=== PATIENT | female | born 1975 | race Asian ===

== ENCOUNTER → 2020-03-02 14:13 | Outpatient (BNVA) | payer OTHER, SELFPAY | PROVIDERS: PCP Internal Medicine; Visit Provider Hospitalist | DX: Q21.1 Atrial septal defect (principal); G47.33 Obstructive sleep apnea (adult) (pediatric); I26.99 Other pulmonary embolism without acute cor pulmonale; I82.409 Acute embolism and thrombosis of unspecified deep veins of unspecified lower extremity | CPT/HCPCS: 99212 ==

== ENCOUNTER → 2020-03-30 11:45 | Outpatient (REF) | payer OTHER, SELFPAY | LOC: HO.SL 11:45 | PROVIDERS: Visit Provider Hospitalist | DX: G47.33 Obstructive sleep apnea (adult) (pediatric) (principal); R06.83 Snoring; Z99.89 Dependence on other enabling machines and devices | CPT/HCPCS: 95806 ==

== ENCOUNTER → 2020-05-13 09:59 | Outpatient (BNVA) | payer OTHER, SELFPAY | PROVIDERS: Visit Provider Hospitalist | DX: I26.94 Multiple subsegmental thrombotic pulmonary emboli without acute cor pulmonale (principal); Q21.1 Atrial septal defect; I82.409 Acute embolism and thrombosis of unspecified deep veins of unspecified lower extremity; R06.00 Dyspnea, unspecified; J45.40 Moderate persistent asthma, uncomplicated | CPT/HCPCS: 99212 ==

== ENCOUNTER → 2020-06-07 12:52 | Outpatient (BNVA) | payer OTHER, SELFPAY | PROVIDERS: Visit Provider Internal Medicine Gastroenterology | DX: K59.01 Slow transit constipation (principal); K21.9 Gastro-esophageal reflux disease without esophagitis | CPT/HCPCS: Q3014 ==

== ENCOUNTER → 2020-06-09 13:19 | Outpatient (REF) | payer OTHER, SELFPAY ==
--- NOTE | ~2020-06-09 | XR_ITS ---
EXAMINATION: XR CHEST CLINICAL INFORMATION: R06.00 - Dyspnea, unspecified COMPARISON: Chest radiographs 02/06/2008 and 10/10/2007 TECHNIQUE: 2 views of the chest were obtained. FINDINGS: There is no airspace consolidation or definite groundglass opacity. No hyperinflation. The costophrenic sulci are clear. The heart is normal in size. The vascularity is normal. The hilar and mediastinal contours are unremarkable. No acute bony abnormality. XR/XR chest 2V IMPRESSION: Unremarkable examination.
--- NOTE | ~2020-06-09 | NM_ITS ---
EXAMINATION: PULMONARY PERFUSION STUDY CLINICAL INFORMATION: Dyspnea, question pulmonary embolus. COMPARISON: No previous lung scan is available for comparison. Radiographs of the chest dated 06/09/2020, the same date as this lung scan are available for comparison. TECHNIQUE: Following the intravenous administration of 4.0 mCi Tc-99m MAA an 8-view perfusion study was performed using a dual detector gamma scintillation camera. No ventilation images were obtained. FINDINGS: Perfusion images: No perfusion abnormalities are present. There is minimal heterogeneity in the lungs, not definitely outside the limits of normal. No focal anatomic appearing perfusion defects are present. NM/NM pul perfusion IMPRESSION: Very low probability of pulmonary embolism.
== END ==
LOC: HO.NUCMED 13:19
PROVIDERS: Visit Provider Hospitalist
DX: I26.99 Other pulmonary embolism without acute cor pulmonale (principal); R06.00 Dyspnea, unspecified
CPT/HCPCS: 71046; 78580; A9540

== ENCOUNTER 2020-08-12 10:27 | Outpatient (REF) | payer OTHER, SELFPAY ==
[2020-08-12 12:10] LABS: MANUAL DIFF FLAG NO
[2020-08-12 12:19] LABS: Basophils Absolute Auto 0.1 X10*3/uL (0.0-0.2); Basophils Percent Auto 0.9 % (0-2); Eosinophils Absolute Auto 0.4 X10*3/uL (0.0-0.4); Eosinophils Percent Auto 5.5 % (0-4); Hemoglobin 13.6 g/dl (12.0-16.0); Imm Gran Abs Auto 0.01 X10*3/uL (0.00-0.03); Imm Gran Pct Auto 0.2 % (0.0-0.4); Lymphocytes Absolute Auto 3.3 X10*3/uL (1.2-4.9); Lymphocytes Percent Auto 50.8 % (20-40); Mean Corpuscular HGB Conc 32.4 g/dl (31.0-35.0); Mean Corpuscular Hemoglobin 28.3 pg (27.0-33.0); Mean Corpuscular Volume 87.3 fL (80-98); Mean Platelet Volume 11.4 fL (9.4-12.3); Monocytes Absolute Auto 0.4 X10*3/uL (0.1-1.2); Monocytes Percent Auto 5.9 % (2-11); Neutrophils Absolute Auto 2.4 X10*3/uL (2.0-8.3); Neutrophils Percent Auto 36.7 % (45-73); Platelet Count 278 X10*3/uL (160-400); Red Blood Count 4.81 X10*6/uL (4.20-5.50); Red Cell Distribution Width 12.7 % (11.0-16.0); White Blood Count 6.6 X10*3/uL (4.8-10.8)
[2020-08-12 12:43] LABS: Alanine Aminotransferase 21 U/L (0-31); Albumin Level 4.1 g/dL (3.5-5.0); Alkaline Phosphatase 76 U/L (39-117); Anion Gap 11 (12-20); Aspartate Amino Transferase 23 U/L (5-31); Bilirubin Direct 0.3 mg/dL (0.0-0.5); Bilirubin Total 0.9 mg/dL (0.0-1.0); Blood Urea Nitrogen 17 mg/dL (9-16); Calcium 9.9 mg/dL (8.4-10.2); Carbon Dioxide 31 mmol/L (22-29); Chloride 104 mmol/L (96-108); Estimated Glomerular Filt Rate > 60; Glucose Random 104 mg/dL (60-115); Potassium 4.2 mmol/L (3.3-5.1); Sodium 142 mmol/L (135-145)
[2020-08-12 13:02] LABS: Erythrocyte Sedimentation Rate 16 MM/HR (0-20)
[2020-08-12 13:05] LABS: Vitamin D 25-OH Total 47.7 ng/mL (>30)
[2020-08-14 12:21] LABS: Anti Nuclear Antibody Screen NEGATIVE (NEGATIVE)
[2020-08-20 14:02] LABS: Vitamin D 25-OH, D2 <4 ng/mL; Vitamin D 25-OH, D3 38 ng/mL; Vitamin D 25-OH, Total 38 ng/mL (30-100)
== END 2020-08-12 10:28 | disposition home or self-care (01) ==
LOC: HO.LAB 10:27
PROVIDERS: PCP Internal Medicine; Visit Provider Hospitalist
DX: J45.40 Moderate persistent asthma, uncomplicated (principal); I26.94 Multiple subsegmental thrombotic pulmonary emboli without acute cor pulmonale; G47.33 Obstructive sleep apnea (adult) (pediatric); I82.409 Acute embolism and thrombosis of unspecified deep veins of unspecified lower extremity; Z79.01 Long term (current) use of anticoagulants; Q21.1 Atrial septal defect
CPT/HCPCS: 36415; 80048; 80076; 82306; 85025; 85652; 86038; 86039; 99212

== ENCOUNTER → 2020-09-13 13:33 | Outpatient (BNVA) | payer OTHER, SELFPAY | PROVIDERS: PCP Internal Medicine; Visit Provider Internal Medicine | DX: I82.402 Acute embolism and thrombosis of unspecified deep veins of left lower extremity (principal); Z51.81 Encounter for therapeutic drug level monitoring; Z79.01 Long term (current) use of anticoagulants | CPT/HCPCS: 85610; 99201 ==

== ENCOUNTER → 2020-09-16 14:00 | Outpatient (BNVA) | payer OTHER, SELFPAY | PROVIDERS: PCP Internal Medicine; Visit Provider Internal Medicine | DX: I82.402 Acute embolism and thrombosis of unspecified deep veins of left lower extremity (principal); Z51.81 Encounter for therapeutic drug level monitoring; Z79.01 Long term (current) use of anticoagulants | CPT/HCPCS: 85610; 99211 ==

== ENCOUNTER → 2020-09-20 16:22 | Outpatient (BNVA) | payer OTHER, SELFPAY | PROVIDERS: PCP Internal Medicine; Visit Provider Internal Medicine | DX: I82.402 Acute embolism and thrombosis of unspecified deep veins of left lower extremity (principal); Z51.81 Encounter for therapeutic drug level monitoring; Z79.01 Long term (current) use of anticoagulants | CPT/HCPCS: 85610; 99211 ==

== ENCOUNTER → 2020-09-28 11:11 | Outpatient (BNVA) | payer OTHER, SELFPAY | PROVIDERS: PCP Internal Medicine; Visit Provider Internal Medicine | DX: I82.402 Acute embolism and thrombosis of unspecified deep veins of left lower extremity (principal); Z51.81 Encounter for therapeutic drug level monitoring; Z79.01 Long term (current) use of anticoagulants | CPT/HCPCS: 85610; 99211 ==

== ENCOUNTER → 2020-10-01 09:46 | Outpatient (BNVA) | payer OTHER, SELFPAY | PROVIDERS: PCP Internal Medicine; Visit Provider Internal Medicine | DX: I82.402 Acute embolism and thrombosis of unspecified deep veins of left lower extremity (principal); Z51.81 Encounter for therapeutic drug level monitoring; Z79.01 Long term (current) use of anticoagulants | CPT/HCPCS: 85610; 99211 ==

== ENCOUNTER → 2020-10-05 09:45 | Outpatient (BNVA) | payer OTHER, SELFPAY | PROVIDERS: PCP Internal Medicine; Visit Provider Internal Medicine | DX: I82.402 Acute embolism and thrombosis of unspecified deep veins of left lower extremity (principal); Z51.81 Encounter for therapeutic drug level monitoring; Z79.01 Long term (current) use of anticoagulants | CPT/HCPCS: 85610; 99211 ==

== ENCOUNTER → 2020-10-08 09:57 | Outpatient (BNVA) | payer OTHER, SELFPAY | PROVIDERS: PCP Internal Medicine; Visit Provider Internal Medicine | DX: I82.402 Acute embolism and thrombosis of unspecified deep veins of left lower extremity (principal); Z51.81 Encounter for therapeutic drug level monitoring; Z79.01 Long term (current) use of anticoagulants | CPT/HCPCS: 85610 ==

== ENCOUNTER → 2020-10-12 10:26 | Outpatient (BNVA) | payer OTHER, SELFPAY | PROVIDERS: PCP Internal Medicine; Visit Provider Internal Medicine | DX: I82.402 Acute embolism and thrombosis of unspecified deep veins of left lower extremity (principal); Z51.81 Encounter for therapeutic drug level monitoring; Z79.01 Long term (current) use of anticoagulants | CPT/HCPCS: 85610; 99211 ==

== ENCOUNTER → 2020-10-15 09:59 | Outpatient (BNVA) | payer OTHER, SELFPAY | PROVIDERS: PCP Internal Medicine; Visit Provider Internal Medicine | DX: I82.402 Acute embolism and thrombosis of unspecified deep veins of left lower extremity (principal); Z51.81 Encounter for therapeutic drug level monitoring; Z79.01 Long term (current) use of anticoagulants | CPT/HCPCS: 85610; 99211 ==

== ENCOUNTER → 2020-10-19 09:45 | Outpatient (BNVA) | payer OTHER, SELFPAY | PROVIDERS: PCP Internal Medicine; Visit Provider Internal Medicine | DX: I82.402 Acute embolism and thrombosis of unspecified deep veins of left lower extremity (principal); Z51.81 Encounter for therapeutic drug level monitoring; Z79.01 Long term (current) use of anticoagulants | CPT/HCPCS: 85610; 99211 ==

== ENCOUNTER → 2020-10-20 11:04 | Outpatient (BNVA) | payer OTHER, SELFPAY | PROVIDERS: PCP Internal Medicine; Visit Provider Hospitalist | DX: G47.33 Obstructive sleep apnea (adult) (pediatric) (principal); J45.40 Moderate persistent asthma, uncomplicated; Q21.1 Atrial septal defect; I82.409 Acute embolism and thrombosis of unspecified deep veins of unspecified lower extremity; Z79.01 Long term (current) use of anticoagulants | CPT/HCPCS: 99212 ==

== ENCOUNTER → 2020-10-21 09:54 | Outpatient (BNVA) | payer OTHER, SELFPAY | PROVIDERS: PCP Internal Medicine; Visit Provider Internal Medicine | DX: I82.402 Acute embolism and thrombosis of unspecified deep veins of left lower extremity (principal); Z79.01 Long term (current) use of anticoagulants; Z51.81 Encounter for therapeutic drug level monitoring | CPT/HCPCS: 85610; 99211 ==

== ENCOUNTER → 2020-10-25 10:58 | Outpatient (BNVA) | payer OTHER, SELFPAY | PROVIDERS: PCP Internal Medicine; Visit Provider Internal Medicine | DX: I82.402 Acute embolism and thrombosis of unspecified deep veins of left lower extremity (principal); Z51.81 Encounter for therapeutic drug level monitoring; Z79.01 Long term (current) use of anticoagulants | CPT/HCPCS: 85610; 99211 ==

== ENCOUNTER → 2020-10-28 11:07 | Outpatient (BNVA) | payer OTHER, SELFPAY | PROVIDERS: PCP Internal Medicine; Visit Provider Internal Medicine | DX: I82.402 Acute embolism and thrombosis of unspecified deep veins of left lower extremity (principal); Z51.81 Encounter for therapeutic drug level monitoring; Z79.01 Long term (current) use of anticoagulants | CPT/HCPCS: 85610; 99211 ==

== ENCOUNTER → 2020-11-02 09:52 | Outpatient (BNVA) | payer OTHER, SELFPAY | PROVIDERS: PCP Internal Medicine; Visit Provider Internal Medicine | DX: I82.402 Acute embolism and thrombosis of unspecified deep veins of left lower extremity (principal); Z79.01 Long term (current) use of anticoagulants; Z51.81 Encounter for therapeutic drug level monitoring | CPT/HCPCS: 85610; 99211 ==

== ENCOUNTER → 2020-11-05 09:52 | Outpatient (BNVA) | payer OTHER, SELFPAY | PROVIDERS: PCP Internal Medicine; Visit Provider Internal Medicine | DX: I82.402 Acute embolism and thrombosis of unspecified deep veins of left lower extremity (principal); Z51.81 Encounter for therapeutic drug level monitoring; Z79.01 Long term (current) use of anticoagulants | CPT/HCPCS: 85610; 99211 ==

== ENCOUNTER → 2020-11-09 10:12 | Outpatient (BNVA) | payer OTHER, SELFPAY | PROVIDERS: PCP Internal Medicine; Visit Provider Internal Medicine | DX: I82.402 Acute embolism and thrombosis of unspecified deep veins of left lower extremity (principal); Z51.81 Encounter for therapeutic drug level monitoring; Z79.01 Long term (current) use of anticoagulants | CPT/HCPCS: 85610; 99211 ==

== ENCOUNTER → 2020-11-12 10:01 | Outpatient (BNVA) | payer OTHER, SELFPAY | PROVIDERS: PCP Internal Medicine; Visit Provider Internal Medicine | DX: I82.402 Acute embolism and thrombosis of unspecified deep veins of left lower extremity (principal); Z51.81 Encounter for therapeutic drug level monitoring; Z79.01 Long term (current) use of anticoagulants | CPT/HCPCS: 85610; 99212 ==

== ENCOUNTER → 2020-11-16 10:47 | Outpatient (BNVA) | payer OTHER, SELFPAY | PROVIDERS: PCP Internal Medicine; Visit Provider Internal Medicine | DX: I82.402 Acute embolism and thrombosis of unspecified deep veins of left lower extremity (principal); Z51.81 Encounter for therapeutic drug level monitoring; Z79.01 Long term (current) use of anticoagulants | CPT/HCPCS: 85610; 99211 ==

== ENCOUNTER → 2020-11-17 10:54 | Outpatient (BNVA) | payer OTHER, SELFPAY | PROVIDERS: PCP Internal Medicine; Visit Provider Internal Medicine | DX: I82.402 Acute embolism and thrombosis of unspecified deep veins of left lower extremity (principal); Z51.81 Encounter for therapeutic drug level monitoring; Z79.01 Long term (current) use of anticoagulants | CPT/HCPCS: 85610; 99211 ==

== ENCOUNTER → 2020-11-19 10:17 | Outpatient (BNVA) | payer OTHER, SELFPAY | PROVIDERS: PCP Internal Medicine; Visit Provider Internal Medicine | DX: I82.402 Acute embolism and thrombosis of unspecified deep veins of left lower extremity (principal); Z51.81 Encounter for therapeutic drug level monitoring; Z79.01 Long term (current) use of anticoagulants | CPT/HCPCS: 85610; 99211 ==

== ENCOUNTER → 2020-11-22 09:35 | Outpatient (BNVA) | payer OTHER, SELFPAY | PROVIDERS: PCP Internal Medicine; Visit Provider Internal Medicine | DX: I82.402 Acute embolism and thrombosis of unspecified deep veins of left lower extremity (principal); Z51.81 Encounter for therapeutic drug level monitoring; Z79.01 Long term (current) use of anticoagulants | CPT/HCPCS: 85610; 99211 ==

== ENCOUNTER → 2020-11-26 09:49 | Outpatient (BNVA) | payer OTHER, SELFPAY | PROVIDERS: PCP Internal Medicine; Visit Provider Internal Medicine | DX: I82.402 Acute embolism and thrombosis of unspecified deep veins of left lower extremity (principal); Z51.81 Encounter for therapeutic drug level monitoring; Z79.01 Long term (current) use of anticoagulants | CPT/HCPCS: 85610; 99211 ==

== ENCOUNTER → 2020-11-30 10:00 | Outpatient (BNVA) | payer OTHER, SELFPAY | PROVIDERS: PCP Internal Medicine; Visit Provider Internal Medicine | DX: I82.402 Acute embolism and thrombosis of unspecified deep veins of left lower extremity (principal); Z51.81 Encounter for therapeutic drug level monitoring; Z79.01 Long term (current) use of anticoagulants | CPT/HCPCS: 85610; 99211 ==

== ENCOUNTER → 2020-12-02 09:24 | Outpatient (BNVA) | payer OTHER, SELFPAY | PROVIDERS: PCP Internal Medicine; Visit Provider Physician Assistant | DX: K21.9 Gastro-esophageal reflux disease without esophagitis (principal); G47.33 Obstructive sleep apnea (adult) (pediatric); Z79.01 Long term (current) use of anticoagulants | CPT/HCPCS: 99212 ==

== ENCOUNTER → 2020-12-03 13:48 | Outpatient (BNVA) | payer OTHER, SELFPAY | PROVIDERS: PCP Internal Medicine; Visit Provider Internal Medicine | DX: I82.401 Acute embolism and thrombosis of unspecified deep veins of right lower extremity (principal); Z51.81 Encounter for therapeutic drug level monitoring; Z79.01 Long term (current) use of anticoagulants | CPT/HCPCS: 85610; 99211 ==

== ENCOUNTER → 2020-12-07 10:25 | Outpatient (BNVA) | payer OTHER, SELFPAY | PROVIDERS: PCP Internal Medicine; Visit Provider Internal Medicine | DX: I82.401 Acute embolism and thrombosis of unspecified deep veins of right lower extremity (principal); Z51.81 Encounter for therapeutic drug level monitoring; Z79.01 Long term (current) use of anticoagulants | CPT/HCPCS: 85610; 99211 ==

== ENCOUNTER 2020-12-09 09:56 | Outpatient (REF) | payer OTHER, SELFPAY ==
--- NOTE | ~2020-12-09 | FL_ITS ---
EXAMINATION: FL BARIUM SWALLOW CLINICAL INFORMATION: Obstructive sleep apnea. COMPARISON: None. TECHNIQUE: Barium swallow examination is performed using fluoroscopic evaluation in addition to multiple fluoroscopic spot views. The patient is imaged both upright and prone and using both thick and thin sulfate along with effervescent granules. Fluoroscopy time: 2.2 minutes DAP: 31.22 Gycm2 Images: 49 FINDINGS: Following oral administration of thick barium and barium-coated turkey in upright view, there is normal propagation bolus from the oral cavity through the pharynx and esophagus and into the stomach without any evidence of obstruction, narrowing or stricture. On placing patient in right lateral decubitus lying view and oral administration of thin barium, there is a small gastroesophageal reflux with a small sliding hiatal hernia. 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 FL/FL barium swallow IMPRESSION: Widely patent esophagus with no obstruction. Likely small sliding hiatal hernia with mild gastroesophageal reflux.
== END 2020-12-09 09:57 | disposition home or self-care (01) ==
LOC: HO.XRAY 09:56
PROVIDERS: Visit Provider Physician Assistant
DX: K21.9 Gastro-esophageal reflux disease without esophagitis (principal); G47.33 Obstructive sleep apnea (adult) (pediatric); Z79.01 Long term (current) use of anticoagulants
CPT/HCPCS: 74220

== ENCOUNTER → 2020-12-10 11:09 | Outpatient (BNVA) | payer OTHER, SELFPAY | PROVIDERS: PCP Internal Medicine; Visit Provider Internal Medicine | DX: I82.401 Acute embolism and thrombosis of unspecified deep veins of right lower extremity (principal); Z51.81 Encounter for therapeutic drug level monitoring; Z79.01 Long term (current) use of anticoagulants | CPT/HCPCS: 85610; 99211 ==

== ENCOUNTER → 2020-12-14 10:12 | Outpatient (BNVA) | payer OTHER, SELFPAY | PROVIDERS: PCP Internal Medicine; Visit Provider Internal Medicine | DX: I82.401 Acute embolism and thrombosis of unspecified deep veins of right lower extremity (principal); Z51.81 Encounter for therapeutic drug level monitoring; Z79.01 Long term (current) use of anticoagulants | CPT/HCPCS: 85610; 99211 ==

== ENCOUNTER → 2020-12-17 09:42 | Outpatient (BNVA) | payer OTHER, SELFPAY | PROVIDERS: PCP Internal Medicine; Visit Provider Internal Medicine | DX: I82.401 Acute embolism and thrombosis of unspecified deep veins of right lower extremity (principal); Z51.81 Encounter for therapeutic drug level monitoring; Z79.01 Long term (current) use of anticoagulants | CPT/HCPCS: 85610; 99211 ==

== ENCOUNTER → 2020-12-21 13:32 | Outpatient (BNVA) | payer OTHER, SELFPAY | PROVIDERS: PCP Internal Medicine; Visit Provider Internal Medicine | DX: I82.401 Acute embolism and thrombosis of unspecified deep veins of right lower extremity (principal); Z51.81 Encounter for therapeutic drug level monitoring; Z79.01 Long term (current) use of anticoagulants | CPT/HCPCS: 85610; 99211 ==

== ENCOUNTER → 2020-12-24 09:20 | Outpatient (BNVA) | payer OTHER, SELFPAY | PROVIDERS: PCP Internal Medicine; Visit Provider Internal Medicine | DX: J45.909 Unspecified asthma, uncomplicated (principal); I82.401 Acute embolism and thrombosis of unspecified deep veins of right lower extremity; E66.9 Obesity, unspecified; I73.9 Peripheral vascular disease, unspecified; I87.309 Chronic venous hypertension (idiopathic) without complications of unspecified lower extremity; G47.33 Obstructive sleep apnea (adult) (pediatric); I82.409 Acute embolism and thrombosis of unspecified deep veins of unspecified lower extremity; Q21.1 Atrial septal defect; J45.40 Moderate persistent asthma, uncomplicated; Z51.81 Encounter for therapeutic drug level monitoring; Z79.01 Long term (current) use of anticoagulants | CPT/HCPCS: 85610; 99211; 99212 ==

== ENCOUNTER → 2020-12-28 10:32 | Outpatient (BNVA) | payer OTHER, SELFPAY | PROVIDERS: PCP Internal Medicine; Visit Provider Internal Medicine | DX: I82.401 Acute embolism and thrombosis of unspecified deep veins of right lower extremity (principal); Z51.81 Encounter for therapeutic drug level monitoring; Z79.01 Long term (current) use of anticoagulants | CPT/HCPCS: 85610; 99211 ==

== ENCOUNTER 2020-12-31 16:18 | Outpatient (REF) | payer OTHER, SELFPAY ==
--- NOTE | ~2020-12-31 | CT_ITS ---
EXAMINATION: CT HEAD WITHOUT CONTRAST CLINICAL INFORMATION: Stroke COMPARISON: Previous head CT July 2018 TECHNIQUE: Contiguous axial imaging was performed from the skull base to vertex without intravenous administration of contrast. This CT examination was performed using dose optimization techniques as appropriate, variously including the following: *Automated exposure control *Adjustment of mA and/or kV according to patient size (this includes techniques or standardized protocols for targeted exams where dose is matched to indication/reason for exam; i.e. extremities or head) *Use of iterative reconstruction technique DLP: 874 mGy-cm FINDINGS: There is no evidence of acute intracranial hemorrhage or territorial infarction. No abnormal mass effect or midline shift is seen. Norton to white matter differentiation is well preserved. No extra-axial fluid collections are identified. The ventricles are normal in size. There is no abnormal attenuation within the brain parenchyma. The osseous structures and soft tissues are normal. The mastoid air cells and visualized portions of the paranasal sinuses are well aerated. CT/CT head/brain wo con IMPRESSION: Unremarkable exam.
== END 2020-12-31 16:19 | disposition home or self-care (01) ==
LOC: HO.CT 16:18
PROVIDERS: Visit Provider Psychiatry & Neurology Neurology
DX: I82.401 Acute embolism and thrombosis of unspecified deep veins of right lower extremity (principal); Z86.73 Personal history of transient ischemic attack (TIA), and cerebral infarction without residual deficits; Z51.81 Encounter for therapeutic drug level monitoring; Z79.01 Long term (current) use of anticoagulants
CPT/HCPCS: 70450; 85610; 99211

== ENCOUNTER → 2021-01-04 10:55 | Outpatient (BNVA) | payer OTHER, SELFPAY | PROVIDERS: PCP Internal Medicine; Visit Provider Internal Medicine | DX: I82.401 Acute embolism and thrombosis of unspecified deep veins of right lower extremity (principal); Z51.81 Encounter for therapeutic drug level monitoring; Z79.01 Long term (current) use of anticoagulants | CPT/HCPCS: 85610; 99211 ==

== ENCOUNTER 2021-01-06 11:30 | Outpatient (REF) | payer OTHER, SELFPAY | END 2021-01-06 11:31 | disposition home or self-care (01) | LOC: HO.RESP 11:30 | PROVIDERS: PCP Internal Medicine; Visit Provider Hospitalist | DX: Z13.89 Encounter for screening for other disorder (principal) | CPT/HCPCS: Q3014 ==

== ENCOUNTER → 2021-01-07 10:19 | Outpatient (BNVA) | payer OTHER, SELFPAY | PROVIDERS: PCP Internal Medicine; Visit Provider Internal Medicine | DX: I82.401 Acute embolism and thrombosis of unspecified deep veins of right lower extremity (principal); Z51.81 Encounter for therapeutic drug level monitoring; Z79.01 Long term (current) use of anticoagulants | CPT/HCPCS: 85610; 99211 ==

== ENCOUNTER → 2021-01-11 10:23 | Outpatient (BNVA) | payer OTHER, SELFPAY | PROVIDERS: PCP Internal Medicine; Visit Provider Internal Medicine | DX: I82.401 Acute embolism and thrombosis of unspecified deep veins of right lower extremity (principal); Z51.81 Encounter for therapeutic drug level monitoring; Z79.01 Long term (current) use of anticoagulants | CPT/HCPCS: 85610; 99211 ==

== ENCOUNTER → 2021-01-18 11:24 | Outpatient (BNVA) | payer OTHER, SELFPAY | PROVIDERS: PCP Internal Medicine; Visit Provider Internal Medicine | DX: I82.401 Acute embolism and thrombosis of unspecified deep veins of right lower extremity (principal); Z51.81 Encounter for therapeutic drug level monitoring; Z79.01 Long term (current) use of anticoagulants | CPT/HCPCS: 85610; 99211 ==

== ENCOUNTER → 2021-01-21 10:32 | Outpatient (BNVA) | payer OTHER, SELFPAY | PROVIDERS: PCP Internal Medicine; Visit Provider Internal Medicine | DX: J45.41 Moderate persistent asthma with (acute) exacerbation (principal); I82.401 Acute embolism and thrombosis of unspecified deep veins of right lower extremity; Q21.1 Atrial septal defect; E66.9 Obesity, unspecified; I73.9 Peripheral vascular disease, unspecified; Z79.899 Other long term (current) drug therapy; Z51.81 Encounter for therapeutic drug level monitoring; Z79.01 Long term (current) use of anticoagulants | CPT/HCPCS: 85610; 96372; 99211; 99212; J2930 ==

== ENCOUNTER → 2021-01-25 11:18 | Outpatient (BNVA) | payer OTHER, SELFPAY | PROVIDERS: PCP Internal Medicine; Visit Provider Internal Medicine | DX: I82.401 Acute embolism and thrombosis of unspecified deep veins of right lower extremity (principal); Z51.81 Encounter for therapeutic drug level monitoring; Z79.01 Long term (current) use of anticoagulants | CPT/HCPCS: 85610; 99211 ==

== ENCOUNTER → 2021-01-28 10:38 | Outpatient (BNVA) | payer OTHER, SELFPAY | PROVIDERS: PCP Internal Medicine; Visit Provider Internal Medicine | DX: I82.401 Acute embolism and thrombosis of unspecified deep veins of right lower extremity (principal); Z51.81 Encounter for therapeutic drug level monitoring; Z79.01 Long term (current) use of anticoagulants | CPT/HCPCS: 85610; 99211 ==

== ENCOUNTER → 2021-02-01 10:35 | Outpatient (BNVA) | payer OTHER, SELFPAY | PROVIDERS: PCP Internal Medicine; Visit Provider Internal Medicine | DX: I82.401 Acute embolism and thrombosis of unspecified deep veins of right lower extremity (principal); Z51.81 Encounter for therapeutic drug level monitoring; Z79.01 Long term (current) use of anticoagulants | CPT/HCPCS: 85610; 99211 ==

== ENCOUNTER 2021-02-04 | Outpatient (REF) | payer OTHER, SELFPAY | END 2021-02-04 00:01 | disposition home or self-care (01) | LOC: CF | PROVIDERS: Visit Provider Internal Medicine | DX: R06.00 Dyspnea, unspecified (principal); I82.401 Acute embolism and thrombosis of unspecified deep veins of right lower extremity; Z79.01 Long term (current) use of anticoagulants; Z51.81 Encounter for therapeutic drug level monitoring | CPT/HCPCS: 85610; 99211 ==

== ENCOUNTER → 2021-02-08 10:28 | Outpatient (BNVA) | payer OTHER, SELFPAY | PROVIDERS: PCP Internal Medicine; Visit Provider Internal Medicine | DX: I82.401 Acute embolism and thrombosis of unspecified deep veins of right lower extremity (principal); Z51.81 Encounter for therapeutic drug level monitoring; Z79.01 Long term (current) use of anticoagulants | CPT/HCPCS: 85610; 99211 ==

== ENCOUNTER → 2021-02-11 10:15 | Outpatient (BNVA) | payer OTHER, SELFPAY | PROVIDERS: PCP Internal Medicine; Visit Provider Internal Medicine | DX: I82.401 Acute embolism and thrombosis of unspecified deep veins of right lower extremity (principal); Z51.81 Encounter for therapeutic drug level monitoring; Z79.01 Long term (current) use of anticoagulants | CPT/HCPCS: 85610; 99211 ==

== ENCOUNTER → 2021-02-16 13:25 | Outpatient (BNVA) | payer OTHER, SELFPAY | PROVIDERS: PCP Internal Medicine; Visit Provider Internal Medicine | DX: I82.401 Acute embolism and thrombosis of unspecified deep veins of right lower extremity (principal); Z51.81 Encounter for therapeutic drug level monitoring; Z79.01 Long term (current) use of anticoagulants | CPT/HCPCS: 85610; 99211 ==

== ENCOUNTER → 2021-02-22 10:18 | Outpatient (BNVA) | payer OTHER, SELFPAY | PROVIDERS: PCP Internal Medicine; Visit Provider Internal Medicine | DX: I82.401 Acute embolism and thrombosis of unspecified deep veins of right lower extremity (principal); Z51.81 Encounter for therapeutic drug level monitoring; Z79.01 Long term (current) use of anticoagulants | CPT/HCPCS: 85610; 99211 ==

== ENCOUNTER → 2021-02-25 10:46 | Outpatient (BNVA) | payer OTHER, SELFPAY | PROVIDERS: PCP Internal Medicine; Visit Provider Internal Medicine | DX: I82.401 Acute embolism and thrombosis of unspecified deep veins of right lower extremity (principal); Z51.81 Encounter for therapeutic drug level monitoring; Z79.01 Long term (current) use of anticoagulants | CPT/HCPCS: 85610; 99211 ==

== ENCOUNTER → 2021-03-01 10:58 | Outpatient (BNVA) | payer OTHER, SELFPAY | PROVIDERS: PCP Internal Medicine; Visit Provider Internal Medicine | DX: I82.401 Acute embolism and thrombosis of unspecified deep veins of right lower extremity (principal); Z51.81 Encounter for therapeutic drug level monitoring; Z79.01 Long term (current) use of anticoagulants | CPT/HCPCS: 85610; 99211 ==

== ENCOUNTER → 2021-03-04 10:09 | Outpatient (BNVA) | payer OTHER, SELFPAY | PROVIDERS: PCP Internal Medicine; Visit Provider Internal Medicine | DX: I82.401 Acute embolism and thrombosis of unspecified deep veins of right lower extremity (principal); Z51.81 Encounter for therapeutic drug level monitoring; Z79.01 Long term (current) use of anticoagulants | CPT/HCPCS: 85610; 99211 ==

== ENCOUNTER → 2021-03-08 10:31 | Outpatient (BNVA) | payer OTHER, SELFPAY | PROVIDERS: PCP Internal Medicine; Visit Provider Internal Medicine | DX: I82.401 Acute embolism and thrombosis of unspecified deep veins of right lower extremity (principal); Z51.81 Encounter for therapeutic drug level monitoring; Z79.01 Long term (current) use of anticoagulants | CPT/HCPCS: 85610; 99211 ==

== ENCOUNTER → 2021-03-11 10:46 | Outpatient (BNVA) | payer OTHER, SELFPAY | PROVIDERS: PCP Internal Medicine; Visit Provider Internal Medicine | DX: I82.401 Acute embolism and thrombosis of unspecified deep veins of right lower extremity (principal); Z51.81 Encounter for therapeutic drug level monitoring; Z79.01 Long term (current) use of anticoagulants | CPT/HCPCS: 85610; 99211 ==

== ENCOUNTER → 2021-03-15 10:27 | Outpatient (BNVA) | payer OTHER, SELFPAY | PROVIDERS: PCP Internal Medicine; Visit Provider Internal Medicine | DX: I82.401 Acute embolism and thrombosis of unspecified deep veins of right lower extremity (principal); Z51.81 Encounter for therapeutic drug level monitoring; Z79.01 Long term (current) use of anticoagulants | CPT/HCPCS: 85610; 99211 ==

== ENCOUNTER → 2021-03-17 15:10 | Outpatient (BNVA) | payer OTHER, SELFPAY | PROVIDERS: PCP Internal Medicine; Visit Provider Internal Medicine | DX: I82.401 Acute embolism and thrombosis of unspecified deep veins of right lower extremity (principal); Z51.81 Encounter for therapeutic drug level monitoring; Z79.01 Long term (current) use of anticoagulants | CPT/HCPCS: 85610; 99211 ==

== ENCOUNTER → 2021-03-22 09:35 | Outpatient (BNVA) | payer OTHER, SELFPAY | PROVIDERS: PCP Internal Medicine; Visit Provider Internal Medicine | DX: I82.401 Acute embolism and thrombosis of unspecified deep veins of right lower extremity (principal); Z51.81 Encounter for therapeutic drug level monitoring; Z79.01 Long term (current) use of anticoagulants | CPT/HCPCS: 85610; 99211 ==

== ENCOUNTER → 2021-03-24 14:58 | Outpatient (BNVA) | payer OTHER, SELFPAY | PROVIDERS: PCP Internal Medicine; Visit Provider Internal Medicine | DX: I82.401 Acute embolism and thrombosis of unspecified deep veins of right lower extremity (principal); Z51.81 Encounter for therapeutic drug level monitoring; Z79.01 Long term (current) use of anticoagulants | CPT/HCPCS: 85610; 99211 ==

== ENCOUNTER → 2021-03-28 09:57 | Outpatient (BNVA) | payer OTHER, SELFPAY | PROVIDERS: PCP Internal Medicine; Visit Provider Internal Medicine | DX: I82.401 Acute embolism and thrombosis of unspecified deep veins of right lower extremity (principal); Z51.81 Encounter for therapeutic drug level monitoring; Z79.01 Long term (current) use of anticoagulants | CPT/HCPCS: 85610; 99211 ==

== ENCOUNTER → 2021-03-29 14:28 | Outpatient (BNVA) | payer OTHER, SELFPAY | PROVIDERS: PCP Internal Medicine; Visit Provider Surgery Vascular Surgery | DX: I83.11 Varicose veins of right lower extremity with inflammation (principal); E66.01 Morbid (severe) obesity due to excess calories; Z68.43 Body mass index [BMI] 50.0-59.9, adult | CPT/HCPCS: 99202 ==

== ENCOUNTER → 2021-03-31 09:49 | Outpatient (BNVA) | payer OTHER, SELFPAY | PROVIDERS: PCP Internal Medicine; Visit Provider Internal Medicine | DX: I82.401 Acute embolism and thrombosis of unspecified deep veins of right lower extremity (principal); Z51.81 Encounter for therapeutic drug level monitoring; Z79.01 Long term (current) use of anticoagulants | CPT/HCPCS: 85610; 99211 ==

== ENCOUNTER → 2021-04-01 10:27 | Outpatient (BNVA) | payer OTHER, SELFPAY | PROVIDERS: PCP Internal Medicine; Visit Provider Hospitalist | DX: J45.41 Moderate persistent asthma with (acute) exacerbation (principal); K21.9 Gastro-esophageal reflux disease without esophagitis; I82.409 Acute embolism and thrombosis of unspecified deep veins of unspecified lower extremity; Q21.1 Atrial septal defect; R07.9 Chest pain, unspecified | CPT/HCPCS: 99212 ==

== ENCOUNTER → 2021-04-04 10:56 | Outpatient (BNVA) | payer OTHER, SELFPAY | PROVIDERS: PCP Internal Medicine; Visit Provider Internal Medicine | DX: I82.401 Acute embolism and thrombosis of unspecified deep veins of right lower extremity (principal); Z51.81 Encounter for therapeutic drug level monitoring; Z79.01 Long term (current) use of anticoagulants | CPT/HCPCS: 85610; 99211 ==

== ENCOUNTER → 2021-04-07 14:02 | Outpatient (BNVA) | payer OTHER, SELFPAY | PROVIDERS: PCP Internal Medicine; Visit Provider Physician Assistant | DX: E66.01 Morbid (severe) obesity due to excess calories (principal); G47.33 Obstructive sleep apnea (adult) (pediatric); K21.9 Gastro-esophageal reflux disease without esophagitis; J45.41 Moderate persistent asthma with (acute) exacerbation; Q21.1 Atrial septal defect; I26.94 Multiple subsegmental thrombotic pulmonary emboli without acute cor pulmonale; I82.401 Acute embolism and thrombosis of unspecified deep veins of right lower extremity; K44.9 Diaphragmatic hernia without obstruction or gangrene; Z98.84 Bariatric surgery status; Z68.43 Body mass index [BMI] 50.0-59.9, adult; Z51.81 Encounter for therapeutic drug level monitoring; Z79.01 Long term (current) use of anticoagulants | CPT/HCPCS: 85610; 99202; 99211 ==

== ENCOUNTER → 2021-04-11 10:14 | Outpatient (BNVA) | payer OTHER, SELFPAY | PROVIDERS: PCP Internal Medicine; Visit Provider Internal Medicine | DX: I82.401 Acute embolism and thrombosis of unspecified deep veins of right lower extremity (principal); Z51.81 Encounter for therapeutic drug level monitoring; Z79.01 Long term (current) use of anticoagulants | CPT/HCPCS: 85610; 99211 ==

== ENCOUNTER → 2021-04-14 13:26 | Outpatient (BNVA) | payer OTHER, SELFPAY | PROVIDERS: PCP Internal Medicine; Visit Provider Internal Medicine | DX: I82.401 Acute embolism and thrombosis of unspecified deep veins of right lower extremity (principal); Z51.81 Encounter for therapeutic drug level monitoring; Z79.01 Long term (current) use of anticoagulants | CPT/HCPCS: 85610; 99211 ==

== ENCOUNTER → 2021-04-18 11:34 | Outpatient (BNVA) | payer OTHER, SELFPAY | PROVIDERS: PCP Internal Medicine; Visit Provider Internal Medicine | DX: I82.401 Acute embolism and thrombosis of unspecified deep veins of right lower extremity (principal); Z51.81 Encounter for therapeutic drug level monitoring; Z79.01 Long term (current) use of anticoagulants | CPT/HCPCS: 85610; 99211 ==

== ENCOUNTER → 2021-04-27 15:23 | Outpatient (BNVA) | payer OTHER, SELFPAY | PROVIDERS: PCP Internal Medicine; Visit Provider Internal Medicine | DX: I82.401 Acute embolism and thrombosis of unspecified deep veins of right lower extremity (principal); Z51.81 Encounter for therapeutic drug level monitoring; Z79.01 Long term (current) use of anticoagulants | CPT/HCPCS: 85610; 99211 ==

== ENCOUNTER → 2021-05-02 08:10 | Outpatient (BNVA) | payer OTHER, SELFPAY | PROVIDERS: PCP Internal Medicine; Visit Provider Physician Assistant | DX: I82.4Z1 Acute embolism and thrombosis of unspecified deep veins of right distal lower extremity (principal); Z79.01 Long term (current) use of anticoagulants; Z51.81 Encounter for therapeutic drug level monitoring | CPT/HCPCS: 85610; 99211 ==

== ENCOUNTER → 2021-05-05 08:01 | Outpatient (BNVA) | payer OTHER, SELFPAY | PROVIDERS: PCP Internal Medicine; Visit Provider Dietitian, Registered | DX: E66.01 Morbid (severe) obesity due to excess calories (principal) | CPT/HCPCS: 85610; 97802; 99211 ==

== ENCOUNTER → 2021-05-09 10:25 | Outpatient (BNVA) | payer OTHER, SELFPAY | PROVIDERS: PCP Internal Medicine; Visit Provider Internal Medicine | DX: I82.401 Acute embolism and thrombosis of unspecified deep veins of right lower extremity (principal) | CPT/HCPCS: 85610; 99211 ==

== ENCOUNTER 2021-05-10 10:53 | Outpatient (REF) | payer OTHER, SELFPAY ==
--- NOTE | ~2021-05-10 | US_ITS ---
EXAMINATION: BILATERAL LOWER EXTREMITY VENOUS ULTRASOUND (REFLUX EXAM) CLINICAL INDICATION: Lower extremity varicose veins. COMPARISON: Left lower extremity venous Doppler ultrasound on 08/22/2010 TECHNIQUE: Color-flow triplex imaging and compression Doppler was performed to evaluate both the deep and the superficial systems bilaterally. To evaluate the superficial system, the examination was performed in the upright position. Color-flow Doppler ultrasound and compression ultrasound were utilized. In addition, maneuvers were utilized to demonstrate reflux. FINDINGS: SUPERFICIAL ULTRASOUND WITH DOPPLER OF RIGHT LOWER EXTREMITY: GREAT SAPHENOUS VEIN: The saphenous vein is patent at the junction and measures 5 mm. The saphenous vein is not identified from the proximal thigh to the ankle consistent with prior treatment. DUPLICATED MEDIAL GREAT SAPHENOUS VEIN: Max Diameter: None imaged. Reflux: NA. DUPLICATED LATERAL GREAT SAPHENOUS VEIN: Diameter: 0.6 cm at the junction. Reflux: None. SMALL SAPHENOUS VEIN: Proximal Calf: 0.4 cm. Distal Calf: 0.4 cm. Reflux: No evidence of reflux. VEIN OF GIACOMINI: None imaged. PERFORATORS: Location: None imaged. Reflux: NA. VARICOSITIES: Location: Proximal thigh, at the knee, distal calf. Varicosities measure between 3 and 4 mm. Reflux: Distal thigh varicosity demonstrates reflux greater than 0.9 seconds. DEEP VENOUS ULTRASOUND OF THE RIGHT LOWER EXTREMITY: Common Femoral Vein: Compressible, normal respiratory variation and augmented flow. Femoral Vein: Compressible, normal color-flow and augmentation. Popliteal Vein: Compressible, normal augmentation. Deep Reflux: There is no evidence of reflux in the deep system in either the common femoral vein or the popliteal vein. Gutierrez's Cyst: There is no evidence of a Gutierrez's cyst. SUPERFICIAL ULTRASOUND WITH DOPPLER OF LEFT LOWER EXTREMITY: GREAT SAPHENOUS VEIN: The saphenous vein at the junction measures 0.9 cm and within the proximal thigh measures 0.3 cm. The great saphenous vein is not visualized from the mid thigh to below the knee. It is then patent at the mid calf and ankle measuring 3 mm distally. There is up to 1.6 seconds of reflux within the left great saphenous vein at the mid calf. DUPLICATED MEDIAL GREAT SAPHENOUS VEIN: Max Diameter: None imaged. Reflux: NA. DUPLICATED LATERAL GREAT SAPHENOUS VEIN: Diameter: 0.4 cm at the junction. Reflux: None. SMALL SAPHENOUS VEIN: Proximal Calf: 0.7 cm. Distal Calf: 0.3 cm. Reflux: No evidence of reflux. VEIN OF GIACOMINI: None imaged. PERFORATORS: Location: Mid calf, 0.3 cm. Reflux: None. VARICOSITIES: Location: Proximal calf, mid lateral calf measuring between 3 and 4 mm. Reflux: There is greater than 3.3 seconds of reflux within the proximal calf varicosity. DEEP VENOUS ULTRASOUND OF THE LEFT LOWER EXTREMITY: Common Femoral Vein: Compressible, normal respiratory variation and augmented flow. Femoral Vein: Compressible, normal color-flow and augmentation. Popliteal Vein: Compressible, normal augmentation. Deep Reflux: There is no evidence of reflux in the deep system in either the common femoral vein or the popliteal vein. Gutierrez's Cyst: There is no evidence of a Gutierrez's cyst. US/US venous duplex LE BI IMPRESSION: 1. The right great saphenous vein is not visualized from the proximal thigh to the ankle consistent with prior treatment. 2. The left great saphenous vein is not seen from the mid thigh to below the knee, however, is patent at the mid calf and ankle and demonstrates reflux at the mid calf. 3. Bilateral nonrefluxing and refluxing varicosities, as described. 4. No evidence of DVT or deep venous insufficiency.
== END 2021-05-10 10:54 | disposition home or self-care (01) ==
LOC: HO.US 10:53
PROVIDERS: Visit Provider Surgery Vascular Surgery
DX: I83.11 Varicose veins of right lower extremity with inflammation (principal); I82.401 Acute embolism and thrombosis of unspecified deep veins of right lower extremity; Z51.81 Encounter for therapeutic drug level monitoring; Z79.01 Long term (current) use of anticoagulants
CPT/HCPCS: 85610; 93970; 99212

== ENCOUNTER → 2021-05-11 13:00 | Outpatient (BNVA) | payer OTHER, SELFPAY | PROVIDERS: PCP Internal Medicine; Visit Provider Counselor Mental Health | DX: F32.A Depression, unspecified (principal); E66.9 Obesity, unspecified; K21.9 Gastro-esophageal reflux disease without esophagitis; K59.01 Slow transit constipation; G47.33 Obstructive sleep apnea (adult) (pediatric); Z98.84 Bariatric surgery status; Z88.1 Allergy status to other antibiotic agents; Z91.040 Latex allergy status | CPT/HCPCS: 90791 ==

== ENCOUNTER → 2021-05-13 08:12 | Outpatient (BNVA) | payer OTHER, SELFPAY | PROVIDERS: PCP Internal Medicine; Visit Provider Physician Assistant | DX: E66.01 Morbid (severe) obesity due to excess calories (principal); R94.31 Abnormal electrocardiogram [ECG] [EKG]; Z98.84 Bariatric surgery status; Z79.01 Long term (current) use of anticoagulants | CPT/HCPCS: 85610; 99211; Q3014 ==

== ENCOUNTER → 2021-05-18 10:28 | Outpatient (BNVA) | payer OTHER, SELFPAY | PROVIDERS: PCP Internal Medicine; Visit Provider Internal Medicine | DX: I82.401 Acute embolism and thrombosis of unspecified deep veins of right lower extremity (principal); Z51.81 Encounter for therapeutic drug level monitoring; Z79.01 Long term (current) use of anticoagulants | CPT/HCPCS: 85610; 99211 ==

== ENCOUNTER → 2021-05-20 10:38 | Outpatient (BNVA) | payer OTHER, SELFPAY | PROVIDERS: PCP Internal Medicine; Visit Provider Internal Medicine | DX: I82.401 Acute embolism and thrombosis of unspecified deep veins of right lower extremity (principal); Z51.81 Encounter for therapeutic drug level monitoring; Z79.01 Long term (current) use of anticoagulants | CPT/HCPCS: 85610; 99211 ==

== ENCOUNTER → 2021-06-02 08:13 | Outpatient (BNVA) | payer OTHER, SELFPAY | PROVIDERS: PCP Internal Medicine; Referring Provider Physician Assistant; Visit Provider Dietitian, Registered | DX: E66.01 Morbid (severe) obesity due to excess calories (principal) | CPT/HCPCS: 97803 ==

== ENCOUNTER → 2021-06-03 11:25 | Outpatient (BNVA) | payer OTHER, SELFPAY | PROVIDERS: PCP Internal Medicine; Visit Provider Internal Medicine | DX: I82.401 Acute embolism and thrombosis of unspecified deep veins of right lower extremity (principal); Z51.81 Encounter for therapeutic drug level monitoring; Z79.01 Long term (current) use of anticoagulants | CPT/HCPCS: 85610; 99211 ==

== ENCOUNTER → 2021-06-06 10:47 | Outpatient (BNVA) | payer OTHER, SELFPAY | PROVIDERS: PCP Internal Medicine; Visit Provider Internal Medicine | DX: J45.41 Moderate persistent asthma with (acute) exacerbation (principal); R07.9 Chest pain, unspecified; K21.9 Gastro-esophageal reflux disease without esophagitis; Q21.1 Atrial septal defect; I82.401 Acute embolism and thrombosis of unspecified deep veins of right lower extremity; Z51.81 Encounter for therapeutic drug level monitoring; Z79.01 Long term (current) use of anticoagulants; Z79.899 Other long term (current) drug therapy | CPT/HCPCS: 85610; 99211; 99212 ==

== ENCOUNTER → 2021-06-15 11:04 | Outpatient (BNVA) | payer OTHER, SELFPAY | PROVIDERS: PCP Internal Medicine; Visit Provider Internal Medicine | DX: I82.401 Acute embolism and thrombosis of unspecified deep veins of right lower extremity (principal); Z51.81 Encounter for therapeutic drug level monitoring; Z79.01 Long term (current) use of anticoagulants | CPT/HCPCS: 85610; 99211 ==

== ENCOUNTER → 2021-06-27 10:45 | Outpatient (BNVA) | payer OTHER, SELFPAY | PROVIDERS: PCP Internal Medicine; Visit Provider Internal Medicine | DX: I82.401 Acute embolism and thrombosis of unspecified deep veins of right lower extremity (principal); Z51.81 Encounter for therapeutic drug level monitoring; Z79.01 Long term (current) use of anticoagulants | CPT/HCPCS: 85610; 99211 ==

== ENCOUNTER → 2021-07-04 10:53 | Outpatient (BNVA) | payer OTHER, SELFPAY | PROVIDERS: PCP Internal Medicine; Visit Provider Internal Medicine | DX: I82.401 Acute embolism and thrombosis of unspecified deep veins of right lower extremity (principal); Z79.01 Long term (current) use of anticoagulants; Z51.81 Encounter for therapeutic drug level monitoring | CPT/HCPCS: 85610; 99211 ==

== ENCOUNTER → 2021-07-13 09:42 | Outpatient (BNVA) | payer OTHER, SELFPAY | PROVIDERS: PCP Internal Medicine; Visit Provider Internal Medicine | DX: I82.501 Chronic embolism and thrombosis of unspecified deep veins of right lower extremity (principal); Z79.01 Long term (current) use of anticoagulants; Z51.81 Encounter for therapeutic drug level monitoring | CPT/HCPCS: 85610; 99211 ==

== ENCOUNTER → 2021-07-14 07:58 | Outpatient (BNVA) | payer OTHER, SELFPAY | PROVIDERS: PCP Internal Medicine; Referring Provider Physician Assistant; Visit Provider Dietitian, Registered | DX: K21.9 Gastro-esophageal reflux disease without esophagitis (principal); E66.01 Morbid (severe) obesity due to excess calories; Z98.84 Bariatric surgery status; Z68.43 Body mass index [BMI] 50.0-59.9, adult | CPT/HCPCS: 97803; Q3014 ==

== ENCOUNTER → 2021-07-19 10:53 | Outpatient (BNVA) | payer OTHER, SELFPAY | PROVIDERS: PCP Internal Medicine; Visit Provider Internal Medicine | DX: I82.401 Acute embolism and thrombosis of unspecified deep veins of right lower extremity (principal); Z79.01 Long term (current) use of anticoagulants; Z51.81 Encounter for therapeutic drug level monitoring | CPT/HCPCS: 85610; 99211 ==

== ENCOUNTER → 2021-07-25 08:18 | Outpatient (BNVA) | payer OTHER, SELFPAY | PROVIDERS: PCP Internal Medicine; Referring Provider Dietitian, Registered; Visit Provider Physician Assistant | DX: Z13.89 Encounter for screening for other disorder (principal) ==

== ENCOUNTER → 2021-08-01 15:32 | Outpatient (BNVA) | payer OTHER, SELFPAY | PROVIDERS: PCP Internal Medicine; Visit Provider Internal Medicine | DX: I82.401 Acute embolism and thrombosis of unspecified deep veins of right lower extremity (principal); Z79.01 Long term (current) use of anticoagulants; Z51.81 Encounter for therapeutic drug level monitoring | CPT/HCPCS: 85610; 99211 ==

== ENCOUNTER → 2021-08-18 09:55 | Outpatient (BNVA) | payer OTHER, SELFPAY | PROVIDERS: PCP Internal Medicine; Visit Provider Internal Medicine | DX: I82.401 Acute embolism and thrombosis of unspecified deep veins of right lower extremity (principal); Z79.01 Long term (current) use of anticoagulants; Z51.81 Encounter for therapeutic drug level monitoring | CPT/HCPCS: 85610; 99211 ==

== ENCOUNTER → 2021-08-25 10:41 | Outpatient (BNVA) | payer OTHER, SELFPAY | PROVIDERS: PCP Internal Medicine; Visit Provider Internal Medicine | DX: I82.501 Chronic embolism and thrombosis of unspecified deep veins of right lower extremity (principal); Z79.01 Long term (current) use of anticoagulants; Z51.81 Encounter for therapeutic drug level monitoring | CPT/HCPCS: 85610; 99211 ==

== ENCOUNTER → 2021-09-01 10:46 | Outpatient (BNVA) | payer OTHER, SELFPAY | PROVIDERS: PCP Internal Medicine; Visit Provider Internal Medicine | DX: I82.501 Chronic embolism and thrombosis of unspecified deep veins of right lower extremity (principal); Z79.01 Long term (current) use of anticoagulants; Z51.81 Encounter for therapeutic drug level monitoring | CPT/HCPCS: 85610; 99211 ==

== ENCOUNTER → 2021-09-08 10:09 | Outpatient (BNVA) | payer OTHER, SELFPAY | PROVIDERS: Visit Provider Physician Assistant | DX: K21.9 Gastro-esophageal reflux disease without esophagitis (principal); I82.501 Chronic embolism and thrombosis of unspecified deep veins of right lower extremity; Z51.81 Encounter for therapeutic drug level monitoring; Z79.01 Long term (current) use of anticoagulants | CPT/HCPCS: 85610; 99211; Q3014 ==

== ENCOUNTER → 2021-09-13 11:35 | Outpatient (BNVA) | payer OTHER, SELFPAY | PROVIDERS: PCP Internal Medicine; Visit Provider Internal Medicine | DX: I82.501 Chronic embolism and thrombosis of unspecified deep veins of right lower extremity (principal); Z79.01 Long term (current) use of anticoagulants; Z51.81 Encounter for therapeutic drug level monitoring | CPT/HCPCS: 85610; 99211 ==

== ENCOUNTER → 2021-09-22 11:24 | Outpatient (BNVA) | payer OTHER, SELFPAY | PROVIDERS: PCP Internal Medicine; Visit Provider Internal Medicine | DX: I82.501 Chronic embolism and thrombosis of unspecified deep veins of right lower extremity (principal); Z51.81 Encounter for therapeutic drug level monitoring; Z79.01 Long term (current) use of anticoagulants | CPT/HCPCS: 85610; 99211 ==

== ENCOUNTER → 2021-10-06 11:34 | Outpatient (BNVA) | payer OTHER, SELFPAY | PROVIDERS: PCP Internal Medicine; Visit Provider Internal Medicine | DX: I82.501 Chronic embolism and thrombosis of unspecified deep veins of right lower extremity (principal); Z79.01 Long term (current) use of anticoagulants; Z51.81 Encounter for therapeutic drug level monitoring | CPT/HCPCS: 85610; 99211 ==

== ENCOUNTER → 2021-10-20 11:16 | Outpatient (BNVA) | payer OTHER, SELFPAY | PROVIDERS: PCP Internal Medicine; Visit Provider Internal Medicine | DX: J45.41 Moderate persistent asthma with (acute) exacerbation (principal); Q21.1 Atrial septal defect; K21.9 Gastro-esophageal reflux disease without esophagitis; R07.9 Chest pain, unspecified; I82.501 Chronic embolism and thrombosis of unspecified deep veins of right lower extremity; Z79.01 Long term (current) use of anticoagulants; Z51.81 Encounter for therapeutic drug level monitoring | CPT/HCPCS: 85610; 99211; 99212 ==

== ENCOUNTER → 2021-10-24 11:00 | Outpatient (BNVA) | payer OTHER, SELFPAY | PROVIDERS: PCP Internal Medicine; Visit Provider Internal Medicine | DX: I82.501 Chronic embolism and thrombosis of unspecified deep veins of right lower extremity (principal); Z79.01 Long term (current) use of anticoagulants; Z51.81 Encounter for therapeutic drug level monitoring | CPT/HCPCS: 85610; 99211 ==

== ENCOUNTER → 2021-10-27 11:06 | Outpatient (BNVA) | payer OTHER, SELFPAY | PROVIDERS: PCP Internal Medicine; Visit Provider Internal Medicine | DX: I82.501 Chronic embolism and thrombosis of unspecified deep veins of right lower extremity (principal); Z79.01 Long term (current) use of anticoagulants; Z51.81 Encounter for therapeutic drug level monitoring | CPT/HCPCS: 85610; 99211 ==

== ENCOUNTER → 2021-10-31 11:30 | Outpatient (BNVA) | payer OTHER, SELFPAY | PROVIDERS: PCP Internal Medicine; Visit Provider Internal Medicine | DX: I82.501 Chronic embolism and thrombosis of unspecified deep veins of right lower extremity (principal); Z51.81 Encounter for therapeutic drug level monitoring; Z79.01 Long term (current) use of anticoagulants | CPT/HCPCS: 85610 ==

== ENCOUNTER → 2021-11-07 11:29 | Outpatient (BNVA) | payer OTHER, SELFPAY | PROVIDERS: PCP Internal Medicine; Visit Provider Internal Medicine | DX: I82.501 Chronic embolism and thrombosis of unspecified deep veins of right lower extremity (principal); Z79.01 Long term (current) use of anticoagulants; Z51.81 Encounter for therapeutic drug level monitoring | CPT/HCPCS: 85610; 99211 ==

== ENCOUNTER → 2021-11-14 14:07 | Outpatient (BNVA) | payer OTHER, SELFPAY | PROVIDERS: PCP Internal Medicine; Visit Provider Internal Medicine | DX: I82.501 Chronic embolism and thrombosis of unspecified deep veins of right lower extremity (principal); Z79.01 Long term (current) use of anticoagulants; Z51.81 Encounter for therapeutic drug level monitoring | CPT/HCPCS: 85610; 99211 ==

== ENCOUNTER → 2021-11-17 14:02 | Outpatient (BNVA) | payer OTHER, SELFPAY | PROVIDERS: PCP Internal Medicine; Visit Provider Internal Medicine | DX: I82.501 Chronic embolism and thrombosis of unspecified deep veins of right lower extremity (principal); Z51.81 Encounter for therapeutic drug level monitoring; Z79.01 Long term (current) use of anticoagulants | CPT/HCPCS: 85610; 99211 ==

== ENCOUNTER → 2021-11-21 13:07 | Outpatient (BNVA) | payer OTHER, SELFPAY | PROVIDERS: PCP Internal Medicine; Visit Provider Internal Medicine | DX: I82.501 Chronic embolism and thrombosis of unspecified deep veins of right lower extremity (principal); Z79.01 Long term (current) use of anticoagulants; Z51.81 Encounter for therapeutic drug level monitoring | CPT/HCPCS: 85610; 99211 ==

== ENCOUNTER → 2021-12-06 14:53 | Outpatient (BNVA) | payer OTHER, SELFPAY | PROVIDERS: PCP Internal Medicine; Visit Provider Internal Medicine | DX: I82.501 Chronic embolism and thrombosis of unspecified deep veins of right lower extremity (principal); Z79.01 Long term (current) use of anticoagulants; Z51.81 Encounter for therapeutic drug level monitoring | CPT/HCPCS: 85610; 99211 ==

== ENCOUNTER → 2021-12-19 10:31 | Outpatient (BNVA) | payer OTHER, SELFPAY | PROVIDERS: PCP Internal Medicine; Visit Provider Internal Medicine | DX: I82.501 Chronic embolism and thrombosis of unspecified deep veins of right lower extremity (principal); Z51.81 Encounter for therapeutic drug level monitoring; Z79.01 Long term (current) use of anticoagulants | CPT/HCPCS: 85610 ==

== ENCOUNTER → 2021-12-26 10:03 | Outpatient (BNVA) | payer OTHER, SELFPAY | PROVIDERS: PCP Internal Medicine; Visit Provider Internal Medicine | DX: I82.501 Chronic embolism and thrombosis of unspecified deep veins of right lower extremity (principal); Z79.01 Long term (current) use of anticoagulants; Z51.81 Encounter for therapeutic drug level monitoring | CPT/HCPCS: 85610; 99211 ==

== ENCOUNTER 2022-01-12 11:09 | Outpatient (REF) | payer OTHER, SELFPAY ==
--- NOTE | 2022-01-12 13:58 | PFT_ITS ---
FLOWS: FEV1 79% of predicted at 2.25 L. FVC 78% of predicted at 2.73 L. FEV1 to FVC ratio of 0.83. The patient used her bronchodilator just prior to the test, thus bronchodilator testing was not performed. LUNG VOLUMES: Total lung capacity 85% of predicted at 4.33 L. Residual volume 77% of predicted at 1.37 L. Slow vital capacity 89% of predicted at 2.96 L. Expiratory reserve volume 23% of predicted at 0.25 L. Diffusion capacity is normal. IMPRESSION: No obstructive or restrictive ventilatory defect. Bronchodilator testing was not performed as patient used to bronchodilator prior to the test. Decreased expiratory reserve volume suggests extrathoracic restriction, likely secondary to abdominal obesity. Eliezre Ng MD AP/MODL / [id number]
== END 2022-01-12 11:10 | disposition home or self-care (01) ==
LOC: HO.RESP 11:09
PROVIDERS: PCP Internal Medicine; Visit Provider Hospitalist
DX: I82.501 Chronic embolism and thrombosis of unspecified deep veins of right lower extremity (principal); G47.33 Obstructive sleep apnea (adult) (pediatric); Z51.81 Encounter for therapeutic drug level monitoring; Z79.01 Long term (current) use of anticoagulants
CPT/HCPCS: 85610; 94060; 94727; 94729; 99211

== ENCOUNTER → 2022-01-17 10:52 | Outpatient (BNVA) | payer OTHER, SELFPAY | PROVIDERS: PCP Internal Medicine; Visit Provider Internal Medicine | DX: I82.501 Chronic embolism and thrombosis of unspecified deep veins of right lower extremity (principal); Z79.01 Long term (current) use of anticoagulants; Z51.81 Encounter for therapeutic drug level monitoring | CPT/HCPCS: 85610; 99211 ==

== ENCOUNTER → 2022-01-19 09:53 | Outpatient (REF) | payer OTHER, SELFPAY | LOC: HO.SL 09:53 | PROVIDERS: PCP Internal Medicine; Visit Provider Hospitalist | DX: G47.33 Obstructive sleep apnea (adult) (pediatric) (principal) | CPT/HCPCS: 95806 ==

== ENCOUNTER → 2022-02-20 13:59 | Outpatient (BNVA) | payer OTHER, SELFPAY | PROVIDERS: PCP Internal Medicine; Visit Provider Internal Medicine | DX: I82.501 Chronic embolism and thrombosis of unspecified deep veins of right lower extremity (principal); Z79.01 Long term (current) use of anticoagulants; Z51.81 Encounter for therapeutic drug level monitoring | CPT/HCPCS: 85610; 99211 ==

== ENCOUNTER → 2022-02-22 12:37 | Outpatient (BNVA) | payer OTHER, SELFPAY | PROVIDERS: PCP Internal Medicine; Visit Provider Physician Assistant | DX: R10.9 Unspecified abdominal pain (principal) | CPT/HCPCS: 99212; Q3014 ==

== ENCOUNTER → 2022-02-24 11:06 | Outpatient (BNVA) | payer OTHER, SELFPAY | PROVIDERS: PCP Internal Medicine; Visit Provider Hospitalist | DX: J45.41 Moderate persistent asthma with (acute) exacerbation (principal); I82.409 Acute embolism and thrombosis of unspecified deep veins of unspecified lower extremity; K21.9 Gastro-esophageal reflux disease without esophagitis; B34.9 Viral infection, unspecified; R07.9 Chest pain, unspecified; Q21.12 Patent foramen ovale; Z86.711 Personal history of pulmonary embolism; Z79.01 Long term (current) use of anticoagulants; Z79.899 Other long term (current) drug therapy | CPT/HCPCS: 99212 ==

== ENCOUNTER → 2022-02-28 09:46 | Outpatient (BNVA) | payer OTHER, SELFPAY | PROVIDERS: PCP Internal Medicine; Visit Provider Internal Medicine | DX: I82.501 Chronic embolism and thrombosis of unspecified deep veins of right lower extremity (principal); Z79.01 Long term (current) use of anticoagulants; Z51.81 Encounter for therapeutic drug level monitoring | CPT/HCPCS: 85610; 99211 ==

== ENCOUNTER → 2022-03-24 14:57 | Outpatient (BNVA) | payer OTHER, SELFPAY | PROVIDERS: PCP Internal Medicine; Visit Provider Internal Medicine | DX: Z79.01 Long term (current) use of anticoagulants (principal) ==

== ENCOUNTER → 2022-04-07 13:33 | Outpatient (BNVA) | payer OTHER, SELFPAY | PROVIDERS: PCP Internal Medicine; Visit Provider Internal Medicine | DX: I82.501 Chronic embolism and thrombosis of unspecified deep veins of right lower extremity (principal); Z79.01 Long term (current) use of anticoagulants; Z51.81 Encounter for therapeutic drug level monitoring | CPT/HCPCS: 85610; 99211 ==

== ENCOUNTER → 2022-04-14 11:26 | Outpatient (BNVA) | payer OTHER, SELFPAY | PROVIDERS: PCP Internal Medicine; Visit Provider Internal Medicine | DX: I82.501 Chronic embolism and thrombosis of unspecified deep veins of right lower extremity (principal); Z79.01 Long term (current) use of anticoagulants; Z51.81 Encounter for therapeutic drug level monitoring | CPT/HCPCS: 85610; 99211 ==

== ENCOUNTER → 2022-04-20 14:40 | Outpatient (BNVA) | payer OTHER, SELFPAY | PROVIDERS: PCP Internal Medicine; Visit Provider Hospitalist | DX: J45.41 Moderate persistent asthma with (acute) exacerbation (principal); J40 Bronchitis, not specified as acute or chronic; R07.9 Chest pain, unspecified; K21.9 Gastro-esophageal reflux disease without esophagitis; I82.409 Acute embolism and thrombosis of unspecified deep veins of unspecified lower extremity | CPT/HCPCS: 99212 ==

== ENCOUNTER → 2022-04-21 11:52 | Outpatient (BNVA) | payer OTHER, SELFPAY | PROVIDERS: PCP Internal Medicine; Visit Provider Internal Medicine | DX: Z79.01 Long term (current) use of anticoagulants (principal) ==

== ENCOUNTER → 2022-04-24 10:38 | Outpatient (BNVA) | payer OTHER, SELFPAY | PROVIDERS: PCP Internal Medicine; Visit Provider Internal Medicine | DX: I82.501 Chronic embolism and thrombosis of unspecified deep veins of right lower extremity (principal); Z79.01 Long term (current) use of anticoagulants; Z51.81 Encounter for therapeutic drug level monitoring | CPT/HCPCS: 85610; 99211 ==

== ENCOUNTER → 2022-04-27 14:45 | Outpatient (BNVA) | payer OTHER, SELFPAY | PROVIDERS: PCP Internal Medicine; Visit Provider Physician Assistant | DX: E66.01 Morbid (severe) obesity due to excess calories (principal); G47.33 Obstructive sleep apnea (adult) (pediatric); I26.94 Multiple subsegmental thrombotic pulmonary emboli without acute cor pulmonale; K44.9 Diaphragmatic hernia without obstruction or gangrene; Z98.84 Bariatric surgery status; Z68.44 Body mass index [BMI] 60.0-69.9, adult | CPT/HCPCS: 99212 ==

== ENCOUNTER → 2022-05-03 11:06 | Outpatient (BNVA) | payer OTHER, SELFPAY | PROVIDERS: PCP Internal Medicine; Visit Provider Physician Assistant | DX: E66.01 Morbid (severe) obesity due to excess calories (principal); R94.31 Abnormal electrocardiogram [ECG] [EKG]; J45.41 Moderate persistent asthma with (acute) exacerbation; G47.33 Obstructive sleep apnea (adult) (pediatric); I26.94 Multiple subsegmental thrombotic pulmonary emboli without acute cor pulmonale; Z98.84 Bariatric surgery status | CPT/HCPCS: Q3014 ==

== ENCOUNTER → 2022-05-05 10:47 | Outpatient (BNVA) | payer OTHER, SELFPAY | PROVIDERS: PCP Internal Medicine; Visit Provider Internal Medicine | DX: I82.501 Chronic embolism and thrombosis of unspecified deep veins of right lower extremity (principal); Z79.01 Long term (current) use of anticoagulants; Z51.81 Encounter for therapeutic drug level monitoring | CPT/HCPCS: 85610; 99211 ==

== ENCOUNTER 2022-05-06 10:49 | Outpatient (REF) | payer OTHER, SELFPAY ==
[2022-05-06 11:05] LABS: MANUAL DIFF FLAG NO
[2022-05-06 11:23] LABS: Basophils Absolute Auto 0.1 X10*3/uL (0.0-0.2); Basophils Percent Auto 0.7 % (0-2); Eosinophils Absolute Auto 0.1 X10*3/uL (0.0-0.4); Eosinophils Percent Auto 2.1 % (0-4); Hematocrit 40.7 % (37.0-47.0); Hemoglobin 12.9 g/dl (12.0-16.0); Imm Gran Abs Auto 0.02 X10*3/uL (0.00-0.03); Imm Gran Pct Auto 0.3 % (0.0-0.4); Lymphocytes Absolute Auto 2.8 X10*3/uL (1.2-4.9); Lymphocytes Percent Auto 41.7 % (20-40); Mean Corpuscular HGB Conc 31.7 g/dl (31.0-35.0); Mean Corpuscular Hemoglobin 27.2 pg (27.0-33.0); Mean Corpuscular Volume 85.7 fL (80.0-98.0); Mean Platelet Volume 10.9 fL (9.4-12.3); Monocytes Absolute Auto 0.5 X10*3/uL (0.1-1.2); Neutrophils Absolute Auto 3.3 x10*3/uL (2.0-8.3); Neutrophils Percent Auto 48.2 % (45-73); Platelet Count 297 X10*3/uL (160-400); Red Blood Count 4.75 X10*6/uL (4.20-5.50); Red Cell Distribution Width 12.7 % (11.0-16.0); White Blood Count 6.8 X10*3/uL (4.8-10.8)
[2022-05-06 11:38] LABS: Estimated Average Glucose 120 mg/dL; Hemoglobin A1c % 5.8 %
[2022-05-06 11:58] LABS: Alanine Aminotransferase 22 U/L (0-31); Albumin Level 3.8 g/dL (3.5-5.0); Alkaline Phosphatase 90 U/L (39-117); Anion Gap 12 (12-20); Aspartate Amino Transferase 29 U/L (5-31); Bilirubin Total 1.1 mg/dL (0.0-1.0); Blood Urea Nitrogen 11 mg/dL (9-16); C Reactive Protein 0.92 mg/dL (< or = 0.50); Carbon Dioxide 30 mmol/L (22-29); Chloride 103 mmol/L (96-108); Cholesterol 146 mg/dL; Estimated Glomerular Filt Rate > 60; Glucose Random 109 mg/dL (60-115); HDL Cholesterol 40 mg/dL; Iron 67 mcg/dL (30-160); LDL Cholesterol Calculated 84 mg/dl; Percent Iron Saturation 16 % (15-50); Potassium 4.1 mmol/L (3.3-5.1); Sodium 141 mmol/L (135-145); Total Iron Binding Capacity 427 mcg/dL (228-428); Total Protein 6.5 g/dL (6.5-8.0); Triglycerides 114 mg/dL; Unsaturated Iron Binding 360 ug/dL
[2022-05-06 12:28] LABS: Ferritin 15 ng/mL (10-250); Folate 11.3 ng/mL (> or = 4.0); Insulin 15 uU/mL (2-29); TSH reflex Free T4 0.35 uIU/mL (0.32-4.0); Vitamin B12 583 pg/mL (200-900); Vitamin D 25-OH Total 33.6 ng/mL (>30)
[2022-05-08 13:15] LABS: Calcium (PTHI) 9.2 mg/dL (8.6-10.2); PTHI 57 pg/mL (16-77)
[2022-05-10 00:19] LABS: Zinc 71 mcg/dL (60-130)
[2022-05-11 03:57] LABS: Vitamin A 28 mcg/dL (38-98)
[2022-05-15 05:13] LABS: Vitamin B1 9 nmol/L (8-30)
== END 2022-05-06 10:50 | disposition home or self-care (01) ==
LOC: HO.LAB 10:49
PROVIDERS: Visit Provider Physician Assistant
DX: E66.01 Morbid (severe) obesity due to excess calories (principal); G47.33 Obstructive sleep apnea (adult) (pediatric); I26.94 Multiple subsegmental thrombotic pulmonary emboli without acute cor pulmonale; Z98.84 Bariatric surgery status
CPT/HCPCS: 36415; 80053; 80061; 82306; 82607; 82728; 82746; 83036; 83525; 83540; 83970; 84425; 84443; 84590; 84630; 85025; 86140

== ENCOUNTER → 2022-05-09 11:36 | Outpatient (BNVA) | payer OTHER, SELFPAY | PROVIDERS: PCP Internal Medicine; Visit Provider Internal Medicine | DX: I82.501 Chronic embolism and thrombosis of unspecified deep veins of right lower extremity (principal); Z51.81 Encounter for therapeutic drug level monitoring; Z79.01 Long term (current) use of anticoagulants | CPT/HCPCS: 85610; 99211 ==

== ENCOUNTER → 2022-05-12 14:16 | Outpatient (BNVA) | payer OTHER, SELFPAY | PROVIDERS: PCP Internal Medicine; Visit Provider Dietitian, Registered | DX: E66.01 Morbid (severe) obesity due to excess calories (principal); Z98.84 Bariatric surgery status; Z71.3 Dietary counseling and surveillance | CPT/HCPCS: 97803 ==

== ENCOUNTER → 2022-05-18 11:40 | Outpatient (BNVA) | payer OTHER, SELFPAY | PROVIDERS: PCP Internal Medicine; Visit Provider Internal Medicine | DX: I82.501 Chronic embolism and thrombosis of unspecified deep veins of right lower extremity (principal); Z79.01 Long term (current) use of anticoagulants; Z51.81 Encounter for therapeutic drug level monitoring | CPT/HCPCS: 85610; 99211 ==

== ENCOUNTER → 2022-05-22 12:28 | Outpatient (BNVA) | payer OTHER, SELFPAY | PROVIDERS: PCP Internal Medicine; Referring Provider Internal Medicine; Visit Provider Physician Assistant | DX: Z11.0 Encounter for screening for intestinal infectious diseases (principal) | CPT/HCPCS: 99211 ==

== ENCOUNTER 2022-05-22 15:52 | Outpatient (REF) | payer OTHER, SELFPAY ==
[2022-05-23 15:32] LABS: H Pylori Breath Test Negative (Negative)
== END 2022-05-22 15:53 | disposition home or self-care (01) ==
LOC: HO.LNP 15:52
PROVIDERS: Visit Provider Physician Assistant
DX: G47.33 Obstructive sleep apnea (adult) (pediatric) (principal); I26.94 Multiple subsegmental thrombotic pulmonary emboli without acute cor pulmonale; E66.01 Morbid (severe) obesity due to excess calories; Z98.84 Bariatric surgery status; Z11.0 Encounter for screening for intestinal infectious diseases
CPT/HCPCS: 83013

== ENCOUNTER → 2022-05-25 14:11 | Outpatient (BNVA) | payer OTHER, SELFPAY | PROVIDERS: PCP Internal Medicine; Visit Provider Internal Medicine | DX: E66.01 Morbid (severe) obesity due to excess calories (principal); R94.31 Abnormal electrocardiogram [ECG] [EKG]; I26.94 Multiple subsegmental thrombotic pulmonary emboli without acute cor pulmonale; I82.501 Chronic embolism and thrombosis of unspecified deep veins of right lower extremity; Z79.01 Long term (current) use of anticoagulants; Z51.81 Encounter for therapeutic drug level monitoring; Z68.44 Body mass index [BMI] 60.0-69.9, adult | CPT/HCPCS: 85610; 99211; Q3014 ==

== ENCOUNTER → 2022-06-12 10:22 | Outpatient (BNVA) | payer OTHER, SELFPAY | PROVIDERS: PCP Internal Medicine; Visit Provider Counselor Mental Health | DX: I82.501 Chronic embolism and thrombosis of unspecified deep veins of right lower extremity (principal); Z79.01 Long term (current) use of anticoagulants; Z51.81 Encounter for therapeutic drug level monitoring | CPT/HCPCS: 85610; 99211 ==

== ENCOUNTER → 2022-06-27 15:30 | Outpatient (BNVA) | payer OTHER, SELFPAY | PROVIDERS: PCP Internal Medicine; Visit Provider Internal Medicine | DX: I82.501 Chronic embolism and thrombosis of unspecified deep veins of right lower extremity (principal); Z79.01 Long term (current) use of anticoagulants; Z51.81 Encounter for therapeutic drug level monitoring | CPT/HCPCS: 85610; 99211 ==

== ENCOUNTER → 2022-07-04 10:30 | Outpatient (BNVA) | payer OTHER, SELFPAY | PROVIDERS: PCP Internal Medicine; Visit Provider Internal Medicine | DX: I82.501 Chronic embolism and thrombosis of unspecified deep veins of right lower extremity (principal); Z51.81 Encounter for therapeutic drug level monitoring; Z79.01 Long term (current) use of anticoagulants | CPT/HCPCS: 85610; 99211 ==

== ENCOUNTER → 2022-07-17 10:35 | Outpatient (BNVA) | payer OTHER, SELFPAY | PROVIDERS: PCP Internal Medicine; Visit Provider Internal Medicine | DX: I82.501 Chronic embolism and thrombosis of unspecified deep veins of right lower extremity (principal); Z79.01 Long term (current) use of anticoagulants; Z51.81 Encounter for therapeutic drug level monitoring | CPT/HCPCS: 85610; 99211 ==

== ENCOUNTER → 2022-07-21 10:54 | Outpatient (BNVA) | payer OTHER, SELFPAY | PROVIDERS: PCP Internal Medicine; Visit Provider Hospitalist | DX: J45.41 Moderate persistent asthma with (acute) exacerbation (principal); I82.409 Acute embolism and thrombosis of unspecified deep veins of unspecified lower extremity; R07.9 Chest pain, unspecified; Q21.12 Patent foramen ovale; K21.9 Gastro-esophageal reflux disease without esophagitis; J40 Bronchitis, not specified as acute or chronic | CPT/HCPCS: 99212 ==

== ENCOUNTER → 2022-07-26 11:14 | Outpatient (BNVA) | payer OTHER, SELFPAY | PROVIDERS: PCP Internal Medicine; Visit Provider Internal Medicine | DX: I82.501 Chronic embolism and thrombosis of unspecified deep veins of right lower extremity (principal); Z79.01 Long term (current) use of anticoagulants; Z51.81 Encounter for therapeutic drug level monitoring | CPT/HCPCS: 85610; 99211 ==

== ENCOUNTER → 2022-08-09 11:36 | Outpatient (BNVA) | payer OTHER, SELFPAY | PROVIDERS: PCP Internal Medicine; Visit Provider Internal Medicine | DX: I82.501 Chronic embolism and thrombosis of unspecified deep veins of right lower extremity (principal); Z79.01 Long term (current) use of anticoagulants; Z51.81 Encounter for therapeutic drug level monitoring | CPT/HCPCS: 85610; 99211 ==

== ENCOUNTER 2022-09-01 09:09 | Outpatient (REF) | payer OTHER, SELFPAY | END 2022-09-01 09:10 | disposition home or self-care (01) | LOC: HO.HOSX 09:09 | PROVIDERS: Visit Provider Orthopaedic Surgery | DX: Z13.89 Encounter for screening for other disorder (principal) ==

== ENCOUNTER 2023-02-26 13:41 | Outpatient (AMB) | payer OTHER, SELFPAY ==
--- NOTE | 2023-02-26 13:47 | MHC.OFFVIS ---
Intake Vital Signs 02/26/23 13:49 Height 5 ft 4 in Weight 390 lb BMI 66.9 BP 158/74 H Blood Pressure Location Lt brachial Position Sitting Pulse 86 Intake Visit Reasons: Abdominal pain Intake Note: Patient follow up for abdominal pain. Patient cc: Nauseas, abdominal pain with bloating, swallowing problems and between diarrhea and constipation. Aircraft Riveter Required: No Accompanied by: Self / Same As Patient Allergies doxycycline Allergy (Intermediate, Verified 02/26/23 13:47) Rash latex [LATEX] Allergy (Mild, Verified 02/26/23 13:47) RASH Medication List - Last Reconciled 02/26/23 by Flori Pham PA-C acetaminophen 0 mg PO albuterol sulfate 2.5 mg (3 mL) inhalation Q6H PRN 30 days albuterol sulfate 90 mcg/actuation (Ventolin HFA) 2 puffs PO Q6H PRN alum-mag hydroxide-simeth 400-400-40 mg/5 mL (Maalox Maximum Strength) 10 mL PO TID PRN 30 days amitriptyline 25 mg PO DAILY ascorbic acid (vitamin C) 500 mg PO BID atorvastatin 20 mg PO DAILY azelastine intranasal budesonide-formoterol 160-4.5 mcg/actuation (Symbicort) 2 puffs inhalation BID carboxymethylcellulose-glycern 0.5-0.9 % 1 drp ophthalmic (eye) QID cetirizine 10 mg PO DAILY cholecalciferol (vitamin D3) 50 mcg PO DAILY clotrimazole 1% appl topical BEDTIME diclofenac sodium 1% 1 g topical QID duloxetine 30 mg PO BID epinephrine 0.3 mg IM ONCE PRN esomeprazole magnesium 40 mg PO DAILY 30 days fluticasone propionate 50 mcg/actuation 1 spray intranasal DAILY hwynstontwl-bjytyqntf-afrsqbyr 100-62.5-25 mcg (Trelegy Ellipta) 1 inh inhalation DAILY 30 days gabapentin 800 mg PO TID hydrochlorothiazide 25 mg PO DAILY lorazepam 1 mg PO BID metoprolol succinate ER 100 mg PO DAILY nystatin topical ondansetron HCl 4 mg PO DAILY permethrin 5% use as directed. roflumilast 500 mcg PO DAILY tizanidine 0 mg PO BID PRN triamcinolone acetonide 0.025% appl topical vitamin A 2 caps PO DAILY vitamin A palmitate 20,000 units PO DAILY 3 weeks vitamin E (dl, acetate) 180 mg PO BID warfarin 5 mg See Protocol PO DAILY HPI HPI Comments History of Present Illness Details 47-year-old female last encounter 1 year ago- she says she saw pcp- at [address] [place] [address]- [facility]- wants her to have an EGD and colonoscopy Appetite- not great, she has has gained weight -no nausea or vomit Acid reflux depending on what she eats does not avoid anything specific Constipation- every 2 days, has abdominal cramping however resolved after BM Reviewed EGD colonoscopy from 09/2019- Dr. Castro- no Barretts, no polyps- She has had no fever chills Summary of previous visit 1 year ago 01/2022 multiple comorbidities, chronic ab a BM adominal pain worsened over the past 4 days Difficult to assess -refuse office visit, refuses ED evaluation Reinforced importance of any worsening or continued symptoms she should go to the ED for evaluation. Encouraged to follow through, she has agreed Order has been placed for CT abdomen pelvis-she agrees to this Will update blood work, she will need for CT as well Reflux well controlled esomeprazole refilled [facility] Medical History (Updated 02/27/23 @ 13:28 by Flori Pham PA-C) Knee pain Iliac vein stenosis, left Iliac vein stenosis, right Asthma SINDHU (obstructive sleep apnea) Chest pain Chest pain Obesity SINDHU (obstructive sleep apnea) Constipation by delayed colonic transit GERD (gastroesophageal reflux disease) Asthma Dyspnea DVT (deep venous thrombosis) Pulmonary emboli SINDHU (obstructive sleep apnea) PFO (patent foramen ovale) Surgical History History of tubal ligation Hx of section History of esophagogastroduodenoscopy (EGD) H/O colonoscopy Hx of gastric bypass Family History Daughter Asthma Mother Asthma Father Asthma Social History Household Members: Children Alcohol intake: former Patient Tobacco Use Status: Never used Tobacco Review of Systems Const All systems reviewed & are unremarkable except as noted in HPI and below Card Denies chest pain and Denies dyspnea Resp Denies dyspnea GI Reports heartburn Physical Exam Vital Signs: Last Vital Signs Pulse 86 02/26/23 13:49 BP 158/74 H 02/26/23 13:49 BMI result Body Mass Index 66.9 Const General: cooperative and comfortable Orientation/consciousness: patient oriented x3 Limitations: language barrier Eyes Sclerae: sclerae normal Resp Effort & Inspection: normal respiratory effort and able to speak in complete sentences Auscultation: clear to auscultation bilaterally, no rales, no rhonchi and no wheezes Cardio Rate: regular rate Rhythm: regular rhythm Heart sounds: S1 normal heart sound present and S2 normal heart sound present GI Inspection: Yes obesity Palpation (GI): Soft to palpation and nontender Neuro General: patient oriented x3 Extrem General: Yes full ROM Psych Speech and movement: Clear speech present Affect: Labile affect present Assessment & Plan Assessment & Plan (1) Abdominal pain: Comment: wt gain-weight likely plays a role Vague abdominal pain No change appetite, no fever no hematemesis or hematochezia Code(s): R10.9 - Unspecified abdominal pain Plan stool regimen HFD Orders: Orders Complete Blood Count Auto Diff 02/26/23 R10.9 - Unspecified abdominal pain Comprehensive Met. Panel 02/26/23 K58.9 - Irritable bowel syndrome without diarrhea Thyroid Stimulating Hormone 02/26/23 R19.8 - Other specified symptoms and signs involving the digestive system and abdomen Medications: New polyethylene glycol 3350 (Miralax) 17 grams PO DAILY 510 grams 6RF docusate sodium (Colace) 200 mg (2 x 100 mg) PO BEDTIME 60 caps 5RF Patient Instructions: Update lab Reviewed bowel regimen Encouraged consistency Maintain high-fiber diet Consider weight loss intervention Coding Level of Care Code Est Pt Level 4 (84162) Diagnoses Abdominal pain R10.9 Time Spent (min) 40
[2023-02-26 13:49] VITALS: BP 158/74; PULSE 86; BMI 66.9
== END 2023-02-26 14:58 | disposition home or self-care (01) ==
PROVIDERS: PCP Internal Medicine; Visit Provider Physician Assistant
DX: R10.9 Unspecified abdominal pain (principal)
CPT/HCPCS: 99214

== ENCOUNTER → 2023-02-26 13:41 | Outpatient (BNVA) | payer OTHER, SELFPAY | PROVIDERS: PCP Internal Medicine; Visit Provider Physician Assistant | DX: R10.9 Unspecified abdominal pain (principal) | CPT/HCPCS: 99212 ==

== ENCOUNTER 2023-05-02 11:46 | Inpatient (IN) | payer OTHER, SELFPAY ==
--- NOTE | ~2023-05-02 | CT_ITS ---
EXAMINATION: CT HEAD WITHOUT CONTRAST CLINICAL INFORMATION: Headache COMPARISON: CT brain 12/31/2020 TECHNIQUE: Contiguous axial imaging was performed from the skull base to vertex without intravenous administration of contrast. This CT examination was performed using dose optimization techniques as appropriate, variously including the following: *Automated exposure control *Adjustment of mA and/or kV according to patient size (this includes techniques or standardized protocols for targeted exams where dose is matched to indication/reason for exam; i.e. extremities or head) *Use of iterative reconstruction technique DLP: 724 mGy-cm FINDINGS: The exam is limited secondary to patient motion There is no acute intra-axial, extra-axial bleed, masses or midline shift. There is no acute infarction in evolution. There is no edema. The hand to white matter differentiation is maintained normal. The lateral ventricles are symmetrical in size and configuration without enlargement. Bone windows reveal no calvarial abnormality. There is no scalp soft tissue abnormality. Bilateral paranasal sinuses and mastoid air cells are well-aerated. CT/CT head/brain wo IV con IMPRESSION: No acute intracranial process seen. No major change from 01/03/2021.
--- NOTE | ~2023-05-02 | US_ITS ---
EXAMINATION: US VENOUS ULTRASOUND WITH DOPPLER LOWER EXTREMITY, RIGHT CLINICAL INFORMATION: Right lower extremity swelling. History of DVT. COMPARISON: Previous exam May 17 TECHNIQUE: Ultrasound of the deep veins is performed from the hip to the calf with compression sonography and color and pulse Doppler assessment. Spectral analysis with color-flow imaging is performed. FINDINGS: Exam is limited due to patient body habitus. There is decreased compression of the right common femoral vein and nonocclusive thrombus. This is a new finding compared to April 2021 exam The right superficial femoral, popliteal and visualized posterior tibial and peroneal veins in the calf are patent. Right profunda femoral vein not visualized. Right greater saphenous vein is not narrowed. Previous exam indicates history of right greater saphenous vein RFA. There is no Gutierrez's cyst. US/US venous duplex LE RT IMPRESSION: Partially occlusive thrombus in the right common femoral vein.
--- NOTE | ~2023-05-02 | XR_ITS ---
EXAMINATION: Right knee and right lower leg x-ray CLINICAL INFORMATION: Pain. Fall. COMPARISON: None. TECHNIQUE: 2 views of the right knee and 2 views of the right lower leg FINDINGS: Right knee: Bone alignment is normal. No fracture or dislocation. Arthritis at the medial femoral tibial and patellofemoral joints. Small osteophyte at the quadriceps tendon insertion to the patella. Small joint effusion. Right lower leg: Bone alignment is normal. No fracture or dislocation. Normal joint spaces. Calcaneal spurs. XR/XR knee RT 2V IMPRESSION: No fracture or dislocation. Arthritis and small joint effusion at the right knee.
--- NOTE | ~2023-05-02 | XR_ITS ---
EXAMINATION: Right knee and right lower leg x-ray CLINICAL INFORMATION: Pain. Fall. COMPARISON: None. TECHNIQUE: 2 views of the right knee and 2 views of the right lower leg FINDINGS: Right knee: Bone alignment is normal. No fracture or dislocation. Arthritis at the medial femoral tibial and patellofemoral joints. Small osteophyte at the quadriceps tendon insertion to the patella. Small joint effusion. Right lower leg: Bone alignment is normal. No fracture or dislocation. Normal joint spaces. Calcaneal spurs. XR/XR tibia fibula RT 2V IMPRESSION: No fracture or dislocation. Arthritis and small joint effusion at the right knee.
[2023-05-02 11:49] VITALS: BP 134/83; PULSE 79; RESP 18; TEMP 35.8; O2SAT 97; BMI 66.9
--- NOTE | 2023-05-02 11:51 | ED_ITS ---
HPI - Extremity Injury (Lower) General Chief Complaint: Extremity Injury, Lower Stated Complaint: Sent by PCP - blood clot ? Time Seen by Provider: 05/02/23 14:55 Source: patient Mode of arrival: ambulatory Limitations: no limitations History of Present Illness HPI Narrative: This is a 47-year-old female history of DVT and PE on Coumadin presenting to the emergency department with complaints of right lower extremity pain, bruising, swelling status post falling off bed 3 days ago. Patient reports symptoms have been progressively worsening. When she fell she did not her head or lose consciousness she was advised to come in by her primary care provider to rule out a blood clot. Patient denies chest pain and shortness of breath as well as fevers, chills, nausea, vomiting, abdominal pain, headache, vision changes. She denies recent travel or contraception. Related Data Home Medications Medication Instructions Recorded Confirmed atorvastatin 20 mg tablet 20 mg PO DAILY 03/02/20 05/25/22 cetirizine 10 mg tablet 10 mg PO DAILY 03/02/20 05/25/22 cholecalciferol (vitamin D3) 50 50 mcg PO DAILY 05/13/20 05/25/22 mcg (2,000 unit) tablet fluticasone propionate 50 1 spray intranasal DAILY 09/20/20 05/25/22 mcg/actuation nasal spray,suspension carboxymethylcellulose 0.5 1 drp ophthalmic (eye) QID 10/08/20 05/25/22 %-glycerin 0.9 % eye drops diclofenac sodium 1 % topical gel 1 g topical QID 11/05/20 05/25/22 lorazepam 1 mg tablet 1 mg PO BID 12/10/20 05/25/22 ascorbic acid (vitamin C) 500 mg 500 mg PO BID 12/21/20 05/25/22 tablet permethrin 5 % topical cream See Rx Instructions .Route .COMPLEX 02/11/21 05/25/22 acetaminophen 500 mg tablet 0 mg PO 03/31/21 05/25/22 metoprolol succinate 100 mg 100 mg PO DAILY 04/21/21 05/25/22 tablet,extended release 24 hr clotrimazole 1 % topical cream appl topical BEDTIME 06/03/21 05/25/22 tizanidine 4 mg capsule 0 mg PO BID PRN 06/03/21 05/25/22 epinephrine 0.3 mg/0.3 mL 0.3 mg IM ONCE PRN 06/27/21 05/25/22 injection, auto-injector triamcinolone acetonide 0.025 % appl topical 06/27/21 05/25/22 topical cream duloxetine 30 mg capsule,delayed 30 mg PO BID 08/18/21 05/25/22 release gabapentin 800 mg tablet 800 mg PO TID 10/06/21 05/25/22 nystatin 100,000 unit/gram topical topical 10/20/21 05/25/22 cream ondansetron HCl 4 mg tablet 4 mg PO DAILY 10/20/21 05/25/22 vitamin E (dl, acetate) 180 mg 180 mg PO BID 12/06/21 05/25/22 (400 unit) capsule azelastine 137 mcg (0.1 %) nasal intranasal 12/19/21 05/25/22 spray aerosol hydrochlorothiazide 25 mg tablet 25 mg PO DAILY 02/20/22 05/25/22 vitamin A 3,000 mcg (10,000 unit) 2 cap PO DAILY 05/25/22 05/25/22 capsule amitriptyline 25 mg tablet 25 mg PO DAILY 07/26/22 07/26/22 Previous Rx's Medication Instructions Recorded warfarin 5 mg tablet 5 mg PO DAILY #60 tabs 02/04/21 albuterol sulfate 2.5 mg/3 mL 2.5 mg (3 mL) inhalation Q6H PRN 04/01/21 (0.083 %) solution for nebulization shortness of breath or wheezing 30 days #180 mL aluminum-mag hydroxide-simethicone 10 ml PO TID PRN indigestion 30 04/01/21 400 mg-400 mg-40 mg/5 mL oral susp days #600 mL (Maalox Maximum Strength) fluticasone fur. 100 mcg-umeclid 1 inh inhalation DAILY 30 days #60 04/01/21 62.5 mcg-vilant 25 mcg ea inhalat.powder (Trelegy Ellipta) albuterol sulfate 90 mcg/actuation 2 puff PO Q6H PRN for wheezing #18 04/18/22 aerosol inhaler (Ventolin HFA) ea vitamin A palmitate 3,000 mcg 20,000 unit PO DAILY 3 weeks #42 05/11/22 (10,000 unit) capsule caps roflumilast 500 mcg tablet 500 mcg PO DAILY #30 tabs 12/01/22 budesonide-formoterol HFA 160 2 puff inhalation BID #10.2 ea 12/07/22 mcg-4.5 mcg/actuation aerosol inhaler (Symbicort) docusate sodium 100 mg capsule 200 mg (2 x 100 mg) PO BEDTIME #60 02/26/23 (Colace) caps polyethylene glycol 3350 17 17 g PO DAILY #510 grams 02/26/23 gram/dose oral powder (Miralax) esomeprazole magnesium 40 mg 40 mg PO DAILY #90 caps 04/23/23 capsule,delayed release Allergies Allergy/AdvReac Type Severity Reaction Status Date / Time doxycycline Allergy Intermediate Rash Verified 05/02/23 11:49 latex [LATEX] Allergy Mild RASH Verified 05/02/23 11:49 Review of Systems 2 Review of Systems: Yes all other systems are reviewed and are negative PMFSH Past Medical History Attestation statement: The following information was validated with the patient. Source: old records reviewed and nursing notes reviewed Medical History Knee pain Iliac vein stenosis, left Iliac vein stenosis, right Asthma SINDHU (obstructive sleep apnea) Chest pain Chest pain Obesity SINDHU (obstructive sleep apnea) Constipation by delayed colonic transit GERD (gastroesophageal reflux disease) Asthma Dyspnea DVT (deep venous thrombosis) Pulmonary emboli SINDHU (obstructive sleep apnea) PFO (patent foramen ovale) Surgical History History of tubal ligation Hx of section History of esophagogastroduodenoscopy (EGD) H/O colonoscopy Hx of gastric bypass Family History Family History Daughter Asthma Mother Asthma Father Asthma Social History Social History Household Members: Children Alcohol intake: former Patient Tobacco Use Status: Never used Tobacco Physical Exam 2 Vital Signs: Vital Signs: Last Vital Signs Temp 96.5 F L 05/02/23 11:49 Pulse 79 05/02/23 11:49 Resp 18 05/02/23 11:49 BP 134/83 05/02/23 11:49 Pulse Ox 97 05/02/23 11:49 O2 Del Method Room Air 05/02/23 11:49 BMI result Body Mass Index 67.2 vss Appearance: Alert.? Oriented X3.? No acute distress.? Head: Normocephalic, atraumatic, no step-offs or deformities Eyes: Pupils equal, round and reactive to light.? ENT: Pharynx normal.? Neck: Normal inspection.? Neck supple.? CVS: Normal heart rate and rhythm.? Pulses normal.? Respiratory: No respiratory distress.? Breath sounds normal.? Abdomen: Soft and nontender.? Skin: Skin warm and dry.? Normal skin color.? Normal skin turgor.? Extremities: No lower extremity edema.? No calf ttp. 5/5 strength to bilateral upper and lower extremities + ecchymosis overlying the right portillo/knee region, no palpable deformity full range of motion to bilateral knees painless. 2+ dorsalis pedis, anterior tibialis posterior tibialis and popliteal pulses equal bilateral. Patient ambulating with steady gait normal coordination Neuro: Oriented X 3.? No motor deficit.? No sensory deficit. CN 2-12 intact Course Course Course Narrative: RME:?47 yo female on hx of DVT/PE on coumadin here with right LE pain/ swelling/ bruising s/p falling off bed 3 days ago. no head strike or LOC. sent by PCP to r/o clot. denies cp/ sob. denies recent travel/ long car rides. no calf tenderness. ecchymosis over right portillo/knee. no palpable deformities. 2+ dp/pt pulses. ambulating with steady gait. labs, duplex ordered Full HPI, ROS and PE to be performed by the primary ED provider [id number]-- received call from Dr. Martinez with [facility] with US results of common femoral vein DVT. Charge aware. Reevaluation(s) Reevaluation #1: X-ray tib-fib no fracture dislocation. Arthritis and smell joint effusion of the right knee noted. DVT study shows partially occlusive thrombus in the right common femoral vein. Time: 15:59 Reevaluation #2: CBC anemia when compared to previous labs ? due to acute trauma. Chemistry unremarkable. INR 1.9. Now complaining of severe headache --> CT ordered Spoke to Hem Onc who reports previous notes state that patient has failed eliquis in the past. Recommends 1 dose of lovenox here, admit and vascular follow up. Time: 16:15 Medical Decision Making Medical Decision Making [facility] Narrative: 47-year-old female presents with concerned she may have a DVT to her right lower extremity status post fall Physical exam significant for + ecchymosis overlying the right portillo/knee region, no palpable deformity full range of motion to bilateral knees painless. 2+ dorsalis pedis, anterior tibialis posterior tibialis and popliteal pulses equal bilateral. Patient ambulating with steady gait normal coordination Concerns for possible DVT to right lower extremity. Unlikely fracture dislocation. Plan labs, imaging. Lab Data 05/02/23 13:55 05/02/23 13:55 Labs: Lab Results 05/02/23 05/02/23 Range/Units 13:55 15:40 WBC 7.6 (4.8-10.8) X10*3/uL RBC 4.53 (4.20-5.50) X10*6/uL Hgb 10.9 L (12.0-16.0) g/dl Hct 36.1 L (37.0-47.0) % MCV 79.7 L (80.0-98.0) fL MCH 24.1 L (27.0-33.0) pg MCHC 30.2 L (31.0-35.0) g/dl RDW 15.3 (11.0-16.0) % Plt Count 365 (160-400) X10*3/uL MPV 9.8 (9.4-12.3) fL Immature Gran % (Auto) 0.1 (0.0-0.4) % Neut % (Auto) 48.4 (45-73) % Lymph % (Auto) 36.9 (20-40) % [place] % (Auto) 9.3 (2-11) % Eos % (Auto) 4.5 H (0-4) % Baso % (Auto) 0.8 (0-2) % Lymph # (Auto) 2.8 (1.2-4.9) X10*3/uL [place] # (Auto) 0.7 (0.1-1.2) X10*3/uL Eos # (Auto) 0.3 (0.0-0.4) X10*3/uL Baso # (Auto) 0.1 (0.0-0.2) X10*3/uL Abs Immat Gran (auto) 0.01 (0.00-0.03) X10*3/uL Absolute Neuts (auto) 3.7 (2.0-8.3) x10*3/uL Absolute Nucleated RBC 0.000 (0.0-0.012) X10*3/uL Nucleated RBC % (auto) 0.0 (0.0-0.2) /100WBC PT 23.5 H (11.1-13.3) SEC INR 1.9 H (0.9-1.1) Hold Blue Top SEE NOTE Sodium 142 (135-145) mmol/L Potassium 3.7 (3.3-5.1) mmol/L Chloride 100 (96-108) mmol/L Carbon Dioxide 33 H (22-29) mmol/L Anion Gap 13 (12-20) BUN 10 (9-16) mg/dL Creatinine 0.73 (0.5-1.4) mg/dL Estim Creat Clear Calc 152.4 Estimated GFR > 60 Random Glucose 106 (60-115) mg/dL Calcium 9.7 D (8.4-10.2) mg/dL Critical Care Time Critical Care Time Critical Care Time: Yes Total Critical Care Time: 45 Attestation: I attest to this time spent taking care of the patient, obtaining history, physical, reviewing labs, imaging, speaking to my attending, speaking to specialist. Discharge Plan Discharge Clinical Impression: DVT (deep venous thrombosis) Patient Disposition: Home, Self-Care Instructions: Deep Vein Thrombosis (ED) Additional Instructions: Take your medications as prescribed. If you were prescribed antibiotics today, it is important that you take your medication to their entirety, do not skip any doses, do not finish them early. Follow-up with your primary care provider this week. Return to the emergency department with new or worsening symptoms. Such as fevers, chills, chest pain, shortness of breath, nausea, vomiting, dizziness, headache, vision changes, lethargy In case of emergency call 911 Prescriptions: No Action warfarin 5 mg Tablet 5 mg PO DAILY Qty: 60 2RF Protocol: Dose Management Condition: Sunday (Week One) Dose/Route: 7.5 mg Instruction: 1.5 x 5 mg tablets Condition: Sunday Dose/Route: 5 mg Instruction: 1 x 5 mg tablet Condition: Sunday Dose/Route: 5 mg Instruction: 1 x 5 mg tablet Condition: Sunday Dose/Route: 5 mg Instruction: 1 x 5 mg tablet Condition: Dose/Route: 7.5 mg Instruction: 1.5 x 5 mg tablets Condition: Sunday Dose/Route: 5 mg Instruction: 1 x 5 mg tablet Condition: Sunday Dose/Route: 5 mg Instruction: 1 x 5 mg tablet Condition: Sunday (Week Two) Dose/Route: 7.5 mg Instruction: 1.5 x 5 mg tablets Condition: Sunday Dose/Route: 5 mg Instruction: 1 x 5 mg tablet Condition: Sunday Dose/Route: 5 mg Instruction: 1 x 5 mg tablet Condition: Sunday Dose/Route: 5 mg Instruction: 1 x 5 mg tablet Condition: Dose/Route: 7.5 mg Instruction: 1.5 x 5 mg tablets Condition: Sunday Dose/Route: 5 mg Instruction: 1 x 5 mg tablet Condition: Sunday Dose/Route: 5 mg Instruction: 1 x 5 mg tablet Protocol Text: Adjustment Start Date: Sunday08/09/22 INR Value: 3.0 INR Date: 08/09/22 Recheck Date: 08/23/22 Additional Instructions: cont same dosing eat a green today call with any antibiotics Rx Instructions: take as directed by coumadin clinic albuterol sulfate [Ventolin HFA] 90 mcg/actuation HFA aerosol inhaler 2 puff PO Q6H PRN (Reason: for wheezing) Qty: 18 12RF vitamin A palmitate 10,000 unit capsule 20,000 unit PO DAILY 21 Days Qty: 42 0RF roflumilast 500 mcg tablet 500 mcg PO DAILY Qty: 30 6RF budesonide-formoterol [Symbicort] 160-4.5 mcg/actuation HFA aerosol inhaler 2 puff inhalation BID Qty: 10.2 6RF esomeprazole magnesium 40 mg capsule,delayed release(DR/EC) 40 mg PO DAILY Qty: 90 1RF lorazepam 1 mg tablet 1 mg PO BID atorvastatin 20 mg tablet 20 mg PO DAILY cetirizine 10 mg tablet 10 mg PO DAILY cholecalciferol (vitamin D3) 50 mcg (2,000 unit) tablet 50 mcg PO DAILY fluticasone propionate 50 mcg/actuation spray,suspension 1 spray intranasal DAILY Refresh Optive 0.5-0.9 % drops 1 drp ophthalmic (eye) QID diclofenac sodium 1 % gel 1 g topical QID alum-mag hydroxide-simeth [Maalox Maximum Strength] 400-400-40 mg/5 mL suspension 10 ml PO TID PRN (Reason: indigestion) 30 Days Qty: 600 0RF Trelegy Ellipta 100-62.5-25 mcg blister with device 1 inh inhalation DAILY 30 Days Qty: 60 11RF albuterol sulfate 2.5 mg /3 mL (0.083 %) solution for nebulization 2.5 mg inhalation Q6H PRN (Reason: shortness of breath or wheezing) 30 Days Qty: 180 11RF metoprolol succinate 100 mg tablet extended release 24 hr 100 mg PO DAILY clotrimazole 1 % cream topical BEDTIME tizanidine 4 mg capsule 0 mg PO BID PRN triamcinolone acetonide 0.025 % cream topical epinephrine 0.3 mg/0.3 mL auto-injector 0.3 mg IM ONCE PRN gabapentin 800 mg tablet 800 mg PO TID azelastine 137 mcg (0.1 %) aerosol,spray intranasal hydrochlorothiazide 25 mg tablet 25 mg PO DAILY ascorbic acid (vitamin C) 500 mg tablet 500 mg PO BID permethrin 5 % cream See Rx Instructions .ROUTE .COMPLEX Rx Instructions: use as directed. acetaminophen 500 mg tablet 0 mg PO duloxetine 30 mg capsule,delayed release(DR/EC) 30 mg PO BID nystatin 100,000 unit/gram cream topical ondansetron HCl 4 mg tablet 4 mg PO DAILY vitamin E (dl, acetate) 180 mg (400 unit) capsule 180 mg PO BID vitamin A 10,000 unit capsule 2 cap PO DAILY docusate sodium [Colace] 100 mg capsule 200 mg PO BEDTIME Qty: 60 5RF polyethylene glycol 3350 [Miralax] 17 gram/dose powder 17 g PO DAILY Qty: 510 6RF amitriptyline 25 mg tablet 25 mg PO DAILY Referrals: Physician,Unknown J [Primary Care Provider] - 2 days
[2023-05-02 14:00] LABS: MANUAL DIFF FLAG NO
[2023-05-02 14:01] LABS: Basophils Absolute Auto 0.1 X10*3/uL (0.0-0.2); Basophils Percent Auto 0.8 % (0-2); Eosinophils Absolute Auto 0.3 X10*3/uL (0.0-0.4); Eosinophils Percent Auto 4.5 % (0-4); Hematocrit 36.1 % (37.0-47.0); Hemoglobin 10.9 g/dl (12.0-16.0); Imm Gran Abs Auto 0.01 X10*3/uL (0.00-0.03); Imm Gran Pct Auto 0.1 % (0.0-0.4); Lymphocytes Absolute Auto 2.8 X10*3/uL (1.2-4.9); Lymphocytes Percent Auto 36.9 % (20-40); Mean Corpuscular HGB Conc 30.2 g/dl (31.0-35.0); Mean Corpuscular Hemoglobin 24.1 pg (27.0-33.0); Mean Corpuscular Volume 79.7 fL (80.0-98.0); Mean Platelet Volume 9.8 fL (9.4-12.3); Monocytes Absolute Auto 0.7 X10*3/uL (0.1-1.2); Monocytes Percent Auto 9.3 % (2-11); Neutrophils Absolute Auto 3.7 x10*3/uL (2.0-8.3); Neutrophils Percent Auto 48.4 % (45-73); Platelet Count 365 X10*3/uL (160-400); Red Blood Count 4.53 X10*6/uL (4.20-5.50); Red Cell Distribution Width 15.3 % (11.0-16.0); White Blood Count 7.6 X10*3/uL (4.8-10.8)
[2023-05-02 14:14] LABS: Anion Gap 13 (12-20); Blood Urea Nitrogen 10 mg/dL (9-16); Calcium 9.7 mg/dL (8.4-10.2); Carbon Dioxide 33 mmol/L (22-29); Chloride 100 mmol/L (96-108); Creatinine Clr Calc Pharmacy 152.4; Estimated Glomerular Filt Rate > 60; Glucose Random 106 mg/dL (60-115); Potassium 3.7 mmol/L (3.3-5.1); Sodium 142 mmol/L (135-145)
[2023-05-02 15:25] VITALS: BMI 67.2
--- NOTE | 2023-05-02 15:27 | PC.NURSE ---
REPORTS RIGHT le SWELLING AT THIGH x 3 days after a fall. On coumadin for hx of PE. bruising to right knee, swelling is noted. no redenss. RLE warm, good CSM.
[2023-05-02 15:55] LABS: INTERNATIONAL NORM RATIO 1.9 (0.9-1.1); Prothrombin Time 23.5 SEC (11.1-13.3)
[2023-05-02] MEDS: Enoxaparin Sodium 100 MG/ML SYRINGE 180 MG SUBCUT (16:34)
[2023-05-02] MEDS: Morphine Sulfate 4 MG/ML CARTRIDGE IVPUSH (16:35)
--- NOTE | 2023-05-02 16:35 | PC.NURSE ---
c/o headache behind eyes. provider made aware and head CT ordered. unlabored resp in bed. pt aware of plan of care.
[2023-05-02 16:36] VITALS: BP 119/83; PULSE 73; RESP 18; TEMP 36.7; O2SAT 99
--- NOTE | 2023-05-02 17:16 | PHA.MEDREC ---
Pharmacy Consult ? Medication Reconciliation Pharmacy has completed the medication reconciliation. Patient confirmed medicaitons. Report the anticoagulation clinic said to take 7.5 mg today, tomorrow and Sunday however I left at home dose as she was taking previously. Melissa Huitron, PharmD
--- NOTE | 2023-05-02 17:36 | P.HPHOSP_ITS ---
History of Present Illness Date of Service: 05/02/23 Attending physician on admission: Nilsa Edgar Chief Complaint: Right lower leg pain Pt is a 47-year-old female with a PMH significant for?hx of DVT and PE on Coumadin, HTN, HLD, moderate persistent asthma, PFO, GERD, and depression who presents to the ED with?right lower leg swelling, bruising, and pain since falling out bed 3 days ago. Patient states she landed on her right knee and leg when she fell out of bed, and pain and swelling has increased since then. Denies head strike or LOC. Contacted PCP who suggested presenting to the ED for further evaluation. Also complains of a nonproductive cough for the past day or so. Denies chest pain/pressure, palpitations. Denies shortness of breath or pleuritic chest pain. No fever, chills, nausea, vomiting, abdominal pain. Patient has a complicated vascular history with peripheral vascular disease and peripheral venous hypertension with stents placed. Had a right lower extremity DVT that extended to a proximal veins approximately 3 years ago. Was admitted to [facility] and found to have small bilateral pulmonary emboli. Received tPA to the area, then placed on Eliquis, then switched to Lovenox due to her elevated BMI, then eventually switched over to Coumadin. Patient states she has been mostly compliant with Coumadin, up until recently. Two weeks ago she underwent dental surgery and had to stop Coumadin prior to that. Was initially bridged with Lovenox post surgery, but patient's son was admitted to the ICU at [facility] [place] [facility] and pt reports has not been taking her Coumadin regularly since then d/t staying with her son in the ICU. In the ED pt's vitals stable, WNL. Labs were significant for INR subtherapeutic at 1.9, otherwise grossly unremarkable. No leukocytosis. Stable H&H. No electrolyte abnormalities. Renal function WNL venous duplex of right lower extremity found partially occlusive thrombus in the right common femoral vein. X-ray of right knee found no fracture or dislocation, though did show arthritis and small joint effusion. X-ray of right tibia and fibula found no fracture or dislocation. CT?of head pending. Pt was treated with morphine and therapeutic Lovenox. Pt will be admitted to the hospital for treatment and further evaluation of lower extremity DVT in a patient that has failed outpatient therapy on Coumadin. Review of Systems 2 Review of Systems: Right lower leg and knee pain, bruising, swelling Fall at home Denies chest pain/pressure, palpitations No shortness of breath or pleuritic chest pain Denies fever, chills, nausea, vomiting, abdominal pain PMFSH Medical History Knee pain Iliac vein stenosis, left Iliac vein stenosis, right Asthma SINDHU (obstructive sleep apnea) Chest pain Chest pain Obesity SINDHU (obstructive sleep apnea) Constipation by delayed colonic transit GERD (gastroesophageal reflux disease) Asthma Dyspnea DVT (deep venous thrombosis) Pulmonary emboli SINDHU (obstructive sleep apnea) PFO (patent foramen ovale) Family History Daughter Asthma Mother Asthma Father Asthma Surgical History History of tubal ligation Hx of section History of esophagogastroduodenoscopy (EGD) H/O colonoscopy Hx of gastric bypass Social History Household Members: Children Alcohol intake: former Patient Tobacco Use Status: Never used Tobacco Smoked in Last 30 Days: No Use of substances other than those prescribed or required for medical reasons: No Advance Directives: No Advance Directives Information Provided: No Patient : No Meds Allergies Allergy/AdvReac Type Severity Reaction Status Date / Time doxycycline Allergy Intermediate Rash Verified 05/02/23 11:49 latex [LATEX] Allergy Mild RASH Verified 05/02/23 11:49 Home Medications Medication Instructions Recorded Confirmed Last Taken Type atorvastatin 20 mg tablet 20 mg PO DAILY 03/02/20 05/02/23 05/02/23 History cetirizine 10 mg tablet 10 mg PO DAILY 03/02/20 05/02/23 05/02/23 History fluticasone propionate 50 1 spray intranasal DAILY 09/20/20 05/02/23 05/02/23 History mcg/actuation nasal spray,suspension carboxymethylcellulose 0.5 1 drp ophthalmic (eye) QID 10/08/20 05/02/23 05/02/23 History %-glycerin 0.9 % eye drops lorazepam 1 mg tablet 1 mg PO DAILY PRN Anxiety 12/10/20 05/02/23 Unknown History ascorbic acid (vitamin C) 500 mg 500 mg PO BID 12/21/20 05/02/23 05/02/23 History tablet metoprolol succinate 100 mg 100 mg PO DAILY 04/21/21 05/02/23 05/02/23 History tablet,extended release 24 hr triamcinolone acetonide 0.025 % 1 appl topical BID PRN Rash 06/27/21 05/02/23 Unknown History topical cream duloxetine 30 mg capsule,delayed 30 mg PO DAILY 08/18/21 05/02/23 05/02/23 History release gabapentin 800 mg tablet 800 mg PO TID 10/06/21 05/02/23 05/02/23 History nystatin 100,000 unit/gram topical 1 appl topical BID PRN Rash 10/20/21 05/02/23 Unknown History cream ondansetron HCl 4 mg tablet 4 mg PO DAILY PRN Nausea And 10/20/21 05/02/23 Unknown History Vomiting vitamin E (dl, acetate) 180 mg 180 mg PO BID 12/06/21 05/02/23 05/02/23 History (400 unit) capsule hydrochlorothiazide 25 mg tablet 25 mg PO DAILY 02/20/22 05/02/23 05/02/23 History amitriptyline 25 mg tablet 50 mg PO BEDTIME 07/26/22 05/02/23 05/01/23 History dulaglutide 0.75 mg/0.5 mL 0.75 mg subcut WE 05/02/23 05/02/23 05/02/23 History subcutaneous pen injector (Trulicity) duloxetine 30 mg capsule,delayed 60 mg PO BEDTIME 05/02/23 05/02/23 05/01/23 History release ergocalciferol (vitamin D2) 1,250 1,250 mcg PO WE@2100 05/02/23 05/02/23 04/25/23 History mcg (50,000 unit) capsule ferrous sulfate 325 mg (65 mg 325 mg PO Q48H 05/02/23 05/02/23 04/30/23 History iron) tablet,delayed release hydroxyzine HCl 25 mg tablet 25 mg PO QID PRN itch 05/02/23 05/02/23 Unknown History metformin 500 mg tablet 500 mg PO BID 05/02/23 05/02/23 05/02/23 History roflumilast 500 mcg tablet 500 mcg PO BEDTIME 05/02/23 05/02/23 05/01/23 History warfarin 5 mg tablet 5 mg PO MOWETHFRSA@1800 05/02/23 05/02/23 Unknown History warfarin 5 mg tablet 7.5 mg PO SUTU@1800 05/02/23 05/02/23 05/01/23 History Physical Exam 2 Vital Signs and Narrative: Vital Signs: Last Vital Signs Temp 98.0 F 05/02/23 16:36 Pulse 73 05/02/23 16:36 Resp 18 05/02/23 16:36 BP 119/83 05/02/23 16:36 Pulse Ox 99 05/02/23 16:36 O2 Del Method Room Air 05/02/23 16:36 BMI result Body Mass Index 67.2 Constitutional: Alert, in no acute distress. Mental Status: Oriented to person, place and time. Eyes: Pupils are equal, round, and reactive to light. Ear, Nose, and Throat: Oropharynx clear, mucous membranes moist. Ears and nose without deformities. Trachea midline. Respiratory: Clear to auscultation bilaterally. No wheezing, rales, or rhonchi. Cardiovascular: S1, S2 regular. No murmurs, rubs, or gallops. Gastrointestinal: Abdomen soft, non-tender, obese. Normal bowel sounds. Neurologic: Cranial nerves II-XII are grossly intact bilaterally. No focal neurological deficits. Moves all extremities spontaneously. Skin: Warm, dry. Musculoskeletal: No cyanosis or clubbing. Extremities: Right lower leg swelling. Areas of ecchymosis on right knee and portillo. Psychiatric: Normal mood and affect. Results Labs 05/02/23 13:55 05/02/23 13:55 Labs: Laboratory Results - last 24 hr 05/02/23 05/02/23 13:55 15:40 MCV 79.7 L MCH 24.1 L MCHC 30.2 L RDW 15.3 Plt Count 365 MPV 9.8 Immature Gran % (Auto) 0.1 Neut % (Auto) 48.4 Lymph % (Auto) 36.9 Kingfisher % (Auto) 9.3 Eos % (Auto) 4.5 H Baso % (Auto) 0.8 Lymph # (Auto) 2.8 Kingfisher # (Auto) 0.7 Eos # (Auto) 0.3 Baso # (Auto) 0.1 Abs Immat Gran (auto) 0.01 Absolute Neuts (auto) 3.7 Absolute Nucleated RBC 0.000 Nucleated RBC % (auto) 0.0 PT 23.5 H INR 1.9 H Hold Blue Top SEE NOTE Anion Gap 13 Estim Creat Clear Calc 152.4 Estimated GFR > 60 Random Glucose 106 Calcium 9.7 D Imaging Radiologist's Impressions: Impressions Venous Duplex 05/02/23 12:54 IMPRESSION: Partially occlusive thrombus in the right common femoral vein. Knee X-Ray 05/02/23 13:25 IMPRESSION: No fracture or dislocation. Arthritis and small joint effusion at the right knee. Tibia/Fibula X-Ray 05/02/23 13:25 IMPRESSION: No fracture or dislocation. Arthritis and small joint effusion at the right knee. Assessment and Plan (1) DVT (deep venous thrombosis): Qualifiers: DVT location: lower extremity Affected thrombotic vein of extremity: f emoral Chronicity: acute Laterality: right Qualified Code(s): I82.411 - Acute embolism and thrombosis of right femoral vein Status: Acute Plan Pt is a 47-year-old female with a PMH significant for?hx of DVT and PE on Coumadin, HTN, HLD, moderate persistent asthma, PFO, GERD, and depression who presents to the ED with?right lower leg swelling, bruising, and pain since falling out bed 3 days ago. Pt will be admitted to the hospital for treatment and further evaluation of lower extremity DVT in a patient that has failed outpatient therapy on Coumadin. Right lower leg DVT Venous duplex of right lower extremity found partially occlusive thrombus in the right common femoral vein Secondary to Coumadin noncompliance and trauma to the area from fall out of bed Patient with history of Coumadin noncompliance; history of DVT and PE 3 years ago Received Lovenox 180 mg subQ in ED Will treat with Lovenox 150 mg subQ q12h Vascular surgery consult Heme/Onc consult Moderate persistent asthma Not in acute exacerbation Continue home inhalers HTN Continue hydrochlorothiazide, metoprolol HLD Continue statin Kdi-cwxhctx-vlotecild diabetes type [address] on sliding scale insulin Diabetic diet GERD Continue PPI Mood disorder Continue home medication Full Code Attending:Francesca Edgar DVT Prophylaxis: Lovenox Pt will require a hospitalization of at least two nights for treatment of?right lower extremity DVT. Given that patient has had multiple DVTs in the past and failed outpatient therapy, she will require hospitalization for administration of therapeutic Lovenox and specialist consultation. Quality Stroke Does the patient have a stroke diagnosis?: No VTE Prior VTE?: No VTE Risk Level:: Medical - moderate - high VTE Device Contraindication: Treatment Not Indicated VTE Drug Contraindication: N/A - Med Ordered
[2023-05-02 17:50] VITALS: BP 126/66; PULSE 72; RESP 18
[2023-05-02 17:55] LABS: Glucose, Whole Blood 87 mg/dL (60-115)
[2023-05-02 19:13] VITALS: BP 126/60; PULSE 70; O2SAT 98
[2023-05-02 19:42] LABS: Glucose, Whole Blood 117 mg/dL (60-115)
--- NOTE | 2023-05-02 19:42 | PC.NURSE ---
This RN took over pt care @ 1900. Pt ca&ox4, no signs of distress. Pt reporting abdm pain 10/02. Pt reporting pharmacy came to see her and she gave them a list of her meds. Pt asking about her night time meds. Pt also requesting dinner. No diet orders. This RN sent a message to hospitalist to confirm if pt is NPO. Pt advised waiting to hear back on whether she can eat. Pts POC 117. Plan of care ongoing.
--- NOTE | 2023-05-02 20:23 | PC.NURSE ---
2100 insulin dose not given according to sliding scale.
--- NOTE | 2023-05-02 22:02 | PC.NURSE ---
Pt requested and given food and drink. Pt did not receive dinner tray. Plan of care ongoing.
--- NOTE | 2023-05-02 22:21 | PC.NURSE ---
Pt on her cell phone. Resting in bed. Plan of care ongoing.
[2023-05-02] MEDS: Ergocalciferol (Vitamin D2) 1,250 MCG CAPSULE 1250 MCG PO (22:46)
[2023-05-02] MEDS: Vitamin E (Dl,Tocopheryl Acet) 180 MG (400 UNIT) CAPSULE PO (22:46)
[2023-05-02] MEDS: Ascorbic Acid 500 MG TABLET PO (22:47)
[2023-05-02] MEDS: Amitriptyline HCl 50 MG TABLET PO (22:47)
[2023-05-02] MEDS: Roflumilast 500 MCG TABLET PO (22:47)
[2023-05-02] MEDS: Artificial Tears 15 ML DROPS 1 DROP EYE-BOTH (22:47)
[2023-05-02] MEDS: DULoxetine HCl 60 MG CAPSULE.DR PO (22:47)
[2023-05-02] MEDS: Gabapentin 400 MG CAPSULE 800 MG PO (22:48)
[2023-05-02] MEDS: Ferrous Sulfate 324 MG TABLET.DR 325 MG PO (22:48)
[2023-05-02 22:49] VITALS: BP 107/52; PULSE 80; O2SAT 97
--- NOTE | 2023-05-02 23:00 | PC.NURSE ---
Meds rec'd from pharmacy n/a in xis Pt medicated per may. Pts daughters at bedside. Pt requested and given pillow for leg support. Pt IV flushed and patent. Plan of care ongoing.
[2023-05-03] VITALS (8 sets, daily range): BP systolic 112–163; BP diastolic 60–87; PULSE 66–79; RESP 18–22; TEMP 35.9–36.7; O2SAT 94–98; BMI 67.4
[2023-05-03] MEDS: 0.9 % Sodium Chloride Flush 3 ML SYRINGE IVFLUSH (01:06)
[2023-05-03 01:37] LABS: Glucose, Whole Blood 87 mg/dL (60-115)
[2023-05-03 01:45] LABS: COVID-19 Test Negative (Negative); IDNOW Serial# 9DB6401D
--- NOTE | 2023-05-03 02:18 | PC.NURSE ---
Pt admitted around 0100am from ED. Patient alert and oriented x4. Patient lethargic. Opening eyes to name and mumbling answers to questions but falling back asleep almost immediately. VSS. Respirations intact at 19. POC 87. No report from ED of patient being so lethargic. MD Sevilla notified. Patient received sedatives nighttime medications. No concern at this time. Bed alarm on. Call garza in reach.
[2023-05-03 02:38] LABS: IDNOW Serial# 9DB6401D; Influenza A Negative (Negative); Influenza B2 Negative (Negative)
[2023-05-03] MEDS: Enoxaparin Sodium 150 MG/ML SYRINGE SUBCUT ×2 (05:15→17:41)
[2023-05-03] MEDS: Omeprazole 20 MG CAPSULE.DR PO (05:16)
[2023-05-03 06:25] LABS: Hematocrit 33.2 % (37.0-47.0); Hemoglobin 10.3 g/dl (12.0-16.0); Mean Corpuscular Hemoglobin 24.8 pg (27.0-33.0); Mean Corpuscular Volume 79.8 fL (80.0-98.0); Mean Platelet Volume 10.4 fL (9.4-12.3); Platelet Count 350 X10*3/uL (160-400); Red Blood Count 4.16 X10*6/uL (4.20-5.50); Red Cell Distribution Width 15.2 % (11.0-16.0); White Blood Count 6.8 X10*3/uL (4.8-10.8)
[2023-05-03 07:17] LABS: Glucose, Whole Blood 96 mg/dL (60-115)
--- NOTE | 2023-05-03 07:34 | PM.EVENT ---
Full consult to follow. As discussed with ER provider yesterday, start lovenox for bridging, continue warfarin until therapeutic. Pt failed eliquis previously, may not be good candidate for DOACs because of BMI.
[2023-05-03] MEDS: Fluticasone/Vilanterol 200/25 BLST.W.DEV 1 PUFF INHALE (08:10)
[2023-05-03] MEDS: Metoprolol Succinate ER 100 MG TAB.ER.24H PO (09:02)
[2023-05-03] MEDS: Ascorbic Acid 500 MG TABLET PO ×2 (09:02→21:08)
[2023-05-03] MEDS: Gabapentin 400 MG CAPSULE 800 MG PO ×3 (09:02→21:08)
[2023-05-03] MEDS: Atorvastatin Calcium 20 MG TABLET PO (09:02)
[2023-05-03] MEDS: Loratadine 10 MG TABLET PO (09:02)
[2023-05-03] MEDS: hydroCHLOROthiazide 25 MG TABLET PO (09:02)
[2023-05-03] MEDS: DULoxetine HCl 30 MG CAPSULE.DR PO (09:02)
[2023-05-03] MEDS: Vitamin E (Dl,Tocopheryl Acet) 180 MG (400 UNIT) CAPSULE PO ×2 (09:02→21:07)
--- NOTE | 2023-05-03 09:11 | MHC.CM.PN ---
PT REPORTS SHE LIVES AT HOME WITH HER CHILDREN AND GRANDCHILDREN SHE HAS 30+ HOURS OF [employer] PER WEEK PT REPORTS SHE HAS A CPAP AND A WALKER FOR DME SHE DECLINES TO COMPLETE A HCP, BUT DOES ASK FOR BLANK DOCUMENTS TO COMPLETE AT HOME WITH FAMILY SHE DOES NOT KNOW THE NAME OF HER PCP BUT GOES TO [facility] IN [place] IMM DELIVERED DCP: HOME, RESUME [employer] FAMILY TO TRANSPORT
[2023-05-03 11:18] LABS: Glucose, Whole Blood 93 mg/dL (60-115)
[2023-05-03] MEDS: Albuterol Sulfate (0.083%) 2.5 MG/3 ML VIAL.NEB INHALE ×2 (11:59→18:11)
--- NOTE | 2023-05-03 14:25 | HO.PM.IMPN ---
Subjective Subjective Date of Service: 05/03/23 Interval History: dvt Review of Systems leg pain similar to yesterday inr subtherapeutic Physical Exam Vital Signs: Vital Signs: Last Vital Signs Temp 97 F 05/03/23 07:33 Pulse 66 05/03/23 11:59 Resp 18 05/03/23 14:18 BP 163/87 H 05/03/23 07:33 Pulse Ox 94 05/03/23 07:33 O2 Del Method Room Air 05/03/23 07:33 BMI result Body Mass Index 67.4 Appearance: Alert.? Oriented X3.? cvs: rrr, [id number] , no murmur res: clear to auscultation ,no rhonchii or wheezing abd: no rebound or guarding ,nt, bs present. ext pulses present , no cyanosis ,ight leg bruise /pain. neuro: axo3 , nonfocal. Objective Data Active Medications Acetaminophen (Acetaminophen 325 Mg Tablet) 650 mg PO Q6H PRN PRN Reason: Pain, Mild (Pain Scale 1-3) Albuterol Sulfate (Albuterol Sulfate (0.083%) 2.5 Mg/3 Ml Vial.Neb) 2.5 mg INHALE Q6H PRN PRN Reason: shortness of breath or wheezing Last Admin: 05/03/23 11:59 Dose: 2.5 mg Documented By: BIBIANA Albuterol Sulfate (Albuterol Sulfate 90 Mcg 8 Gm Inhaler) 2 puff INHALE Q6H PRN PRN Reason: Wheezing Amitriptyline HCl (Amitriptyline Hcl 50 Mg Tablet) 50 mg PO BEDTIME [facility] Last Admin: 05/02/23 22:47 Dose: 50 mg Documented By: KENDRICK Artificial Tears (Artificial Tears 15 Ml Drops) 1 drop EYE-BOTH QID [facility] Last Admin: 05/03/23 09:08 Dose: Not Given Documented By: VARGAS Non-Admin Reason: Patient Refused Ascorbic Acid (Ascorbic Acid 500 Mg Tablet) 500 mg PO BID [facility] Last Admin: 05/03/23 09:02 Dose: 500 mg Documented By: VARGAS Atorvastatin Calcium (Atorvastatin Calcium 20 Mg Tablet) 20 mg PO DAILY [facility] Last Admin: 05/03/23 09:02 Dose: 20 mg Documented By: VARGAS Benzonatate (Benzonatate 100 Mg Capsule) 100 mg PO TID PRN PRN Reason: Cough Dextrose (Dextrose 50 % 25 Gm/50 Ml Syringe) 25 gm IVPUSH Q15M PRN; Protocol PRN Reason: per Hypoglycemia Standing Ord. Docusate Sodium (Docusate Sodium 100 Mg Capsule) 100 mg PO DAILY PRN PRN Reason: Constipation Duloxetine HCl (Duloxetine Hcl 30 Mg Capsule.) 30 mg PO DAILY [facility] Last Admin: 05/03/23 09:02 Dose: 30 mg Documented By: VARGAS Duloxetine HCl (Duloxetine Hcl 60 Mg Capsule.) 60 mg PO BEDTIME [facility] Last Admin: 05/02/23 22:47 Dose: 60 mg Documented By: KENDRICK Enoxaparin Sodium (Enoxaparin Sodium 150 Mg/Ml Syringe) 150 mg SUBCUT Q12H [facility] Last Admin: 05/03/23 05:15 Dose: 150 mg Documented By: STERLING Ergocalciferol (Ergocalciferol (Vitamin D2) 1,250 Mcg Capsule) 1,250 mcg PO WE@2100 [facility] Last Admin: 05/02/23 22:46 Dose: 1,250 mcg Documented By: KENDRICK Ferrous Sulfate (Ferrous Sulfate 324 Mg Tablet.) 325 mg PO Q48H [facility] Last Admin: 05/02/23 22:48 Dose: 325 mg Documented By: KENDRICK Fluticasone Propionate (Fluticasone Propionate Nasal 16 Gm Mobile) 1 spray NOSTRIL-B DAILY [facility] Last Admin: 05/03/23 09:08 Dose: Not Given Documented By: VARGAS Non-Admin Reason: Patient Refused Fluticasone/Vilanterol (Fluticasone/Vilanterol 200/25 Blst.W.Dev) 1 puff INHALE RDAILY [facility] Last Admin: 05/03/23 08:10 Dose: 1 puff Documented By: TEAGAN Gabapentin (Gabapentin 400 Mg Capsule) 800 mg PO TID [facility] Last Admin: 05/03/23 09:02 Dose: 800 mg Documented By: VARGAS Glucose (Glucose Gel 15 Gm Gel..Gram.) 15 gm PO Q15M PRN; Protocol PRN Reason: per Hypoglycemia Standing Ord. Hydrochlorothiazide (Hydrochlorothiazide 25 Mg Tablet) 25 mg PO DAILY [facility]; Protocol Last Admin: 05/03/23 09:02 Dose: 25 mg Documented By: VARGAS Hydroxyzine HCl (Hydroxyzine Hcl 25 Mg Tablet) 25 mg PO QID PRN PRN Reason: itch Insulin Human Lispro (Insulin Lispro 100 Unit/Ml 3 Ml Vial) 0 unit SUBCUT QIDACHS [facility]; Protocol Last Admin: 05/03/23 11:31 Dose: Not Given Documented By: VARGAS Non-Admin Reason: No Insulin Coverage Loratadine (Loratadine 10 Mg Tablet) 10 mg PO DAILY [facility] Last Admin: 05/03/23 09:02 Dose: 10 mg Documented By: VARGAS Lorazepam (Lorazepam 1 Mg Tablet) 1 mg PO DAILY PRN PRN Reason: Anxiety Melatonin (Melatonin 3 Mg Tablet) 6 mg PO BEDTIME PRN PRN Reason: Insomnia Metoprolol Succinate (Metoprolol Succinate Er 100 Mg Tab.Er.24h) 100 mg PO DAILY [facility]; Protocol Last Admin: 05/03/23 09:02 Dose: 100 mg Documented By: VARGAS Morphine Sulfate (Morphine Sulfate 2 Mg/Ml Cartridge) 2 mg IVPUSH Q6H PRN; Protocol PRN Reason: Pain, Severe (Pain Scale 7-10) Nystatin (Nystatin Cream 15 Gm Tube) 1 appl TOPICAL BID PRN; Protocol PRN Reason: Rash Omeprazole (Omeprazole 20 Mg Capsule.Dr) 20 mg PO DAILY@0630 [facility] Last Admin: 05/03/23 05:16 Dose: 20 mg Documented By: STERLING Ondansetron HCl (Ondansetron Hcl 4 Mg/2 Ml Vial) 4 mg IVPUSH Q8H PRN PRN Reason: Nausea and Vomiting Polyethylene Glycol (Polyethylene Glycol 3350 17 Gm Powd.Pack) 17 gm PO DAILY [facility] Last Admin: 05/03/23 09:02 Dose: Not Given Documented By: VARGAS Non-Admin Reason: Patient Refused Roflumilast (Roflumilast 500 Mcg Tablet) 500 mcg PO BEDTIME [facility] Last Admin: 05/02/23 22:47 Dose: 500 mcg Documented By: KENDRICK Sodium Chloride (0.9 % Sodium Chloride Flush 3 Ml Syringe) 3 [facility] Last Admin: 02/08/24 09:16 Dose: Not Given Documented By: VARGAS Non-Admin Reason: Previously Administered Triamcinolone Acetonide (Triamcinolone Acet 0.025 % Cream 15 Gm Tube) 1 appl TOPICAL BID PRN; Protocol PRN Reason: Rash Vitamin E (Vitamin E (Dl,Tocopheryl Acet) 180 Mg (400 Unit) Capsule) 180 mg PO BID [facility] Last Admin: 05/03/23 09:02 Dose: 180 mg Documented By: VRAGAS Warfarin Sodium (Warfarin Sodium 7.5 Mg Tablet) 7.5 mg PO SUTU@1800 [facility] Warfarin Sodium (Warfarin Sodium 5 Mg Tablet) 5 mg PO MOWETHFRSA@1800 [facility] Labs 05/03/23 06:00 05/02/23 13:55 Labs: Laboratory Results - last 24 hr 05/02/23 05/02/23 05/02/23 15:40 17:50 19:39 MCV MCH MCHC RDW Plt Count MPV Absolute Nucleated RBC Nucleated RBC % (auto) PT 23.5 H INR 1.9 H POC Glucose 87 117 H COVID-19 ([place]) COVID-19 Clin Com Influenza Type A (MELANIA) Influenza Type B (M[facility]ANIA) Influenza A & B Note 05/03/23 05/03/23 05/03/23 01:17 01:32 02:05 MCV MCH MCHC RDW Plt Count MPV Absolute Nucleated RBC Nucleated RBC % (auto) PT INR POC Glucose 87 COVID-19 ([place]) Negative COVID-19 Clin Com See Note Influenza Type A (MELANIA) Negative Influenza Type B (M[facility]ANIA) Negative Influenza A & B Note See Note 05/03/23 05/03/23 05/03/23 06:00 07:06 11:14 MCV 79.8 L MCH 24.8 L MCHC 31.0 RDW 15.2 Plt Count 350 MPV 10.4 Absolute Nucleated RBC 0.000 Nucleated RBC % (auto) 0.0 PT INR POC Glucose 96 93 COVID-19 ([place]) COVID-19 Clin Com Influenza Type A (MELANIA) Influenza Type B (MELANIA) Influenza A & B Note Assessment and Plan (1) DVT (deep venous thrombosis): Status: Acute Plan 47-year-old female with a PMH significant for?hx of DVT and PE on Coumadin, HTN, HLD, moderate persistent asthma, PFO, GERD, and depression who presents to the ED with?right lower leg swelling, bruising, and pain since falling out bed 3 days ago. Pt will be admitted to the hospital for treatment and further evaluation of lower extremity DVT in a patient that has failed outpatient therapy on Coumadin. Right lower leg DVT Venous duplex of right lower extremity found partially occlusive thrombus in the right common femoral vein Secondary to Coumadin noncompliance and trauma to the area from fall out of bed Patient with history of Coumadin noncompliance; history of DVT and PE 3 years ago Received Lovenox 180 mg subQ in ED inr pendin today Will treat with Lovenox 150 mg subQ q12h,added warfarin back Vascular surgery consult and Heme/Onc consult Moderate persistent asthma Not in acute exacerbation Continue home inhalers HTN Continue hydrochlorothiazide, metoprolol HLD Continue statin Qzo-ehvzkop-gyimpjfoe diabetes type [address] on sliding scale insulin Diabetic diet GERD Continue PPI Mood disorder Continue home medication DVT Prophylaxis: Lovenox ongoing need for hospitalization for treatment of?right lower extremity DVT. Given that patient has had multiple DVTs in the past and question failed outpatient therapy, she will require hospitalization for administration of therapeutic Lovenox and specialist consultation. Quality Stroke Does the patient have a stroke diagnosis?: No VTE Prior VTE?: No VTE Risk Level:: Medical - moderate - high VTE Device Contraindication: Treatment Not Indicated VTE Drug Contraindication: N/A - Med Ordered
[2023-05-03 14:32] LABS: INTERNATIONAL NORM RATIO 2.2 (0.9-1.1); Prothrombin Time 26.3 SEC (11.1-13.3)
[2023-05-03] MEDS: Artificial Tears 15 ML DROPS 1 DROP EYE-BOTH ×3 (15:21→21:07)
[2023-05-03 16:32] LABS: Glucose, Whole Blood 120 mg/dL (60-115)
[2023-05-03] MEDS: Warfarin Sodium 5 MG TABLET PO (17:43)
[2023-05-03 20:12] LABS: Glucose, Whole Blood 111 mg/dL (60-115)
[2023-05-03] MEDS: Amitriptyline HCl 50 MG TABLET PO (21:08)
[2023-05-03] MEDS: Roflumilast 500 MCG TABLET PO (21:08)
[2023-05-03] MEDS: DULoxetine HCl 60 MG CAPSULE.DR PO (21:08)
[2023-05-04] MEDS: 0.9 % Sodium Chloride Flush 3 ML SYRINGE IVFLUSH ×2 (00:43→08:34)
[2023-05-04 06:16] LABS: Hemoglobin 10.2 g/dl (12.0-16.0); Mean Corpuscular HGB Conc 30.9 g/dl (31.0-35.0); Mean Corpuscular Hemoglobin 24.6 pg (27.0-33.0); Mean Corpuscular Volume 79.7 fL (80.0-98.0); Mean Platelet Volume 10.4 fL (9.4-12.3); Platelet Count 364 X10*3/uL (160-400); Red Blood Count 4.14 X10*6/uL (4.20-5.50); Red Cell Distribution Width 15.2 % (11.0-16.0); White Blood Count 7.1 X10*3/uL (4.8-10.8)
[2023-05-04] MEDS: Omeprazole 20 MG CAPSULE.DR PO (06:16)
[2023-05-04] MEDS: Enoxaparin Sodium 150 MG/ML SYRINGE SUBCUT (06:16)
[2023-05-04] MEDS: Fluticasone/Vilanterol 200/25 BLST.W.DEV 1 PUFF INHALE (07:36)
[2023-05-04 07:38] VITALS: PULSE 73; RESP 20; O2SAT 95
[2023-05-04 07:45] LABS: Glucose, Whole Blood 103 mg/dL (60-115)
[2023-05-04 07:54] VITALS: BP 133/75; PULSE 74; RESP 18; TEMP 36.1; O2SAT 93
[2023-05-04] MEDS: Metoprolol Succinate ER 100 MG TAB.ER.24H PO (08:26)
[2023-05-04] MEDS: Atorvastatin Calcium 20 MG TABLET PO (08:26)
[2023-05-04] MEDS: Gabapentin 400 MG CAPSULE 800 MG PO ×2 (08:26→15:23)
[2023-05-04] MEDS: Ascorbic Acid 500 MG TABLET PO (08:27)
[2023-05-04] MEDS: hydroCHLOROthiazide 25 MG TABLET PO (08:27)
[2023-05-04] MEDS: Vitamin E (Dl,Tocopheryl Acet) 180 MG (400 UNIT) CAPSULE PO (08:27)
[2023-05-04] MEDS: Loratadine 10 MG TABLET PO (08:27)
[2023-05-04] MEDS: DULoxetine HCl 30 MG CAPSULE.DR PO (08:27)
[2023-05-04] MEDS: Artificial Tears 15 ML DROPS 1 DROP EYE-BOTH ×2 (08:33→15:24)
[2023-05-04 09:01] LABS: Prothrombin Time 24.9 SEC (11.1-13.3)
--- NOTE | 2023-05-04 09:04 | P.CNHO_ITS ---
Subjective - Subjective Chief complaint: Right leg swelling Patient: known to practice within the last 3 years Consult date: 05/04/23 Requesting Physician: Dr. Edgar Primary Care Provider: Unknown Physician Medical Summary: Diagnosis: Right lower extremity DVT, bilateral pulmonary emboli October 2019 Her course was complicated with a large right lower extremity DVT that extended to her proximal veins. She was admitted to [facility]; found to have small bilateral pulmonary emboli resulting in pleuritic chest discomfort. In view of the extensive lower extremity DVT she did receive tPA to the area and was then placed on Eliquis. She then followed up with her vascular surgery who switched over to Lovenox due to her size. ? PFO -states that she was going to have closure of this performed at [facility]. HPI - Consult Narrative Reason for consult: Acute recurrent right lower extremity DVT Narrative: Lisa Humphrey is a 47 year old female with past medical history significant for DVT/PE on warfarin, hypertension, hyperlipidemia, PF4, GERD and depression who presented to emergency department with right lower leg swelling and bruising since a fall a few days ago. She states that she fell out of bed and bruised her leg. She has been noncompliant with warfarin in the last several days because her son was in a serious motor vehicle accident and has been in the ICU at [facility]. She is otherwise very compliant with taking her medication and is followed by her [facility] in [place]. She has also chronic peripheral vascular disease. She denies any pleuritic chest pain, shortness of breath, fever or cough. Evaluation in the ED revealed a subtherapeutic INR of 1.9. Right lower extremity venous Doppler revealed partially occlusive thrombus in the right common femoral vein. A bilateral lower extremity Doppler performed in 2021 was negative for DVT. She has been taking warfarin 5 mg 5 times a week and 7.5 mg twice a week. She denies any problems with bruising or bleeding. Review of Systems - Constitutional Reports as per HPI, Denies fatigue, Denies lack of energy, Reports weight gain, Denies weight loss - Cardiovascular Reports no additional cardiovascular complaints - Respiratory Reports no additional respiratory complaints - Gastrointestinal Reports no additional gastrointestinal complaints [facility] Medical History: Medical History (Last Reviewed 05/02/23 @ 22:43 by ALIRIO Andres) Asthma Asthma Chest pain Chest pain Constipation by delayed colonic transit DVT (deep venous thrombosis) Dyspnea GERD (gastroesophageal reflux disease) Iliac vein stenosis, left Iliac vein stenosis, right Knee pain Obesity SINDHU (obstructive sleep apnea) SINDHU (obstructive sleep apnea) SINDHU (obstructive sleep apnea) PFO (patent foramen ovale) Pulmonary emboli Family History: Family History (Last Reviewed 05/02/23 @ 22:43 by ALIRIO Andres) Daughter Asthma Mother Asthma Father Asthma Surgical History: Surgical History (Last Reviewed 05/02/23 @ 22:43 by ALIRIO Andres) H/O colonoscopy History of esophagogastroduodenoscopy (EGD) History of tubal ligation Hx of section Hx of gastric bypass Social History: Social History (Last Reviewed 05/02/23 @ 22:43 by ALIRIO Andres) Living Situation History: Household Members: Family Household Members: Children Household Members Other:: grandkids, daughters Housing: House Do you presently have visiting nurse or other home services: No Alcohol History Details: 1. How often do you have a drink containing alcohol?: a. Never 3. How often do you have six or more drinks on one occasion?: a. Never AUDIT-C Alcohol total score: 0 Currently Displaying Signs/Symptoms of Alcohol Withdrawal: No Tobacco History: Patient Tobacco Use Status: Never used Tobacco Smoked in Last 30 Days: No Substance Use History: Use of substances other than those prescribed or required for medical reasons : No Currently Displaying Signs/Symptoms of Drug Intoxication Withdrawal: No Domestic Abuse History: Have you been hit, kicked, punched, or otherwise hurt by someone within the past year? If so, by whom?: No Do you feel safe in your current relationship?: No Current Relationship Is there a partner from a previous relationship who is making you feel unsafe now?: No Are you made to feel afraid or neglected: No Advance Directives: Advance Directives: No Advance Directives Information Provided: No Homicidal Assessment: Do you have thoughts of harming others: None Do you have a plan to hurt others: No Plan Nutrition Assessment: Recently lost weight without trying: No How much weight loss: Not applicable Eating poorly because of decreased appetite: No Nutrition screen score: 0 Nutrition Risks: No Nutritional Risk Patient : No : No Poor oral hygiene: No Occupation Assessmet: service: No Home Medications and Allergies Current Medications: Current Medications Acetaminophen (Acetaminophen 325 Mg Tablet) 650 mg PO Q6H PRN PRN Reason: Pain, Mild (Pain Scale 1-3) Albuterol Sulfate (Albuterol Sulfate (0.083%) 2.5 Mg/3 Ml Vial.Jules) 2.5 mg INHALE Q6H PRN PRN Reason: shortness of breath or wheezing Last Admin: 05/03/23 18:11 Dose: 2.5 mg Albuterol Sulfate (Albuterol Sulfate 90 Mcg 8 Gm Inhaler) 2 puff INHALE Q6H PRN PRN Reason: Wheezing Amitriptyline HCl (Amitriptyline Hcl 50 Mg Tablet) 50 mg PO BEDTIME [facility] Last Admin: 05/03/23 21:08 Dose: 50 mg Artificial Tears (Artificial Tears 15 Ml Drops) 1 drop EYE-BOTH QID [facility] Last Admin: 05/04/23 08:33 Dose: 1 drop Ascorbic Acid (Ascorbic Acid 500 Mg Tablet) 500 mg PO BID [facility] Last Admin: 05/04/23 08:27 Dose: 500 mg Atorvastatin Calcium (Atorvastatin Calcium 20 Mg Tablet) 20 mg PO DAILY [facility] Last Admin: 05/04/23 08:26 Dose: 20 mg Benzonatate (Benzonatate 100 Mg Capsule) 100 mg PO TID PRN PRN Reason: Cough Dextrose (Dextrose 50 % 25 Gm/50 Ml Syringe) 25 gm IVPUSH Q15M PRN; Protocol PRN Reason: per Hypoglycemia Standing Ord. Docusate Sodium (Docusate Sodium 100 Mg Capsule) 100 mg PO DAILY PRN PRN Reason: Constipation Duloxetine HCl (Duloxetine Hcl 30 Mg Capsule.) 30 mg PO DAILY [facility] Last Admin: 05/04/23 08:27 Dose: 30 mg Duloxetine HCl (Duloxetine Hcl 60 Mg Capsule.) 60 mg PO BEDTIME [facility] Last Admin: 05/03/23 21:08 Dose: 60 mg Enoxaparin Sodium (Enoxaparin Sodium 150 Mg/Ml Syringe) 150 mg SUBCUT Q12H [facility] Last Admin: 05/04/23 06:16 Dose: 150 mg Ergocalciferol (Ergocalciferol (Vitamin D2) 1,250 Mcg Capsule) 1,250 mcg PO WE@2100 [facility] Last Admin: 05/02/23 22:46 Dose: 1,250 mcg Ferrous Sulfate (Ferrous Sulfate 324 Mg Tablet.) 325 mg PO Q48H [facility] Last Admin: 05/02/23 22:48 Dose: 325 mg Fluticasone Propionate (Fluticasone Propionate Nasal 16 Gm [place]) 1 spray NOSTRIL-B DAILY [facility] Last Admin: 05/03/23 09:08 Dose: Not Given Fluticasone/Vilanterol (Fluticasone/Vilanterol 200/25 Blst.W.Dev) 1 puff INHALE RDAILY [facility] Last Admin: 05/04/23 07:36 Dose: 1 puff Gabapentin (Gabapentin 400 Mg Capsule) 800 mg PO TID [facility] Last Admin: 05/04/23 08:26 Dose: 800 mg Glucose (Glucose Gel 15 Gm Gel..Gram.) 15 gm PO Q15M PRN; Protocol PRN Reason: per Hypoglycemia Standing Ord. Hydrochlorothiazide (Hydrochlorothiazide 25 Mg Tablet) 25 mg PO DAILY [facility]; Protocol Last Admin: 05/04/23 08:27 Dose: 25 mg Hydroxyzine HCl (Hydroxyzine Hcl 25 Mg Tablet) 25 mg PO QID PRN PRN Reason: itch Insulin Human Lispro (Insulin Lispro 100 Unit/Ml 3 Ml Vial) 0 unit SUBCUT QIDACHS [facility]; Protocol Last Admin: 05/04/23 08:08 Dose: Not Given Loratadine (Loratadine 10 Mg Tablet) 10 mg PO DAILY [facility] Last Admin: 05/04/23 08:27 Dose: 10 mg Lorazepam (Lorazepam 1 Mg Tablet) 1 mg PO DAILY PRN PRN Reason: Anxiety Melatonin (Melatonin 3 Mg Tablet) 6 mg PO BEDTIME PRN PRN Reason: Insomnia Metoprolol Succinate (Metoprolol Succinate Er 100 Mg Tab.Er.24h) 100 mg PO DAILY [facility]; Protocol Last Admin: 05/04/23 08:26 Dose: 100 mg Morphine Sulfate (Morphine Sulfate 2 Mg/Ml Cartridge) 2 mg IVPUSH Q6H PRN; Protocol PRN Reason: Pain, Severe (Pain Scale 7-10) Nystatin (Nystatin Cream 15 Gm Tube) 1 appl TOPICAL BID PRN; Protocol PRN Reason: Rash Omeprazole (Omeprazole 20 Mg Capsule.Dr) 20 mg PO DAILY@0630 [facility] Last Admin: 05/04/23 06:16 Dose: 20 mg Ondansetron HCl (Ondansetron Hcl 4 Mg/2 Ml Vial) 4 mg IVPUSH Q8H PRN PRN Reason: Nausea and Vomiting Polyethylene Glycol (Polyethylene Glycol 3350 17 Gm Powd.Pack) 17 gm PO DAILY [facility] Last Admin: 05/04/23 08:35 Dose: Not Given Roflumilast (Roflumilast 500 Mcg Tablet) 500 mcg PO BEDTIME [facility] Last Admin: 05/03/23 21:08 Dose: 500 mcg Sodium Chloride (0.9 % Sodium Chloride Flush 3 Ml Syringe) 3 ml IVFLUSH QSHIFT [facility] Last Admin: 05/04/23 08:34 Dose: 3 ml Triamcinolone Acetonide (Triamcinolone Acet 0.025 % Cream 15 Gm Tube) 1 appl TOPICAL BID PRN; Protocol PRN Reason: Rash Vitamin E (Vitamin E (Dl,Tocopheryl Acet) 180 Mg (400 Unit) Capsule) 180 mg PO BID [facility] Last Admin: 05/04/23 08:27 Dose: 180 mg Warfarin Sodium (Warfarin Sodium 7.5 Mg Tablet) 7.5 mg PO SUTU@1800 [facility] Warfarin Sodium (Warfarin Sodium 5 Mg Tablet) 5 mg PO MOWETHFRSA@1800 [facility] Last Admin: 05/03/23 17:43 Dose: 5 mg Home Medications Medication Instructions Recorded Confirmed Type atorvastatin 20 mg tablet 20 mg PO DAILY 03/02/20 05/02/23 History cetirizine 10 mg tablet 10 mg PO DAILY 03/02/20 05/02/23 History fluticasone propionate 50 1 spray intranasal DAILY 09/20/20 05/02/23 History mcg/actuation nasal spray,suspension carboxymethylcellulose 0.5 1 drp ophthalmic (eye) QID 10/08/20 05/02/23 History %-glycerin 0.9 % eye drops lorazepam 1 mg tablet 1 mg PO DAILY PRN Anxiety 12/10/20 05/02/23 History ascorbic acid (vitamin C) 500 mg 500 mg PO BID 12/21/20 05/02/23 History tablet metoprolol succinate 100 mg 100 mg PO DAILY 04/21/21 05/02/23 History tablet,extended release 24 hr triamcinolone acetonide 0.025 % 1 appl topical BID PRN Rash 06/27/21 05/02/23 History topical cream duloxetine 30 mg capsule,delayed 30 mg PO DAILY 08/18/21 05/02/23 History release gabapentin 800 mg tablet 800 mg PO TID 10/06/21 05/02/23 History nystatin 100,000 unit/gram topical 1 appl topical BID PRN Rash 10/20/21 05/02/23 History cream ondansetron HCl 4 mg tablet 4 mg PO DAILY PRN Nausea And 10/20/21 05/02/23 History Vomiting vitamin E (dl, acetate) 180 mg 180 mg PO BID 12/06/21 05/02/23 History (400 unit) capsule hydrochlorothiazide 25 mg tablet 25 mg PO DAILY 02/20/22 05/02/23 History amitriptyline 25 mg tablet 50 mg PO BEDTIME 07/26/22 05/02/23 History dulaglutide 0.75 mg/0.5 mL 0.75 mg subcut WE 05/02/23 05/02/23 History subcutaneous pen injector (Trulicity) duloxetine 30 mg capsule,delayed 60 mg PO BEDTIME 05/02/23 05/02/23 History release ergocalciferol (vitamin D2) 1,250 1,250 mcg PO WE@2100 05/02/23 05/02/23 History mcg (50,000 unit) capsule ferrous sulfate 325 mg (65 mg 325 mg PO Q48H 05/02/23 05/02/23 History iron) tablet,delayed release hydroxyzine HCl 25 mg tablet 25 mg PO QID PRN itch 05/02/23 05/02/23 History metformin 500 mg tablet 500 mg PO BID 05/02/23 05/02/23 History roflumilast 500 mcg tablet 500 mcg PO BEDTIME 05/02/23 05/02/23 History warfarin 5 mg tablet 5 mg PO MOWETHFRSA@1800 05/02/23 05/02/23 History warfarin 5 mg tablet 7.5 mg PO SUTU@1800 05/02/23 05/02/23 History Allergies Allergy/AdvReac Type Severity Reaction Status Date / Time doxycycline Allergy Intermediate Rash Verified 05/02/23 11:49 latex [LATEX] Allergy Mild RASH Verified 05/02/23 11:49 Physical Exam Vital signs: Vital Signs Temp 96.9 F 05/04/23 07:54 Pulse 74 05/04/23 07:54 Resp 18 05/04/23 07:54 BP 133/75 05/04/23 07:54 Pulse Ox 93 05/04/23 07:54 O2 Del Method Room Air 05/04/23 07:54 Intake & Output 05/03/23 05/04/2324 18:59 06:59 18:59 Intake Total 420 / 1380 960 / 1380 Balance 420 / 1380 960 / 1380 Intake: Intake, Oral Amount 420 / 1380 960 / 1380 Other: Breakfast % Eaten 100% Lunch % Eaten 100% Number of Unmeasured Voids 1 Urine Bathroom Weight 178.1 kg - Constitutional Present: no acute distress, obese - Routine HEENT Exam Head: Present: normal inspection Eye: Present: EOMI - Routine Neck Exam Present: supple. Absent: lymphadenopathy - Routine Respiratory Exam Present: CTAB. Absent: rhonchi, wheezes - Routine Cardiovascular Exam Cardiovascular: Present: RRR, S1, S2 - Routine Extremities Exam Present: calf tenderness, pulses intact Comments: Right leg swelling noted Hem/Onc Consult Result - Labs CBC & Chem 7: 05/04/23 05:50 05/02/23 13:55 Labs: Short CBC 05/04/23 Range/Units 05:50 WBC 7.1 (4.8-10.8) X10*3/uL Hgb 10.2 L (12.0-16.0) g/dl Hct 33.0 L (37.0-47.0) % Plt Count 364 (160-400) X10*3/uL Assessment and Plan Patient Active problem list reviewed?: Yes (1) DVT (deep venous thrombosis) Status: Acute Assessment and plan: 1. This is a 47-year-old woman with recurrent right lower extremity DVT after a fall and subtherapeutic INR because of noncompliance with warfarin. She has a history of extensive right lower extremity DVT and bilateral pulmonary emboli diagnosed in October 2019. She was treated at [facility]. DVT occurred while she was on for Eliquis 5 mg b.i.d. for a previous clot that occurred around 2016. She therefore failed Eliquis. She has been on warfarin since 2019 and was doing well until her recent fall a few days ago and injuring her right leg. She was also noncompliant with warfarin when this happened, her INR was subtherapeutic. Right lower extremity Doppler revealed partially occlusive thrombus in the right common femoral vein. This is a new finding compared to April 2021 exam. Recurrent clot is probably related to recent fall and subtherapeutic INR. She has been on Lovenox in the last couple of days, her INR is therapeutic. She is not a candidate for DOACs because of her body mass index and also prior failure with Eliquis. She can be discharged on warfarin 7.5 mg once a day, she should follow-up for an INR check early next week by Sunday and make adjustment to warfarin dosing accordingly. Patient was advised to be compliant with her medication and to call if she develops any worsening of symptoms or bruising. Thank you for this referral. - Time Spent With Patient Time Spent with Patient (in minutes): 20
[2023-05-04 11:19] LABS: Glucose, Whole Blood 91 mg/dL (60-115)
[2023-05-04] MEDS: Morphine Sulfate 2 MG/ML CARTRIDGE IVPUSH (11:35)
[2023-05-04] MEDS: Fluticasone Propionate Nasal 16 GM SPRAY 1 SPRAY NOSTRIL-B (12:11)
--- NOTE | 2023-05-04 13:32 | P.CDIM_ITS ---
PROVIDER RESPONSE TEXT: To clarify, the appropriate diagnosis supported by the clinical indicators: Obesity Due to excess calories QUERY TEXT: PHYSICIAN'S DOCUMENTATION REQUEST Date of Query: 05/04/2023 09:32 AM EST Patient Name: Lisa Humphrey I Admit Date: 05/03/2023 Dear Nilsa Edgar, A review of the medical record indicates additional documentation may be needed. Please review below and update the documentation accordingly. Clinical Indicators: Height: ( ) 5'4 Weight: ( ) 178.1 kg BMI: ( ) 67.4 Other Clinical Notes Supporting Significance of the BMI: Per Nutritional Risk Assessment 08/01/23, on therapeutic diet If possible, please provide an associated diagnosis related to the abnormal BMI, such as: Overweight Obesity Due to excess calories Obesity Drug induced Obesity Due to other cause Specify the other cause Severe or Morbid Obesity With alveolar hypoventilation Severe or Morbid Obesity Without alveolar hypoventilation BMI is not significant Other (explain) Clinically unable to determine (explain) Thank you, Rina Davis RN Use of terms such as suspected, likely, concern for, or probable (associated with a specific diagnosi s that is being evaluated, monitored, or treated as if it exists) are acceptable and can be coded in the inpatient se tting, when documented at the time of discharge. Please use your independent medical judgment in providing your response. THIS QUERY IS PART OF THE PERMANENT MEDICAL RECORD
[2023-05-04 15:12] VITALS: BP 137/78; PULSE 94; RESP 18; TEMP 36; O2SAT 97
--- NOTE | 2023-05-04 15:19 | P.PNIM_ITS ---
Subjective Subjective Date of Service: 05/04/23 Physical Exam 2 Vital Signs: Vital Signs: Last Vital Signs Temp 96.8 F 05/04/23 15:12 Pulse 94 05/04/23 15:12 Resp 18 05/04/23 15:12 BP 137/78 05/04/23 15:12 Pulse Ox 97 05/04/23 15:12 O2 Del Method Room Air 05/04/23 15:12 BMI result Body Mass Index 67.4 Objective Data Active Medications Acetaminophen (Acetaminophen 325 Mg Tablet) 650 mg PO Q6H PRN PRN Reason: Pain, Mild (Pain Scale 1-3) Albuterol Sulfate (Albuterol Sulfate (0.083%) 2.5 Mg/3 Ml Vial.Neb) 2.5 mg INHALE Q6H PRN PRN Reason: shortness of breath or wheezing Last Admin: 05/03/23 18:11 Dose: 2.5 mg Documented By: BIBIANA Albuterol Sulfate (Albuterol Sulfate 90 Mcg 8 Gm Inhaler) 2 puff INHALE Q6H PRN PRN Reason: Wheezing Amitriptyline HCl (Amitriptyline Hcl 50 Mg Tablet) 50 mg PO BEDTIME [facility] Last Admin: 05/03/23 21:08 Dose: 50 mg Documented By: NILES Artificial Tears (Artificial Tears 15 Ml Drops) 1 drop EYE-BOTH QID [facility] Last Admin: 05/04/23 08:33 Dose: 1 drop Documented By: COLLIN Ascorbic Acid (Ascorbic Acid 500 Mg Tablet) 500 mg PO BID [facility] Last Admin: 05/04/23 08:27 Dose: 500 mg Documented By: COLLIN Atorvastatin Calcium (Atorvastatin Calcium 20 Mg Tablet) 20 mg PO DAILY [facility] Last Admin: 05/04/23 08:26 Dose: 20 mg Documented By: COLLIN Benzonatate (Benzonatate 100 Mg Capsule) 100 mg PO TID PRN PRN Reason: Cough Dextrose (Dextrose 50 % 25 Gm/50 Ml Syringe) 25 gm IVPUSH Q15M PRN; Protocol PRN Reason: per Hypoglycemia Standing Ord. Docusate Sodium (Docusate Sodium 100 Mg Capsule) 100 mg PO DAILY PRN PRN Reason: Constipation Duloxetine HCl (Duloxetine Hcl 30 Mg Capsule.Dr) 30 mg PO DAILY [facility] Last Admin: 05/04/23 08:27 Dose: 30 mg Documented By: COLLIN Duloxetine HCl (Duloxetine Hcl 60 Mg Capsule.) 60 mg PO BEDTIME [facility] Last Admin: 05/03/23 21:08 Dose: 60 mg Documented By: NILES Ergocalciferol (Ergocalciferol (Vitamin D2) 1,250 Mcg Capsule) 1,250 mcg PO WE@2100 [facility] Last Admin: 05/02/23 22:46 Dose: 1,250 mcg Documented By: KENDRICK Ferrous Sulfate (Ferrous Sulfate 324 Mg Tablet.) 325 mg PO Q48H [facility] Last Admin: 05/02/23 22:48 Dose: 325 mg Documented By: KENDRICK Fluticasone Propionate (Fluticasone Propionate Nasal 16 Gm Goehner) 1 spray NOSTRIL-B DAILY [facility] Last Admin: 05/04/23 12:11 Dose: 1 spray Documented By: COLLIN Fluticasone/Vilanterol (Fluticasone/Vilanterol 200/25 Blst.W.Dev) 1 puff INHALE RDAILY [facility] Last Admin: 05/04/23 07:36 Dose: 1 puff Documented By: TEAGAN Gabapentin (Gabapentin 400 Mg Capsule) 800 mg PO TID [facility] Last Admin: 05/04/23 08:26 Dose: 800 mg Documented By: COLLIN Glucose (Glucose Gel 15 Gm Gel..Gram.) 15 gm PO Q15M PRN; Protocol PRN Reason: per Hypoglycemia Standing Ord. Hydrochlorothiazide (Hydrochlorothiazide 25 Mg Tablet) 25 mg PO DAILY [facility]; Protocol Last Admin: 05/04/23 08:27 Dose: 25 mg Documented By: COLLIN Hydroxyzine HCl (Hydroxyzine Hcl 25 Mg Tablet) 25 mg PO QID PRN PRN Reason: itch Insulin Human Lispro (Insulin Lispro 100 Unit/Ml 3 Ml Vial) 0 unit SUBCUT QIDACHS [facility]; Protocol Last Admin: 05/04/23 11:27 Dose: Not Given Documented By: COLLIN Non-Admin Reason: No Insulin Coverage Loratadine (Loratadine 10 Mg Tablet) 10 mg PO DAILY [facility] Last Admin: 05/04/23 08:27 Dose: 10 mg Documented By: COLLIN Lorazepam (Lorazepam 1 Mg Tablet) 1 mg PO DAILY PRN PRN Reason: Anxiety Melatonin (Melatonin 3 Mg Tablet) 6 mg PO BEDTIME PRN PRN Reason: Insomnia Metoprolol Succinate (Metoprolol Succinate Er 100 Mg Tab.Er.24h) 100 mg PO DAILY [facility]; Protocol Last Admin: 05/04/23 08:26 Dose: 100 mg Documented By: COLLIN Morphine Sulfate (Morphine Sulfate 2 Mg/Ml Cartridge) 2 mg IVPUSH Q6H PRN; Protocol PRN Reason: Pain, Severe (Pain Scale 7-10) Last Admin: 05/04/23 11:35 Dose: 2 mg Documented By: COLLIN Nystatin (Nystatin Cream 15 Gm Tube) 1 appl TOPICAL BID PRN; Protocol PRN Reason: Rash Omeprazole (Omeprazole 20 Mg Capsule.Dr) 20 mg PO DAILY@0630 [facility] Last Admin: 05/04/23 06:16 Dose: 20 mg Documented By: MARGRET Ondansetron HCl (Ondansetron Hcl 4 Mg/2 Ml Vial) 4 mg IVPUSH Q8H PRN PRN Reason: Nausea and Vomiting Polyethylene Glycol (Polyethylene Glycol 3350 17 Gm Powd.Pack) 17 gm PO DAILY [facility] Last Admin: 05/04/23 08:35 Dose: Not Given Documented By: COLLIN Non-Admin Reason: Patient Refused Roflumilast (Roflumilast 500 Mcg Tablet) 500 mcg PO BEDTIME [facility] Last Admin: 05/03/23 21:08 Dose: 500 mcg Documented By: NILES Sodium Chloride (0.9 % Sodium Chloride Flush 3 Ml Syringe) 3 ml IVFLUSH QSHIFT [facility] Last Admin: 05/04/23 08:34 Dose: 3 ml Documented By: COLLIN Triamcinolone Acetonide (Triamcinolone Acet 0.025 % Cream 15 Gm Tube) 1 appl TOPICAL BID PRN; Protocol PRN Reason: Rash Vitamin E (Vitamin E (Dl,Tocopheryl Acet) 180 Mg (400 Unit) Capsule) 180 mg PO BID [facility] Last Admin: 05/04/23 08:27 Dose: 180 mg Documented By: COLLIN Warfarin Sodium (Warfarin Sodium 7.5 Mg Tablet) 7.5 mg PO DAILY@1800 [facility] Labs 05/04/23 05:50 05/02/23 13:55 Labs: Laboratory Results - last 24 hr 05/03/23 05/03/23 05/04/23 16:25 20:06 05:50 MCV 79.7 L MCH 24.6 L MCHC 30.9 L RDW 15.2 Plt Count 364 MPV 10.4 Absolute Nucleated RBC 0.000 Nucleated RBC % (auto) 0.0 PT INR POC Glucose 120 H 111 05/04/23 05/04/23 05/04/23 07:34 08:10 11:11 MCV MCH MCHC RDW Plt Count MPV Absolute Nucleated RBC Nucleated RBC % (auto) PT 24.9 H INR 2.0 H POC Glucose 103 91 Assessment and Plan (1) DVT (deep venous thrombosis): Status: Acute Quality Stroke Does the patient have a stroke diagnosis?: No VTE Prior VTE?: No VTE Risk Level:: Medical - moderate - high VTE Device Contraindication: Treatment Not Indicated VTE Drug Contraindication: N/A - Med Ordered
--- NOTE | 2023-05-04 15:37 | W.MHC.F2F ---
Service Date Service Date: 05/04/23 Encounter Date of encounter: 05/04/23 Encounter: DVT of right leg Reasons for Services Signs and symptoms assessed: Any worsening pain or swelling or shortness of breath for chest pain. Reason for fdc: medication management, medication treatment and teach disease management Homebound: Leaving the home is medically contraindicated at this time without the asist of a device and/or another person due th the listed conditions above and below. Reason homebound: weakness related to hospital stay Homebound supporting statement: Patient is generalized weak, fall recent-need help with going to appointments, lab draw and PT Certification: Based on the above findings, I certify that this patient is confined to the home and needs intermittent fdc care, physical therapy and/or speech therapy, or continues to need occupational therapy. The patient is under my care, and I have initiated the establishment of the plan of care. The patient will be followed by a physician who will periodically review the plan of care. Time Spent With Patient Time: Total time managing care of this patient today ____ minutes.
--- NOTE | 2023-05-04 15:40 | P.DS_ITS ---
DS: Providers Provider Date of Service: 05/04/23 Date of admission: 05/02/23 19:50 Date of discharge: 05/04/23 Primary care physician: Steven Preston Consults: 05/02/23 16:24 Consult to Hematology / Oncology Stat Consulting Provider: Bethany Choudhury Reason for consultation: DVT Consult to Vascular Surgery Stat Consulting Provider: [facility] V[facility] Services Reason for consultation: RLE DVT 05/03/23 07:24 Consult to Hematology / Oncology Routine Consulting Provider: Bethany Choudhury Reason for consultation: for reccurrent dvt /? missing coumadin Has provider been notified: No 05/03/23 07:25 Consult to Vascular Surgery Routine Consulting Provider: Kwesi Patel Reason for consultation: dvt right leg Has provider been notified: No Attending physician on discharge: Nilsa Edgar Discharging clinician: Nilsa Edgar DS: Diagnosis Discharge Diagnosis (1) DVT (deep venous thrombosis): Status: Acute DS: Summary Hospital Course Hospital Course: 47-year-old female with a PMH significant for?hx of DVT and PE on Coumadin, HTN, HLD, moderate persistent asthma, PFO, GERD, and depression who presents to the ED with?right lower leg swelling, bruising, and pain since falling out bed 3 days ago. Patient states she landed on her right knee and leg when she fell out of bed, and pain and swelling has increased since then. Denies head strike or LOC. Contacted PCP who suggested presenting to the ED for further evaluation. Also complains of a nonproductive cough for the past day or so. Denies chest pain/pressure, palpitations. Denies shortness of breath or pleuritic chest pain. No fever, chills, nausea, vomiting, abdominal pain. Patient has a complicated vascular history with peripheral vascular disease and peripheral venous hypertension with stents placed. Had a right lower extremity DVT that extended to a proximal veins approximately 3 years ago. Was admitted to [facility] and found to have small bilateral pulmonary emboli. Received tPA to the area, then placed on Eliquis, then switched to Lovenox due to her elevated BMI, then eventually switched over to Coumadin. Patient states she has been mostly compliant with Coumadin, up until recently. Two weeks ago she underwent dental surgery and had to stop Coumadin prior to that. Was initially bridged with Lovenox post surgery, but patient's son was admitted to the ICU at [facility] and pt reports has not been taking her Coumadin regularly since then d/t staying with her son in the ICU. In the ED pt's vitals stable, WNL. Labs were significant for INR subtherapeutic at 1.9, otherwise grossly unremarkable. No leukocytosis. Stable H&H. No electrolyte abnormalities. Renal function WNL venous duplex of right lower extremity found partially occlusive thrombus in the right common femoral vein. X-ray of right knee found no fracture or dislocation, though did show arthritis and small joint effusion. X-ray of right tibia and fibula found no fracture or dislocation. CT?of head pending. Pt was treated with morphine and therapeutic Lovenox. Pt will be admitted to the hospital for treatment and further evaluation of lower extremity DVT in a patient that has failed outpatient therapy on Coumadin. Hospital course: Patient came to the hospital because of mechanical fall, and also had found to have right lower extremity DVT: Patient was missing Coumadin at home on and off, patient was started on Lovenox and Coumadin and INR is therapeutic for 2 days-Lovenox stopped patient is improving. Discussed with the Hematology-recommended to continue Coumadin 7.5 mg daily and check what INR on Sunday(05/07/23) Discussed with vascular Dr. Patel currently recommended to continue anticoagulation as above, consider outpatient vascular follow-up if needed. PT have seen the patient and recommended home PT. Further management out patiently with PCP. plan: Continue warfarin 7.5 mg daily,check INR on Sunday(05/07/23) consider outpatient vascular follow-up if needed. Above management discussed with the patient in detail and he she understand in agreement with the above plan, time spent 50 minute. Time Attestation Discharge coordination time: Greater than 30 minutes Quality: Safe Use of Opioids Does Pt have an Active Cancer Diagnosis on the Problem List?: No Quality: Stroke Does the patient have a stroke diagnosis?: No Physical Exam Vital Signs: Vital Signs: Last Vital Signs Temp 96.8 F 05/04/23 15:12 Pulse 94 05/04/23 15:12 Resp 18 05/04/23 15:12 BP 137/78 05/04/23 15:12 Pulse Ox 97 05/04/23 15:12 O2 Del Method Room Air 02/09/24 15:12 BMI result Body Mass Index 67.4 Appearance: Alert.? Oriented X3.? cvs: rrr, [id number] , no murmur res: clear to auscultation ,no rhonchii or wheezing abd: no rebound or guarding ,nt, bs present. ext pulses present , no cyanosis ,right leg pain improving . neuro: axo3 , nonfocal. DS: Data Data Completed and Pending Labs on day of discharge: Laboratory Results - last 24 hr 05/03/23 05/03/23 05/04/23 16:25 20:06 05:50 WBC 7.1 RBC 4.14 L Hgb 10.2 L Hct 33.0 L MCV 79.7 L MCH 24.6 L MCHC 30.9 L RDW 15.2 Plt Count 364 MPV 10.4 Absolute Nucleated RBC 0.000 Nucleated RBC % (auto) 0.0 PT INR POC Glucose 120 H 111 05/04/23 05/04/23 05/04/23 07:34 08:10 11:11 WBC RBC Hgb Hct MCV MCH MCHC RDW Plt Count MPV Absolute Nucleated RBC Nucleated RBC % (auto) PT 24.9 H INR 2.0 H POC Glucose 103 91 Discharge Plan Discharge Anticipated Discharge Date/Time: 05/04/23 15:28 Patient Disposition: Home Health Service Discharge Diagnosis: dvt ,fall Referrals: Steven Preston [Other] - 1 Week [facility] [Outside] - 3-5 Days (HOME SERVICES FOR PHYSICAL THERAPY AND HALFWAY- A NURSE WILL CALL YOU TO SET UP FIRST VISIT) Physician,Unknown J [Physician] - 2 days Discharge Medications: New warfarin [Jantoven] 7.5 mg Tablet 7.5 mg PO DAILY@1800 Qty: 7 0RF Continued albuterol sulfate [Ventolin HFA] 90 mcg/actuation HFA aerosol inhaler 2 puff PO Q6H PRN (Reason: for wheezing) Qty: 18 12RF budesonide-formoterol [Symbicort] 160-4.5 mcg/actuation HFA aerosol inhaler 2 puff inhalation BID Qty: 10.2 6RF esomeprazole magnesium 40 mg capsule,delayed release(DR/EC) 40 mg PO DAILY Qty: 90 1RF metformin 500 mg tablet 500 mg PO BID hydroxyzine HCl 25 mg tablet 25 mg PO QID PRN (Reason: itch) ergocalciferol (vitamin D2) 1,250 mcg (50,000 unit) capsule 1,250 mcg PO WE@2100 ferrous sulfate 325 mg (65 mg iron) tablet,delayed release (DR/EC) 325 mg PO Q48H duloxetine 30 mg capsule,delayed release(DR/EC) 60 mg PO BEDTIME Trulicity 0.75 mg/0.5 mL pen injector 0.75 mg subcut WE roflumilast 500 mcg tablet 500 mcg PO BEDTIME lorazepam 1 mg tablet 1 mg PO DAILY PRN (Reason: Anxiety) atorvastatin 20 mg tablet 20 mg PO DAILY cetirizine 10 mg tablet 10 mg PO DAILY fluticasone propionate 50 mcg/actuation spray,suspension 1 spray intranasal DAILY carboxymethylcellulose-glycern 0.5-0.9 % drops 1 drp ophthalmic (eye) QID albuterol sulfate 2.5 mg /3 mL (0.083 %) solution for nebulization 2.5 mg inhalation Q6H PRN (Reason: shortness of breath or wheezing) 30 Days Qty: 180 11RF metoprolol succinate 100 mg tablet extended release 24 hr 100 mg PO DAILY triamcinolone acetonide 0.025 % cream 1 appl topical BID PRN (Reason: Rash) gabapentin 800 mg tablet 800 mg PO TID hydrochlorothiazide 25 mg tablet 25 mg PO DAILY ascorbic acid (vitamin C) 500 mg tablet 500 mg PO BID duloxetine 30 mg capsule,delayed release(DR/EC) 30 mg PO DAILY nystatin 100,000 unit/gram cream 1 appl topical BID PRN (Reason: Rash) ondansetron HCl 4 mg tablet 4 mg PO DAILY PRN (Reason: Nausea And Vomiting) vitamin E (dl, acetate) 180 mg (400 unit) capsule 180 mg PO BID polyethylene glycol 3350 [Miralax] 17 gram/dose powder 17 g PO DAILY Qty: 510 6RF amitriptyline 25 mg tablet 50 mg PO BEDTIME Discontinued warfarin 5 mg tablet 7.5 mg PO SUTU@1800 warfarin 5 mg tablet 5 mg PO MOWEFRSA@1800 Protocol: Dose Management Condition: Sunday (Week One) Dose/Route: 7.5 mg Instruction: 1.5 x 5 mg tablets Condition: Sunday Dose/Route: 5 mg Instruction: 1 x 5 mg tablet Condition: Sunday Dose/Route: 5 mg Instruction: 1 x 5 mg tablet Condition: Sunday Dose/Route: 5 mg Instruction: 1 x 5 mg tablet Condition: Dose/Route: 7.5 mg Instruction: 1.5 x 5 mg tablets Condition: Sunday Dose/Route: 5 mg Instruction: 1 x 5 mg tablet Condition: Sunday Dose/Route: 5 mg Instruction: 1 x 5 mg tablet Condition: Sunday (Week Two) Dose/Route: 7.5 mg Instruction: 1.5 x 5 mg tablets Condition: Sunday Dose/Route: 5 mg Instruction: 1 x 5 mg tablet Condition: Sunday Dose/Route: 5 mg Instruction: 1 x 5 mg tablet Condition: Sunday Dose/Route: 5 mg Instruction: 1 x 5 mg tablet Condition: Dose/Route: 7.5 mg Instruction: 1.5 x 5 mg tablets Condition: Sunday Dose/Route: 5 mg Instruction: 1 x 5 mg tablet Condition: Sunday Dose/Route: 5 mg Instruction: 1 x 5 mg tablet Protocol Text: Adjustment Start Date: Sunday08/09/22 INR Value: 3.0 INR Date: 08/09/22 Recheck Date: 08/23/22 Additional Instructions: cont same dosing eat a green today call with any antibiotics Rx Instructions: take as directed by coumadin clinic Discharge Orders: Discharge Order (Routine); Ordered 05/04/23 Ordered By: Nilsa Edgar Diet: Advance to usual diet Activity on Discharge: As tolerated Stand Alone Forms: Patient Portal Discharge page Activity Restrictions/Additional Instructions: Take your medications as prescribed. If you were prescribed antibiotics today, it is important that you take your medication to their entirety, do not skip any doses, do not finish them early. Follow-up with your primary care provider this week. Return to the emergency department with new or worsening symptoms. Such as fevers, chills, chest pain, shortness of breath, nausea, vomiting, dizziness, he adache, vision changes, lethargy In case of emergency call 911 Care Plan Goals: Patient came to the hospital because of mechanical fall, and also had found to have right lower extremity DVT: Patient was missing Coumadin at home on and off, patient was started on Lovenox and Coumadin and INR is therapeutic for 2 days-Lovenox stopped patient is improving. Discussed with the Hematology-recommended to continue Coumadin 7.5 mg daily and check what INR on Sunday(05/07/23) Discussed with vascular Dr. Patel currently recommended to continue anticoagulation as above, consider outpatient vascular follow-up if needed. PT have seen the patient and recommended home PT. Further management out patiently with PCP. Health Concerns: As above. Plan of Treatment: As above. Assessment: As above. Patient Instructions: Deep Vein Thrombosis (ED)
--- NOTE | 2023-05-04 15:40 | MHC.CM.PN ---
DP: PT HAS BEEN MEDICALLY CLEARED FOR DC HOME WITH NEW [facility] WITH [facility] FOR P.T. AND SN. RN AWARE. [facility] UPDATED ON DC. PT HAS OWN RIDE HOME.
[2023-05-04 16:19] LABS: Glucose, Whole Blood 88 mg/dL (60-115)
[2023-05-04] MEDS: Warfarin Sodium 7.5 MG TABLET PO (17:31)
== END 2023-05-04 17:55 | disposition home health service (06) | DRG 300 ==
LOC: HO.ED 16:24 → HO.EDOVER 20:00 → HO.S3 23:18
PROVIDERS: Internal Medicine; Physician Assistant; Physician Assistant Medical; Admitting Provider Student in an Organized Health Care Education/Training Program; Emergency Provider Emergency Medicine; PCP Student in an Organized Health Care Education/Training Program; Visit Provider Internal Medicine
DX: I82.411 Acute embolism and thrombosis of right femoral vein (principal); Q21.12 Patent foramen ovale; Z68.44 Body mass index [BMI] 60.0-69.9, adult; G47.33 Obstructive sleep apnea (adult) (pediatric); J45.40 Moderate persistent asthma, uncomplicated; R79.1 Abnormal coagulation profile; K21.9 Gastro-esophageal reflux disease without esophagitis; E66.09 Other obesity due to excess calories; Z20.822 Contact with and (suspected) exposure to COVID-19; Z86.718 Personal history of other venous thrombosis and embolism; Z98.84 Bariatric surgery status; Z91.148 Patient's other noncompliance with medication regimen for other reason; Z86.711 Personal history of pulmonary embolism; Z91.040 Latex allergy status; Z79.51 Long term (current) use of inhaled steroids; Z79.4 Long term (current) use of insulin; Z79.01 Long term (current) use of anticoagulants; Z79.85 Long-term (current) use of injectable non-insulin antidiabetic drugs; Z79.899 Other long term (current) drug therapy
CPT/HCPCS: 36415; 70450; 73560; 73590; 80048; 82947; 85025; 85027; 85610; 87502; 87635; 93971; 94640; 97161; 99221; 99285; J1650; J2270

== ENCOUNTER → 2023-05-02 19:50 | Outpatient (BNV) | payer OTHER, SELFPAY | PROVIDERS: Admitting Provider Student in an Organized Health Care Education/Training Program; Emergency Provider Emergency Medicine; Visit Provider Internal Medicine | DX: I82.411 Acute embolism and thrombosis of right femoral vein (principal) | CPT/HCPCS: 99222 ==

== ENCOUNTER → 2023-05-02 19:50 | Outpatient (BNV) | payer OTHER, SELFPAY | PROVIDERS: Admitting Provider Student in an Organized Health Care Education/Training Program; Emergency Provider Emergency Medicine; Visit Provider Student in an Organized Health Care Education/Training Program | DX: I82.411 Acute embolism and thrombosis of right femoral vein (principal); J45.30 Mild persistent asthma, uncomplicated | CPT/HCPCS: 99223; 99232; 99239; G0180 ==

== ENCOUNTER → 2023-05-10 11:12 | Outpatient (BNVA) | payer OTHER, SELFPAY | PROVIDERS: Visit Provider Surgery ==

== ENCOUNTER 2023-06-22 07:35 | Outpatient (AMB) | payer OTHER, SELFPAY ==
--- NOTE | 2023-06-22 12:39 | MHC.OFFVISWM ---
Intake Intake Visit Reasons: TV Re-Est SWL BMI 66.5 *SEE COMMENT* Allergies doxycycline Allergy (Intermediate, Verified 06/22/23 12:39) Rash latex [LATEX] Allergy (Mild, Verified 06/22/23 12:39) RASH Medication List - Last Reconciled 06/22/23 by Frank Miles MD albuterol sulfate 2.5 mg (3 mL) inhalation Q6H PRN 30 days albuterol sulfate 90 mcg/actuation (Ventolin HFA) 2 puffs PO Q6H PRN amitriptyline 50 mg PO BEDTIME ascorbic acid (vitamin C) 500 mg PO BID atorvastatin 20 mg PO DAILY budesonide-formoterol 160-4.5 mcg/actuation (Symbicort) 2 puffs inhalation BID carboxymethylcellulose-glycern 0.5-0.9 % 1 drp ophthalmic (eye) QID cetirizine 10 mg PO DAILY dulaglutide (Trulicity) 0.75 mg subcut WE duloxetine 60 mg PO BEDTIME duloxetine 30 mg PO DAILY ergocalciferol (vitamin D2) 1,250 mcg PO WE@2100 esomeprazole magnesium 40 mg PO DAILY ferrous sulfate 325 mg PO Q48H fluticasone propionate 50 mcg/actuation 1 spray intranasal DAILY gabapentin 800 mg PO TID hydrochlorothiazide 25 mg PO DAILY hydroxyzine HCl 25 mg PO QID PRN lorazepam 1 mg PO DAILY PRN metformin 500 mg PO BID metoprolol succinate ER 100 mg PO DAILY nystatin 1 appl topical BID PRN ondansetron HCl 4 mg PO DAILY PRN polyethylene glycol 3350 (Miralax) 17 grams PO DAILY roflumilast 500 mcg PO BEDTIME triamcinolone acetonide 0.025% 1 appl topical BID PRN vitamin E (dl, acetate) 180 mg PO BID warfarin (Jantoven) 7.5 mg PO DAILY@1800 HPI TV Re-Est SWL BMI 66.5 *SEE COMMENT* HPI Details Start time: 12.30pm, End time: 1.30pm ?I spent 45 minutes speaking with the patient on the phone plus an additional 15 minutes reviewing and updating records for a total of 60 minutes HPI Comments History of Present Illness Details Previous weight loss efforts: gastric bypass Wakes up: 9am, sleeps: 10pm Breakfast: 10am (eggs or oatmeal) Lunch: skips Dinner: 5pm (meat) Snacks: 1pm (cheese sticks), night snacking Exercise: none Fluids: Coffee: 1 cup/day (Zaman[employer] with cream and caramel syrup), tea/soda: none, juice: 8oz/day, ETOH: none PFSH Medical History (Updated 06/22/23 @ 12:56 by Frank Miles MD) Fibromyalgia Insomnia Hyperlipidemia Hypertension Non-insulin dependent type 2 diabetes mellitus Knee pain Iliac vein stenosis, left Iliac vein stenosis, right Asthma SINDHU (obstructive sleep apnea) Chest pain Chest pain Obesity SINDHU (obstructive sleep apnea) Constipation by delayed colonic transit GERD (gastroesophageal reflux disease) Asthma Dyspnea DVT (deep venous thrombosis) Pulmonary emboli SINDHU (obstructive sleep apnea) PFO (patent foramen ovale) Surgical History (Updated 05/12/23 @ 00:03 by Zandra Trivedi) History of tubal ligation Hx of section History of esophagogastroduodenoscopy (EGD) H/O colonoscopy Hx of gastric bypass Family History Daughter Asthma Mother Asthma Father Asthma Social History Household Members: Family and Children Household Members Other:: grandkids, daughters Housing: House Do you presently have visiting nurse or other home services: No Alcohol intake: former Patient Tobacco Use Status: Never used Tobacco service: No Assessment & Plan Assessment & Plan (1) Morbid obesity: Code(s): E66.01 - Morbid (severe) obesity due to excess calories Plan: 1. Please buy a body composition scale 2. Nutritional counseling. Start with 2 CELEBRATE REBUILD protein (buy at [facility]'s [employer]) shakes (TWO scoops EACH in 8oz low fat unsweetened almond milk each) at 10am-12pm and 1pm-3pm, 1 protein bar (CELEBRATE protein bars, buy at [facility] [employer]) at 4pm-6pm, dinner at 7pm (6 forks of protein and 6 forks of salad/vegetables) AND one more protein bar after dinner at 8pm-10pm. So you do 2 protein shakes, 2 protein bars and one meal per day. Meal to include lean meat (beef, fish, pork, turkey, chicken), or [place] yogurt, or egg whites, or beans with a salad with olive oil and fruits (berries, pears, apples, kiwi). Avoid salt, breads, potatoes, rice, pasta, desserts. 3. Each shake would be drunk slowly, like coffee in a period of 2 hours. 4. Cut each bar in 4 pieces and eat each piece in 30min ?to make each bar last 2 hours. 5. I emphasized the importance of measuring accurately the food portion and measure it when serving the food in plate 6. The meal portions include 6 full-size forks of meat and 6 full-size forks of salad. You always eat the meat portion but you can replace up to 3 forks for salad/vegetables with rice, potatoes or pasta, or a fruit ?if you like. The less you do it the better weight loss will be. 7. One full-size fork is what it can be scooped on the fork without falling aside and not what can be bit with the fork. Use regular forks like those you find in a typical restaurant. 8.? Please send me weight measurements as soon as possible and then once a week. Always include your diet and exercise plan. doing 2 sets of 15 repetitions each. 9. The best choice would be to purchase a stationary bike at home that can track calories. Let me know if you do so I can give you an exercise plan. 10.?Goal is to lose at least 1.5-2lbs per week Telehealth Telehealth Location of provider rendering services: practice address Location of patient: address on file Patient Identification confirmed using: Name, : Yes Telehealth method: voice only Patient verbally consented to treatment: Yes Patient verbally consented to billing insurance company: Yes Patient informed of any privacy concerns related to visit: Yes Minutes spent on Phone/Video with Pt.: 60 Coding Level of Care Code Tele New Pt Level 5 (94853) Diagnoses Morbid obesity E66.01 Time Spent (min) 60
== END 2023-06-22 14:17 | disposition home or self-care (01) ==
LOC: HO.HBS 07:35
PROVIDERS: Visit Provider Surgery
DX: E66.01 Morbid (severe) obesity due to excess calories (principal); Z68.44 Body mass index [BMI] 60.0-69.9, adult
CPT/HCPCS: 99443

== ENCOUNTER → 2023-06-22 07:35 | Outpatient (BNVA) | payer OTHER, SELFPAY | PROVIDERS: Visit Provider Surgery ==

== ENCOUNTER → 2023-08-10 11:27 | Outpatient (BNVA) | payer OTHER, SELFPAY | PROVIDERS: Visit Provider Physician Assistant Surgical ==

== ENCOUNTER 2023-09-25 13:04 | Outpatient (AMB) | payer OTHER, SELFPAY ==
--- NOTE | 2023-09-25 13:07 | MHC.OFFVISWM ---
VS Expanded 09/25/23 13:18 BP 140/82 H Blood Pressure Location Rt brachial Blood Pressure Position Sitting Pulse 103 H Pulse Source Pulse Oximeter Temp 96.3 F L Temperature Source Temporal Artery Scan Pulse Oximetry 95 Oxygen Delivery Method Room Air Height 5 ft 4 in Weight 376 lb 6.4 oz BMI 64.6 Body Fat % 52.6 Body Fat Mass 198.0 Fat Free Mass 178.4 Visceral Fat Rating 25.0 Body Water % 33.8 Body Water Mass 127.2 Muscle Mass/Score 169.4 Basal Metabolic Rate/Score 2,633 Intake Visit Reasons: (OV) Re-Est SWL Allergies doxycycline Allergy (Intermediate, Verified 09/25/23 13:13) Rash latex [LATEX] Allergy (Mild, Verified 09/25/23 13:13) RASH Medication List - Last Reconciled 09/25/23 by ALIRIO Galdamez albuterol sulfate 2.5 mg (3 mL) inhalation Q6H PRN 30 days albuterol sulfate 90 mcg/actuation (Ventolin HFA) 2 puffs PO Q6H PRN amitriptyline 50 mg PO BEDTIME ascorbic acid (vitamin C) 500 mg PO BID atorvastatin 20 mg PO DAILY budesonide-formoterol 160-4.5 mcg/actuation (Symbicort) 2 puffs inhalation BID carboxymethylcellulose-glycern 0.5-0.9 % 1 drp ophthalmic (eye) QID cetirizine 10 mg PO DAILY dulaglutide (Trulicity) 0.75 mg subcut WE duloxetine 60 mg PO BEDTIME duloxetine 30 mg PO DAILY ergocalciferol (vitamin D2) 1,250 mcg PO WE@2100 esomeprazole magnesium 40 mg PO DAILY ferrous sulfate 325 mg PO Q48H fluticasone propionate 50 mcg/actuation 1 spray intranasal DAILY gabapentin 800 mg PO TID hydrochlorothiazide 25 mg PO DAILY hydroxyzine HCl 25 mg PO QID PRN lorazepam 1 mg PO DAILY PRN metformin 500 mg PO BID metoprolol succinate ER 100 mg PO DAILY nystatin 1 appl topical BID PRN ondansetron HCl 4 mg PO DAILY PRN polyethylene glycol 3350 (Miralax) 17 grams PO DAILY roflumilast 500 mcg PO BEDTIME triamcinolone acetonide 0.025% 1 appl topical BID PRN vitamin E (dl, acetate) 180 mg PO BID warfarin (Jantoven) 5 mg PO DAILY@1800 HPI Comments Details: The patient is a 48 year old female who returns to the clinic to restart surgical weight loss management.? She was last seen in the office in May 2023. No weight was recorded at that time. Pt has history of gastric bypass by Dr. Sadler in 2003. Pt has hx blood clots, on warfarin. Scheduled to have follow up for RLE clot later this month. Current meal plan includes: 2 CELEBRATE REBUILD protein (buy at [facility]'s [employer]) shakes (TWO scoops EACH in 8oz low fat unsweetened almond milk each) at 10am-12pm and 1pm-3pm, 1 protein bar (CELEBRATE protein bars, buy at [facility] [employer]) at 4pm-6pm, dinner at 7pm (6 forks of protein and 6 forks of salad/vegetables) AND one more protein bar after dinner at 8pm-10pm. Given at last appt in May, pt reports difficulty with understanding the plan so did not follow. Current exercise plan includes: could get a gym membership, can go to classes [facility] Medical History (Updated 06/22/23 @ 12:56 by Frank Miles MD) Fibromyalgia Insomnia Hyperlipidemia Hypertension Non-insulin dependent type 2 diabetes mellitus Knee pain Iliac vein stenosis, left Iliac vein stenosis, right Asthma SINDHU (obstructive sleep apnea) Chest pain Chest pain Obesity SINDHU (obstructive sleep apnea) Constipation by delayed colonic transit GERD (gastroesophageal reflux disease) Asthma Dyspnea DVT (deep venous thrombosis) Pulmonary emboli SINDHU (obstructive sleep apnea) PFO (patent foramen ovale) Surgical History History of tubal ligation Hx of section History of esophagogastroduodenoscopy (EGD) H/O colonoscopy Hx of gastric bypass Family History Daughter Asthma Mother Asthma Father Asthma Social History (Updated 09/25/23 @ 13:14 by Anna Hairston CMA) Household Members: Family and Children Household Members Other:: grandkids, daughters Housing: House Do you presently have visiting nurse or other home services: No Alcohol intake: former Patient Tobacco Use Status: Former Tobacco user service: No Physical Exam Vital Signs: Last Vital Signs Temp 96.3 F L 09/25/23 13:18 Pulse 103 H 09/25/23 13:18 BP 140/82 H 09/25/23 13:18 Pulse Ox 95 09/25/23 13:18 Oxygen Delivery Method Room Air 09/25/23 13:18 BMI result Body Mass Index 64.6 Assessment & Plan Assessment & Plan (1) Hx of gastric bypass: Comment: 2004 NATHALIA Code(s): Z98.84 - Bariatric surgery status Category: Surgical (2) Morbid obesity: Code(s): E66.01 - Morbid (severe) obesity due to excess calories Category: Medical (3) Hyperlipidemia: Code(s): E78.5 - Hyperlipidemia, unspecified Category: Medical (4) Hypertension: Code(s): I10 - Essential (primary) hypertension Category: Medical (5) Non-insulin dependent type 2 diabetes mellitus: Code(s): E11.9 - Type 2 diabetes mellitus without complications Category: Medical (6) DVT (deep venous thrombosis): Code(s): I82.409 - Acute embolism and thrombosis of unspecified deep veins of unspecified lower extremity Category: Medical Qualifiers: Affected thrombotic vein of extremity: femoral Chronicity: acute DVT location: lower extremity Laterality: right Qualified Code(s): I82.411 - Acute embolism and thrombosis of right femoral vein (7) Current use of anticoagulant therapy: 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 Blood work, H pylori, CXR, ECG, Abd US and UGI will be ordered at next visit if pt makes progress and will schedule for RD and BH initial consultations. She needs access to SWL classes. ? Adequate sleep of 7-8 hours per night discussed. ?? Pt will purchase body composition analyzer scale (Jena Wetzel or Mimi recommended) and check weight weekly. The best time to do this is first thing in the morning after going to the bathroom. 1. Nutritional counseling. 2 CELEBRATE REBUILD protein ([facility] at [facility]) shakes (TWO scoops EACH in 8oz low fat unsweetened almond milk each) at 10am-12pm and 1pm-3pm, 1 protein bar (CELEBRATE protein bars, buy at [facility]) at 4pm-6pm, dinner at 7pm (6 forks of protein and 6 forks of salad/vegetables) AND one more protein bar after dinner at 8pm-10pm. Meal to include lean meat (beef, fish, pork, turkey, chicken), cooked vegetables or a salad with olive oil and/or fruits (berries, pears, apples, kiwi). Avoid salt, breads, potatoes, rice, pasta, desserts.? Try to drink 64 oz of water daily and avoid soda and juices. ?2. Each shake would be drunk slowly, like coffee in a period of 2 hours. ?3. Cut each bar in 4 pieces and eat each piece in 30 min? to make each bar last 2 hours. ?4. I emphasized the importance of measuring accurately the food portion and measure it carefully when serving the food on the plate ?5. The meal portions include 6 full-size forks of meat and 6 full-size forks of salad. You always eat the meat portion but you can replace up to half of the forks of salad/vegetables with rice, potatoes or pasta, or a fruit? if you like. The less you do it the better weight loss will be. ?6. One full-size fork is what can be scooped on the fork without falling aside and not what can be bit with the fork. Use regular forks like those you find in a typical restaurant. ?7.? Please send me weight measurements as soon as possible and then once a week. Always include your diet and exercise plan. Alternatively come weekly at the office for weight checks and send me the measurements. ?8. Ideas for exercises in the gym: Start elliptical with an incline of 2.0 and resistance of 4.0. Increase resistance by 1 every 3 min to a max resistance of 10.0, and repeat cycles for 300 calories. Alternatively, start treadmill with a speed of 2.0 and incline of 0, increasing incline by 1 every 3 minutes to the highest comfortable level then decrease in the same fashion.? Repeat process to a goal of 300 calories.? Goal of 2000 calories burned or more weekly.? Tracking calories is essential. 9. Alternatively start walking outside daily, tracking calories with a goal of 300 calories per day, daily. You can download the sunny [employer] which can track you time, distance and calories while walking outside.? You press start in the sunny when you start and then stop when you are finished.?? 10.? It is important to avoid and for at least 18 months postoperatively. 11. Goal is to lose at least 1.5-2lbs per week 12. Goal to lose 10% of your weight before surgery, which is about 39 lbs (started at 390lbs previously). Ultimate weight goal: 351 lbs before surgery. Patient is morbidly obese and is not considered stable at this time. I spent a total of 60 minutes reviewing/updating records, examining the patient and counseling the patient on weight management as detailed above. Medications: Changed From warfarin (Jantoven) 7.5 mg PO DAILY@1800 7 tabs 0RF To warfarin (Jantoven) 5 mg PO DAILY@1800
[2023-09-25 13:18] VITALS: BP 140/82; PULSE 103; TEMP 35.7; O2SAT 95; BMI 64.6
== END 2023-09-25 13:45 | disposition home or self-care (01) ==
PROVIDERS: Visit Provider Physician Assistant Surgical
DX: E66.01 Morbid (severe) obesity due to excess calories (principal); Z98.84 Bariatric surgery status; E78.5 Hyperlipidemia, unspecified; I10 Essential (primary) hypertension; E11.9 Type 2 diabetes mellitus without complications; I82.411 Acute embolism and thrombosis of right femoral vein; Z79.01 Long term (current) use of anticoagulants; G47.33 Obstructive sleep apnea (adult) (pediatric)
CPT/HCPCS: 99215; G2211

== ENCOUNTER → 2023-09-25 13:04 | Outpatient (BNVA) | payer OTHER, SELFPAY | PROVIDERS: Visit Provider Physician Assistant Surgical | DX: E66.01 Morbid (severe) obesity due to excess calories (principal); E78.5 Hyperlipidemia, unspecified; I10 Essential (primary) hypertension; E11.9 Type 2 diabetes mellitus without complications; I82.409 Acute embolism and thrombosis of unspecified deep veins of unspecified lower extremity; G47.33 Obstructive sleep apnea (adult) (pediatric); Z79.01 Long term (current) use of anticoagulants; Z98.84 Bariatric surgery status; Z68.44 Body mass index [BMI] 60.0-69.9, adult | CPT/HCPCS: 99212 ==

== ENCOUNTER 2023-10-08 13:18 | Outpatient (REF) | payer OTHER, SELFPAY ==
[2023-10-08 14:05] LABS: MANUAL DIFF FLAG NO
[2023-10-08 14:35] LABS: Basophils Absolute Auto 0.1 X10*3/uL (0.0-0.2); Basophils Percent Auto 0.7 % (0-2); Eosinophils Absolute Auto 0.2 X10*3/uL (0.0-0.4); Eosinophils Percent Auto 2.8 % (0-4); Hematocrit 36.7 % (37.0-47.0); Hemoglobin 11.2 g/dl (12.0-16.0); Imm Gran Abs Auto 0.02 X10*3/uL (0.00-0.03); Imm Gran Pct Auto 0.3 % (0.0-0.4); Lymphocytes Absolute Auto 3.1 X10*3/uL (1.2-4.9); Lymphocytes Percent Auto 41.1 % (20-40); Mean Corpuscular HGB Conc 30.5 g/dl (31.0-35.0); Mean Corpuscular Hemoglobin 24.6 pg (27.0-33.0); Mean Corpuscular Volume 80.5 fL (80.0-98.0); Mean Platelet Volume 10.3 fL (9.4-12.3); Monocytes Absolute Auto 0.6 X10*3/uL (0.1-1.2); Monocytes Percent Auto 7.4 % (2-11); Neutrophils Absolute Auto 3.6 x10*3/uL (2.0-8.3); Neutrophils Percent Auto 47.7 % (45-73); Platelet Count 348 X10*3/uL (160-400); Red Blood Count 4.56 X10*6/uL (4.20-5.50); Red Cell Distribution Width 16.2 % (11.0-16.0); White Blood Count 7.6 X10*3/uL (4.8-10.8)
[2023-10-08 15:38] LABS: Alanine Aminotransferase 14 U/L (0-31); Albumin Level 3.8 g/dL (3.5-5.0); Alkaline Phosphatase 85 U/L (39-117); Anion Gap 13 (12-20); Aspartate Amino Transferase 20 U/L (5-31); Bilirubin Direct 0.3 mg/dL (0.0-0.5); Blood Urea Nitrogen 10 mg/dL (9-16); Calcium 9.3 mg/dL (8.4-10.2); Carbon Dioxide 30 mmol/L (22-29); Chloride 103 mmol/L (96-108); Estimated Glomerular Filt Rate > 60; Glucose Random 115 mg/dL (60-115); Iron 35 mcg/dL (30-160); Percent Iron Saturation 8 % (15-50); Potassium 3.6 mmol/L (3.3-5.1); Sodium 142 mmol/L (135-145); Total Iron Binding Capacity 415 mcg/dL (228-428); Total Protein 7.1 g/dL (6.5-8.0); Unsaturated Iron Binding 380 ug/dL
[2023-10-08 15:43] LABS: Bilirubin Total 0.6 mg/dL (0.0-1.0)
[2023-10-08 16:01] LABS: Ferritin 14 ng/mL (10-250)
== END 2023-10-08 13:19 | disposition home or self-care (01) ==
LOC: HO.LAB 13:18
PROVIDERS: PCP Internal Medicine; Visit Provider Hospitalist
DX: J45.41 Moderate persistent asthma with (acute) exacerbation (principal); R00.2 Palpitations; K21.9 Gastro-esophageal reflux disease without esophagitis; G47.33 Obstructive sleep apnea (adult) (pediatric); J40 Bronchitis, not specified as acute or chronic; Q21.10 Atrial septal defect, unspecified; E11.9 Type 2 diabetes mellitus without complications
CPT/HCPCS: 36415; 80048; 80076; 82728; 83540; 84439; 84443; 85025; 99212

== ENCOUNTER 2023-10-08 13:18 | Outpatient (AMB) | payer OTHER, SELFPAY ==
[2023-10-08 13:26] VITALS: PULSE 90; O2SAT 97; BMI 66.2
--- NOTE | 2023-10-08 13:26 | A.OFFVIS_ITS ---
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 She has had some stents placed. Her course is complicated with a large right lower extremity DVT that extended to her proximal veins. She was admitted to [facility] which she was also found to have small bilateral pulmonary emboli resulting in pleuritic chest discomfort. In view of the extensive lower extremity DVT she did receive tPA to the area and was then placed on Eliquis. She then followed up with her vascular surgery in her switched over to Lovenox due to her size. She has been tolerating the Lovenox injections although they do her her abdomen. She is also complaining of pain on her buttocks area on the right side which is new for her. Moderate severity. She also complains of sometimes not being able to speak correctly. Sometime she loses her worse. On further questioning she also states that she has being PFO which is a concern with lower extremity DVT in the possibility of CVA. At this point she is anticoagulated. She is going to undergo additional Doppler studies of her lower extremities per her vascular surgeon. In addition to that she has known sleep apnea. The patient had CPAP for many years. However, she moved back from [place] and she has not been able to get a CPAP here. The patient has significant daytime drowsiness. She does have an elevated [place] score of 14/24. The patient needs to have a sleep study in order to get her situated and active with another [employer] company in order to get a CPAP. 03/02/2020 the patient is here for pulmonary follow-up visit. She continues to significant difficulties with her sleep. She does have significant daytime drowsiness. Again she has underlying sleep apnea that was documented on previous sleep studies. She did have a home sleep study was very limited. Patient hard time sleeping. Therefore her AHI was within normal but is on no up to the correct based on the suboptimal circumstances. Therefore best to repeat the study at this time. The aid you be to do in-lab study but the patient is concerned about the COVID-19 infections and she rather do it at home again. She will make sure to take a sleep aid to her sleep time. Her [place] score continues to be elevated 03/18. She also complains of lower extremity edema pa in. Her vascular surgeon wants to keep her on the Lovenox shots. In addition to that she did have an echocardiogram demonstrating a patent PFO. This is concerning specially with her DVT because she has increased risk of CVAs and other skin make infarcts. Therefore will refer her to Cardiology to further address this issue. In regards to her pulmonary emboli the patient tolerating the antithrombotic therapy therefore likely after several months clots should be resolved. Therefore will repeat a V/Q scan in a couple months to make sure that there is complete clearing the thromboembolic disease. 05/13/2020 the patient is here for pulmonary follow-up visit. She continues to have dyspnea on exertion. [id number] severity. She has been under Lovenox for her PE and also extensive DVT. She does take the Lovenox twice a day. She has been on Lovenox since October. She is getting significantly medications and irritations of her abdomen due to the multiple shots. I do believe that if her clot burden has subsided the patient may be a good candidate for Eliquis. I will refer her to Hematology to see if they feel that she will be a good candidate to switch over to an oral anticoagulation. Based on the patient having an unprovoked event the patient will need lifelong anticoagulation. In the meantime she continues to have significant snoring and daytime drowsiness. We did repeat her sleep study demonstrating no evidence of any sleep apnea. I have reassured her. The patient does need a he assistance with snoring and she can look into an oral appliance. She continues with respiratory therapy with good effect. The patient does not require her short- acting beta agonist more than twice a week. She has not had any flares. Patient does carry significant risk factors. Therefore, the patient should get vaccinated for the COVID-19 infection. I did emphasize to her that she needs to go into the web side and find a local vaccinations center. 10/20/2020 the patient is here for a pulmonary follow-up visit. Since we last spoke the patient has been complaining of significant fibromyalgia. She has significant pain. In addition to that her breathing has been worse. She has not been using the Breo because it makes her cough. She does get better response from a short-acting beta agonist which she uses about 4 to 6 times a day. She typically runs out before the month is over. Therefore, I will send her Symbicort that she can use twice a day and awfully say her short-acting beta agonists. in addition in addition to that she still complains about daytime drowsiness. Her [place] score still elevated and having over 24. She did come to have her in-lab study but then became concerned because he was in the hospital and she did not want to get COVID-19. Therefore she went back home. Patient understands the importance of the study specially since she did had already couple nondiagnostic home sleep studies. Will trying to make arrangements food for her to have the in-lab study elsewhere. Since we last spoke she was switched over from Eliquis to Coumadin. She is following closely with the Coumadin clinic. She is tolerating the transition well. She was told that if she loses additional weight then she can be placed back on Eliquis. 12/24/2020 the patient is here for a pulmonary follow-up visit. She continues to do well on Coumadin. She continues use her respiratory therapy. She does complaint of lower extremity pain. Explained to her that she needs to uses compression stockings. she does have them available. In addition to that she continues to have daytime drowsiness with an elevated [place] score of 11/24. She did have apparently her sleep study. I did looking to the [facility] system but I do not see any results as of yet. If the patient does have sleep apnea which I believe she will she will benefit from starting positive air pressure therapy. 10/20/2021 the patient is here for a pulmonary follow-up visit. She has been complaining of worsening cough productive in nature. She has yellow sputum. In addition to that she is complaining of dysuria. She thinks she has a UTI. She did have her Coumadin checked today was elevated INR of 3.6. The patient unfortunately has a allergic reaction to doxycycline. I did send a prescription for Bactrim to treat post the upper and the issue. I did speak to the Coumadin Clinic today no of the additional medication and to monitor her INR closely. otherwise patient is sleeping better. She Did undergo a sleep study which demonstrated no significant sleep apnea. She was very happy about that. She she continues her respiratory medication including Symbicort and albuterol. No significant shortness of breath at this time just the chest congestion. She is still taking the Coumadin. She prefers to take Eliquis instead. She understands that Eliquis is not recommended for individuals with BMI greater than 40. Otherwise the patient is without any other complaints. 02/24/2022 the patient is here for a pulmonary follow-up visit. Patient has been sick now for about 1 week. She was exposed to sick contacts. Her granddaughter has sick and she was care of her. She has been negative for COVID-19. The patient is also having some increasing chest tightness and cough. Moderate severity. She has been using her respiratory therapy with partial resolution of the symptoms. Denies any fevers or chills at this time. Denies any pleuritic discomfort. She does continue on the Coumadin. She is tolerating that well. She understands that if she does go on a Z-Abilio her INR may increase in therefore she needs to monitor closely with the Coumadin clinic. We did review her sleep study. No evidence of any sleep apnea. The patient is doing well with current position also therapy. She also has been working on weight loss which is very reassuring. 04/20/2022 the patient is here for a pulmonary follow-up visit. Since we last spoke the patient has had significant weight gain. She was started on psychotropic medications and she is stating that is increasing her appetite. She can stop eating. She is concerned because the weight gain is going to resulting worsening health issues for her. She is having already more chest congestion and cough. She has evidence of bronchitis. The patient needs to avoid prednisone because of her comorbidities. Therefore Daliresp will be a good option to decrease her chronic bronchitis flare ups and also help her decrease her prednisone needs. She continues her respiratory therapy. She is going to talk to her psychiatrist regarding the new medication that potentially causing her weight gain. She continues on the Coumadin. She is tolerating it well without any adverse effects. She is concerned with the weight gain is getting more swelling of her legs specially with a history of blood clots. 07/21/2022 the patient is here for a pulmonary follow-up visit. Overall the patient has been doing better. She continues to work on weight loss. She also continues on the Coumadin. Her INR levels have been followed closely by the Coumadin Clinic. She has also responded well to the Daliresp. This has helped her with her weight and also has call us increased loose stools. She is aware that this is an issue. If however symptoms to worsen she can consider decreasing the Daliresp to every other day. Hopefully she can continue the full dose. She has a hard time walking. She has significant arthritis. A lot has do with her weight. She was open to follow-up with orthopedic surgery. Explained to her that she is not a surgical candidate because on her weight and also she will be high risk because of the fact that she is on anticoagulation with history of blood clots. However she would like to have an evaluation. Will make a referral at this time. She continues use respiratory therapy with good effect. She continues to have significant daytime drowsiness. Her AHI on her sleep study was normal. Although she still complains of significant snoring and she likely has REM related sleep disorder. Therefore I will request an in- lab sleep study at this time. She should also have a chest x-ray for increasing shortness of breath with activity.The patient continues to have daytime drowsiness. She did have a sleep study in the past which was a home sleep study which was nondiagnostic. The patient's has an elevated [place] score of 11/24. She has significant cardiovascular risk factors. Therefore is important for her to undergo an in-lab sleep study to further address the question of sleep apnea. 10/08/2023 the patient is here for a pulmonary follow-up visit. She still complaining significant daytime drowsiness. With the [place] score elevated at 12 over 24. She has been having significant headaches and has not been feeling well. She is also feeling some palpitations. She feels tired. Will go ahead and request blood work in addition to ordering a sleep study. She was already approved to have a sleep study but she has been contemplating having it elsewhere. We did encourage her to have it done since she is so symptomatic. She is going to call and schedule an appointment. The patient in the meantime will have blood work. She continues use her respiratory medications. She also continues with her anticoagulation with good effect. [facility] Medical History (Updated 10/08/23 @ 13:44 by Heber Nicole MD) Fibromyalgia Insomnia Hyperlipidemia Hypertension Non-insulin dependent type 2 diabetes mellitus Knee pain Iliac vein stenosis, left Iliac vein stenosis, right Asthma SINDHU (obstructive sleep apnea) Chest pain Chest pain Obesity SINDHU (obstructive sleep apnea) Constipation by delayed colonic transit GERD (gastroesophageal reflux disease) Asthma Dyspnea DVT (deep venous thrombosis) Pulmonary emboli SINDHU (obstructive sleep apnea) PFO (patent foramen ovale) Surgical History History of tubal ligation Hx of section History of esophagogastroduodenoscopy (EGD) H/O colonoscopy Hx of gastric bypass Family History Daughter Asthma Mother Asthma Father Asthma Social History (Updated 09/25/23 @ 13:14 by Anna Hairston CMA) Household Members: Family and Children Household Members Other:: grandkids, daughters Housing: House Do you presently have visiting nurse or other home services: No Alcohol intake: former Patient Tobacco Use Status: Former Tobacco user service: No Review of Systems Const Reports body aches, Denies chills, Reports daytime sleepiness, Reports difficulty sleeping, Reports fatigue, Reports snoring and Reports weight loss ENT Denies change in voice, Denies lip swelling, Denies mouth pain, Reports nasal congestion, Reports nasal discharge and Denies tongue swelling Card Denies chest pain, Reports palpitations and Reports dyspnea on exertion Resp Denies chest congestion, Reports cough, Denies hemoptysis, Reports dyspnea on exertion, Reports snoring and Denies wheezing GI Denies abdominal pain Reports difficulty voiding and Reports urinary urgency Musc Reports as per HPI and Reports arthralgias Neuro Denies Neuro-related abnormal movements Psych Denies no additional complaints Endo Reports fatigue and Reports palpitations Min/Lymph Denies easy bleeding and Denies lymphadenopathy Aller/Immun Denies lip swelling, Denies tongue swelling and Denies wheezing Physical Exam Vital Signs: Last Vital Signs Pulse 90 10/08/23 13:26 Pulse Ox 97 10/08/23 13:26 Oxygen Delivery Method Room Air 10/08/23 13:26 BMI result Body Mass Index 66.2 Const General: alert Neck Neck: Yes normal visual inspection, Yes full ROM and Yes no lymphadenopathy Chest Chest palpation & inspection: normal inspection of the chest Resp Auscultation: no rhonchi, no wheezes and diminished lung sounds Cardio Rate: regular rate Rhythm: regular rhythm Heart sounds: S1 normal heart sound present and S2 normal heart sound present GI Palpation (GI): Soft to palpation and nontender Auscultation: normal bowel sounds Skin General skin exam: ecchymosis Extrem General: No clubbing, No cyanosis and Yes edema Assessment & Plan Assessment & Plan (1) Asthma: Code(s): J45.909 - Unspecified asthma, uncomplicated Category: Medical Qualifiers: Asthma complication type: with acute exacerbation Asthma persistence: persistent Asthma severity: moderate Qualified Code(s): J45.41 - Moderate persistent asthma with (acute) exacerbation (2) DVT (deep venous thrombosis): Code(s): I82.409 - Acute embolism and thrombosis of unspecified deep veins of unspecified lower extremity Category: Medical Qualifiers: Affected thrombotic vein of extremity: unspecified vein of extremity Chronicity: unspecified DVT location: lower extremity Laterality: unspecified laterality Qualified Code(s): I82.409 - Acute embolism and thrombosis of u nspecified deep veins of unspecified lower extremity (3) PFO (patent foramen ovale): Code(s): Q21.1 - Atrial septal defect Category: Medical (4) GERD (gastroesophageal reflux disease): Code(s): K21.9 - Gastro-esophageal reflux disease without esophagitis Category: Medical Qualifiers: Esophagitis presence: without esophagitis Qualified Code(s): K21.9 - Gastro-esophageal reflux disease without esophagitis (5) Bronchitis: Code(s): J40 - Bronchitis, not specified as acute or chronic Category: Medical (6) SINDHU (obstructive sleep apnea): Code(s): G47.33 - Obstructive sleep apnea (adult) (pediatric) Category: Medical (7) Has daytime drowsiness: Code(s): R40.0 - Somnolence Category: Social Hx (8) Palpitations: Code(s): R00.2 - Palpitations Category: Medical Plan request an inlab PSG bloodwork continue Symbicort Continue PPI continue short-acting beta agonist as needed Daliresp continue anticoagulation to maintain INR between 2 and 3. at this point the patient does not have any further evidence residual thrombosis. follow-up in 3 months Orders: Orders RT PSG in-lab sleep study Today G47.33 - Obstructive sleep apnea (adult) (pediatric) Basic Metabolic Panel Today R00.2 - Palpitations, R40.0 - Somnolence Liver Panel Today R00.2 - Palpitations, R40.0 - Somnolence TSH reflex Free T4 Today R00.2 - Palpitations, R40.0 - Somnolence Complete Blood Count Auto Diff Today R00.2 - Palpitations, R40.0 - Somnolence Ferritin Today R00.2 - Palpitations, R40.0 - Somnolence IRON PROFILE Today R00.2 - Palpitations, R40.0 - Somnolence Coding Level of Care Code Est Pt Level 4 (24652) Diagnoses Moderate persistent asthma with acute exacerbation J45.41 Asthma complication type: with acute exacerbation Asthma persistence: persistent Asthma severity: moderate Deep vein thrombosis (DVT) of lower extremity, unspecified chronicity, unspecified laterality, unspecified vein I82.409 Affected thrombotic vein of extremity: unspecified vein of extremity Chronicity: unspecified DVT location: lower extremity Laterality: unspecified laterality PFO (patent foramen ovale) Q21.1 Gastroesophageal reflux disease without esophagitis K21.9 Esophagitis presence: without esophagitis Bronchitis J40 SINDHU (obstructive sleep apnea) G47.33 Has daytime drowsiness R40.0 Palpitations R00.2 Time Spent (min) 17
== END 2023-10-08 13:50 | disposition home or self-care (01) ==
PROVIDERS: PCP Internal Medicine; Visit Provider Hospitalist
DX: J45.41 Moderate persistent asthma with (acute) exacerbation (principal); I82.409 Acute embolism and thrombosis of unspecified deep veins of unspecified lower extremity; Q21.10 Atrial septal defect, unspecified; K21.9 Gastro-esophageal reflux disease without esophagitis; J40 Bronchitis, not specified as acute or chronic; G47.33 Obstructive sleep apnea (adult) (pediatric); R40.0 Somnolence; R00.2 Palpitations
CPT/HCPCS: 99214

== ENCOUNTER 2023-11-06 14:03 | Outpatient (AMB) | payer OTHER, SELFPAY ==
--- NOTE | 2023-11-06 13:54 | A.OFFVIS_ITS ---
VS Expanded 11/06/23 14:03 Height 5 ft 4 in Weight 373 lb BMI 64.0 Intake Visit Reasons: (TV) F/U SWL Allergies doxycycline Allergy (Intermediate, Verified 10/08/23 13:28) Rash latex [LATEX] Allergy (Mild, Verified 10/08/23 13:28) RASH Medication List - Last Reconciled 11/06/23 by ALIRIO Galdamez albuterol sulfate 2.5 mg (3 mL) inhalation Q6H PRN 30 days albuterol sulfate 90 mcg/actuation (Ventolin HFA) 2 puffs PO Q6H PRN amitriptyline 50 mg PO BEDTIME ascorbic acid (vitamin C) 500 mg PO BID atorvastatin 20 mg PO DAILY budesonide-formoterol 160-4.5 mcg/actuation (Symbicort) 2 puffs inhalation BID carboxymethylcellulose-glycern 0.5-0.9 % 1 drp ophthalmic (eye) QID cetirizine 10 mg PO DAILY dulaglutide (Trulicity) 0.75 mg subcut WE duloxetine 60 mg PO BEDTIME duloxetine 30 mg PO DAILY ergocalciferol (vitamin D2) 1,250 mcg PO WE@2100 esomeprazole magnesium 40 mg PO DAILY ferrous sulfate 325 mg PO Q48H fluticasone propionate 50 mcg/actuation 1 spray intranasal DAILY gabapentin 800 mg PO TID hydrochlorothiazide 25 mg PO DAILY hydroxyzine HCl 25 mg PO QID PRN lorazepam 1 mg PO DAILY PRN metformin 500 mg PO BID metoprolol succinate ER 50 mg PO DAILY nystatin 1 appl topical BID PRN ondansetron HCl 4 mg PO DAILY PRN polyethylene glycol 3350 (Miralax) 17 grams PO DAILY roflumilast 500 mcg PO BEDTIME triamcinolone acetonide 0.025% 1 appl topical BID PRN vitamin E (dl, acetate) 180 mg PO BID warfarin (Jantoven) 5 mg PO DAILY@1800 HPI Comments Details: The patient is a 48 year old female who returns to the clinic to restart surgical weight loss management. Starting weight: 390lbs. Since last visit, weight change of 3lbs lost. Pt has history of gastric bypass by Dr. Sadler in 2003. Pt has hx blood clots, on warfarin. Current meal plan includes: 2 CELEBRATE REBUILD protein (buy at [facility] gift [facility]) shakes (TWO scoops EACH in 8oz unsweetened almond milk each) at 10am-12pm and 1pm-3pm 1 protein bar (CELEBRATE protein bars, buy at [facility] [place]) at 4pm-6pm dinner at 7pm (6 forks of protein and 6 forks of salad/vegetables) one more protein bar after dinner at 8pm-10pm Pt reports anxiety at night which causes her to snack. She was started on a med to help with her anxiety. However it was prescribed for AM dosing and she wants to take it in evening, is going to check with her doctor next week at [facility]. Current exercise plan includes: started going to the gym- does pool exercises 2x/week PFS Medical History (Updated 10/08/23 @ 13:44 by Heber Nicole MD) Fibromyalgia Insomnia Hyperlipidemia Hypertension Non-insulin dependent type 2 diabetes mellitus Knee pain Iliac vein stenosis, left Iliac vein stenosis, right Asthma SINDHU (obstructive sleep apnea) Chest pain Chest pain Obesity SINDHU (obstructive sleep apnea) Constipation by delayed colonic transit GERD (gastroesophageal reflux disease) Asthma Dyspnea DVT (deep venous thrombosis) Pulmonary emboli SINDHU (obstructive sleep apnea) PFO (patent foramen ovale) Surgical History History of tubal ligation Hx of section History of esophagogastroduodenoscopy (EGD) H/O colonoscopy Hx of gastric bypass Family History Daughter Asthma Mother Asthma Father Asthma Social History (Updated 09/25/23 @ 13:14 by Anna Hairston CMA) Household Members: Family and Children Household Members Other:: grandkids, daughters Housing: House Do you presently have visiting nurse or other home services: No Alcohol intake: former Patient Tobacco Use Status: Former Tobacco user service: No Telehealth Telehealth Telehealth Platform: Telephone Location of provider rendering services: practice address Location of patient: address on file Patient Identification confirmed using: Name, : Yes Telehealth method: voice only Patient verbally consented to treatment: Yes Patient verbally consented to billing insurance company: Yes Patient informed of any privacy concerns related to visit: Yes Minutes spent on Phone/Video with Pt.: 15 Assessment & Plan Assessment & Plan (1) Hx of gastric bypass: Comment: 2004 NATHALIA Code(s): Z98.84 - Bariatric surgery status Category: Surgical (2) Morbid obesity: Code(s): E66.01 - Morbid (severe) obesity due to excess calories Category: Medical Plan Continue same meal plan for now. Will order CXR, EKG, labs. Will have pt come to office for next visit and at that time can schedule endoscopy and liver US. H pylori testing can be done during endoscopy. Will give access to SWL classes and schedule consult. RTC 1 month to see me. I spent a total of 30 minutes reviewing/updating records, examining the patient and counseling the patient on weight management as detailed above. Orders: Orders Insulin Today Z.84 - Bariatric surgery status Hemoglobin A1c Today Z98.84 - Bariatric surgery status H Pylori Breath Test Today Z98.84 - Bariatric surgery status Complete Blood Count Auto Diff Today Z98.84 - Bariatric surgery status Lipid Panel Today Z98.84 - Bariatric surgery status IRON PROFILE Today Z.84 - Bariatric surgery status Zinc Today Z98.84 - Bariatric surgery status Vitamin A Today Z98.84 - Bariatric surgery status TSH reflex Free T4 Today Z98.84 - Bariatric surgery status Ferritin Today Z98.84 - Bariatric surgery status XR chest 2V Today Z98.84 - Bariatric surgery status ECG 12 lead EKG Today Z98.84 - Bariatric surgery status Comprehensive Met. Panel Today Z.84 - Bariatric surgery status Vitamin B12 and Folate Today Z98.84 - Bariatric surgery status C Reactive Protein Today Z98.84 - Bariatric surgery status Vitamin B1 Today Z98.84 - Bariatric surgery status Vitamin D 25-OH Total Today Z98.84 - Bariatric surgery status Referrals Nutrition/Dietitian Referral Z.84 - Bariatric surgery status Behavioral Health Referral Z98.84 - Bariatric surgery status
[2023-11-06 14:03] VITALS: BMI 64.0
== END 2023-11-06 14:43 | disposition home or self-care (01) ==
LOC: HO.HBS 14:03
PROVIDERS: PCP Internal Medicine; Visit Provider Physician Assistant Surgical
DX: E66.01 Morbid (severe) obesity due to excess calories (principal); Z68.44 Body mass index [BMI] 60.0-69.9, adult; Z98.84 Bariatric surgery status
CPT/HCPCS: 99214

== ENCOUNTER → 2023-11-06 14:03 | Outpatient (BNVA) | payer OTHER, SELFPAY | PROVIDERS: PCP Internal Medicine; Visit Provider Physician Assistant Surgical ==

== ENCOUNTER 2024-01-08 10:12 | Outpatient (REF) | payer OTHER, SELFPAY ==
--- NOTE | 2024-01-08 10:18 | ECG_ITS ---
Test Reason : BARIATRIC SURGERY STATUS Blood Pressure : / mmHG Vent. Rate : 063 BPM Atrial Rate : 063 BPM P-R Int : 192 ms QRS Dur : 100 ms QT Int : 398 ms P-R-T Axes : 033 063 044 degrees QTc Int : 407 ms Normal sinus rhythm Normal ECG When compared with ECG of 19-SEP-2007 00:38, No significant change was found Referred By: Yovana Whitfield Electronically Signed By:MAGNUS DOMÍNGUEZ
[2024-01-08 10:58] LABS: MANUAL DIFF FLAG NO
[2024-01-08 11:34] LABS: Basophils Absolute Auto 0.1 X10*3/uL (0.0-0.2); Basophils Percent Auto 0.7 % (0-2); Eosinophils Absolute Auto 0.2 X10*3/uL (0.0-0.4); Eosinophils Percent Auto 2.8 % (0-4); Hematocrit 40.1 % (37.0-47.0); Hemoglobin 12.3 g/dl (12.0-16.0); Imm Gran Abs Auto 0.02 X10*3/uL (0.00-0.03); Imm Gran Pct Auto 0.2 % (0.0-0.4); Lymphocytes Absolute Auto 2.6 X10*3/uL (1.2-4.9); Mean Corpuscular HGB Conc 30.7 g/dl (31.0-35.0); Mean Corpuscular Hemoglobin 25.2 pg (27.0-33.0); Mean Corpuscular Volume 82.2 fL (80.0-98.0); Mean Platelet Volume 10.6 fL (9.4-12.3); Monocytes Absolute Auto 0.6 X10*3/uL (0.1-1.2); Monocytes Percent Auto 7.1 % (2-11); Neutrophils Absolute Auto 4.8 x10*3/uL (2.0-8.3); Neutrophils Percent Auto 58.2 % (45-73); Platelet Count 362 X10*3/uL (160-400); Red Blood Count 4.88 X10*6/uL (4.20-5.50); Red Cell Distribution Width 15.9 % (11.0-16.0); White Blood Count 8.3 X10*3/uL (4.8-10.8)
[2024-01-08 11:51] LABS: Estimated Average Glucose 117 mg/dL; Hemoglobin A1C 120.7065 umol/L; Hemoglobin A1c % 5.7 % (<6.0); Total Hemoglobin (HGBA1C) 3137.0615 umol/L
[2024-01-08 12:29] LABS: Alanine Aminotransferase 14 U/L (0-31); Albumin Level 4.1 g/dL (3.5-5.0); Alkaline Phosphatase 100 U/L (39-117); Anion Gap 12 (12-20); Aspartate Amino Transferase 20 U/L (5-31); Bilirubin Total 0.8 mg/dL (0.0-1.0); Blood Urea Nitrogen 10 mg/dL (9-16); Calcium 9.4 mg/dL (8.4-10.2); Carbon Dioxide 32 mmol/L (22-29); Chloride 102 mmol/L (96-108); Cholesterol 149 mg/dL (<200); Estimated Glomerular Filt Rate > 60; Glucose Random 97 mg/dL (60-115); HDL Cholesterol 51 mg/dL (>40); Iron 40 mcg/dL (30-160); LDL Cholesterol Calculated 75 mg/dL (<100); Percent Iron Saturation 9 % (15-50); Potassium 3.9 mmol/L (3.3-5.1); Sodium 142 mmol/L (135-145); Total Iron Binding Capacity 455 mcg/dL (228-428); Total Protein 7.6 g/dL (6.5-8.0); Triglycerides 118 mg/dL (<150); Unsaturated Iron Binding 415 ug/dL
[2024-01-08 12:31] LABS: Ferritin 38 ng/mL (10-250); Insulin 10 uU/mL (2-29); Vitamin D 25-OH Total 36.3 ng/mL (>30)
[2024-01-08 12:48] LABS: Folate 8.4 ng/mL (> or = 4.0); Vitamin B12 454 pg/mL (200-900)
[2024-01-08 13:34] LABS: Free T4 (Free Thyroxine) 1.24 ng/dL (0.71-1.85)
[2024-01-10 16:09] LABS: Zinc 68 mcg/dL (60-130)
[2024-01-12 20:13] LABS: Vitamin A 35 mcg/dL (38-98)
[2024-01-14 06:39] LABS: Vitamin B1 6 nmol/L (8-30)
== END 2024-01-08 10:13 | disposition home or self-care (01) ==
LOC: HO.XRAY 10:12
PROVIDERS: PCP Internal Medicine; Visit Provider Physician Assistant Surgical
DX: Z98.84 Bariatric surgery status (principal); Z13.1 Encounter for screening for diabetes mellitus
CPT/HCPCS: 36415; 71046; 80053; 80061; 82306; 82607; 82728; 82746; 83036; 83525; 83540; 84425; 84439; 84443; 84590; 84630; 85025; 86140; 93005; 99212

== ENCOUNTER → 2024-01-08 10:18 | Outpatient (BNV) | payer OTHER, SELFPAY | PROVIDERS: PCP Internal Medicine; Visit Provider Internal Medicine | DX: Z98.84 Bariatric surgery status (principal) | CPT/HCPCS: 93010 ==

== ENCOUNTER 2024-01-08 11:02 | Outpatient (AMB) | payer OTHER, SELFPAY ==
--- NOTE | 2024-01-08 11:09 | MHC.OFFVISWM ---
VS Expanded 01/08/24 11:19 BP 152/75 H Blood Pressure Location Rt brachial Blood Pressure Position Sitting Pulse 89 Pulse Source Pulse Oximeter Temp 97.9 F Temperature Source Temporal Artery Scan Pulse Oximetry 97 Oxygen Delivery Method Room Air Height 5 ft 4 in Weight 32 lb 6.4 oz BMI 5.6 Body Fat % 51.7 Body Fat Mass 192.4 Fat Free Mass 179.8 Visceral Fat Rating 24.0 Body Water % 34.5 Body Water Mass 128.4 Muscle Mass/Score 170.8 Basal Metabolic Rate/Score 2,646 Intake Visit Reasons: F/U SWL (per ak ov) Allergies doxycycline Allergy (Intermediate, Verified 01/08/24 11:14) Rash latex [LATEX] Allergy (Mild, Verified 01/08/24 11:14) RASH Medication List - Last Reconciled 01/08/24 by ALIRIO Galdamez albuterol sulfate 2.5 mg (3 mL) inhalation Q6H PRN 30 days albuterol sulfate 90 mcg/actuation (Ventolin HFA) 2 puffs PO Q6H PRN amitriptyline 50 mg PO BEDTIME ascorbic acid (vitamin C) 500 mg PO BID atorvastatin 20 mg PO DAILY budesonide-formoterol 160-4.5 mcg/actuation (Symbicort) 2 puffs inhalation BID carboxymethylcellulose-glycern 0.5-0.9 % 1 drp ophthalmic (eye) QID cetirizine 10 mg PO DAILY dulaglutide (Trulicity) 0.75 mg subcut WE duloxetine 60 mg PO BEDTIME duloxetine 30 mg PO DAILY ergocalciferol (vitamin D2) 1,250 mcg PO WE@2100 esomeprazole magnesium 40 mg PO DAILY ferrous sulfate 325 mg PO Q48H fluticasone propionate 50 mcg/actuation 1 spray intranasal DAILY gabapentin 800 mg PO TID hydrochlorothiazide 25 mg PO DAILY hydroxyzine HCl 25 mg PO QID PRN lorazepam 1 mg PO DAILY PRN metformin 500 mg PO BID metoprolol succinate ER 50 mg PO DAILY nystatin 1 appl topical BID PRN ondansetron HCl 4 mg PO DAILY PRN polyethylene glycol 3350 (Miralax) 17 grams PO DAILY roflumilast 500 mcg PO BEDTIME triamcinolone acetonide 0.025% 1 appl topical BID PRN vitamin E (dl, acetate) 180 mg PO BID warfarin (Jantoven) 5 mg PO DAILY@1800 HPI Comments Details: The patient is a 48 year old female who returns to the clinic to restart surgical weight loss management.? She was last seen in the office in October 2023 with weight/BMI 373/64. Loss of 0.6lb since last OV. Pt has history of gastric bypass by Dr. Sadler in 2003. Pt has hx blood clots, on warfarin. Starting weight: 387.2; goal weight prior to revision: 349 Pt reports a lot of health issues since last OV. Pt reports decrease in blood sugars. Current meal plan includes: 2 CELEBRATE REBUILD protein (buy at [facility] [employer]) shakes (TWO scoops EACH in 8oz low fat unsweetened almond milk each) at 10am-12pm and 1pm-3pm 1 protein bar (CELEBRATE protein bars, buy at [facility]) at 4pm-6pm dinner at 7pm (6 forks of protein and 6 forks of salad/vegetables) One more protein bar after dinner at 8pm-10pm Current exercise plan includes: pool exercises 2x/week reports has not been able to do pool exercises recently [facility] Medical History (Updated 10/08/23 @ 13:44 by Heber Nicole MD) Fibromyalgia Insomnia Hyperlipidemia Hypertension Non-insulin dependent type 2 diabetes mellitus Knee pain Iliac vein stenosis, left Iliac vein stenosis, right Asthma SINDHU (obstructive sleep apnea) Chest pain Chest pain Obesity SINDHU (obstructive sleep apnea) Constipation by delayed colonic transit GERD (gastroesophageal reflux disease) Asthma Dyspnea DVT (deep venous thrombosis) Pulmonary emboli SINDHU (obstructive sleep apnea) PFO (patent foramen ovale) Surgical History History of tubal ligation Hx of section History of esophagogastroduodenoscopy (EGD) H/O colonoscopy Hx of gastric bypass Family History Daughter Asthma Mother Asthma Father Asthma Social History Household Members: Family and Children Household Members Other:: grandkids, daughters Housing: House Do you presently have visiting nurse or other home services: No Alcohol intake: former Patient Tobacco Use Status: Former Tobacco user service: No Physical Exam Const General: cooperative, comfortable and no acute distress Orientation/consciousness: patient oriented x3 GI Other: soft, nontender, nondistended, vertical upper midline incision well healed, no hernia, no masses Neuro General: patient oriented x3 Assessment & Plan Assessment & Plan (1) Morbid obesity: Code(s): E66.01 - Morbid (severe) obesity due to excess calories Category: Medical (2) Hx of gastric bypass: Comment: 2004 [facility] Code(s): Z98.84 - Bariatric surgery status Category: Surgical Plan Needs BH clearance, CT scan, previous op note/path report. Will schedule for endoscopy, abd US. Had labs, CXR, EKG done today. Pt reports she finished SWL classes. I encouraged pt to reach out to her personal banking representative, may need dose adjustment for diabetes meds. RTC 6 weeks. I spent a total of 30 minutes reviewing/updating records, examining the patient and counseling the patient on weight management as detailed above. Orders: Orders CT abdomen pelvis w IV con Today Z98.84 - Bariatric surgery status US abdomen comp w elastography Today Z98.84 - Bariatric surgery status
[2024-01-08 11:19] VITALS: BP 152/75; PULSE 89; TEMP 36.6; O2SAT 97
== END 2024-01-08 11:41 | disposition home or self-care (01) ==
PROVIDERS: PCP Internal Medicine; Visit Provider Physician Assistant Surgical
DX: E66.01 Morbid (severe) obesity due to excess calories (principal); Z98.84 Bariatric surgery status
CPT/HCPCS: 99214

== ENCOUNTER 2024-01-11 10:21 | Outpatient (AMB) | payer OTHER, SELFPAY ==
--- NOTE | 2024-01-11 10:26 | MHC.OFFVIS ---
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 She has had some stents placed. Her course is complicated with a large right lower extremity DVT that extended to her proximal veins. She was admitted to [facility] which she was also found to have small bilateral pulmonary emboli resulting in pleuritic chest discomfort. In view of the extensive lower extremity DVT she did receive tPA to the area and was then placed on Eliquis. She then followed up with her vascular surgery in her switched over to Lovenox due to her size. She has been tolerating the Lovenox injections although they do her her abdomen. She is also complaining of pain on her buttocks area on the right side which is new for her. Moderate severity. She also complains of sometimes not being able to speak correctly. Sometime she loses her worse. On further questioning she also states that she has being PFO which is a concern with lower extremity DVT in the possibility of CVA. At this point she is anticoagulated. She is going to undergo additional Doppler studies of her lower extremities per her vascular surgeon. In addition to that she has known sleep apnea. The patient had CPAP for many years. However, she moved back from [place] and she has not been able to get a CPAP here. The patient has significant daytime drowsiness. She does have an elevated [place] score of 14/24. The patient needs to have a sleep study in order to get her situated and active with another [employer] company in order to get a CPAP. 03/02/2020 the patient is here for pulmonary follow-up visit. She continues to significant difficulties with her sleep. She does have significant daytime drowsiness. Again she has underlying sleep apnea that was documented on previous sleep studies. She did have a home sleep study was very limited. Patient hard time sleeping. Therefore her AHI was within normal but is on no up to the correct based on the suboptimal circumstances. Therefore best to repeat the study at this time. The aid you be to do in-lab study but the patient is concerned about the COVID-19 infections and she rather do it at home again. She will make sure to take a sleep aid to her sleep time. Her [place] score continues to be elevated 03/18. She also complains of lower extremity edema pain. Her vascular surgeon wants to keep her on the Lovenox shots. In addition to that she did have an echocardiogram demonstrating a patent PFO. This is concerning specially with her DVT because she has increased risk of CVAs and other skin make infarcts. Therefore will refer her to Cardiology to further address this issue. In regards to her pulmonary emboli the patient tolerating the antithrombotic therapy therefore likely after several months clots should be resolved. Therefore will repeat a V/Q scan in a couple months to make sure that there is complete clearing the thromboembolic disease. 05/13/2020 the patient is here for pulmonary follow-up visit. She continues to have dyspnea on exertion. Vuuz-ad-hufcuwse severity. She has been under Lovenox for her PE and also extensive DVT. She does take the Lovenox twice a day. She has been on Lovenox since October. She is getting significantly medications and irritations of her abdomen due to the multiple shots. I do believe that if her clot burden has subsided the patient may be a good candidate for Eliquis. I will refer her to Hematology to see if they feel that she will be a good candidate to switch over to an oral anticoagulation. Based on the patient having an unprovoked event the patient will need lifelong anticoagulation. In the meantime she continues to have significant snoring and daytime drowsiness. We did repeat her sleep study demonstrating no evidence of any sleep apnea. I have reassured her. The patient does need a he assistance with snoring and she can look into an oral appliance. She continues with respiratory therapy with good effect. The patient does not require her short-acting beta agonist more than twice a week. She has not had any flares. Patient does carry significant risk factors. Therefore, the patient should get vaccinated for the COVID-19 infection. I did emphasize to her that she needs to go into the web side and find a local vaccinations center. 10/20/2020 the patient is here for a pulmonary follow-up visit. Since we last spoke the patient has been complaining of significant fibromyalgia. She has significant pain. In addition to that her breathing has been worse. She has not been using the Breo because it makes her cough. She does get better response from a short-acting beta agonist which she uses about 4 to 6 times a day. She typically runs out before the month is over. Therefore, I will send her Symbicort that she can use twice a day and awfully say her short-acting beta agonists. in addition in addition to that she still complains about daytime drowsiness. Her [place] score still elevated and having over 24. She did come to have her in-lab study but then became concerned because he was in the hospital and she did not want to get COVID-19. Therefore she went back home. Patient understands the importance of the study specially since she did had already couple nondiagnostic home sleep studies. Will trying to make arrangements food for her to have the in-lab study elsewhere. Since we last spoke she was switched over from Eliquis to Coumadin. She is following closely with the Coumadin clinic. She is tolerating the transition well. She was told that if she loses additional weight then she can be placed back on Eliquis. 12/24/2020 the patient is here for a pulmonary follow-up visit. She continues to do well on Coumadin. She continues use her respiratory therapy. She does complaint of lower extremity pain. Explained to her that she needs to uses compression stockings. she does have them available. In addition to that she continues to have daytime drowsiness with an elevated [place] score of 11/24. She did have apparently her sleep study. I did looking to the [facility] system but I do not see any results as of yet. If the patient does have sleep apnea which I believe she will she will benefit from starting positive air pressure therapy. 10/20/2021 the patient is here for a pulmonary follow-up visit. She has been complaining of worsening cough productive in nature. She has yellow sputum. In addition to that she is complaining of dysuria. She thinks she has a UTI. She did have her Coumadin checked today was elevated INR of 3.6. The patient unfortunately has a allergic reaction to doxycycline. I did send a prescription for Bactrim to treat post the upper and the issue. I did speak to the Coumadin Clinic today no of the additional medication and to monitor her INR closely. otherwise patient is sleeping better. She Did undergo a sleep study which demonstrated no significant sleep apnea. She was very happy about that. She she continues her respiratory medication including Symbicort and albuterol. No significant shortness of breath at this time just the chest congestion. She is still taking the Coumadin. She prefers to take Eliquis instead. She understands that Eliquis is not recommended for individuals with BMI greater than 40. Otherwise the patient is without any other complaints. 02/24/2022 the patient is here for a pulmonary follow-up visit. Patient has been sick now for about 1 week. She was exposed to sick contacts. Her granddaughter has sick and she was care of her. She has been negative for COVID-19. The patient is also having some increasing chest tightness and cough. Moderate severity. She has been using her respiratory therapy with partial resolution of the symptoms. Denies any fevers or chills at this time. Denies any pleuritic discomfort. She does continue on the Coumadin. She is tolerating that well. She understands that if she does go on a Z-Abilio her INR may increase in therefore she needs to monitor closely with the Coumadin clinic. We did review her sleep study. No evidence of any sleep apnea. The patient is doing well with current position also therapy. She also has been working on weight loss which is very reassuring. 04/20/2022 the patient is here for a pulmonary follow-up visit. Since we last spoke the patient has had significant weight gain. She was started on psychotropic medications and she is stating that is increasing her appetite. She can stop eating. She is concerned because the weight gain is going to resulting worsening health issues for her. She is having already more chest congestion and cough. She has evidence of bronchitis. The patient needs to avoid prednisone because of her comorbidities. Therefore Daliresp will be a good option to decrease her chronic bronchitis flare ups and also help her decrease her prednisone needs. She continues her respiratory therapy. She is going to talk to her psychiatrist regarding the new medication that potentially causing her weight gain. She continues on the Coumadin. She is tolerating it well without any adverse effects. She is concerned with the weight gain is getting more swelling of her legs specially with a history of blood clots. 07/21/2022 the patient is here for a pulmonary follow-up visit. Overall the patient has been doing better. She continues to work on weight loss. She also continues on the Coumadin. Her INR levels have been followed closely by the Coumadin Clinic. She has also responded well to the Daliresp. This has helped her with her weight and also has call us increased loose stools. She is aware that this is an issue. If however symptoms to worsen she can consider decreasing the Daliresp to every other day. Hopefully she can continue the full dose. She has a hard time walking. She has significant arthritis. A lot has do with her weight. She was open to follow-up with orthopedic surgery. Explained to her that she is not a surgical candidate because on her weight and also she will be high risk because of the fact that she is on anticoagulation with history of blood clots. However she would like to have an evaluation. Will make a referral at this time. She continues use respiratory therapy with good effect. She continues to have significant daytime drowsiness. Her AHI on her sleep study was normal. Although she still complains of significant snoring and she likely has REM related sleep disorder. Therefore I will request an in-lab sleep study at this time. She should also have a chest x-ray for increasing shortness of breath with activity.The patient continues to have daytime drowsiness. She did have a sleep study in the past which was a home sleep study which was nondiagnostic. The patient's has an elevated [place] score of 11/24. She has significant cardiovascular risk factors. Therefore is important for her to undergo an in-lab sleep study to further address the question of sleep apnea. 10/08/2023 the patient is here for a pulmonary follow-up visit. She still complaining significant daytime drowsiness. With the [place] score elevated at 12 over 24. She has been having significant headaches and has not been feeling well. She is also feeling some palpitations. She feels tired. Will go ahead and request blood work in addition to ordering a sleep study. She was already approved to have a sleep study but she has been contemplating having it elsewhere. We did encourage her to have it done since she is so symptomatic. She is going to call and schedule an appointment. The patient in the meantime will have blood work. She continues use her respiratory medications. She also continues with her anticoagulation with good effect. 01/11/2024 the patient is here for pulmonary follow-up visit. The patient continues to have daytime drowsiness. Her [place] score is elevated 03/18. She did have a sleep study sometime ago which was only significant for snoring. We did request an in-lab study although the patient missed the appointment because of other responsibilities. Therefore the patient was not able to do it at this time. She does take a respiratory medications as prescribed. The patient also has had significant amount of weight loss which is practically working on which is reassuring. It is all intentional weight loss at this time. She does continue on the Coumadin with good effect. No evidence of recurrent blood clots. Will go ahead and request an overnight oximetry to assess her oxygen levels at nighttime to see if she benefits from oxygen supplementation. [facility] Medical History (Updated 10/08/23 @ 13:44 by Heber Nicole MD) Fibromyalgia Insomnia Hyperlipidemia Hypertension Non-insulin dependent type 2 diabetes mellitus Knee pain Iliac vein stenosis, left Iliac vein stenosis, right Asthma SINDHU (obstructive sleep apnea) Chest pain Chest pain Obesity SINDHU (obstructive sleep apnea) Constipation by delayed colonic transit GERD (gastroesophageal reflux disease) Asthma Dyspnea DVT (deep venous thrombosis) Pulmonary emboli SINDHU (obstructive sleep apnea) PFO (patent foramen ovale) Surgical History History of tubal ligation Hx of section History of esophagogastroduodenoscopy (EGD) H/O colonoscopy Hx of gastric bypass Family History Daughter Asthma Mother Asthma Father Asthma Social History Household Members: Family and Children Household Members Other:: grandkids, daughters Housing: House Do you presently have visiting nurse or other home services: No Alcohol intake: former Patient Tobacco Use Status: Former Tobacco user service: No Physical Exam Vital Signs: Last Vital Signs Pulse 74 01/11/24 10:27 Pulse Ox 96 01/11/24 10:27 Oxygen Delivery Method Room Air 01/11/24 10:27 BMI result Body Mass Index 56.6 Office Procedures Flu Questionnaire Does the patient have a severe egg allergy?: No Does the patient have severe life threatening allergies?: No Does the patient have a fever or illness today?: No Has the patient ever had Guillain-Dumfries Syndrome?: No Has the patient ever had any past reaction to a flu shot?: No Immunizations Fluarix Triv [id number] (PF) 45 mcg (15 mcg x 3)/0.5 mL IM syringe Performing Provider: Heber Nicole MD Performing Location: [facility] Administered by: Macie Mott LPN on 01/11/24 10:47 Dose Route Admin Location Dispensed Lot Number Expiration Date NDC Product Safety Tester 0.5 mL IM Right Deltoid 0.5 mL [id number] 09/22/24 [id number] [employer] VIS Given Date VIS Provided VIS Publication Date 01/11/24 Single Vaccine 20 Eligibility Eligibility Date Funding Source Not [facility] Eligible 01/11/24 Private Assessment & Plan Assessment & Plan (1) Asthma: Code(s): J45.909 - Unspecified asthma, uncomplicated Category: Medical Qualifiers: Asthma complication type: with acute exacerbation Asthma persistence: persistent Asthma severity: moderate Qualified Code(s): J45.41 - Moderate persistent asthma with (acute) exacerbation (2) DVT (deep venous thrombosis): Code(s): I82.409 - Acute embolism and thrombosis of unspecified deep veins of unspecified lower extremity Category: Medical Qualifiers: Affected thrombotic vein of extremity: unspecified vein of extremity Chronicity: unspecified DVT location: lower extremity Laterality: unspecified laterality Qualified Code(s): I82.409 - Acute embolism and thrombosis of unspecified deep veins of unspecified lower extremity (3) PFO (patent foramen ovale): Code(s): Q21.1 - Atrial septal defect Category: Medical (4) GERD (gastroesophageal reflux disease): Code(s): K21.9 - Gastro-esophageal reflux disease without esophagitis Category: Medical Qualifiers: Esophagitis presence: without esophagitis Qualified Code(s): K21.9 - Gastro-esophageal reflux disease without esophagitis (5) Bronchitis: Code(s): J40 - Bronchitis, not specified as acute or chronic Category: Medical (6) SINDHU (obstructive sleep apnea): Code(s): G47.33 - Obstructive sleep apnea (adult) (pediatric) Category: Medical (7) Has daytime drowsiness: Code(s): R40.0 - Somnolence Category: Social Hx (8) Palpitations: Code(s): R00.2 - Palpitations Category: Medical Plan continue Symbicort Continue PPI continue short-acting beta agonist as needed Daliresp continue anticoagulation to maintain INR between 2 and 3. at this point the patient does not have any further evidence residual thrombosis. overnight oximetry on RA follow-up in 4-6 months Orders: Orders Overnight Pulse Oximetry 01/11/24 I26.94 - Multiple subsegmental thrombotic pulmonary emboli without acute cor pulmonale, J45.41 - Moderate persistent asthma with (acute) exacerbation Influenza [id number] Immunization 01/11/24 J45.41 - Moderate persistent asthma with (acute) exacerbation Coding Level of Care Code Est Pt Level 4 (08396) Diagnoses Moderate persistent asthma with acute exacerbation J45.41 Asthma complication type: with acute exacerbation Asthma persistence: persistent Asthma severity: moderate Deep vein thrombosis (DVT) of lower extremity, unspecified chronicity, unspecified laterality, unspecified vein I82.409 Affected thrombotic vein of extremity: unspecified vein of extremity Chronicity: unspecified DVT location: lower extremity Laterality: unspecified laterality PFO (patent foramen ovale) Q21.1 Gastroesophageal reflux disease without esophagitis K21.9 Esophagitis presence: without esophagitis Bronchitis J40 SINDHU (obstructive sleep apnea) G47.33 Has daytime drowsiness R40.0 Palpitations R00.2 Time Spent (min) 16
[2024-01-11 10:27] VITALS: PULSE 74; O2SAT 96; BMI 56.6
== END 2024-01-11 10:50 | disposition home or self-care (01) ==
PROVIDERS: PCP Internal Medicine; Visit Provider Hospitalist
DX: J45.41 Moderate persistent asthma with (acute) exacerbation (principal); I82.409 Acute embolism and thrombosis of unspecified deep veins of unspecified lower extremity; Q21.10 Atrial septal defect, unspecified; K21.9 Gastro-esophageal reflux disease without esophagitis; J40 Bronchitis, not specified as acute or chronic; G47.33 Obstructive sleep apnea (adult) (pediatric); R40.0 Somnolence; R00.2 Palpitations
CPT/HCPCS: 99214

== ENCOUNTER → 2024-01-11 10:21 | Outpatient (BNVA) | payer OTHER, SELFPAY | PROVIDERS: PCP Internal Medicine; Visit Provider Hospitalist | DX: Z23 Encounter for immunization (principal); R40.0 Somnolence; R00.2 Palpitations; J45.41 Moderate persistent asthma with (acute) exacerbation; G47.33 Obstructive sleep apnea (adult) (pediatric); J40 Bronchitis, not specified as acute or chronic; K21.9 Gastro-esophageal reflux disease without esophagitis; I82.409 Acute embolism and thrombosis of unspecified deep veins of unspecified lower extremity | CPT/HCPCS: 90471; 90656; 90677; 99212 ==

== ENCOUNTER 2024-02-15 09:29 | Outpatient (REF) | payer OTHER, SELFPAY | END 2024-02-15 09:30 | disposition home or self-care (01) | LOC: HO.US 09:29 | PROVIDERS: PCP Internal Medicine; Visit Provider Physician Assistant Surgical | DX: Z98.84 Bariatric surgery status (principal) | CPT/HCPCS: 76700; 76981 ==

== ENCOUNTER → 2024-02-15 09:31 | Outpatient (BNV) | payer OTHER, SELFPAY | PROVIDERS: PCP Internal Medicine; Visit Provider Radiology Diagnostic Radiology | DX: Z98.84 Bariatric surgery status (principal) | CPT/HCPCS: 76700 ==

== ENCOUNTER 2024-05-22 14:12 | Outpatient (AMB) | payer OTHER, SELFPAY ==
[2024-05-22 14:16] VITALS: BP 120/88; PULSE 84; O2SAT 97; BMI 64.5
--- NOTE | 2024-05-22 14:16 | A.OFFVIS_ITS ---
Vital Signs 05/22/24 14:16 Height 5 ft 4 in Weight 375 lb 14.21 oz BMI 64.5 BP 120/88 Blood Pressure Location Rt brachial Position Sitting Pulse 84 Pulse Source Pulse Oximeter Pulse Oximetry (%) 97 Oxygen Delivery Method Room Air Intake Visit Reasons: copd Allergies doxycycline Allergy (Intermediate, Verified 05/22/24 14:20) Rash latex [LATEX] Allergy (Mild, Verified 05/22/24 14:20) RASH HPI Comments Details: The patient is a 49 -year-old woman with a history of obesity in addition to peripheral vascular disease with peripheral venous hypertension followed closely by vascular surgery. She has had some stents placed. Her course is complicated with a large right lower extremity DVT that extended to her proximal veins. She was admitted to [facility] which she was also found to have small bilateral pulmonary emboli resulting in pleuritic chest discomfort. In view of the extensive lower extremity DVT she did receive tPA to the area and was then placed on Eliquis. She then followed up with her vascular surgery in her switched over to Lovenox due to her size. She has been tolerating the Lovenox injections although they do her her abdomen. She is also complaining of pain on her buttocks area on the right side which is new for her. Moderate severity. She also complains of sometimes not being able to speak correctly. Sometime she loses her worse. On further questioning she also states that she has being PFO which is a concern with lower extremity DVT in the possibility of CVA. At this point she is anticoagulated. She is going to undergo additional Doppler studies of her lower extremities per her vascular surgeon. In addition to that she has known sleep apnea. The patient had CPAP for many years. However, she moved back from [place] and she has not been able to get a CPAP here. The patient has significant daytime drowsiness. She does have an elevated Brooklyn score of 14/24. The patient needs to have a sleep study in order to get her situated and active with another [employer] in order to get a CPAP. 03/02/2020 the patient is here for pulmonary follow-up visit. She continues to significant difficulties with her sleep. She does have significant daytime drowsiness. Again she has underlying sleep apnea that was documented on previous sleep studies. She did have a home sleep study was very limited. Patient hard time sleeping. Therefore her AHI was within normal but is on no up to the correct based on the suboptimal circumstances. Therefore best to repeat the study at this time. The aid you be to do in-lab study but the patient is concerned about the COVID-19 infections and she rather do it at home again. She will make sure to take a sleep aid to her sleep time. Her Brooklyn score continues to be elevated 03/18. She also complains of lower extremity edema pain. Her vascular surgeon wants to keep her on the Lovenox shots. In addition to that she did have an echocardiogram demonstrating a patent PFO. This is concerning specially with her DVT because she has increased risk of CVAs and other skin make infarcts. Therefore will refer her to Cardiology to further address this issue. In regards to her pulmonary emboli the patient tolerating the antithrombotic therapy therefore likely after several months clots should be resolved. Therefore will repeat a V/Q scan in a couple months to make sure that there is complete clearing the thromboembolic disease. 05/13/2020 the patient is here for pulmonary follow-up visit. She continues to have dyspnea on exertion. [id number] severity. She has been under Lovenox for her PE and also extensive DVT. She does take the Lovenox twice a day. She has been on Lovenox since October. She is getting significantly medications and irritations of her abdomen due to the multiple shots. I do believe that if her clot burden has subsided the patient may be a good candidate for Eliquis. I will refer her to Hematology to see if they feel that she will be a good candidate to switch over to an oral anticoagulation. Based on the patient having an unprovoked event the patient will need lifelong anticoagulation. In the meantime she continues to have significant snoring and daytime drowsiness. We did repeat her sleep study demonstrating no evidence of any sleep apnea. I have reassured her. The patient does need a he assistance with snoring and she can look into an oral appliance. She continues with respiratory therapy with good effect. The patient does not require her short- acting beta agonist more than twice a week. She has not had any flares. Patient does carry significant risk factors. Therefore, the patient should get vaccinated for the COVID-19 infection. I did emphasize to her that she needs to go into the web side and find a local vaccinations center. 10/20/2020 the patient is here for a pulmonary follow-up visit. Since we last spoke the patient has been complaining of significant fibromyalgia. She has significant pain. In addition to that her breathing has been worse. She has not been using the Breo because it makes her cough. She does get better response from a short-acting beta agonist which she uses about 4 to 6 times a day. She typically runs out before the month is over. Therefore, I will send her Symbicort that she can use twice a day and awfully say her short-acting beta agonists. in addition in addition to that she still complains about daytime drowsiness. Her Brooklyn score still elevated and having over 24. She did come to have her in-lab study but then became concerned because he was in the hospital and she did not want to get COVID-19. Therefore she went back home. Patient understands the importance of the study specially since she did had already couple nondiagnostic home sleep studies. Will trying to make arrangements food for her to have the in-lab study elsewhere. Since we last spoke she was switched over from Eliquis to Coumadin. She is following closely with the Coumadin clinic. She is tolerating the transition well. She was told that if she loses additional weight then she can be placed back on Eliquis. 12/24/2020 the patient is here for a pulmonary follow-up visit. She continues to do well on Coumadin. She continues use her respiratory therapy. She does complaint of lower extremity pain. Explained to her that she needs to uses compression stockings. she does have them available. In addition to that she continues to have daytime drowsiness with an elevated Brooklyn score of 11/24. She did have apparently her sleep study. I did looking to the [employer] system but I do not see any results as of yet. If the patient does have sleep apnea which I believe she will she will benefit from starting positive air pressure therapy. 10/20/2021 the patient is here for a pulmonary follow-up visit. She has been complaining of worsening cough productive in nature. She has yellow sputum. In addition to that she is complaining of dysuria. She thinks she has a UTI. She did have her Coumadin checked today was elevated INR of 3.6. The patient unfortunately has a allergic reaction to doxycycline. I did send a prescription for Bactrim to treat post the upper and the issue. I did speak to the Coumadin Clinic today no of the additional medication and to monitor her INR closely. otherwise patient is sleeping better. She Did undergo a sleep study which demonstrated no significant sleep apnea. She was very happy about that. She she continues her respiratory medication including Symbicort and albuterol. No significant shortness of breath at this time just the chest congestion. She is still taking the Coumadin. She prefers to take Eliquis instead. She understands that Eliquis is not recommended for individuals with BMI greater than 40. Otherwise the patient is without any other complaints. 02/24/2022 the patient is here for a pulmonary follow-up visit. Patient has been sick now for about 1 week. She was exposed to sick contacts. Her granddaughter has sick and she was care of her. She has been negative for COVID-19. The patient is also having some increasing chest tightness and cough. Moderate severity. She has been using her respiratory therapy with partial resolution of the symptoms. Denies any fevers or chills at this time. Denies any pleuritic discomfort. She does continue on the Coumadin. She is tolerating that well. She understands that if she does go on a Z-Abilio her INR may increase in therefore she needs to monitor closely with the Coumadin clinic. We did review her sleep study. No evidence of any sleep apnea. The patient is doing well with current position also therapy. She also has been working on weight loss which is very reassuring. 04/20/2022 the patient is here for a pulmonary follow-up visit. Since we last spoke the patient has had significant weight gain. She was started on psychotropic medications and she is stating that is increasing her appetite. She can stop eating. She is concerned because the weight gain is going to resulting worsening health issues for her. She is having already more chest congestion and cough. She has evidence of bronchitis. The patient needs to avoid prednisone because of her comorbidities. Therefore Daliresp will be a good option to decrease her chronic bronchitis flare ups and also help her decrease her prednisone needs. She continues her respiratory therapy. She is going to talk to her psychiatrist regarding the new medication that potentially causing her weight gain. She continues on the Coumadin. She is tolerating it well without any adverse effects. She is concerned with the weight gain is getting more swelling of her legs specially with a history of blood clots. 07/21/2022 the patient is here for a pulmonary follow-up visit. Overall the patient has been doing better. She continues to work on weight loss. She also continues on the Coumadin. Her INR levels have been followed closely by the Coumadin Clinic. She has also responded well to the Daliresp. This has helped her with her weight and also has call us increased loose stools. She is aware that this is an issue. If however symptoms to worsen she can consider decreasing the Daliresp to every other day. Hopefully she can continue the full dose. She has a hard time walking. She has significant arthritis. A lot has do with her weight. She was open to follow-up with orthopedic surgery. Explained to her that she is not a surgical candidate because on her weight and also she will be high risk because of the fact that she is on anticoagulation with history of blood clots. However she would like to have an evaluation. Will make a referral at this time. She continues use respiratory therapy with good effect. She continues to have significant daytime drowsiness. Her AHI on her sleep study was normal. Although she still complains of significant snoring and she likely has REM related sleep disorder. Therefore I will request an in- lab sleep study at this time. She should also have a chest x-ray for increasing shortness of breath with activity.The patient continues to have daytime drowsiness. She did have a sleep study in the past which was a home sleep study which was nondiagnostic. The patient's has an elevated Brooklyn score of 11/24. She has significant cardiovascular risk factors. Therefore is important for her to undergo an in-lab sleep study to further address the question of sleep apnea. 10/08/2023 the patient is here for a pulmonary follow-up visit. She still c omplaining significant daytime drowsiness. With the Brooklyn score elevated at 12 over 24. She has been having significant headaches and has not been feeling well. She is also feeling some palpitations. She feels tired. Will go ahead and request blood work in addition to ordering a sleep study. She was already approved to have a sleep study but she has been contemplating having it elsewhere. We did encourage her to have it done since she is so symptomatic. She is going to call and schedule an appointment. The patient in the meantime will have blood work. She continues use her respiratory medications. She also continues with her anticoagulation with good effect. 01/11/2024 the patient is here for pulmonary follow-up visit. The patient continues to have daytime drowsiness. Her Brooklyn score is elevated 12/24. She did have a sleep study sometime ago which was only significant for snoring. We did request an in-lab study although the patient missed the appointment because of other responsibilities. Therefore the patient was not able to do it at this time. She does take a respiratory medications as prescribed. The patient also has had significant amount of weight loss which is practically working on which is reassuring. It is all intentional weight loss at this time. She does continue on the Coumadin with good effect. No evidence of recurrent blood clots. Will go ahead and request an overnight oximetry to assess her oxygen levels at nighttime to see if she benefits from oxygen supplementation. 05/22/2024 the patient is here for a pulmonary follow-up visit. Overall she is doing okay. She continues to have daytime drowsiness. She has not had a sleep study. She needs to have 1 done. She does have a history of sleep apnea. Her Brooklyn score continues to be elevated to over 24. In the meantime she continues to have weight loss after her surgery. That is going well. She does have increased shortness of breath and also tachycardia. She continues use respiratory medicine. She needs to have an updated nebulizer sirs is no longer working. I will request a replacement nebulizer this time. COUNTS INCLUDE 234 BEDS AT THE [facility] Medical History (Updated 10/08/23 @ 13:44 by Heber Nicole MD) Fibromyalgia Insomnia Hyperlipidemia Hypertension Non-insulin dependent type 2 diabetes mellitus Knee pain Iliac vein stenosis, left Iliac vein stenosis, right Asthma SINDHU (obstructive sleep apnea) Chest pain Chest pain Obesity SINDHU (obstructive sleep apnea) Constipation by delayed colonic transit GERD (gastroesophageal reflux disease) Asthma Dyspnea DVT (deep venous thrombosis) Pulmonary emboli SINDHU (obstructive sleep apnea) PFO (patent foramen ovale) Surgical History History of tubal ligation Hx of section History of esophagogastroduodenoscopy (EGD) H/O colonoscopy Hx of gastric bypass Family History Daughter Asthma Mother Asthma Father Asthma Social History Household Members: Family and Children Household Members Other:: grandkids, daughters Housing: House Do you presently have visiting nurse or other home services: No Alcohol intake: former Patient Tobacco Use Status: Former Tobacco user service: No Review of Systems Const Reports body aches, Denies chills, Reports daytime sleepiness, Reports difficulty sleeping, Reports fatigue, Reports snoring and Reports weight loss ENT Denies change in voice, Denies lip swelling, Denies mouth pain, Reports nasal congestion, Reports nasal discharge and Denies tongue swelling Card Denies chest pain, Reports palpitations and Reports dyspnea on exertion Resp Denies chest congestion, Reports cough, Denies hemoptysis, Reports dyspnea on exertion, Reports snoring and Denies wheezing GI Denies abdominal pain Reports difficulty voiding and Reports urinary urgency Musc Reports as per HPI and Reports arthralgias Neuro Denies Neuro-related abnormal movements Psych Denies no additional complaints Endo Reports fatigue and Reports palpitations Min/Lymph Denies easy bleeding and Denies lymphadenopathy Aller/Immun Denies lip swelling, Denies tongue swelling and Denies wheezing Physical Exam Vital Signs: Last Vital Signs Pulse 84 05/22/24 14:16 BP 120/88 05/22/24 14:16 Pulse Ox 97 05/22/24 14:16 Oxygen Delivery Method Room Air 05/22/24 14:16 BMI result Body Mass Index 64.5 Const General: alert Neck Neck: Yes normal visual inspection, Yes full ROM and Yes no lymphadenopathy Chest Chest palpation & inspection: normal inspection of the chest Resp Auscultation: no rhonchi, no wheezes and diminished lung sounds Cardio Rate: regular rate Rhythm: regular rhythm Heart sounds: S1 normal heart sound present and S2 normal heart sound present GI Palpation (GI): Soft to palpation and nontender Auscultation: normal bowel sounds Skin General skin exam: ecchymosis Extrem General: No clubbing, No cyanosis and Yes edema Assessment & Plan Assessment & Plan (1) Asthma: Code(s): J45.909 - Unspecified asthma, uncomplicated Category: Medical Qualifiers: Asthma complication type: with acute exacerbation Asthma persistence: persistent Asthma severity: moderate Qualified Code(s): J45.41 - Moderate persistent asthma with (acute) exacerbation (2) DVT (deep venous thrombosis): Code(s): I82.409 - Acute embolism and thrombosis of unspecified deep veins of unspecified lower extremity Category: Medical Qualifiers: Affected thrombotic vein of extremity: unspecified vein of extremity Chronicity: unspecified DVT location: lower extremity Laterality: unspecified laterality Qualified Code(s): I82.409 - Acute embolism and thrombosis of unspecified deep veins of unspecified lower extremity (3) PFO (patent foramen ovale): Code(s): Q21.1 - Atrial septal defect Category: Medical (4) GERD (gastroesophageal reflux disease): Code(s): K21.9 - Gastro-esophageal reflux disease without esophagitis Category: Medical Qualifiers: Esophagitis presence: without esophagitis Qualified Code(s): K21.9 - Gastro-esophageal reflux disease without esophagitis (5) Bronchitis: Code(s): J40 - Bronchitis, not specified as acute or chronic Category: Medical (6) SINDHU (obstructive sleep apnea): Code(s): G47.33 - Obstructive sleep apnea (adult) (pediatric) Category: Medical (7) Has daytime drowsiness: Code(s): R40.0 - Somnolence Category: Social Hx (8) Palpitations: Code(s): R00.2 - Palpitations Category: Medical Plan continue Symbicort Continue PPI continue short-acting beta agonist as needed Daliresp continue anticoagulation to maintain INR between 2 and 3. at this point the patient does not have any further evidence residual thrombosis. in lab PSG Needs a replacement nebulizer follow-up in 4-6 months Orders: Orders RT PSG in-lab sleep study Today G47.33 - Obstructive sleep apnea (adult) (pediatric), R00.2 - Palpitations, R40.0 - Somnolence Coding Level of Care Code Est Pt Level 4 (62909) Complex EM visit Add On G2211 Diagnoses Moderate persistent asthma with acute exacerbation J45.41 Asthma complication type: with acute exacerbation Asthma persistence: persistent Asthma severity: moderate Deep vein thrombosis (DVT) of lower extremity, unspecified chronicity, unspecified laterality, unspecified vein I82.409 Affected thrombotic vein of extremity: unspecified vein of extremity Chronicity: unspecified DVT location: lower extremity Laterality: unspecified laterality PFO (patent foramen ovale) Q21.1 Gastroesophageal reflux disease without esophagitis K21.9 Esophagitis presence: without esophagitis Bronchitis J40 SINDHU (obstructive sleep apnea) G47.33 Has daytime drowsiness R40.0 Palpitations R00.2 Time Spent (min) 17
--- OUTSIDE RECORDS SUMMARY | 2024-05-22 17:19 | XMS_ITS | Clinical Summary ---
Author Organization 175 [facility] Address [address] [place] [address] Phone Care Team Providers Care Lang Interpreter Name Role Phone Steven Preston DO Primary Care Provider Allergies Active Allergy Reactions Criticality Noted Date Comments Gold Keratinate 03/13/2018 Positive patch testing Latex Rash 12/28/2011 Neomycin 03/13/2018 Patch testing positive Medications albuterol 2.5 mg /3 mL (0.083 %) nebulizer solution Take 1 Vial by nebulization every 4 hours as needed. Active albuterol HFA (PROAIR HFA ; PROVENTIL HFA ; VENTOLIN HFA) 90 mcg/actuation inhaler Inhale 2 Puffs into the lungs every 4 hours as needed for Cough or Wheezing. 9 Active apixaban (ELIQUIS) 5 mg tablet Take 1 tablet (5 mg total) by mouth 2 (two) times a day. 9 Active aspirin 81 mg EC tablet Take 1 tablet (81 mg total) by mouth 1 (one) time each day. 9 Active atorvastatin (LIPITOR) 20 mg tablet Take 1 tablet (20 mg total) by mouth 1 (one) time each day. 9 Active blood-glucose meter kit 1 Kit by Does not apply route daily. 9 Active cholecalciferol (VITAMIN D-3) 50 mcg (2,000 unit) tablet Take 1 tablet (2,000 Units total) by mouth 1 (one) time each day. 9 Active EPINEPHrine (EpiPen 2-Abilio) 0.3 mg/0.3 mL injection Inject 1 Device as directed as needed (anaphylaxis). Use as directed 8 Active esomeprazole (NexIUM) [address] capsule Take 1 Cap by mouth every morning (before breakfast). 9 Active ferrous sulfate 325 mg (65 mg elemental iron) tablet Take 1 tablet (325 mg total) by mouth 1 (one) time each day. 8 Active gabapentin (NEURONTIN) 600 mg tablet Take 1 tablet (600 mg total) by mouth 3 (three) times a day. 9 Active blood sugar diagnostic (FreeStyle Lite Strips) test strip Use to test one time daily. Dx: R73.03 9 Active linaCLOtide (LINZESS) 145 mcg capsule Take 1 Cap by mouth daily. 8 Active metoprolol succinate (TOPROL-XL) 50 mg 24 hr tablet Take 1 tablet (50 mg total) by mouth 1 (one) time each day. 0 Active metroNIDAZOLE (FLAGYL) 500 mg tablet Take 1 tablet (500 mg total) by mouth 3 (three) times a day. 9 Active dextran 70-hypromellose (ARTIFICIAL TEARS) 0.1-0.3 % ophthalmic solution 9 Active polyethylene glycol (COLYTE) 240-22.72-6.72 -5.84 gram solution Drink 8 oz every 15 mins over 2 sittings as directed. Finish the entire jug. 9 Active glycerin-min oil-polycarboph il (Replens) gel Place 1 Applicator vaginally daily as needed (vaginal dryness). 9 Active Active Problems Problem Noted Date Diagnosed Date Bipolar 1 disorder 04/10/2024 DJD (degenerative joint disease), lumbar 025 Fibromyalgia 04/10/2024 Hyperlipidemia 04/10/2024 Hypertension 04/10/2024 Osteoarthritis of both knees 04/10/2024 Morbid obesity with BMI of 50.0-59.9, adult 03/26 DVT (deep venous thrombosis) 03/14/2019 Venous insufficiency (chronic) (peripheral) 08/2018 Fatty liver 03/08/2018 Overview (04/10/2024): Abdominal US 12/27/15 - fatty infiltration pancreas. Sludge in gallbladder lumen Radiculopathy of lumbar region 03/08/2018 Persistent proteinuria 03/08/2018 Overview (04/10/2024): Kidney US Prediabetes 03/08/2018 PFO (patent foramen ovale) 03/08/2018 Overview (04/10/2024): History of ASD Sleep apnea 03/08/2018 Slow transit constipation 03/08/2018 Anxiety and depression 02/27/2018 PAD (peripheral artery disease) 02/27/2018 Overview (04/10/2024): S/p stent lower extremities TIA (transient ischemic attack) 02/27/2018 Moderate persistent asthma without complication 02/21/2018 Immunizations Name Administration Dates Next Due Pneumococcal polysaccharide 23 valent (Pneumovax 23) 2yo and older 03/11/2018 Tdap Tetanus diptheria acell ular pertussis (Boostrix; Adacel) 7yo and older 03/11/2018 Surgical History Surgery Date Site/Laterality Comments GASTRIC BYPASS PROCEDURE: GASTRIC BYPASS FOR OBESIT TUBAL LIGATION PROCEDURE: HISTORICAL TUBAL LIGATION Medical History Medical History Date Comments Hypertension DX:Hypertension Osteoarthritis of both knees DX: Osteoarthritis of both knees Fibromyalgia DX:Fibromyalgia DJD (degenerative joint dise ase), lumbar DX:DJD (degenerative joint d isease), lumbar TIA (transient ischemic attack) DX:TIA (transient ischemic attack); COMMENT: 3 yrs ago Bipolar 1 disorder ([facility]) DX: Bipolar 1 disorder ([facility]) Asthma DX:Asthma TIA (transient ischemic attack) 02/27/2018 DX:TIA (transient ischemic attack) Anxiety and depression 02/27/2018 DX:Anxiet y and depression PAD (peripheral artery disea se) (CMS/HCC) 02/27/2018 DX:PAD (peripheral artery di sease) ([facility]); COMMENT: S/p stent lower extremities H/O gastric bypass 02/27/2018 DX:H/O gastri c bypass Morbid obesity with BMI of 5 0.0-59.9, adult (CMS/HCC) 02/27/2018 DX:Morbid obesity with BMI o f 50.0-59.9, adult ([facility]) Fatty liver 03/08/2018 DX:Fatty liver; COMMENT: Abdominal US 12/27/15 - fatty infiltration pancreas. Sludge in gallbladder lumen PFO (patent foramen ovale) 03/08/2018 DX:PF O (patent foramen ovale); COMMENT: History of ASD Hyperlipidemia DX:Hyperlipidemi a Moderate persistent asthma w ithout complication 02/21/2018 DX:Moderate persistent asthm a without complication Persistent proteinuria 03/08/2018 DX:Perswinnie tent proteinuria; COMMENT: Kidney US Prediabetes 03/08/2018 DX:Prediabetes Radiculopathy of lumbar region 03/08/2018 D X:Radiculopathy of lumbar region Sleep apnea 03/08/2018 DX:Sleep apnea Slow transit constipation 03/08/2018 DX:Slo w transit constipation Family History Medical History Relation Name Comments Other: anxiety Other 1 Other: gastric bypass Other 2 Other: lipo suction Other 3 Colon cancer Neg Hx Relation Name Status Comments Other 1 Other 2 Other 3 Social History Tobacco Use Types Packs/Day Years Used Date Smoking Tobacco: Every Day Cigarettes Smokeless Tobacco: Never Alcohol Use Standard Drinks/Week Comments No 0 (1 standard drink = 0.6 oz pur e alcohol) Comments Unknown Sex and Gender Information Value Date Recorded Sex Assigned at Not on file Legal Sex Female 11:14 PM EST Gender Identity Not on file Sexual Orientation Not on file Obstetrics History Plan of Treatment Upcoming Encounters Date Type Department Care Team (Late st Contact Info) Description 05/27/2024 10:00 AM EST Consult Orthopedic Surgery - [place] [id number] [address] Bernardo Nelson, DPM [address] [address] Health Maintenance Due Date Last Done Comments Hepatitis B Vaccines (1 of 3 - 19+ 3-dose series) 1992 Cervical Cancer Screening: P ap Smear 1994 Pneumococcal Vaccine: 50+ Ye ars (2 of 2 - PCV) 03/11/2019 03/11/2018 Pneumococcal Vaccine: Pediat rics (0 to 5 Years) and At-Risk Patients (6 to 64 Years) (2 of 2 - PCV) 03/11/2019 03/11/2018 Breast Cancer Screening 11/23/2019 11/22/2017 Colorectal Cancer Screening: Colonoscopy 02/26/2022 Depression Screening 02/26/2022 HIV Screening 02/26/2022 Hepatitis C Screening 02/26/2022 Medicare Annual Wellness Visit 02/26/2022 Social Influencers of Health Screening 02/26/2022 Hypertension/CHF/CAD Annual BMP Blood Test 03/08/2022 10/25/2018 Zoster Vaccines (1 of 2) 2023 Cholesterol Screening (Lipid Panel) 10/26/2023 10/25/2018 COVID-19 Vaccine (1 - 2023-2 5 season) 2023 Influenza Vaccine (#1) 2023 DTaP,Tdap,and Td Vaccines (2 - Td or Tdap) 03/11/2028 03/11/2018 HIB Vaccines Aged Out No longer eligi ble based on patient's age to complete this topic HPV Vaccines Aged Out No longer eligi ble based on patient's age to complete this topic Hepatitis A Vaccines Aged Out No long er eligible based on patient's age to complete this topic IPV Vaccines Aged Out No longer eligi ble based on patient's age to complete this topic MMR Vaccines Aged Out No longer eligi ble based on patient's age to complete this topic Meningococcal ACWY Vaccine Aged Out N o longer eligible based on patient's age to complete this topic Meningococcal B Vacine Aged Out No lo nger eligible based on patient's age to complete this topic RSV Immunization Patients Un rosa 20 months Aged Out No longer eligible b ased on patient's age to complete this topic Varicella Vaccines Aged Out No longer eligible based on patient's age to complete this topic Procedures Procedure Name Priority Date/Time Associated Diagnosis Comments ANNUAL BMP BLOOD TEST Routine 10/25/2018 LIPID PANEL Routine 10/25/2018 MAMMOGRAM SCREENING BILATERAL 3D KARLA WITH CAD Routine 11/22/2017 2:39 PM EDT Encounter for screening mammogram for malignant neoplasm of breast from Last 3 Months or Most Recently Relevant to Health Maintenance Results * Annual BMP Blood Test (10/25/2018) Annual BMP Blood Test abstracted Historical Provider HEALTH MAINTENANCE Final Result * (ABNORMAL) Lipid panel (10/25/2018) LDL/HDL Ratio 4 0 - 4 Triglycerides 176(A) 0 - 150 mg/dL Cholesterol 183 0 - 200 mg/dL HDL 47 >=40 mg/dL LDL Cholesterol 101(A) 0 - 100 mg/dL Blood Venous blood specimen / Unknown us Historical Provider LAB BLOOD ORDERABLES Sydnie l Result * MAMMOGRAM SCREENING BILATERAL 3D KARLA WITH CAD (11/22/2017 2:39 PM EDT) Anatomical Region Laterality Modality Mammography 11/16/2017 3:55 PM EDT Narrative 11/22/2017 4:51 PM EDT This is a summary report. The complete report is available in the patient's medical record. If you cannot access the medical record, please contact the sending organization for a detailed fax or copy. EXAM PERFORMED: ??MAMMOGRAM SCREENING BILATERAL 3D KARLA WITH CAD EXAM HISTORY: Screening COMPARISON: None TECHNIQUE: Bilateral full field digital mammography (2-D) and Tomosynthesis (3- D) was performed using standard CC and MLO projections. FINDINGS: There are no dominant mass lesions, skin thickening, or nipple retraction. No cluster of suspicious microcalcifications is seen. The cardiac mechanical device projects over the left breast lower inner quadrant. BREAST DENSITY: Predominately fatty breast parenchyma (0-25% fibroglandular tissue). Density A. IMPRESSION: 1. ??No radiographic evidence of malignancy. Followup is recommended in one year. The results of this examination have been communicated to the patient through a lay letter in accordance with the Mammography Quality Standards Act. BI-RADS 2: Benign findings. Session: Examination and interpretation performed during a separate session. 3342 F Report reviewed and signed by : Dr. Felipe Mejia MD on 11/22/2017 4:51 PM. Workstation Name - [id number] Procedure Note Felipe Mejia MD - 03/19/2022 This is a summary report. The complete report is available in thepatient's medical record. If you cannot access the medical record, pleasecontact the sending organization for a detailed fax or copy. EXAM PERFORMED: MAMMOGRAM SCREENING BILATERAL 3D KARLA WITH CAD EXAM HISTORY: Screening COMPARISON: None TECHNIQUE: Bilateral full field digital mammography (2-D) andTomosynthesis (3-D) was performed using standard CC and MLO projections. FINDINGS: There are no dominant mass lesions, skin thickening, or nipple retraction.No cluster of suspicious microcalcifications is seen. The cardiacmechanical device projects over the left breast lower inner quadrant. BREAST DENSITY: Predominately fatty breast parenchyma (0-25%fibroglandular tissue). Density A. IMPRESSION: 1. No radiographic evidence of malignancy. Followup is recommended in oneyear. The results of this examination have been communicated to the patientthrough a lay letter in accordance with the Mammography Quality StandardsAct. BI-RADS 2: Benign findings. Session: Examination and interpretation performed during a separatesession. 3342 F Report reviewed and signed by : Dr. Felipe Mejia MD on 11/22/2017 4:51PM. Workstation Name - [id number] Sravani Pardo APN IMG BI PROCEDURES Final Resul t from Last 3 Months or Most Recently Relevant to Health Maintenance Insurance [employer] MEDICARE Member Subscriber Plan / Payer (Ef fective 2019-Present) Name:Lisa Humphrey I Relation to Subscriber:Self Name:Lisa Humphrey I Payer ID:[id number] Group ID:[id number] Type:Not on file Address: [address] [place] [address] MEDICA[place] - [place] Care Teams Lang Interpreter Relationship Specialty Start Date End Date Steven Preston DO [address] [place] [address] [phone] PCP - General Internal Medicine 03/12/24
--- OUTSIDE RECORDS SUMMARY | 2024-05-22 17:19 | XMS_ITS | Patient Health Record ---
Author Organization [facility] Address [address] [place] [address] Care Team Providers Care Psychiatric Technician Assistant Name Role Phone RACHEL CROSS Unavailable [phone] REASON FOR REFERRAL No Information MEDICATIONS Medication SIG (Take, Route, Frequency, Duration) Notes Start Date End Date Status Cetirizine HCl 10 MG Oral for 90 Active hydroCHLOROthiazide 25 MG Oral for 28 Active LORazepam 1 MG Oral for 30 Act carlos Atorvastatin Calcium 20 MG Oral for 90 Active Diclofenac Sodium 1 % APPLY THIN LAYER T O AFFECTED AREA TOPICALLY 4 TIMES A DAY External for 25 Active Roflumilast 500 MCG Oral for 30 Active Fluticasone Propionate 50 MCG/ACT SPRAY 2 SPRAYS INTO EACH NOSTRIL EVERY MORNING Nasal for 90 Active Symbicort 160-4.5 MCG/ACT TAKE 2 PUFFS T WICE A DAY Inhalation for 30 Active Gabapentin 800 MG Oral for 30 Active EPINEPHrine 0.3 MG/0.3ML Injection for 1 Active Warfarin Sodium 5 MG Oral for 21 Active PLAN OF TREATMENT No Information Insurance Providers Payer Name Payer Address Payer Phone Subscriber Number Group Number Insured Name Patient Relationship to Insured Coverage Start Date Coverage End Date [employer] or Options [address] [place] [address] [phone] [id number] DIPTI RUFINO Self - patient is the insured
--- OUTSIDE RECORDS SUMMARY | 2024-05-22 17:19 | XMS_ITS | Data Portability ---
Author Organization [employer] [employer] [facility] [employer] Address [address] [place] [address] Care Team Providers Care Rubber Ball Finisher Name Role Phone [facility] Referring Provider Assessment No assessment recorded. Plan of Treatment Reminders Order Date Submit Date Provider Last Modified By Organization Details Last Modified Time Details Appointments None record ed. Lab None record ed. Referral None record ed. Procedures None record ed. Surgeries None record ed. Imaging None record ed. Medication Orders None record ed. Patient TargetsNo targets recorded. Patient InstructionsNo instructions recorded. Reason for Referral None Reported. Medical Equipment None Reported. Allergies Allergen ID Allergen Name Allergen Category Reaction Reaction Severity Criticality Documentation Date Start Date Code Code System Note Provider Name and Address Organization Details Recorded Time 8730 doxycycli ne Not available Not available Not available Not available 01/22/2024 3640 RxNorm Not Available [facility] 4 03:46:25 8731 latex environme nt,medica tion Not available Not available Not available 01/22/2024 25882 91 RxNorm Not Available [facility] 4 03:46:25 Medications Name Sig Start Date Stop Date Status Note LastModified by Organization Details LastModified Time amoxicillin 500 mg capsule TAKE 1 CAPSULE BY MOUTH 3 TIMES A DAY FOR 7 DAYS active Not Available Not Available N ot Available prednisone 10 mg tablet active Not Available Not Available Not Available atorvastatin 20 mg tablet active Not Available Not Available Not Available ketoconazole 2 % shampoo USE DIRECTED EVERY OTHER DAY IN SHOWER active Not Available Not Available No t Available albuterol sulfate 2.5 mg/3 mL (0.083 %) solution for nebulization active Not Available Not Available Not Available cetirizine 10 mg tablet active Not Available Not Available Not Available azithromycin 250 mg tablet TAKE 2 TABLETS BY MOUTH TODAY, THEN TAKE 1 TABLET DAILY FOR 4 DAYS active Not Available Not Available No t Available metoprolol succinate ER 50 mg tablet,exten ded release 24 hr active Not Available Not Available Not Available hydrochlorot hiazide 50 mg tablet TAKE 1 TABLET BY MOUTH EVERY DAY IN THE MORNING active Not Available Not Available No t Available metronidazol e 0.75 % (37.5 mg/5 gram) vaginal gel USE 1 APPLICATOR VAGINALLY DAILY AT BEDTIME,X5 DAYS active Not Available Not Available No t Available ondansetron HCl 4 mg tablet TAKE 1 TABLET BY MOUTH EVERY DAY FOR 10 DAYS active Not Available Not Available No t Available prednisone 20 mg tablet TAKE 2 TABS BY MOUTH DAILY X 5 DAYS, THEN 1 TABLET DAILY FOR 5 DAYS active Not Available Not Available No t Available metoprolol succinate ER 100 mg tablet,exten ded release 24 hr TAKE 1 TABLET BY MOUTH EVERY DAY active Not Available Not Available No t Available metronidazol e 500 mg tablet TAKE 1 TABLET BY MOUTH THREE TIMES A DAY FOR 7 DAYS active Not Available Not Available N ot Available valacyclovir 500 mg tablet TAKE 1 TABLET BY MOUTH EVERY DAY active Not Available Not Available No t Available sulfamethoxa zole 800 mg-trimethop rim 160 mg tablet TAKE 1 TABLET BY MOUTH TWICE A DAY X7 DAYS active Not Available Not Available No t Available acetaminophe n 500 mg tablet TAKE 2 TABLETS BY MOUTH 3 TIMES A DAY NEEDED FOR PAIN active Not Available Not Available No t Available amitriptylin e 25 mg tablet TAKE 1 TABLET BY MOUTH AT BEDTIME FOR 1 WEEK THEN TAKE 2 TABLETS AT BEDTIME active Not Available Not Available No t Available vitamin A 3,000 mcg (10,000 unit) capsule TAKE 2 CAPSULES BY MOUTH EVERY DAY FOR 3 WEEKS active Not Available Not Available No t Available gabapentin 800 mg tablet TAKE 1 TABLET BY MOUTH THREE TIMES A DAY active Not Available Not Available Not Available esomeprazole magnesium 40 mg capsule,jonnathan yed release TAKE 1 CAPSULE BY MOUTH EVERY DAY active Not Available Not Available No t Available nystatin 100,000 unit/gram topical cream APPLY 1 APPLICATION EXTERNALLY TWICE A DAY FOR 10 DAYS active Not Available Not Available Not Available warfarin 5 mg tablet TAKE 1 TABLET BY MOUTH EVERY DAY FOR 30 DAYS active Not Available Not Available No t Available hydrochlorot hiazide 25 mg tablet active Not Available Not Available No t Available lorazepam 1 mg tablet TAKE 1 TABLET BY MOUTH TWICE A DAY active Not Available Not Available No t Available azelastine 137 mcg (0.1 %) nasal spray INSTILL 2 SPRAYS INTO BOTH NOSTRILS TWICE A DAY active Not Available Not Available Not Available fluticasone propionate 50 mcg/actuatio n nasal spray,suspen evelio active Not Available Not Available Not Available amoxicillin 875 mg-potassium clavulanate 125 mg tablet TAKE 1 TABLET BY MOUTH EVERY 12 HOURS FOR 7 DAYS active Not Available Not Available N ot Available Ventolin HFA 90 mcg/actuatio n aerosol inhaler TAKE 2 PUFFS BY MOUTH EVERY 6 HOURS NEEED FOR WHEEZING OR SHORTNESS OF BREATH active Not Available Not Available No t Available azithromycin 500 mg tablet TAKE 1 TABLET BY MOUTH EVERY DAY FOR 5 DAYS active Not Available Not Available No t Available duloxetine 30 mg capsule,jonnathan yed release 1 CAPSULE BY MOUTH IN THE MORNING, 2 CAPSULES BY MOUTH BEFORE BED DO NOT CRUSH OR CHEW active Not Available Not Available No t Available tizanidine 4 mg capsule active Not Available Not Available N ot Available chlorhexidin e gluconate 0.12 % mouthwash PLACE 15 ML (1 CAPFUL) INSIDE CHEEK THEN SPIT OUT TWICE A DAY FOR 14 DAYS active Not Available Not Available Not Available Symbicort 160 mcg-4.5 mcg/actuatio n HFA aerosol inhaler TAKE 2 PUFFS TWICE A DAY active Not Available Not Available No t Available diclofenac 1 % topical gel active Not Available Not Available Not Available cholecalcife rol (vitamin D3) 50 mcg (2,000 unit) tablet active Not Available Not Available Not Available roflumilast 500 mcg tablet TAKE 1 TABLET BY MOUTH EVERY DAY active Not Available Not Available No t Available Linzess 145 mcg capsule active Not Available Not Available Not Available Vitals Date Recorded Respiratory rate Body height Heart rate Body temperature Oxygen saturation Oxygen saturation in Arterial blood by Pulse oximetry Body weight Systolic blood pressure Diastolic blood pressure Provider Name and Address Organization Details Last Updated DateTime 3 16 /min 162.56 cm 85 /min 97.5 [degF] 100 % 100 % 608512. 288 g 144 mm[Hg] 83 mm[Hg] Not Available [facility] 3 19:12:29 Social History None recorded. Functional Status None recorded. Mental Status None recorded. Family History Nothing Reported. Medical History No medical history recorded. Gynecological HistoryNo gynecological history recorded. Obstetrics History GPAL:G 0 P 0 0 0 0 Past Encounters Encounter ID Performer Location Encounter Start Date Encounter Closed Date Diagnosis/Indication Diagnosis SNOMED-CT Code Diagnosis ICD10 Code Diagnosis Note [id number] Alejandro Mcfarlane MD [employer] [facility] [employer] [address] [place] [phone] 08/18/2022 19:12:17 08/21/2022 18:33:24 Eruption [id number] R21 This 47-year-ol d female has had a pruritic rash on her upper trunk and arms for three days with no obvious trigger. Her main complaint is pruritis. I recommende d Benadryl 50 mg 4x daily and hydrocorti sone cream 1% applied twice daily. She will follow-up with her PCP. The patient agreed with this plan. Health Concerns Section Related Observation LastModified by Organization Detai ls LastModified Time None Recorded Concern Status LastModified by Organization Details LastModified Time None Recorded Advance Directives Directive None Recorded Payers Encounter Date Sequence Insurance Name Policy Number Policy Krishnan Covered Member ID Krishnan Member ID Guarantor Name 08/18/2022 1 [facility] - DOS ON OR AFTER 2022 - DUAL ELIGIBLE - PENITENTIARY OPTIONS AND ONE CARE (MEDICARE REPLACEMENT/ADV ANTAGE - HMO) Lisa Humphrey [id number] Lisa Humphrey Notes Date Note Type Note Provider Name and Address Organization Details Recorded Time 08/18/2022 text/html [facility] Nursing Assessment: Reason For Request: rash Chief Complaints: Wound Care PMH: COPD/Asthma, Diabetes, Hypertension, Heart Disease Allergies: Doxycycline, Latex Comments: Verified identity by pt is having allergic reaction all over her body, certain parts of her body are red and hot to the touch. Took a shower and itchiness ensued. Took a Zyrtec and went to bed; showed signs of reaction was going away. This morning took another shower and all symptoms flared again. Rash is all over body, RED / warm / painful/ itchy, since last night. Member has not changed med/ lotions, no med changes, no yard work . No sob Alejandro Mcfarlane MD [address] [facility],[address], [place], [address], [employer] 08/18/2022 19:19:40 OBGyn Episode No OBEpisode recorded.
--- OUTSIDE RECORDS SUMMARY | 2024-05-22 17:19 | XMS_ITS | Clinical Summary ---
Author Organization [facility] Address [address] [place] [address] Care Team Providers Care Research & Analytics Manager Name Role Phone Sravani Pardo APRN Primary Care Provider Social History Tobacco Use Types Packs/Day Years Used Date Smoking Tobacco: Never Assessed Sex and Gender Information Value Date Recorded Sex Assigned at Not on file Gender Identity Not on file Sexual Orientation Not on file Plan of Treatment Health Maintenance Due Date Last Done Comments Hepatitis C Virus Screening 1973 HIV Screening 1986 DTaP/Tdap/Td Vaccines (1 - Tdap) 1992 Hepatitis B Vaccines (1 of 3 - 19+ 3-dose series) 04/27 Pneumococcal Vaccines 50+ (1 of 2 - PCV) 1992 Pap Smear (Ages 21-65) 1994 Mammogram 2013 Colonoscopy 2018 Zoster (Shingles) Vaccine (1 of 2) 2023 Influenza Vaccine 10/25/2023 COVID-19 Vaccine ( - 2023- season) 2023 Care Teams Research & Analytics Manager Relationship Specialty Start Date End Date Sravani Pardo APRN PCP - General Internal Medicine 12/03/17
--- OUTSIDE RECORDS SUMMARY | 2024-05-22 17:19 | XMS_ITS | Clinical Summary ---
Author Organization [facility] Address [address] [place] [address] Care Team Providers Care Van Driver Helper Name Role Phone Unavailable Primary Care Provider Unavailabl e Family History Medical History Relation Name Comments Colon cancer Cousin MATERNAL Ovarian cancer Daughter Breast cancer Paternal Aunt Endometrial cancer Neg Hx Relation Name Status Comments Cousin Daughter Paternal Aunt Social History Tobacco Use Types Packs/Day Years Used Date Smoking Tobacco: Never Assessed Sex and Gender Information Value Date Recorded Sex Assigned at Not on file Gender Identity Not on file Sexual Orientation Not on file Plan of Treatment Health Maintenance Due Date Last Done Comments Hepatitis B Vaccines (1 of 3 - 3-dose series) 1973 Hepatitis C Screening 1973 COVID-19 Vaccine (#1) 1973 Depression Screening 1985 Preventative Health Evaluation 1991 DTap / Tdap / Td (1 - Tdap) 1992 Cervical Cancer Screening (P ap Smear) 1994 Colon Cancer Screening (Colonoscopy) 2018 Breast Cancer Screening (Mammogram) 2023 11/22/2017 Shingrix-Zoster Vaccine (1 of 2) 2023 Influenza Vaccine (#1) 2023 Pneumococcal Vaccine Aged Out No long er eligible based on patient's age to complete this topic RSV Ped < 20 months Aged Out No longe r eligible based on patient's age to complete this topic Lisa Moore Personal/Famil y Self 1975 ([place]) [address] [place] [id number]
== END 2024-05-22 14:42 | disposition home or self-care (01) ==
PROVIDERS: PCP Internal Medicine; Visit Provider Hospitalist
DX: J45.41 Moderate persistent asthma with (acute) exacerbation (principal); I82.409 Acute embolism and thrombosis of unspecified deep veins of unspecified lower extremity; Q21.10 Atrial septal defect, unspecified; K21.9 Gastro-esophageal reflux disease without esophagitis; J40 Bronchitis, not specified as acute or chronic; G47.33 Obstructive sleep apnea (adult) (pediatric); R40.0 Somnolence; R00.2 Palpitations
CPT/HCPCS: 99214; G2211

== ENCOUNTER → 2024-05-22 14:12 | Outpatient (BNVA) | payer OTHER, SELFPAY | PROVIDERS: PCP Internal Medicine; Visit Provider Hospitalist | DX: J45.41 Moderate persistent asthma with (acute) exacerbation (principal); I82.409 Acute embolism and thrombosis of unspecified deep veins of unspecified lower extremity; Q21.12 Patent foramen ovale | CPT/HCPCS: 99212 ==

== ENCOUNTER 2024-07-08 10:07 | Outpatient (AMB) | payer OTHER, SELFPAY ==
--- NOTE | 2024-07-08 10:22 | A.OFFVIS_ITS ---
Vital Signs 07/08/24 10:23 07/08/24 11:30 Height 5 ft 4 in Weight 365 lb BMI 62.6 BP 127/61 Blood Pressure Location Lt brachial Position Sitting Pulse 86 Temp 97.7 F Temp Source Temporal Artery Scan Pulse Oximetry (%) 98 Oxygen Delivery Method Room Air Intake Visit Reasons: abdominal pain/Flori ko 02/26/2023 Intake Note: Patient complex follow up for abdominal pain/[facility] 02/26/2023. Patient have blood work from last appt. Patient cc: N/V, upper abdominal pain with bloating, acid reflux, constipation but more diarrhea. Patient wanted to do stool text due her daughter have a infection on her stool, too. Also, patient feeling food going down her esophagus. Surgery Specialist Required: No Accompanied by: Daughter Allergies doxycycline Allergy (Intermediate, Verified 07/08/24 10:22) Rash latex [LATEX] Allergy (Mild, Verified 07/08/24 10:22) RASH HPI [facility]: Details: Patient is a 49-year-old female with PMH of fibromyalgia, insomnia, hyperlipidemia, hypertension, DMII, SINDHU, asthma, obesity and GERD. Last visit with ALIRIO An 02/26/2023 for abdominal pain Pt is here today for ab pain. Patient is accompanied by her CHICKEN RAISER She reports episgastric pain X 2 weeks. Shares she sought ER care 07/01/2024 at [facility] for same s/sx. States she was dx with gallstones and pancreatitis. She describes the pain as sore and burning, currently rating an 8/10. She is scheduled to see General surgery through [place] this afternoon at 1400. She denies recent medication or diet changes. Shares she is due to move out of current place next month, currently packing her home. Associated symptoms:n/v-last episode yesterday, fever two days ago, acute on chronic diarrhea X few days , regurgitation, decreased appetite X 1 week. Aggravating factors:night Alleviating attempts: Mylanta with some relief, omeprazole Patient denies: dysphasia, cardiopulmonary symptoms, bladder changes or melena/hematochezia. She is requesting stool testing. States her sister was recently diagnosed with a contagious stool infection and expresses concern she may have come into contact with the source. She would also like hepatitis and HIV testing. [facility] Medical History (Updated 07/08/24 @ 18:23 by Alyssa Liriano CNP) Diarrhea Abnormal serum thyroid stimulating hormone (TSH) level Fibromyalgia Insomnia Hyperlipidemia Hypertension Non-insulin dependent type 2 diabetes mellitus Knee pain Iliac vein stenosis, left Iliac vein stenosis, right Asthma SINDHU (obstructive sleep apnea) Chest pain Chest pain Obesity SINDHU (obstructive sleep apnea) Constipation by delayed colonic transit GERD (gastroesophageal reflux disease) Asthma Dyspnea DVT (deep venous thrombosis) Pulmonary emboli SINDHU (obstructive sleep apnea) PFO (patent foramen ovale) Surgical History History of tubal ligation Hx of section History of esophagogastroduodenoscopy (EGD) H/O colonoscopy Hx of gastric bypass Family History Daughter Asthma Mother Asthma Father Asthma Social History Household Members: Family and Children Household Members Other:: grandkids, daughters Housing: House Do you presently have visiting nurse or other home services: No Alcohol intake: former Patient Tobacco Use Status: Former Tobacco user service: No Review of Systems Const Reports as per HPI, Denies weight gain and Denies weight loss ENT Reports as per HPI Card Reports as per HPI Resp Reports as per HPI GI Reports as per HPI Reports as per HPI Neuro Reports as per HPI Psych Reports as per HPI Physical Exam Vital Signs: Last Vital Signs Temp 97.7 F 07/08/24 18:20 Pulse 86 07/08/24 10:23 BP 127/61 07/08/24 10:23 Pulse Ox 98 07/08/24 10:23 Oxygen Delivery Method Room Air 07/08/24 10:23 BMI result Body Mass Index 62.6 Const General: no acute distress Nutritional Appearance: obese Orientation/consciousness: patient oriented x3 HEENT Head: Yes normal to inspection, Yes normocephalic and Yes atraumatic Face and sinus: Yes normal facial exam Eyes General: appearance normal, both eyes and all related structures Neck Neck: Yes normal visual inspection Resp Effort & Inspection: normal respiratory effort, able to speak in complete sentences, no tracheal deviation and symmetric chest movement Auscultation: clear to auscultation bilaterally Cardio Jugular venous distension: no JVD Rate: regular rate Rhythm: regular rhythm Heart sounds: S1 normal heart sound present, S2 normal heart sound present, no gallops and no murmurs GI Inspection: No distended and Yes obesity Palpation (GI): Soft to palpation, not firm, nontender and No hepatosplenomegaly present Auscultation: normal bowel sounds Neuro General: patient oriented x3 Gait exam (Neuro): Normal gait present Psych Appearance: grossly normal Mental Status: mental status grossly normal Speech and movement: Normal speech and movement present Affect: normal affect Attitude: cooperative Thought process: Normal thought process present Thought content: Normal thought content present Insight: Good insight present (Psych) Judgement: Good judgement present (Psych) Results Reviewed Results Reviewed: ER 07/01/2024 labs: lipase 159 otherwise CBC and CMP unremarkable Assessment & Plan Assessment & Plan (1) Abdominal pain: Code(s): R10.9 - Unspecified abdominal pain Category: Medical Qualifiers: Abdominal location: epigastric Qualified Code(s): R10.13 - Epigastric pain Plan: Limited ER records available at time of visit. Do see a diagnosis of calculus of gallbladder without cholecystitis without obstruction +acute biliary pancreatitis without infection or necrosis on 07/01/2024 disposition note. . Afebrile with stable vital signs today. Reassured she has a visit with Dr. Ledezma, General surgery today as I do believe the above findings are the source of her symptoms. However, we will obtain some additional labs. Strict ER precautions reviewed. (2) Diarrhea: Code(s): R19.7 - Diarrhea, unspecified Category: Medical Qualifiers: Diarrhea type: unspecified type Qualified Code(s): R19.7 - Diarrhea, unspecified Plan: Acute on chronic. We will obtain stool samples as requested. We will re- evaluate other etiologies if unrevealing and after resolution of above diagnosis. Plan Follow-up in 4 weeks or sooner as needed Time: I spent a total of 60 minutes on the date of encounter which includes: Preparing to see the patient (reviewed previous documentation, test results and medical history) Performing a medically appropriate exam and/or evaluation Ordering medications, tests, and procedures Documenting clinical information in the health record Orders: Orders Vitamin K1 07/08/24 R79.89 - Other specified abnormal findings of blood chem istry Vitamin E 07/08/24 R79.89 - Other specified abnormal findings of blood chemistry Vitamin B12 and Folate 07/08/24 R79.89 - Other specified abnormal findings of blood chemistry C Reactive Protein 07/08/24 R10.9 - Unspecified abdominal pain TSH reflex Free T4 07/08/24 R79.89 - Other specified abnormal findings of blood chemistry Vitamin A 07/08/24 E66.01 - Morbid (severe) obesity due to excess calories Vitamin D 1,25 dihydroxy 07/08/24 R79.89 - Other specified abnormal findings of blood chemistry CDiff Gene PCR 07/08/24 R19.7 - Diarrhea, unspecified GI Panel 07/08/24 R19.7 - Diarrhea, unspecified Calprotectin, Fecal 07/08/24 R19.7 - Diarrhea, unspecified Hepatitis A,B,C Profile 07/08/24 Z11.59 - Encounter for screening for other viral diseases HIV Ab/Ag 07/08/24 Z11.3 - Encounter for screening for infections with a predominantly sexual mode of transmission Medications: Discontinued barium sulfate 2%(w/v) (Readi-Cat 2) 2 bottles Readi-Cat, drink [address] scan Discontinued Reason: No Longer Medically Relevant 900 mL PO ONCE 900 mL 0RF methylprednisolone (Medrol (Abilio)) Discontinued Reason: No Longer Medically Relevant PO PER PKG DIR 6 days 21 ea 0RF oseltamivir (Tamiflu) Discontinued Reason: No Longer Medically Relevant 75 mg PO BID 5 days 10 caps 0RF Coding Level of Care Code Established Pt Est Pt Level 4 (00765) Patient Type Established Diagnoses Epigastric pain R10.13 Abdominal location: epigastric Diarrhea, unspecified type R19.7 Diarrhea type: unspecified type
[2024-07-08 10:23] VITALS: BP 127/61; PULSE 86; O2SAT 98; BMI 62.6
[2024-07-08 11:30] VITALS: TEMP 36.5
--- OUTSIDE RECORDS SUMMARY | 2024-07-08 11:50 | XMS_ITS | Patient Health Record ---
Author Organization [facility] Address [address] [place] [address] Care Team Providers Care Aperture Mask Etcher Name Role Phone RACHEL CROSS Unavailable [phone] REASON FOR REFERRAL No Information MEDICATIONS Medication [...] [facility] or Options [address] AL[place]IO STEVE [address] [id number] DIPTI RUFINO Self - patient is the insured
--- OUTSIDE RECORDS SUMMARY | 2024-07-08 11:51 | XMS_ITS | Continuity of Care Document ---
Author Organization [facility] Address [address] [place] [phone] Phone Care Team Providers Care Range Operator Name Role Phone Evelio Colon MD Unavailable Unavailable Allergies, Adverse Reactions, Alerts Substance Reaction Status Criticality PENICILLIN Active No Information latex Active No Information Medications Medication Instructions Dosage Effective Dates (start - stop) Status Comments ELIQUIS (unknown strength) Not Available - Active METOPROLOL SUCCINATE ER-HCTZ (unknown strength) Not Available - Active HYDROCHLOROTHIAZIDE (unknown strength) Not Available - Active NAPROXEN (unknown strength) Not Available - Active ASPIRIN (unknown strength) take 1 tablet by oral route every day Not Available - Active LYRICA (unknown strength) Not Available - No Longer Active Procedures Procedure Date Office/Outpt E&M Established 25 Mins Oct Duplex Scan-extrem Veins; Uni/ 20 Office/Oupt E&M New Pt 45 Mins 18 Duplex Scan-extrem Veins; Comp 18 Advance Directives Directive Yes / No Effective Date File Name No Information Encounters Encounter Description Practice Location Reason(s) For Visit Diagnoses Date Provider Providers Copied on Encounter Office/Outpt E&M Established 25 Mins [facility], [address], [place], [place], [id number], tel:[phone] [facility] Chronic venous hypertension w oth comp of r low extremVaricose veins of right low extrm w oth complicationsBo dy mass index (BMI) 50-59.9 , adult Oct-0 0 Isaiah Fraser. [address], [address], [place], [place], [id number] . tel: [phone] Referring Provider: Sravani Pardo MSN [facility], [address], [place], [address]. tel:[phone] [facility], [address] [place] [address], [id number], [place] tel:[phone] [facility] [place] [facility] [place] Chronic venous hypertension w oth comp of r low extrem Aug-0 0 Jaylin Michael. [address], [address], [place], [address], [place]. tel: [phone] Referring Provider: Sravani ALCOCER [facility], [address], [place], [address]. tel:[phone] Office/Oupt E&M New Pt 45 Mins [facility], [address] [place] [address], [id number], [place] tel:[phone] [facility] [place] Body mass index (BMI) 50-59.9 , adultEssential (primary) hypertensionChr onic venous htn w oth comp of bilateral low extrmVenous insufficiency (chronic) (peripheral) Sep-2 7-201 8 Jaylin Michael. [address], [address], [place], [address], [place]. tel: [phone] Referring Provider: Sravani ALCOCER [facility], [address], [place], [address]. tel:[phone] [facility], [address] [place] [address], [id number], [place] tel:[phone] [facility] [place] [facility] [place] Chronic venous htn w oth comp of bilateral low extrm Sep-2 7-201 8 Jaylin Michael. [address], [address], [place], [address], . tel:[phone] Referring Provider: Sravani ALCOCER [employer] , [address], [place], [address]. tel:[phone] Family History Family Member Type Diagnosis Age At Onset No Information Payers Payer name Insurance type Covered republican ID Susanne cunningham(s) [facility] [id number] Social History Type Description Quantity Date Captured Comments Alcohol Use Details Caffeine Use Details Unknown Tobacco Use Status Smoking Status Heavy tobacco smoker Smoking Tobacco Use Details Cigarette: No Details Available Cigarette: 1 Packs per day Sex Female Vital Signs Date / Time: Height Weight BMI Pulse Rate Blood Pressure Temperature Respiratory Rate Body Surface Area Head Circumference Head Circ. Percentile Wt./Diogo. Percentile BMI percentile Pulse Ox Inhaled Ox 3:05 PM 64.00 in 138.799 kg (306.00 lbs) 52.5 2 kg/m eter (2) Chief Complaint And Reason For Visit No Information Reason For Referral Reason For Referral No Information Plan Of Treatment Date Type Action Status Goal Diet education completed Goal Tobacco cessation counseling completed Goal Diet education completed Goal Diet education completed Goal Tobacco cessation counseling completed Referral Ordered: Duplex Scan-extrem Veins; Uni/ Right leg ordered Referral Ordered: Sravani ALCOCER [employer] EXECUTIVE DIRECTOR timeframe: 1 Month. (related to Essential (primary) hypertension) ordered Referral Ordered: Duplex Scan-extrem Veins; Comp Bilateral leg ordered History Of Present Illness Encounter Date Complaint History Of Prese nt Illness No Information Functional Status Date Functional Assessmen t Pain Score 4/10 Instructions Date Instruction Additional Infor mation Giving Encouragement to Exercise Related to Body mass index (BMI) 50.0-59.9, adult Diet education Related to Body mass index (BMI) 50.0-59.9, adult Patient education booklet given Related to Chrn Vns Hyprtnsn w/Compl (Pain Edema Swelling); RIGHT Pre and post instruc tions reviewed and provided Related to Chrn Vns Hyprtnsn w/Compl (Pain Edema Swelling); RIGHT Continue compression stocking us e Related to Chrn Vns Hyprtnsn w/Compl (Pain Edema Swelling); BILAT Patient education booklet given Related to Chrn Vns Hyprtnsn w/Compl (Pain Edema Swelling); BILAT Giving Encouragement to Exercise Related to Body mass index (BMI) 50-59.9 , adult Diet education Related to Body mass index (BMI) 50-59.9 , adult Exercise education Related to Es sential (primary) hypertension Diet education Related to Essen tial (primary) hypertension Lifestyle education Related to E ssential (primary) hypertension Assessments Type Assessment Date assessment Chronic venous hypertension w ot h comp of r low extrem assessment Varicose veins of right low extr m w oth complications assessment Body mass index (BMI) 50.0-59.9, adult Patient Care Teams Name Effective Dates (start - stop) Status Members No Information
--- OUTSIDE RECORDS SUMMARY | 2024-07-08 11:51 | XMS_ITS | Clinical Summary ---
Author Organization [facility] Address [address] [place] [address] Care Team Providers Care On Car Supervisor Name Role Phone Sravani Pardo APRN Primary Care Provider [phone] Social History Tobacco Use Types Packs/Day Years [...] ( - 2023- season) 2023 Care Teams On Car Supervisor Relationship Specialty Start Date End Date Sravani Pardo APRN PCP - General Internal Medicine 12/03/17
--- OUTSIDE RECORDS SUMMARY | 2024-07-08 11:51 | XMS_ITS | Data Portability ---
Author Organization [facility] [place] [facility] [employer] [employer] Address [address] [place] [phone] Care Team Providers Care Machine Set Up Name Role Phone [facility] Referring Provider Assessment No assessment [...] Not available Not available Not available 01/22/2024 [id number] RxNorm Not Available [employer] - production [...] /min 97.5 [degF] 100 % 100 % 264636. 288 g 144 mm[Hg] 83 mm[Hg] Not [...] SNOMED-CT Code Diagnosis ICD10 Code Diagnosis Note [id number] Alejandro Mcfarlane MD [facility] [address] [place] [phone] 08/18/2022 19:12:17 08/21/2022 18:33:24 Eruption [id number] This 47-year-ol d female has had [...] Krishnan Member ID Guarantor Name 08/18/2022 1 [facility] - DOS ON OR AFTER 2022 - DUAL ELIGIBLE - [facility] OPTIONS AND ONE CARE (MEDICARE REPLACEMENT/ADV ANTAGE - HMO) Lisa Humphrey [id number] Lisa Humphrey Notes Date Note Type Note [...] . No sob Alejandro Mcfarlane MD [address] [facility],[address], [place], [address], [facility] 08/18/2022 19:19:40 OBGyn Episode No OBEpisode recorded.
--- OUTSIDE RECORDS SUMMARY | 2024-07-08 11:51 | XMS_ITS | Clinical Summary ---
Author Organization [address] [facility] Address [address] [place] [address] Phone Care Team Providers Care Cigar Wrapper Name Role Phone Steven Preston DO Primary Care Provider [phone] Allergies Active Allergy Reactions Criticality Noted Date Comments Doxycycline 07/01/2024 Gold Keratinate 03/13/2018 Positive patch testing Latex Rash 12/28/2011 Neomycin 03/13/2018 Patch testing positive Niacin 07/01/2024 Trazodone Rash 07/01/2024 Medications albuterol 2.5 mg /3 mL (0.083 %) nebulizer solution Take 1 Vial by nebulization every 4 hours as needed. Active albuterol HFA (PROAIR HFA ; PROVENTIL HFA ; VENTOLIN HFA) 90 mcg/actuation inhaler Inhale 2 Puffs into the lungs every 4 hours as needed for Cough or Wheezing. 10/26/19 Active apixaban (ELIQUIS) 5 mg tablet Take 1 tablet (5 mg total) by mouth 2 (two) times a day. 10/26/19 19 Active aspirin 81 mg EC tablet Take 1 tablet (81 mg total) by mouth 1 (one) time each day. 10/26/19 Active atorvastatin (LIPITOR) 20 mg tablet Take 1 tablet (20 mg total) by mouth 1 (one) time each day. 03/13/20 19 Active blood-glucose meter kit 1 Kit by Does not apply route daily. 10/02/19 19 Active cholecalciferol (VITAMIN D-3) 50 mcg (2,000 unit) tablet Take 1 tablet (2,000 Units total) by mouth 1 (one) time each day. 10/30/19 Active EPINEPHrine (EpiPen 2-Abilio) 0.3 mg/0.3 mL injection Inject 1 Device as directed as needed (anaphylaxis). Use as directed 02/22/20 Active esomeprazole (NexIUM) [address] capsule Take 1 Cap by mouth every morning (before breakfast). 02/01/20 Active ferrous sulfate 325 mg (65 mg elemental iron) tablet Take 1 tablet (325 mg total) by mouth 1 (one) time each day. 03/05/20 Active gabapentin (NEURONTIN) 600 mg tablet Take 1 tablet (600 mg total) by mouth 3 (three) times a day. 03/14/20 Active blood sugar diagnostic (FreeStyle Lite Strips) test strip Use to test one time daily. Dx: R73.03 02/07/20 Active linaCLOtide (LINZESS) 145 mcg capsule Take 1 Cap by mouth daily. 03/05/20 Active metoprolol succinate (TOPROL-XL) 50 mg 24 hr tablet Take 1 tablet (50 mg total) by mouth 1 (one) time each day. 04/01/19 Active metroNIDAZOLE (FLAGYL) 500 mg tablet Take 1 tablet (500 mg total) by mouth 3 (three) times a day. 03/14/20 Active dextran 70-hypromellose (ARTIFICIAL TEARS) 0.1-0.3 % ophthalmic solution 11/18/19 Active polyethylene glycol (COLYTE) 240-22.72-6.72 -5.84 gram solution Drink 8 oz every 15 mins over 2 sittings as directed. Finish the entire jug. 12/11/19 Active glycerin-min oil-polycarbophil (Replens) gel Place 1 Applicator vaginally daily as needed (vaginal dryness). 12/17/19 Active ammonium lactate (AmLactin) 12 % lotion Apply topically if needed for dry skin. 400 g 2 05/28/19 25 026 Active ondansetron ODT (ZOFRAN-ODT) 4 mg disintegrating tabletIndications: Acute biliary pancreatitis without infection or necrosis Let 1 tablet dissolve under the tongue three times daily as needed for nausea or vomiting. 10 tablet 07/03/19 Active Active Problems Problem Noted Date Diagnosed Date Bipolar 1 disorder ([facility] V24, [facility] V28) DJD (degenerative joint disease), lumbar 025 Fibromyalgia 04/10/2024 Hyperlipidemia 04/10/2024 Hypertension 04/10/2024 Osteoarthritis of both knees 04/10/2024 Morbid obesity with BMI of 5 0.0-59.9, adult ([facility] V24, [facility] V28) 04/10/2024 DVT (deep venous thrombosis) ([facility] V24, [facility] V28) 03/14/2019 Venous insufficiency (chronic) (peripheral) 08/2018 Fatty liver 03/08/2018 Overview (04/10/2024): Abdominal US 12/27/15 - fatty infiltration pancreas. Sludge in gallbladder lumen Radiculopathy of lumbar region 03/08/2018 Persistent proteinuria 03/08/2018 Overview (04/10/2024): Kidney US Prediabetes 03/08/2018 PFO (patent foramen ovale) 03/08/2018 Overview (04/10/2024): History of ASD Sleep apnea 03/08/2018 Slow transit constipation 03/08/2018 Anxiety and depression 02/27/2018 PAD (peripheral artery disease) ([facility] V24) Overview (04/10/2024): S/p stent lower extremities TIA (transient ischemic attack) 02/27/2018 Moderate persistent asthma without complication 02/21/2018 Encounters Date Type Department Care Team Description 07/02/2024 12:11 AM EDT - 07/02/2024 5:45 AM EDT Emergency [facility] Emergency [address] [place] [id number] Joe Cazares MD Calculus of gallbladder without cholecystitis without obstruction (Primary Dx); Acute biliary pancreatitis without infection or necrosis Discharge Disposition: Home or Self Care 05/27/2024 10:00 AM EST Consult Orthopedic Surgery - [place] [address] [facility] [address] [place] [id number] Bernardo Nelson DPM Arthritis of both feet (Primary Dx); Neuropathy of both feet; Pes planus of both feet; Xerosis cutis from Last 3 Months Immunizations Name Administration Dates Next Due Pneumococcal [...] COMMENT: 3 yrs ago Bipolar 1 disorder ([facility] V24, [facility] V28) DX:Bipolar 1 disorder ([facility]) Asthma DX:Asthma TIA (transient ischemic attack) 02/27/2018 DX:TIA (transient ischemic attack) Anxiety and depression 02/27/2018 DX:Anxiet y and depression PAD (peripheral artery disea se) ([facility] V24) 02/27/2018 DX:PAD (peripheral artery di sease) ([facility]); COMMENT: S/p stent lower extremities H/O gastric bypass 02/27/2018 DX:H/O gastri c bypass Morbid obesity with BMI of 5 0.0-59.9, adult ([facility] V24, [facility] V28) 02/27/2018 DX:Morbid obesity wit h BMI of 50.0-59.9, adult ([facility]) Fatty liver 03/08/2018 DX:Fatty liver; COMMENT: Abdominal US 12/27/15 - fatty infiltration pancreas. Sludge in gallbladder lumen PFO (patent foramen ovale) 03/08/2018 DX:PF O (patent foramen ovale); COMMENT: History of ASD Hyperlipidemia DX:Hyperlipidemi a Moderate persistent asthma w ithout complication 02/21/2018 DX:Moderate persistent asthm a without complication Persistent proteinuria 03/08/2018 DX:Persis tent proteinuria; COMMENT: Kidney US Prediabetes 03/08/2018 [...] Information Value Date Recorded Sex Assigned at Female 07/02/2024 12:59 AM EDT Legal Sex Female 11:14 PM EST Gender Identity Female 07/02/2024 12:59 AM EDT Sexual Orientation Straight 07/02/2024 12 :59 AM EDT Obstetrics History Last Filed Vital Signs Vital Sign Reading Time Taken Comments Blood Pressure 139/65 07/02/2024 12:20 AM EDT Pulse 82 07/02/2024 12:20 AM EDT Temperature 36.6 ??C (97.9 ??F) 07/02/2024 12:20 AM E DT Respiratory Rate 18 07/02/2024 12:20 AM EDT Oxygen Saturation 98% 07/02/2024 12:20 AM EDT Inhaled Oxygen Concentration - - Weight 163 kg (360 lb) 07/01/2024 8:45 PM EDT Height 162.6 cm (5' 4 ) 07/01/2024 8:45 PM EDT Body Mass Index 61.79 07/01/2024 8:45 PM EDT Plan of Treatment Upcoming Encounters Date Type Department Care Team (Late st Contact Info) Description 07/08/2024 2:15 PM EDT Office Visit General Surgery - [place] [address] [facility] [address] [place] [phone] Marquise Ness, DO [address] [address] Health Maintenance Due Date Last Done Comments Hepatitis B Vaccines (1 of 3 - 19+ 3-dose series) 1992 Cervical Cancer Screening: P ap Smear 1994 Pneumococcal Vaccine: 50+ Years (2 of 2 - PCV) 03/11/2019 03/11/2018, 02/25/2015, 03/03/2009 Pneumococcal Vaccine: Pediatrics (0 to 5 Years) and At-Risk Patients (6 to 64 Years) (2 of 2 - PCV) 03/11/2019 03/11/2018, 02/25/2015, 03/03/2009 Breast Cancer Screening 11/23/2019 11/22/2017 Colorectal Cancer Screening: Colonoscopy 02/26/2022 Depression Screening 02/26/2022 HIV Screening 02/26/2022 Hepatitis C Screening 02/26/2022 Medicare Annual Wellness Visit 02/26/2022 Social Influencers of Health Screening 02/26/2022 Zoster Vaccines (1 of 2) 2023 Cholesterol Screening (Lipid Panel) 10/26/2023 10/25/2018 COVID-19 Vaccine (4 - 2023-2 5 season) 2023 03/23/2021, 08/06/2020, 07/09/2020 Hypertension/CHF/CAD Annual BMP Blood Test 07/01/2025 07/01/2024, 10/25/2018 DTaP,Tdap,and Td Vaccines (3 - Td or Tdap) 03/11/2028 03/11/2018, 01/10/2012 Influenza Vaccine Completed 01/11/2024, 12/08/2021 HIB Vaccines Aged Out No longer eligi [...] age to complete this topic Meningococcal B Vaccine Aged Out No l onger eligible based on patient's age to complete this topic RSV Immunization Patients Under 20 months Aged Out No longer eligible b ased on patient's age to complete this topic Varicella Vaccines Aged Out No longer eligible based on patient's age to complete this topic Procedures Procedure Name Priority Date/Time Associated Diagnosis Comments ECG ANNOTATED 07/03/2024 CT ABDOMEN PELVIS W CONTRAST STAT 07/02/2024 2:56 AM EDT ECG 12-LEAD STAT 07/01/2024 9:07 PM EDT CBC WITH AUTO DIFFERENTIAL STAT 07/01/2024 9:00 PM EDT TROPONIN I HIGH SENSITIVITY STAT 07/01/2024 9:00 PM EDT LIPASE STAT 07/01/2024 9:00 PM EDT COMPREHENSIVE METABOLIC PANEL STAT 07/01/2024 9:00 PM EDT CBC AND DIFFERENTIAL STAT 07/01/2024 9:00 PM EDT LIPID PANEL Routine 10/25/2018 MAMMOGRAM SCREENING BILATERAL 3D KARLA WITH CAD Routine 11/22/2017 2:39 PM EDT Encounter for screening mammogram for malignant neoplasm of breast from Last 3 Months or Most Recently Relevant to Health Maintenance Results * ECG-Annotated (07/03/2024) us Provider Onbase MD ECG ORDERABLES Final Result * CT Abdomen Pelvis w Contrast (07/02/2024 2:56 AM EDT) Anatomical Region Laterality Modality Body Computed Tomogra phy 07/02/2024 3:47 AM EDT Impressions 07/02/2024 3:47 AM EDT 1. Tiny cholelithiasis or hyperdense sludge within the dependent gallbladder. 2. Endovascular stent graft originating within the distal IVC and extending into the bilateral external iliac veins. 3. Gastric bypass. 4. Normal appendix. This document has been electronically signed by: Miguel Bello DO on 07/02/2024 03:47:08 Narrative 07/02/2024 3:47 AM EDT INDICATION: Abdominal pain, acute, nonlocalized CT abdomen and pelvis with contrast Comparison: None Findings: The lung bases are clear. Gastric bypass. The abdominal aorta is unremarkable. Endovascular stent graft originating within the distal IVC and extending into the bilateral external iliac veins. The liver parenchyma is unremarkable. Tiny cholelithiasis or hyperdense sludge within the dependent gallbladder. Pancreatic atrophy. The spleen and bilateral adrenal glands are normal. The kidneys without nephrolithiasis or hydronephrosis. The contour of the urinary bladder is unremarkable. Anteverted uterus. The adnexa are normal. No bowel obstruction, pneumoperitoneum, or pneumatosis. Mild colonic fecal burden. Normal appendix. Locules of air within the lumen of the appendix. The bones are intact. Degenerative changes of the lumbar spine Procedure Note Miguel Bello MD - 07/02/2024 INDICATION: Abdominal pain, acute, nonlocalized CT abdomen and pelvis with contrast Comparison: None Findings: The lung bases are clear. Gastric bypass. The abdominal aorta is unremarkable. Endovascular stent graft originating within the distal IVC and extending into the bilateral external iliac veins. The liver parenchyma is unremarkable. Tiny cholelithiasis or hyperdense sludge within the dependent gallbladder. Pancreatic atrophy. The spleen and bilateral adrenal glands are normal. The kidneys without nephrolithiasis or hydronephrosis. The contour of the urinary bladder is unremarkable. Anteverted uterus. The adnexa are normal. No bowel obstruction, pneumoperitoneum, or pneumatosis. Mild colonicfecal burden. Normal appendix. Locules of air within the lumen of the appendix. The bones are intact. Degenerative changes of the lumbar spine IMPRESSION: 1. Tiny cholelithiasis or hyperdense sludge within the dependent gallbladder. 2. Endovascular stent graft originating within the distal IVC and extending into the bilateral external iliac veins. 3. Gastric bypass. 4. Normal appendix. This document has been electronically signed by: Miguel Bello DO on 07/02/2024 03:47:08 Joe Cazares MD IM CT PROCEDURES Final Result * ECG 12 lead (07/01/2024 9:07 PM EDT) Ventricular Rate ECG 71 BPM GEMUSE Atrial Rate 71 BPM GEMUSE P-R Interval 162 ms GEMUSE QRS Duration 92 ms GEMUSE Q-T Interval 392 ms GEMUSE QTc 425 ms GEMUSE P Wave [place] 57 degrees GEMUSE R [place] 50 degrees GEMUSE T [place] 30 degrees GEMUSE ECG Interpretation Normal sinus rhythm Minimal voltage criteria for LVH, may be normal variant ( Sokolow-Han ) Borderline ECG When compared with ECG of 13-JAN-2022 00:38, Premature supraventricular complexes are no longer Present Confirmed by MD Arcadio Jenkins ([id number]) on 07/04/2024 12:53:26 AM GEMUSE 07/01/2024 9:07 PM EDT 07/04/2024 12:53 AM EDT Joe Cazares MD ECG ORDERABLES Final Result Performing Organization Address [facility] de Phone Number GEMUSE * Troponin I high sensitivity (07/01/2024 9:00 PM EDT) [facility] High Sensitivity Troponin I 3 <=54 ng/L LAB CHEMISTRY METHOD 07/01/2024 9:40 PM EDT [facility] Blood Venous blood specimen / Unknown Venipuncture / Unknown 07/01/2024 9:00 PM EDT 07/01/2024 9:09 PM EDT Narrative [facility] - 07/01/2024 9:40 PM EDT High levels of biotin in samples may falsely decrease hsTroponin values. ??Use caution when interpreting hsTroponin results in patients taking biotin who exhibit renal impairment (eGFR <60) or in patients taking more than 20 mg/day of biotin. Joe Cazares MD LAB BLOOD ORDERABLES Final Resu lt Performing Organization Address [facility]/ZIP Co de Phone Number [facility] [address] [place] [address], [place] [phone] * (ABNORMAL) CBC auto differential (07/01/2024 9:00 PM EDT) [facility] WBC 10.6 4.8 - 10.8 K/[facility] LAB HEMETOLOGY METHOD 07/01/2024 9:18 PM EDT [facility] RBC 5.20(H) 3.80 - 4.80 M/[facility] LAB HEMETOLOGY METHOD 07/01/2024 9:18 PM EDT [facility] Hemoglobin 13.6 11.5 - 16.0 g/dL LAB HEMETOLOGY METHOD 07/01/2024 9:[facility] Hematocrit 43.1 35.0 - 47.0 % LAB HEMETOLOGY METHOD 07/01/2024 9:18 PM [facility] MCV 83.0 79.0 - 98.0 FL LAB HEMETOLOGY METHOD 07/01/2024 9:18 PM [facility] MCH 26.2(L) 27.0 - 32.0 pcg LAB HEMETOLOGY METHOD 07/01/2024 9:18 PM [facility] MCHC 31.6(L) 32.0 - 37.0 g/dL LAB HEMETOLOGY METHOD 07/01/2024 9:18 PM [facility] RDW 14.3 11.0 - 15.0 % LAB HEMETOLOGY METHOD 07/01/2024 9:18 PM [facility] Platelets 379 130 - 400 K/mcL LAB HEMETOLOGY METHOD 07/01/2024 9:18 PM [facility] MPV 10.8 7.0 - 11.0 FL LAB HEMETOLOGY METHOD 07/01/2024 9:18 PM [facility] NRBC 0.0 <1.0 % LAB HEMETOLOGY METHOD 07/01/2024 9:18 PM [facility] NRBC Absolute 0.00 <0.10 K/mcL LAB HEMETOLOGY METHOD 07/01/2024 9:18 PM [facility] Neutrophils Relative 43.5 % LAB HEMETOLOGY METHOD 07/01/2024 9:18 PM [facility] Lymphocytes Relative 45.3 % LAB HEMETOLOGY METHOD 07/01/2024 9:18 PM EDT [facility] Monocytes Relative 7.7 % LAB HEMETOLOGY METHOD 07/01/2024 9:18 PM EDT [facility] Eosinophils Relative 2.6 % LAB HEMETOLOGY METHOD 07/01/2024 9:18 PM EDT [facility] Basophils Relative 0.7 % LAB HEMETOLOGY METHOD 07/01/2024 9:18 PM EDT [facility] Immature Granulocytes Relative 0.2 % LAB HEMETOLOGY METHOD 07/01/2024 9:18 PM EDT [facility] Neutrophils Absolute 4.61 1.50 - 7.00 K/mcL LAB HEMETOLOGY METHOD 07/01/2024 9:18 PM EDT [facility] Lymphocytes Absolute 4.79 1.00 - 5.00 K/mcL LAB HEMETOLOGY METHOD 07/01/2024 9:18 PM [facility] Monocytes Absolute 0.81 0.20 - 1.00 K/mcL LAB HEMETOLOGY METHOD 07/01/2024 9:18 PM EDT [facility] Eosinophils Absolute 0.27 0.00 - 0.50 K/mcL LAB HEMETOLOGY METHOD 07/01/2024 9:18 PM [facility] Basophils Absolute 0.07 0.00 - 0.20 K/mcL LAB HEMETOLOGY METHOD 07/01/2024 9:18 PM EDT [facility] Immature Granulocytes Absolute 0.02 0.00 - 0.03 K/mcL LAB HEMETOLOGY METHOD 07/01/2024 9:18 PM [facility] Blood Venous blood specimen / Unknown Venipuncture / Unknown 07/01/2024 9:00 PM EDT 07/01/2024 9:09 PM EDT us Scot Henna Cazares MD LAB BLOOD ORDERABLES Final Resu lt [facility] [address] [place] [address], [place] [phone] * (ABNORMAL) Lipase (07/01/2024 9:00 PM EDT) Lipase 159(H) 13 - 75 unit/L LAB CHEMISTRY METHOD 07/01/2024 9:40 PM EDT [facility] Blood Venous blood specimen / Unknown Venipuncture / Unknown 07/01/2024 9:00 PM EDT 07/01/2024 9:09 PM EDT Joe Cazares MD LAB BLOOD ORDERABLES Final Resu lt Performing Organization Address [facility] Co de Phone Number [facility] [address] [place] [address], [place] [phone] * (ABNORMAL) Comprehensive metabolic panel (07/01/2024 9:00 PM EDT) Pathologist [facility] Sodium 138 133 - 145 mmol/L LAB CHEMISTRY METHOD 07/01/2024 9:40 PM [facility] Potassium 3.7 3.5 - 5.5 mmol/L LAB CHEMISTRY METHOD 07/01/2024 9:40 PM [facility] Chloride 102 96 - 110 mmol/L LAB CHEMISTRY METHOD 07/01/2024 9:40 PM T [facility] CO2 28 21 - 32 mmol/L LAB CHEMISTRY METHOD 07/01/2024 9:40 PM [facility] Anion Gap 8 3 - 11 LAB CHEMISTRY METHOD 07/01/2024 9:40 PM [facility] Glucose 107(H) 70 - 100 mg/dL LAB CHEMISTRY METHOD 07/01/2024 9:40 PM [facility] BUN 14 5 - 25 mg/dL LAB CHEMISTRY METHOD 07/01/2024 9:40 PM T [facility] Creatinine 0.79 0.50 - 1.10 mg/dL LAB CHEMISTRY METHOD 07/01/2024 9:40 PM T [facility] eGFR 91 >=60 mL/min/1. 73m2 LAB CHEMISTRY METHOD 07/01/2024 9:40 PM T [facility] Comment:Calculation based on the??Chronic Kidney Disease Epidemiology Collaboration (CKD-EPI) equation refit??without adjustment for race. BUN/Creatinine Ratio 17.7 LAB CHEMISTRY METHOD 07/01/2024 9:40 PM EDT [facility] Calcium 9.4 8.5 - 10.5 mg/dL LAB CHEMISTRY METHOD 07/01/2024 9:40 PM [facility] AST (SGOT) 31 10 - 42 unit/L LAB CHEMISTRY METHOD 07/01/2024 9:40 PM [facility] ALT (SGPT) 29 10 - 60 unit/L LAB CHEMISTRY METHOD 07/01/2024 9:40 PM [facility] Alkaline Phosphatase 111 42 - 121 unit/L LAB CHEMISTRY METHOD 07/01/2024 9:40 PM T [facility] Total Protein 7.8 6.0 - 8.0 g/dL LAB CHEMISTRY METHOD 07/01/2024 9:40 PM [facility] Albumin 4.0 3.2 - 5.0 g/dL LAB CHEMISTRY METHOD 07/01/2024 9:40 PM [facility] Total Bilirubin 0.9 0.0 - 1.4 mg/dL LAB CHEMISTRY METHOD 07/01/2024 9:40 PM [facility] Blood Venous blood specimen / Unknown Venipuncture / Unknown 07/01/2024 9:00 PM EDT 07/01/2024 9:09 PM EDT us Scot Henna Cazares MD LAB BLOOD ORDERABLES Final Resu lt [facility] [address] [place] [address], * (ABNORMAL) Lipid panel (10/25/2018) LDL/HDL Ratio 4 0 - 4 Triglycerides 176(A) 0 - 150 mg/dL Cholesterol 183 0 - 200 mg/dL HDL 47 >=40 mg/dL LDL Cholesterol 101(A) 0 - 100 mg/dL Blood Venous blood specimen / Unknown us Historical Provider MD LAB BLOOD ORDERABLES Sydnie l Result * [...] on 11/22/2017 4:51 PM. Workstation Name - [id number] Procedure Note Felipe Mejia MD - 03/19/2022 [...] MD on 11/22/2017 4:51PM. Workstation Name - [id number] us Sravani Pardo APN IMG BI PROCEDURES Final Resul t from Last 3 Months or Most Recently Relevant to Health Maintenance Insurance MEDICARE Member Subscriber Plan / Payer (Ef fective 2019-Present) Name:Lisa Humphrey Phyllis Relation to Subscriber:Self Name:Lisa Humphrey I Payer ID:[id number] Group ID:[id number] Type:Not on file Address: [place] [address] [address] [address] Care Teams Cigar Wrapper Relationship Specialty Start Date End Date Steven Preston DO [address] [place] [id number] PCP - General Internal Medicine 03/12/24
--- OUTSIDE RECORDS SUMMARY | 2024-07-08 11:51 | XMS_ITS | Clinical Summary ---
[facility] Organization [facility] Address [address] [place] [address] Care Team Providers Care Code Inspector Name Role Phone Unavailable Primary Care Provider [...] topic Lisa Moore Personal/Famil y Self 1975 ([place]) [address] [place] [id number]
== END 2024-07-08 11:49 | disposition home or self-care (01) ==
LOC: HO.HGI 10:07
PROVIDERS: PCP Internal Medicine; Visit Provider Nurse Practitioner Family
DX: R10.13 Epigastric pain (principal); R19.7 Diarrhea, unspecified
CPT/HCPCS: 99215

== ENCOUNTER → 2024-07-08 10:07 | Outpatient (BNVA) | payer OTHER, SELFPAY | PROVIDERS: PCP Internal Medicine; Visit Provider Nurse Practitioner Family | DX: R10.13 Epigastric pain (principal); E66.01 Morbid (severe) obesity due to excess calories; K21.9 Gastro-esophageal reflux disease without esophagitis; R19.7 Diarrhea, unspecified; R79.89 Other specified abnormal findings of blood chemistry; Z68.44 Body mass index [BMI] 60.0-69.9, adult | CPT/HCPCS: 99212 ==

== ENCOUNTER 2024-07-10 08:05 | Outpatient (REF) | payer OTHER, SELFPAY ==
--- OUTSIDE RECORDS SUMMARY | 2024-07-10 08:15 | XMS_ITS | Data Portability ---
Author Organization [employer], [employer] Address [address] [place] [phone] Care Team Providers Care Buckle Stringer Name Role Phone [facility] [...] Not available Not available Not available 01/22/2024 [id number] RxNorm Not Available [employer] - production [...] /min 97.5 [degF] 100 % 100 % 224285. 288 g 144 mm[Hg] 83 mm[Hg] Not [...] SNOMED-CT Code Diagnosis ICD10 Code Diagnosis Note [id number] Alejandro Mcfarlane MD [employer] [facility] [employer] [address] [place] [phone] 08/18/2022 19:12:17 08/21/2022 18:33:24 Eruption [id number] This 47-year-ol d female has had [...] Krishnan Member ID Guarantor Name 08/18/2022 1 [facility] - DOS ON OR AFTER 2022 - DUAL ELIGIBLE - CARE HOME OPTIONS AND ONE CARE (MEDICARE REPLACEMENT/ADV ANTAGE - HMO) Lisa Humphrey [id number] Lisa Humphrey Notes Date Note Type Note [...] . No sob Alejandro Mcfarlane MD [address] [facility], [place], [phone], [employer] 08/18/2022 19:19:40 OBGyn Episode No OBEpisode recorded.
--- OUTSIDE RECORDS SUMMARY | 2024-07-10 08:15 | XMS_ITS | Clinical Summary ---
Author Organization [facility] Address [address] [place] [address] Phone Care Team Providers Care Coal Carrier Name Role Phone Steven Preston DO Primary Care Provider [phone] Allergies Active Allergy Reactions Criticality Noted Date [...] Noted Date Diagnosed Date Bipolar 1 disorder ([facility] V24, [facility] V28) DJD (degenerative joint disease), lumbar 025 Fibromyalgia 04/10/2024 Hyperlipidemia 04/10/2024 Hypertension 04/10/2024 Osteoarthritis of both knees 04/10/2024 Morbid obesity with BMI of 5 0.0-59.9, adult ([facility] V24, [facility] V28) 04/10/2024 DVT (deep venous thrombosis) ([facility] V24, [facility] [place] [facility] V28) 03/14/2019 Venous insufficiency (chronic) (peripheral) 08/2018 Fatty liver 03/08/2018 Overview (04/10/2024): Abdominal US 12/27/15 - fatty infiltration pancreas. Sludge in gallbladder lumen Radiculopathy of lumbar region 03/08/2018 Persistent proteinuria 03/08/2018 Overview (04/10/2024): Kidney US Prediabetes 03/08/2018 PFO (patent foramen ovale) 03/08/2018 Overview (04/10/2024): History of ASD Sleep apnea 03/08/2018 Slow transit constipation 03/08/2018 Anxiety and depression 02/27/2018 PAD (peripheral artery disease) ([facility] V24) Overview (04/10/2024): S/p stent lower extremities TIA (transient ischemic attack) 02/27/2018 Moderate persistent asthma without complication 02/21/2018 Encounters Date Type Department Care Team Description 07/08/2024 2:15 PM EDT Office Visit General Surgery [facility] [address] [facility] [address] [place] [address] Marquise Ness, DO Chest pain due to GERD (Primary Dx); Hx of gastric bypass; History of Roberson's esophagus; Calculus of gallbladder without cholecystitis without obstruction; Melena 07/02/2024 12:11 AM EDT - 07/02/2024 5:45 AM EDT Emergency [facility] Emergency [address] [place] [address] Joe Cazares MD Calculus of gallbladder without cholecystitis without obstruction (Primary Dx); Acute biliary pancreatitis without infection or necrosis Discharge Disposition: Home or Self Care 05/27/2024 10:00 AM EST Consult Orthopedic Surgery - [address] [address] Bernardo Nelson DPM Arthritis of both feet [...] COMMENT: 3 yrs ago Bipolar 1 disorder ([facility] V24, [facility] V28) DX:Bipolar 1 disorder ([facility]) Asthma DX:Asthma TIA (transient ischemic attack) 02/27/2018 DX:TIA (transient ischemic attack) Anxiety and depression 02/27/2018 DX:Anxiet y and depression PAD (peripheral artery disea se) ([facility] V24) 02/27/2018 DX:PAD (peripheral artery di sease) ([facility]); COMMENT: S/p stent lower extremities H/O gastric bypass 02/27/2018 DX:H/O gastri c bypass Morbid obesity with BMI of 5 0.0-59.9, adult ([facility] V24, [facility]/HCC V28) 02/27/2018 DX:Morbid obesity wit h BMI of 50.0-59.9, adult ([facility]) Fatty liver 03/08/2018 DX:Fatty liver; COMMENT: Abdominal [...] Sign Reading Time Taken Comments Blood Pressure 155/94 07/08/2024 2:51 PM EDT Pulse 118 07/08/2024 2:51 PM EDT Temperature 36.6 ??C (97.9 ??F) 07/02/2024 12:20 AM E DT Respiratory Rate 18 07/02/2024 12:20 AM EDT Oxygen Saturation 98% 07/02/2024 12:20 AM EDT Inhaled Oxygen Concentration - - Weight 167 kg (369 lb) 07/08/2024 2:51 PM EDT Height 162.6 cm (5' 4 ) 07/08/2024 2:51 PM EDT Body Mass Index 63.34 07/08/2024 2:51 PM EDT Plan of Treatment Health Maintenance Due Date [...] by: Miguel Bello DO on 07/02/2024 03:47:08 [facility] Henna Cazares MD IM CT PROCEDURES Final Result * ECG 12 lead (07/01/2024 9:07 PM EDT) Ventricular Rate ECG 71 BPM GEMUSE Atrial Rate 71 BPM GEMUSE P-R Interval 162 ms GEMUSE QRS Duration 92 ms GEMUSE Q-T Interval 392 ms GEMUSE QTc 425 ms GEMUSE P Wave Cameron 57 degrees GEMUSE R Cameron 50 degrees GEMUSE T Cameron 30 degrees GEMUSE ECG Interpretation Normal sinus rhythm Minimal voltage criteria for LVH, may be normal variant ( Sokolow-Han ) Borderline ECG When compared with ECG of 13-JAN-2022 00:38, Premature supraventricular complexes are no longer Present Confirmed by MD Ervin Christopher ([id number]) on 07/04/2024 12:53:26 AM GEMUSE 07/01/2024 9:07 PM EDT 07/04/2024 12:53 AM EDT Joe Cazares MD ECG ORDERABLES Final Result Performing Organization Address [facility] de Phone Number GEMUSE * Troponin I high sensitivity (07/01/2024 9:00 PM EDT) Pathologist [facility] High Sensitivity Troponin I 3 <=54 ng/L LAB CHEMISTRY METHOD 07/01/2024 9:[address] [facility] Blood Venous blood specimen / Unknown Venipuncture / Unknown 07/01/2024 9:00 PM EDT 07/01/2024 9:[address] [facility] - 07/01/2024 9:40 PM EDT High levels of biotin in samples may falsely decrease hsTroponin values. ??Use caution when interpreting hsTroponin results in patients taking biotin who exhibit renal impairment (eGFR <60) or in patients taking more than 20 mg/day of biotin. Joe Cazares MD LAB BLOOD ORDERABLES Final Resu lt Performing Organization Address [facility] de Phone Number [facility] [address] [place] [address], [place] [phone] * (ABNORMAL) CBC auto differential (07/01/2024 9:00 PM EDT) Pathologist [facility] WBC 10.6 4.8 - 10.8 K/[facility] LAB HEMETOLOGY METHOD 07/01/2024 9:[address] [facility] RBC 5.20(H) 3.80 - 4.80 M/[facility] LAB HEMETOLOGY METHOD 07/01/2024 9:[address] [facility] Hemoglobin 13.6 11.5 - 16.0 g/dL LAB HEMETOLOGY METHOD 07/01/2024 9:[facility] Hematocrit 43.1 35.0 - 47.0 % LAB HEMETOLOGY METHOD 07/01/2024 9:[facility] MCV 83.0 79.0 - 98.0 FL LAB HEMETOLOGY METHOD 07/01/2024 9:[address] [facility] MCH 26.2(L) 27.0 - 32.0 pcg LAB HEMETOLOGY METHOD 07/01/2024 9:[facility] MCHC 31.6(L) 32.0 - 37.0 g/dL LAB HEMETOLOGY METHOD 07/01/2024 9:18 PM [facility] RDW 14.3 11.0 - 15.0 % LAB HEMETOLOGY METHOD 07/01/2024 9:18 PM [facility] Platelets 379 130 - 400 K/mcL LAB HEMETOLOGY METHOD 07/01/2024 9:18 PM [facility] MPV 10.8 7.0 - 11.0 FL LAB HEMETOLOGY METHOD 07/01/2024 9:18 PM [facility] NRBC 0.0 <1.0 % LAB HEMETOLOGY METHOD 07/01/2024 9:[facility] NRBC Absolute 0.00 <0.10 K/mcL LAB HEMETOLOGY METHOD 07/01/2024 9:[facility] Neutrophils Relative 43.5 % LAB HEMETOLOGY METHOD 07/01/2024 9:18 PM [facility] Lymphocytes Relative 45.3 % LAB HEMETOLOGY METHOD 07/01/2024 9:18 PM [facility] Monocytes Relative 7.7 % LAB HEMETOLOGY METHOD 07/01/2024 9:[address] [facility] Eosinophils Relative 2.6 % LAB HEMETOLOGY METHOD 07/01/2024 9:[address] [facility] Basophils Relative 0.7 % LAB HEMETOLOGY METHOD 07/01/2024 9:[address] [facility] Immature Granulocytes Relative 0.2 % LAB HEMETOLOGY METHOD 07/01/2024 9:[address] [facility] Neutrophils Absolute 4.61 1.50 - 7.00 K/mcL LAB HEMETOLOGY METHOD 07/01/2024 9:[address] [facility] Lymphocytes Absolute 4.79 1.00 - 5.00 K/mcL LAB HEMETOLOGY METHOD 07/01/2024 9:[address] [facility] Monocytes Absolute 0.81 0.20 - 1.00 K/mcL LAB HEMETOLOGY METHOD 07/01/2024 9:[address] [facility] Eosinophils Absolute 0.27 0.00 - 0.50 K/mcL LAB HEMETOLOGY METHOD 07/01/2024 9:[address] [facility] Basophils Absolute 0.07 0.00 - 0.20 K/mcL LAB HEMETOLOGY METHOD 07/01/2024 9:[address] [facility] Immature Granulocytes Absolute 0.02 0.00 - 0.03 K/mcL LAB HEMETOLOGY METHOD 07/01/2024 9:[address] [facility] Blood Venous blood specimen / Unknown Venipuncture / Unknown 07/01/2024 9:00 PM EDT 07/01/2024 9:09 PM EDT us Joe Cazares MD LAB BLOOD ORDERABLES Final Resu lt [facility] [address] [place] [address], [place] [phone] * (ABNORMAL) Lipase (07/01/2024 9:00 PM EDT) [facility] Lipase 159(H) 13 - 75 unit/L LAB CHEMISTRY METHOD 07/01/2024 9:[address] [facility] Blood Venous blood specimen / Unknown Venipuncture / Unknown 07/01/2024 9:00 PM EDT 07/01/2024 9:09 PM EDT us Joe Cazares MD LAB BLOOD ORDERABLES Final Resu lt [facility] [address] [place] [address], [place] [phone] * (ABNORMAL) Comprehensive metabolic panel (07/01/2024 9:00 PM EDT) [facility] Sodium 138 133 - 145 mmol/L LAB CHEMISTRY METHOD 07/01/2024 9:40 PM [facility] Potassium 3.7 3.5 - 5.5 mmol/L LAB CHEMISTRY METHOD 07/01/2024 9:40 PM [facility] Chloride 102 96 - 110 mmol/L LAB CHEMISTRY METHOD 07/01/2024 9:40 PM [facility] CO2 28 21 - 32 mmol/L LAB CHEMISTRY METHOD 07/01/2024 9:40 PM [facility] Anion Gap 8 3 - 11 LAB CHEMISTRY METHOD 07/01/2024 9:40 PM [facility] Glucose 107(H) 70 - 100 mg/dL LAB CHEMISTRY METHOD 07/01/2024 9:40 PM [facility] BUN 14 5 - 25 mg/dL LAB CHEMISTRY METHOD 07/01/2024 9:40 PM [facility] Creatinine 0.79 0.50 - 1.10 mg/dL LAB CHEMISTRY METHOD 07/01/2024 9:40 PM [facility] eGFR 91 >=60 mL/min/1. 73m2 LAB CHEMISTRY METHOD 07/01/2024 9:40 PM [facility] Comment:Calculation based on the??Chronic Kidney Disease Epidemiology Collaboration (CKD-EPI) equation refit??without adjustment for race. BUN/Creatinine Ratio 17.7 LAB CHEMISTRY METHOD 07/01/2024 9:40 PM [facility] Calcium 9.4 8.5 - 10.5 mg/dL LAB CHEMISTRY METHOD 07/01/2024 9:40 PM [facility] AST (SGOT) 31 10 - 42 unit/L LAB CHEMISTRY METHOD 07/01/2024 9:40 PM [facility] ALT (SGPT) 29 10 - 60 unit/L LAB CHEMISTRY METHOD 07/01/2024 9:40 PM [facility] Alkaline Phosphatase 111 42 - 121 unit/L LAB CHEMISTRY METHOD 07/01/2024 9:40 PM [facility] Total Protein 7.8 6.0 - 8.0 g/dL LAB CHEMISTRY METHOD 07/01/2024 9:40 PM [facility] Albumin 4.0 3.2 - 5.0 g/dL LAB CHEMISTRY METHOD 07/01/2024 9:40 PM [facility] Total Bilirubin 0.9 0.0 - 1.4 mg/dL LAB CHEMISTRY METHOD 07/01/2024 9:40 PM [facility] Blood Venous blood specimen / Unknown Venipuncture / Unknown 07/01/2024 9:00 PM EDT 07/01/2024 9:09 PM EDT us Joe Cazares MD LAB BLOOD ORDERABLES Final Resu lt [facility] [address] [place] [address], * (ABNORMAL) Lipid panel (10/25/2018) LDL/HDL Ratio 4 0 - 4 Triglycerides 176(A) 0 - 150 mg/dL Cholesterol 183 0 - 200 mg/dL HDL 47 >=40 mg/dL LDL Cholesterol 101(A) 0 - 100 mg/dL Blood Venous blood specimen / Unknown Historical Provider LAB BLOOD ORDERABLES Sydnie l [...] on 11/22/2017 4:51 PM. Workstation Name - [id number] Procedure Note Felipe Mejia MD - 03/19/2022 [...] MD on 11/22/2017 4:51PM. Workstation Name - [id number] us Sravani Pardo APN IMG BI PROCEDURES Final Resul t from Last 3 Months or Most Recently Relevant to Health Maintenance [place] [address] [place] [address] MEDICARE Member Subscriber Plan / Payer (Ef fective 2019-Present) Name:Lisa Humphrey Phyllis Relation to Subscriber:Self Name:Lisa Humphrey I Payer ID:[id number] Group ID:[id number] Type:Not on file Address: [address] [address] Care Teams Coal Carrier Relationship Specialty Start Date End Date Steven Preston DO [address] [place] [id number] PCP - General Internal Medicine 03/12/24
--- OUTSIDE RECORDS SUMMARY | 2024-07-10 08:15 | XMS_ITS | Clinical Summary ---
Author Organization [facility] Address [address] [place] [address] Care Team Providers Care Credit Control Assistant Name Role Phone JerricaSravani castro RECRUITING ADMINISTRATOR Primary Care Provider Social History Tobacco Use Types Packs/Day Years Used Date Smoking Tobacco: Never Assessed Comments Unknown Sex and Gender Information Value Date Recorded Sex Assigned at Not on file Legal Sex Female 2:34 PM EDT Gender Identity Not on file Sexual Orientation [...] Influenza Vaccine 10/25/2023 COVID-19 Vaccine ( - 2023-25 season) 2023 Insurance MEDICARE PART A & B Care Teams Credit Control Assistant Relationship Specialty Start Date End Date Sravani Pardo APRN PCP - General Internal Medicine 12/03/17
--- OUTSIDE RECORDS SUMMARY | 2024-07-10 08:15 | XMS_ITS | Data Portability ---
Author Organization [place] - [facility] Address [address] [place] [id number] Care Team Providers Care Director Security Risk Management Name Role Phone [facility] Primary Care Provider Assessment Encounter Date Assessment Date Assessment LastModified by Organization Details LastModified Time 08/19/2020 08/19/2020 Overview/History : 45 y/o F with PMHx sig for asthma, CAD, HLD, HTN, h/o PE and DVT on Lovenox, TIA, fibromyalgia, and morbid obesity, known to , who presents w/ c/o bruising on knee. Patient denies injury or pain. She states that she noted small red spots on her right knee 2-3 days ago that then turned into bruises today. She reports similar small red spots on her lower right leg. She states she has chronic pain and swelling in her legs and that this has not changed. However she does admit to more localized swelling on her right knee. Denies difficulty walking or claudication. Has not missed any doses of Lovenox. Admits to intermittent black sticky stools over the past 2 weeks as well as fatigue, worse with exertion. Not on iron suppelment and states that her baby aspirin has been on hold since she started Lovenox. Admits to intermittent stomach cramping with Lovenox shot, denies any pain after eating. Reports remote h/o GIB, cannot remember when or why. Has not required blood transfusion. Denies tick bites. Denies fever, chills, n/v. Admits to sinus headache due to pollen. She reports poor hydration habits over the past few days. Exam: afebrile, RRR, normotensive, normal resps, O2 sat 97% on RA, non-toxic, well appearing. GENERAL: well developed, well nourished, morbidly obese, appears stated age, laying in bed comfortably in no acute distress. HEENT: normocephalic, atraumatic, sinuses nontender, PERRLA, EOMI, difficult to assess for scleral icterus due to lighting in room, no conjunctival injection or pallor, external auditory canal clear, TMs pearly white with cone of light, nares patent, septum midline, turbinates boggy, posterior pharynx without lesions, or erythema, mmm. NECK: trachea midline, no masses, cervical lymphadenopathy, or thyromegaly. RESP: normal I:E, breathing non-labored, no accessory muscle use, clear to auscultation bilaterally, no wheezes, rhonchi, or rales. CARDIO: RRR, normal S1, S2, no murmurs, rubs, or gallops, radial, PT/AT/DP pulses 2+ bilaterally. ABD: soft, obese, non-tender, non-distended, normoactive BS x4, no masses or HSM. MUSK: right knee, hip, ankle, and phalanges non-tender with full active and passive ROM without crepitus, normal strength, muscle tone, no atrophy, multiple visible and palpable varicosities, medial right knee lipoedematous with small areas of ecchymosis overlying palpable varicosities, no abnormal pulsation. EXTREMITIES: warm, well perfused, calves soft, nontender, no palpable cord, no cyanosis, swelling or rashes, good cap refill < 3 secs. RECTAL: good tone, no hemorrhoids or anal fissure, minimal stool in rectal vault, no melena observed, scant amount of light brown stool on gloved finger. NEURO: awake, alert, oriented x3, no focal neuro deficits, moving all extremities spontaneously, normal gait. SKIN: mildly erythematous non-blanchable pinpoint rash over medial malleolar area, non-tender, skin intact, no scaling or exudate, no calor, good turgor, no cyanosis, pallor, lesions, abrasions, or lacerations. DDx considered, but not limited to: hemarthrosis - unlikely, no knee pain, full ROM, no difficulty ambulating, H/H stable hematoma - unlikely, no pain, no abnormal pulsation DVT - unlikely, no calf tenderness or claudication, no swelling, and adherent to lovenox. bleeding varices - possible, ecchymotic areas over palpable varicosities symptomatic anemia - less likely, H/H stable GIB - less likely, hemoccult negative, H/H stable, BUN slightly above baseline but admits to poor hydration ITP - less likely, no palpable purpura PRAVIN - less likely having tolerated Lovenox for almost 10 months and medication has not been withdrawn, no source of bleeding identified, no necrotic skin lesions, and no signs of acute systemic reaction torn meniscus - unlikely, no joint line tenderness, no crepitus, no popping, cracking, or joint locking Work up/Results: chem 8 unremarkable, hemoccult negative, CBC w/ diff, INR, APTT, and hepatic function panel pending. Plan/Discussion: - probable bleeding varices or easy bruising due to anticoagulation - no emergent cause of spontaneous ecchymosis has been found at this time - H/H stable at this time and hemoccult negative - strict ER precautions given - will call with rest of results when available - increase hydration, at least 3 bottles per day, smart water is fine - Rx sent for flonase for seasonal allergies, continue Zyrtec - f/u with PCP in 2-3 days Thank you for your visit with [facility] today. We cannot always find the exact cause of your symptoms during your initial visit. Please follow up with your primary care provider or specialist to be rechecked or seek medical attention if your symptoms do not go away or get worse. If you develop any new or worsening symptoms and need after hours care, please go to nearest ER and/or call 911. If you have additional concerns or develop a change in your condition between 8am-10pm, please call [facility] at [phone] to help navigate your care. In order to obtain further information and compare any laboratory results/values, I have accessed patient records on the [employer]. This information was pertinent in my medical decision making today. [email or web address] Not available 08/19/2020 21:25:40 11/14/2020 11/14/2020 Overview/History : Patient is a 45 year old alert female who is morbidly obese. She presents this visit with concerns of Covid as she was recently exposed and also would like her urine checked as after voiding, she noted blood in toilet. Patient did get her Covid and Flu vaccines this season. Medical history signficiant for Asthma, CAD, HTN, hyperlipidemia, PE, TIA, fibromyalgia, DVT hx Exam: Afebrile 98.2. HRR 65, S1, S2. ENT exam wnl with exception of erythemic oropharynx. LSCTA bilaterally, no WOB. ABD SNT, + BS x 4 quadrants. No CVA tenderness. Intact neuro exam. DDx considered, but not limited to: Covid unlikely, immunized Strep considered Flu considered, unlikely, vaccinated Pharyngitis considered Work up/Results: Exam Covid sent to lab Strep A&B sent to lab Urine culture sent to lab Urine dipstick negative Plan/Discussion: contact patient with culture results, cc PCP. Discussed Covid quarantine CDC guidelines. Manage sore throat with throat lozenges, gargle with salt water with frequency, Tylenol for discomfort. Discussed acute symptoms to report to ED. Patient able to reiterate all discussed. No questions at this time. Proper Personal Protective Equipment (PPE), including gloves, eye protection, N95 mask, gown, and shoe covers were donned and doffed appropriately and all equipment cleaned using approved technique with germicidal disposable wipes prior to and after care of this patient according to [facility]'s infection prevention protocols. In order to obtain further information and compare any laboratory results/values, I have accessed old patient records. This information was pertinent in my medical decision making today. Not available 11/14/2020 12:19:35 03/22/2021 03/22/2021 Overview/History : 45 y/o F with PMH of HTN, HLD, CAD, Asthma, PE, TIA, Hx of DVT, hx of TX, and Fibromyalgia, known to but new to provider, is seeking further evaluation for sore throat, runny nose, body aches, and chills x 3 days. Patient also reports some associated fatigue. The patient reports that she was exposed to her son 3 days ago who tested positive for COVID-19. She was last in contact with her son yesterday. The patient has been taking Tylenol and Theraflu for her symptoms with no relief. The patient denies any fevers, chest pain, shortness of breath, cough, abdominal pain, diarrhea, weakness, lethargy, or loss of smell/taste. Patient reports a mildly diminished appetite. Exam: AAOx3 morbidly obese female, non-toxic appearing, in no acute distress, ambulatory Head: NC/AT EENT: (+) moist mucous membranes, (-) erythema/bulging of TMs, (-) EAC drainage/edema, (-) tonsillar erythema/edema/exu dates Heart: RRR with no murmurs, rubs or gallops Lungs: CTABL with no ronchi, wheezes or rales present Abd: Soft, non-tender, non-distended DDx considered, but not limited to: COVID-19 versus versus Influenza versus Other Viral Syndrome Work up/Results: Patient is non-toxic appearing in no acute distress. Patient's vital signs are stable. Patient is afebrile to 96.8. HR is 77. BP is 138/84. RR is 18. O2sat is 98% on RA. Patient has a sore throat, body aches, chills, and fatigue with known COVID-19 exposure. Patient has a benign physical exam. Given patient's hx of CAD, PE, and DVT, will assess with rapid COVID-19 test on scene and if negative will send out COVID-19 PCR test. Rapid COVID-19 test on scene is negative. COVID-19 PCR test ordered, obtained and sent to [facility]. Plan/Discussion: Discussed with patient that her rapid COVID-19 test on scene is negative. Advised patient that will only be in contact with positive COVID-19 results as soon as they are received. Lengthy discussion was had with patient that she may be testing too early as her symptoms are highly suspicious for COVID-19 given that she has had recent direct close exposure to a positive contact and is now symptomatic. Patient has only been symptomatic for 3 days. Advised that if her COVID-19 PCR test comes back negative that recommends retesting in 2-3 days. Advised patient to quarantine for 10 days from symptom onset as per CDC guidelines. Advised patient to stay hydrated with lots of oral fluids and to take Tylenol as needed for fevers if one were to develop. Patient verbalized her understanding. Advised to monitor for fevers, chills, nausea, vomiting, diarrhea, chest pain, shortness of breath, abdominal pain, weakness, lethargy, and fatigue and if this is to occur then to call 911 and go to the ER or call back for re-evaluation. Patient verbalized her understanding of the diagnosis and need for follow up with PCP, as well as ER/ return precautions. In order to obtain further information and compare any laboratory results/values, I have accessed old patient records. This information was pertinent in my medical decision making today. Proper Personal Protective Equipment (PPE), including gloves, eye protection, N95 mask, gown, and shoe covers were donned and doffed appropriately and all equipment cleaned using approved technique with germicidal disposable wipes prior to and after care of this patient according to [facility] infection prevention protocols. Not available 03/22/2021 09:10:59 04/28/2021 04/28/2021 This is a 45 yr old female known to but new to this provider. She called us to do a COVID test on her. She sts her neighbors downstairs were all tested positive for COVID a couple weeks ago. She Sts she was in her usual state of good health until about 5 days ago started having sinus congestion, some pressure behind her eyes. She has had a sore throat, little cough, productive at times. She uses her nebulizer every 6 hours and that has been very helpful. No fever but she has felt chills at night on occasion. DDX includes but is not limited to COVID isp ossible, rather than do a rapid and after discussion we sent off a PCR she will continue to isolate until the results are in. Sinusitis; doubtful at this time, no fever, she is not getting any purulant nasal drainage. She does have some pressure behind her eyes and over maxillary area. no facial swelling, no TTP. Pneumonia is also doubtful at this time, no fever, no pain with breathing, no purulent mucous with cough. Pt was however, advised sinusitis or pneumonia could possibly develope from this respiratory illness. [email or web address] Not available 04/28/2021 15:38:53 12/04/2022 12/04/2022 Time On Scene with Patient: 00:32:52 Brief Overview: 47 y/o female c/o left knee pain s/p slip and slide out of her bed yesterday am. she reports bruising and mild swelling of her left knee. ROM is normal but sore, she is ambulating around her house ok. she denies hitting her head, LOC, cp, sob. pt reports she had a dry cough x 2 days, yesterday her chest felt congested. after she used her neb machine yesterday and states her congestion and cough are much better today. she denies fever, chills. wheezing, dizziness, abdominal pain, vomiting. Vital Signs: mildly hypertensive suspected due to pain BP 142/78, HR 70, RR 18, T 97.0, O2 97% RA Exam: 47 y/o female obese, well appearing, alert NAD sitting in her bed. Lungs: CTAB no wheezes rales or rhonchi. heart: RRR no murmur rubs or gallops. no peripheral edema. no calf tenderness or edema, negative homans. left knee: mild edema laterally with small area of ecchymosis. Mild tenderness on palpation left lateral knee. ROM is normal. strength is normal and equal bilaterally. skin: no laceration or abrasions, warm and dry. DDx considered, with rationale: DVT/PE: considered but no unilateral edema, no tachycardia or hypoxia, pt is on anticoagulation. Pneumonia: considered but she is afebrile, lungs are clear on exam, pt reports cough is better today. knee fracture: considered but ROM is normal, no obvious deformity. Septic joint: considered but she is afebrile, no erythema, warmth or wounds over the knee. Results/ work up: n/a- mobile xray unable to get up stairs at pt's house. pt reports she does not feel an xray is needed at this time. Proper Personal Protective Equipment (PPE), including gloves, eye protection and masks were donned and doffed appropriately and all equipment cleaned using approved technique with germicidal disposable wipes prior to and after care of this patient according to [facility] infection prevention protocols. [email or web address] Not available 12/04/2022 09:56:55 Plan of Treatment Reminders Order Date Submit Date Provider Last Modified By Organization Details Last Modified Time Details Appointments None recorded. Lab unlisted lab - covid-19 (novel coronavirus ) PCR 2021 022 [place] [facility] (Centralized Electronic Ordering - All Locations), Patient Can Go To The Location Of Their Choice, [id number] 01:35:37 rapid SARS CoV 2 Ag, QL IA, respiratory specimen 2020 [email or web address] [facility], [address], [place], [address], 08:56:45 unlisted lab - covid-19 (novel coronavirus ) PCR 2020 [place] [facility] (Centralized Electronic Ordering - All Locations), Patient Can Go To The Location Of Their Choice, [id number] 15:49:59 culture, urine - [facility] 2020 [place] [facility] (Centralized Electronic Ordering - All Locations), Patient Can Go To The Location Of Their Choice, [id number] 06:41:44 urinalysis, dipstick 2020 [email or web address] [facility], [address], [place], [address], 12:07:07 unlisted lab - covid-19 (novel coronavirus ) PCR 2020 [place] [facility] (Centralized Electronic Ordering - All Locations), Patient Can Go To The Location Of Their Choice, [id number] 21:26:24 streptococc us group A, culture, throat 2020 [place] [facility] (Centralized Electronic Ordering - All Locations), Patient Can Go To The Location Of Their Choice, [id number] 11:45:37 streptococc us group B, culture, unspecified specimen 2020 [email or web address] [facility] (Centralized Electronic Ordering - All Locations), Patient Can Go To The Location Of Their Choice, [id number] 14:10:21 hepatic function panel, serum 2020 [place] [facility] (Centralized Electronic Ordering - All Locations), Patient Can Go To The Location Of Their Choice, 02:36:43 PT/INR 2020 [place] [facility] (Centralized Electronic Ordering - All Locations), Patient Can Go To The Location Of Their Choice, 02:54:34 fecal occult blood, stool 2020 [facility] - [facility], [address] [place], [address], 20:48:32 activated partial thromboplas tin time, coagulation assay, blood 2020 [place] [facility] (Centralized Electronic Ordering - All Locations), Patient Can Go To The Location Of Their Choice, 02:22:52 CBC w/ auto diff 2020 [place] [facility]), Patient Can Go To The Location Of Their Choice, 02:27:52 BMP + ionized calcium, serum or plasma 2020 [facility], [address] [place], [address], 05:01:06 Referral None recorded. Procedures None recorded. Surgeries None recorded. Imaging None recorded. Medication Orders fluticasone propionate 50 mcg/actuati on nasal spray,suspe nsion 2020 [email or web address] [facility] #[id number], [address] [place], [address], 3 09:14:48 Patient TargetsNo targets recorded. Patient Instructions Encounter Date Encounter Id Patient Instructions Last Modified By Organization Details Last Modified Time 08/19/2020 [id number] Lab ResultsBMP + ionized calcium, serum or plasma glu: 140mg/dL ? ref: 70-105 BUN: 24mg/dL ? ref: 8-26 crea: 0.8mg/dL ? ref: 0.6-1.3 Na: 139mmol/L ? ref: 138-146 K: 3.6mmol/L ? ref: 3.5-4.9 cL: 102mmol/L ? ref: 98-109 TCO2: 28mmol/L ? ref: 24-29 angap: 13mmol/L ? ref: 10-20 ica: 1.15mmol/L ? ref: 1.12-1.32 HCT: 42%pcv ? ref: 38-51 Hb: 14.3g/dL ? ref: 12 [id number] Not available 08/19/2020 20:29:47 11/14/2020 [id number] Please seek care immediately if you develop any of the following symptoms: 1. Uncontrolled fever of at least 101? ? ?F or 38.4? ? ?C 2. Throat pain that is severe or does not start to improve within 5 to 7 days Call 911 or go to the emergency department if you: 1. Have trouble breathing 2. Cannot control your saliva (drooling) due to difficulty swallowing 3. Have swelling of the neck or tongue 4. Cannot move your neck or have trouble opening your mouth If you have additional concerns or develop a change in your condition between 8am-10pm, please call [facility] at [phone] to help navigate your care. Not available 11/14/2020 11:52:42 03/22/2021 [id number] Thank you for yo ur visit with [facility] today. We cannot always find the exact cause of your symptoms during your initial visit. Please follow up with your primary care provider or specialist within 12-24 hours within 24-48 hours to be rechecked or seek medical attention if your symptoms do not go away or get worse. If you develop any new or worsening symptoms and need after hours care, please go to nearest ER and/or call 911. If you have additional concerns or develop a change in your condition between 8am-10pm, please call [facility] at [phone] to help navigate your care. Not available 03/22/2021 09:11:49 12/04/2022 [id number] Thank you for yo ur visit with [facility] today. We cannot always find the exact cause of your symptoms during your initial visit. Please follow up with your primary care provider or specialist within 12-24 hours within 24-48 hours within 2-3 days to be rechecked or seek medical attention if your symptoms do not go away or get worse. If you develop any new or worsening symptoms and need after hours care, please go to nearest ER and/or call 911. If you have additional concerns or develop a change in your condition between 8am-10pm, please call [facility] at [phone] to help navigate your care. [email or web address] Not available 12/04/2022 09:57:27 Reason for Referral None Reported. Results Created Date Observation Date Name Description Value Unit Range Abnormal Flag Note LastModifiedBy Organization Detail LastModifiedTime 08/20/19 21 08/19/2020 fecal occul t blood , stool Occult Blood negati ve Not Available [facility] [address], [place], [address], 08/19/2020 20:34:55 08/20/19 21 08/19/2020 fecal occul t blood , stool Control Visual ized / Valid Not Available [facility] [address] [place], [address], 08/19/2020 20:34:55 08/20/19 21 08/20/2020 activ ated parti al throm bopla stin time, coagu latio n assay , blood APTT 31.4 sec (24.3- 33.1) For patie nts needi ng highe r than usual dose of hepar in to achie ve thera peuti c range use UFH anti Xa level s for monit oring . Not Available [facility] (Centralized Electronic Ordering - All Locations) Patient Can Go To The Location Of Their Choice, 08/20/2020 02:22:52 08/20/1908/20/2020 CBC w/ auto diff WBC 9.4 K/mm3 (4.0-1 1.0) Not Available [facility] (Centralized Electronic Ordering - All Locations) Patient Can Go To The Location Of Their Choice, 08/20/2020 02:27:52 08/20/1908/20/2020 CBC w/ auto diff RBC 4.67 M/mm3 (4.20- 5.40) Not Available [facility] (Centralized Electronic Ordering - All Locations) Patient Can Go To The Location Of Their Choice, 08/20/2020 02:27:52 08/20/1908/20/2020 CBC w/ auto diff HGB 13.4 gm/dL (11.7- 15.5) Not Available [facility] (Centralized Electronic Ordering - All Locations) Patient Can Go To The Location Of Their Choice, 08/20/2020 02:27:52 08/20/1908/20/2020 CBC w/ auto diff HCT 43.0 % (35.7- 45.8) Not Available [facility] (Centralized Electronic Ordering - All Locations) Patient Can Go To The Location Of Their Choice, 08/20/2020 02:27:52 08/20/1908/20/2020 CBC w/ auto diff MCV 92.1 fL (80.0- 100.0) Not Available [facility] (Centralized Electronic Ordering - All Locations) Patient Can Go To The Location Of Their Choice, 08/20/2020 02:27:52 08/20/1908/20/2020 CBC w/ auto diff MCH 28.7 pg (27.0- 34.0) Not Available [facility] (Centralized Electronic Ordering - All Locations) Patient Can Go To The Location Of Their Choice, 08/20/2020 02:27:52 08/20/1908/20/2020 CBC w/ auto diff MCHC 31.2 g/dL (33.0- 37.0) low Not Available [facility] (Centralized Electronic Ordering - All Locations) Patient Can Go To The Location Of Their Choice, 08/20/2020 02:27:52 08/20/1908/20/2020 CBC w/ auto diff plt 285 K/mm3 (150-4 60) Not Available [facility] (Centralized Electronic Ordering - All Locations) Patient Can Go To The Location Of Their Choice, 08/20/2020 02:27:52 08/20/1908/20/2020 CBC w/ auto diff RDW-SD 44.3 fL (<47.0 ) Not Available [facility] (Centralized Electronic Ordering - All Locations) Patient Can Go To The Location Of Their Choice, 08/20/2020 02:27:52 08/20/1908/20/2020 CBC w/ auto diff MPV 12.0 fL (9.4-1 2.4) Not Available [facility] (Centralized Electronic Ordering - All Locations) Patient Can Go To The Location Of Their Choice, 08/20/2020 02:27:52 08/20/1908/20/2020 CBC w/ auto diff automated NRBC 0.0 #/100 _WBC' s Not Available [facility] (Centralized Electronic Ordering - All Locations) Patient Can Go To The Location Of Their Choice, 08/20/2020 02:27:52 08/20/1908/20/2020 CBC w/ auto diff abs. NRBC 0.0 K/mm3 Not Available [facility] (Centralized Electronic Ordering - All Locations) Patient Can Go To The Location Of Their Choice, 08/20/2020 02:27:52 08/20/1908/20/2020 CBC w/ auto diff neut # 3.6 K/mm3 (1.3-7 .0) Not Available [facility] (Centralized Electronic Ordering - All Locations) Patient Can Go To The Location Of Their Choice, 08/20/2020 02:27:52 08/20/1908/20/2020 CBC w/ auto diff lymph # 4.8 K/mm3 (0.8-3 .1) high Not Available [facility] (Centralized Electronic Ordering - All Locations) Patient Can Go To The Location Of Their Choice, 08/20/2020 02:27:52 08/20/1908/20/2020 CBC w/ auto diff mono# 0.6 K/mm3 (0.4-0 .9) Not Available [facility] (Centralized Electronic Ordering - All Locations) Patient Can Go To The Location Of Their Choice, 08/20/2020 02:27:52 08/20/1908/20/2020 CBC w/ auto diff eo # 0.3 K/mm3 (0.0-0 .4) Not Available [facility] (Centralized Electronic Ordering - All Locations) Patient Can Go To The Location Of Their Choice, 08/20/2020 02:27:52 08/20/1908/20/2020 CBC w/ auto diff baso # 0.1 K/mm3 (0.0-0 .1) Not Available [facility] (Centralized Electronic Ordering - All Locations) Patient Can Go To The Location Of Their Choice, 08/20/2020 02:27:52 08/20/1908/20/2020 CBC w/ auto diff abs. imm gran 0.0 K/mm3 Not Available [facility] ([facility] Order[facility] - All Locations) Patient Can Go To The Location Of Their Choice, 08/20/2020 02:27:52 08/20/1908/20/2020 CBC w/ auto diff neut 38.1 % (44-76 ) low Not Available [facility] (Centralized Electronic Ordering - All Locations) Patient Can Go To The Location Of Their Choice, 08/20/2020 02:27:52 08/20/1908/20/2020 CBC w/ auto diff lymph 51.1 % (15-43 ) high Not Available [facility] (Centralized Electronic Ordering - All Locations) Patient Can Go To The Location Of Their Choice, 08/20/2020 02:27:52 08/20/1908/20/2020 CBC w/ auto diff monocyte 6.4 % (4.5-1 0.5) Not Available [facility] (Centralized Electronic Ordering - All Locations) Patient Can Go To The Location Of Their Choice, 08/20/2020 02:27:52 08/20/1908/20/2020 CBC w/ auto diff eo 3.6 % (0-6) Not Available [facility] (Centralized Electronic Ordering - All Locations) Patient Can Go To The Location Of Their Choice, 08/20/2020 02:27:52 08/20/1908/20/2020 CBC w/ auto diff baso 0.6 % (0-2) Not Available [facility] (Centralized Electronic Ordering - All Locations) Patient Can Go To The Location Of Their Choice, 08/20/2020 02:27:52 08/20/1908/20/2020 CBC w/ auto diff imm gran 0.2 % Not Available [facility] (Centralized Electronic Ordering - All Locations) Patient Can Go To The Location Of Their Choice, 08/20/2020 02:27:52 08/20/1908/20/2020 hepat ic funct ion panel , serum bilirubin,to buck 0.5 mg/dL (0-1.2 ) Not Available [facility] (Centralized Electronic Ordering - All Locations) Patient Can Go To The Location Of Their Choice, 08/20/2020 02:36:43 08/20/1908/20/2020 hepat ic funct ion panel , serum bilirubin, direct <0.2 mg/dL (0-0.3 ) Not Available [facility] (Centralized Electronic Ordering - All Locations) Patient Can Go To The Location Of Their Choice, 08/20/2020 02:36:43 08/20/1908/20/2020 hepat ic funct ion panel , serum indirect bilirubin mg/dL (0.0-0 .7) Direc t bilir ubin is less than the measu reabl e limit . There fore, indir ect bilir ubin canno t be calcu lated . Not Available [facility] (Centralized Electronic Ordering - All Locations) Patient Can Go To The Location Of Their Choice, 08/20/2020 02:36:43 08/20/1908/20/2020 hepat ic funct ion panel , serum albumin 4.5 gm/dL (3.4-4 .8) Not Available [facility] (Centralized Electronic Ordering - All Locations) Patient Can Go To The Location Of Their Choice, 08/20/2020 02:36:43 08/20/1908/20/2020 hepat ic funct ion panel , serum AST 34 U/L (0-32) high Not Available [facility] (Centralized Electronic Ordering - All Locations) Patient Can Go To The Location Of Their Choice, 08/20/2020 02:36:43 08/20/1908/20/2020 hepat ic funct ion panel , serum ALT 29 U/L (0-33) Not Available [facility] (Centralized Electronic Ordering - All Locations) Patient Can Go To The Location Of Their Choice, 08/20/2020 02:36:43 08/20/1908/20/2020 hepat ic funct ion panel , serum alk phos 81 U/L (35-10 4) Not Available [facility] (Centralized Electronic Ordering - All Locations) Patient Can Go To The Location Of Their Choice, 08/20/2020 02:36:43 08/20/1908/20/2020 hepat ic funct ion panel , serum total protein 7.0 gm/dL (6.2-8 .2) Not Available [facility] (Centralized Electronic Ordering - All Locations) Patient Can Go To The Location Of Their Choice, 08/20/2020 02:36:43 08/20/1908/20/2020 PT/IN R protime 10.9 sec (9.2-1 1.4) Not Available [facility] (Centralized Electronic Ordering - All Locations) Patient Can Go To The Location Of Their Choice, 08/20/2020 02:54:34 08/20/1908/20/2020 PT/IN R internatnl normalized ratio 1.1 (0.9-1 .1) SUGGE STED VALUE OF 2.0-3 .0 FOR PROPH YLAXI S OF VENOU S THROM BOSIS IN HIGH RISK OR SURGI RUBI PATIE NTS, TREAT MENT OF VENOU S THROM BOSIS , AND PREVE NTION OF EMBOL ISM. SUGGE STED VALUE S OF 2.5-3 .5 FOR PREVE NTION OF RECUR RENT EMBOL ISM OR PATIE NTS WITH MECHA NICAL PROST HETIC HEART VALVE S. Not Available [facility] (Centralized Electronic Ordering - All Locations) Patient Can Go To The Location Of Their Choice, 08/20/2020 02:54:34 08/20/1908/19/2020 BMP + ioniz ed calci um, serum or plasm a glu 140 mg/dL 70-105 Not Available [facility] [address], [place], [address], 08/19/2020 20:28:40 08/20/19 21 08/19/2020 BMP + ioniz ed calci um, serum or plasm a BUN 24 mg/dL 8-26 Not Available [address], [address], 08/19/2020 20:28:40 08/20/19 21 08/19/2020 BMP + ioniz ed calci um, serum or plasm a crea 0.8 mg/dL 0.6-1. 3 Not Available [address], [address], 08/19/2020 20:28:40 08/20/19 21 08/19/2020 BMP + ioniz ed calci um, serum or plasm a Na 139 mmol/ L 138-14 6 Not Available [address], [address], 08/19/2020 20:28:40 08/20/19 21 08/19/2020 BMP + ioniz ed calci um, serum or plasm a K 3.6 mmol/ L 3.5-4. 9 Not Available [address], [address], 08/19/2020 20:28:40 08/20/19 21 08/19/2020 BMP + ioniz ed calci um, serum or plasm a cL 102 mmol/ L 98-109 Not Available [address], [address], 08/19/2020 20:28:40 08/20/19 21 08/19/2020 BMP + ioniz ed calci um, serum or plasm a TCO2 28 mmol/ L 24-29 Not Available [address], [address], 08/19/2020 20:28:40 08/20/19 21 08/19/2020 BMP + ioniz ed calci um, serum or plasm a angap 13 mmol/ L 10-20 Not Available [facility] [address] [place], [address], 08/19/2020 20:28:40 08/20/19 21 08/19/2020 BMP + ioniz ed calci um, serum or plasm a ica 1.15 mmol/ L 1.12-1 .32 Not Available [facility] [address] [place], [address], 08/19/2020 20:28:40 08/20/19 21 08/19/2020 BMP + ioniz ed calci um, serum or plasm a HCT 42 %pcv 38-51 Not Available [facility] [address] [place], [address], 08/19/2020 20:28:40 08/20/19 21 08/19/2020 BMP + ioniz ed calci um, serum or plasm a Hb 14.3 g/dL 12-17 Not Available [facility] [address] [place], [address], 08/19/2020 20:28:40 11/15/19 21 11/15/2020 COVID -19 (NOVE L CORON AVIRU S) PCR covid-19 PCR result (neg) NEGAT FATIMAH 2019- novel Coron aviru s (2019 -nCoV ) not detec brianne by real- time RT-PC R. Note: If clini rubi suspi cion for COVID -19 is high, patrick nue to maint ain preca ution s and consi rosa repea t testi ng. Resul t repor brianne to the [facility]. To preve nt error s in diagn osis, test resul ts shoul d be inter prete d in the bebe xt of clini rubi findi ngs and other labor atory data. Rare polym orphi sms exist that could lead to false -nega tive or false -posi tive resul ts. If resul ts obtai anel do not match the clini rubi findi ngs, addit ional testi matt shoflorinda d be consi dered . This test has been autho rized by the FDA under an Emerg ency Use Autho rizat ion (EUA) for use by autho rized labor atori es. Testi matt perfo rmed by real time PCR utili [facility] ANG SCYFIX0 SARS- CoV-2 test. Not Available [facility] (Centralized Electronic Ordering - All Locations) Patient Can Go To The Location Of Their Choice, 11/15/2020 21:26:24 11/15/1911/15/2020 COVID -19 (NOVE L CORON AVIRU S) PCR covid-19 PCR specimen source NASAL Not Available [facility] (Central[facility] Ordering - All Locations) Patient Can Go To The Location Of Their Choice, 11/15/2020 21:26:24 11/15/19 21 11/15/2020 URINE CULTU RE specimen description URINE CLEAN CATCH/ MIDSTR EAM Not Available [facility] (Centralized Electronic Ordering - All Locations) Patient Can Go To The Location Of Their Choice, 11/16/2020 06:41:43 11/15/1911/15/2020 URINE CULTU RE special requests NONE Not Available [facility] (Central[facility] Ordering - All Locations) Patient Can Go To The Location Of Their Choice, 11/16/2020 06:41:43 11/15/1911/16/2020 URINE CULTU RE culture NO GROWTH Not Available [facility] (Centralized Electronic Ordering - All Locations) Patient Can Go To The Location Of Their Choice, 11/16/2020 06:41:43 11/15/1911/16/2020 URINE CULTU RE report status FINAL 2020 Not Available [facility] (Centralized Electronic Ordering - All Locations) Patient Can Go To The Location Of Their Choice, 11/16/2020 06:41:43 11/15/19 21 11/15/2020 GROUP A STREP CULT. specimen description THROAT SWAB Not Available [facility] (Centralized Electronic Ordering - All Locations) Patient Can Go To The Location Of Their Choice, 11/18/2021 11:45:37 11/15/19 21 11/15/2020 GROUP A STREP CULT. special requests NONE Not Available [facility] (Centralized Electronic Ordering - All Locations) Patient Can Go To The Location Of Their Choice, [id number] 11/18/2020 11:45:37 11/15/19 21 11/18/2020 GROUP A STREP CULT. culture NO GROUP A BETA HEMOLY TIC STREPT OCOCCI ISOLAT ED Not Available [facility] (Centralized Electronic Ordering - All Locations) Patient Can Go To The Location Of Their Choice, [id number] 11/18/2020 11:45:37 11/15/19 21 11/18/2020 GROUP A STREP CULT. report status FINAL 2020 Not Available [facility] (Centralized Electronic Ordering - All Locations) Patient Can Go To The Location Of Their Choice, [id number] 11/18/2020 11:45:37 11/15/1911/14/2020 urina lysis , dipst ick Appearance clear Not Available [facility] [address] [place], [address], 11/14/2020 12:03:28 11/15/19 21 11/14/2020 urina lysis , dipst ick Color yellow Not Available [facility] [address] [place], [address], 11/14/2020 12:03:28 11/15/19 21 11/14/2020 urina lysis , dipst ick Glucose (ref: neg) Neg Not Available [facility] [address] [place], [address], 11/14/2020 12:03:28 11/15/19 21 11/14/2020 urina lysis , dipst ick Bilirubin (ref: neg) Neg Not Available [facility] [address] [place], [address], 11/14/2020 12:03:28 11/15/19 21 11/14/2020 urina lysis , dipst ick Ketones (ref: neg) Neg Not Available [facility] [address] [place], [address], 11/14/2020 12:03:28 11/15/19 21 11/14/2020 urina lysis , dipst ick Specific Addy (ref: 1.003 - 1.035) 1.015 Not Available [facility] [address] [place], [address], 11/14/2020 12:03:28 11/15/19 21 11/14/2020 urina lysis , dipst ick Blood (ref: neg) Neg Not Available [facility] [address] [place], [address], 11/14/2020 12:03:28 11/15/19 21 11/14/2020 urina lysis , dipst ick pH (ref: 5-7) 7.5 Not Available [facility] [address] [place], [address], 11/14/2020 12:03:28 11/15/19 21 11/14/2020 urina lysis , dipst ick Protein (ref: neg) ? ? ? Not Available [facility] [address] [place], [address], 11/14/2020 12:03:28 11/15/19 21 11/14/2020 urina lysis , dipst ick Urobilinogen (ref: 0.2) 0 Not Available [facility] [address] [place], [address], 11/14/2020 12:03:28 11/15/19 21 11/14/2020 urina lysis , dipst ick Nitrites (ref: neg) negati ve Not Available [facility] [address] [place], [address], 11/14/2020 12:03:28 11/15/19 21 11/14/2020 urina lysis , dipst ick Leukocytes (ref: neg) Neg Not Available [facility] [address] [place], [address], 11/14/2020 12:03:28 03/22/20 21 03/23/2021 COVID -19 (NOVE L CORON AVIRU S) PCR covid-19 PCR specimen source NASAL Not Available [facility] (Centralized Electronic Ordering - All Locations) Patient Can Go To The Location Of Their Choice, [id number] 03/25/2021 15:49:59 03/22/2003/25/2021 COVID -19 (NOVE L CORON AVIRU S) PCR covid-19 PCR result (neg) normal NEGAT FATIMAH 2018- novel Coron aviru s (2018 -nCoV ) not detec brianne by real- time RT-PC R. Note: If clini rubi suspi cion for COVID -19 is high, patrick nue to maint ain preca ution s and consi rosa repea t testi ng. Resul t repor brianne to the [facility]. To preve nt error s in diagn osis, test resul ts shoul d be inter prete d in the bebe xt of clini rubi findi ngs and other labor atory data. Rare polym orphi sms exist that could lead to false -nega tive or false -posi tive resul ts. If resul ts obtai anel do not match the clini rubi findi ngs, addit ional testi ng shoul d be consi dered . This test has been autho rized by the FDA under an Emerg ency Use Autho rizat ion (EUA) for use by autho rized labor atori es. Testi ng perfo rmed by real time PCR utili [facility] ANG SCYFIX0 SARS- CoV-2 test. Not Available [facility] (Centralized Electronic Ordering - All Locations) Patient Can Go To The Location Of Their Choice, [id number] 03/25/2021 15:49:59 03/22/2003/22/2021 rapid SARS CoV 2 Ag, QL IA, respi rator y speci men Covid-19 (ref: neg) negati ve Not Available [facility] [address], [place], [address], 03/22/2021 08:56:10 03/22/20 21 03/22/2021 rapid SARS CoV 2 Ag, QL IA, respi rator y speci men Control Visual ized/V alid Not Available [facility] [address], [place], [address], 03/22/2021 08:56:10 03/22/20 21 03/22/2021 rapid SARS CoV 2 Ag, QL IA, respi rator y speci men Location [facility], [address], [place] [address], [id number] Not Available [facility] [address], [place], [address], 03/22/2021 08:56:10 04/28/19 22 04/30/2021 COVID -19 (NOVE L CORON AVIRU S) PCR covid-19 PCR result (neg) abnormal POSIT FATIMAH Posit fatimah for detec tion of 2019- novel Coron aviru s (2019 -nCoV ) by qRT-P CR. Resul t repor brianne to the [facility]. This test has been autho rized by the FDA under an Emerg ency Use Autho rizat ion (EUA) for use by autho rized labor atori es. Test perfo rmed by Clini [facility] at the [facility] and Gerard romero, [address] [place] [id number] . CLIA ID: [id number] , CAP: [id number] 96. Medic al Direc tor: Luisana Crump, PhD FACMG (NOTE ) The [facility] SARS- CoV-2 Real- time Rever se Trans cript ase (RT)- PCR Diagn ostic Assay is a real- time RT-PC R test inten ded for the quali tativ e detec tion of nucle ic acid from the SARS- CoV-2 in nasop haryn geal and oroph aryng eal swabs colle cted from indiv idual s who may have contr acted the virus . Testi ng is limit ed to the Clini rubi Resea [facility] Jackie anand Oseas or at the [facility] which is certi fied under the Clini rubi Labor atory Impro vemen t Amend ments of 1987 (CLIA ), 42 U.S.C . ?263a , to perfo rm high compl exity tests . = Posit fatimah resul ts are indic ative of activ e infec tion with SARS- CoV-2 but do not rule out bacte rial infec tion or co-in fecti on with other virus es. The agent detec brianne may not be the defin ite cause of disea se. In addit ion, nucle ic acid detec tion can persi st follo wing clear ance of activ e viral repli catio n. Labor atori es withi n the [employer] and its jimmy supriya s are requi red to repor t all posit fatimah resul ts to the appro priat e publi c healt h autho ritie s. = Negat fatimah resul ts do not precl ude SARS- CoV-2 infec tion and shoul d not be used as the sole basis for patie nt treat ment or other patie nt manag ement decis ions. Negat fatimah resul ts must be combi anel with clini rubi obser vatio ns, patie nt histo ry, and epide miolo gical infor matio n. Not Available [facility] (Centralized Electronic Ordering - All Locations) Patient Can Go To The Location Of Their Choice, [id number] 05/02/2021 01:35:37 Result Notes None recorded. Problems Name Problem SNOMED Code Status Onset Date Resolution Date Notes Provider Name and Address Organization Details Recorded Time Asthma 985960605 Active 019 ARIADNA TELLES NP [address] [place], [address] , [place] [facility] 9 20:00:59 Problem Notes None recorded. Procedures Surgical History Date Name Laterality Status Provider Name and Address Organization Details Recorded Time 08/20/19 21 Venipuncture - DH completed ALIRIO AVILA [address], [place], [address], [place] [facility] 08/19/2020 21:27:37 Gastric bypass for obesity completed ALIRIO Flanagan [address], [place], [address], [place] [facility] 12/04/2022 09:17:15 Imaging Results None recorded. Procedure Notes None recorded. Medical Equipment None Reported. Allergies Allergen ID Allergen Name Allergen Category Reaction Reaction Severity Criticality Documentation Date Start Date Code Code System Note Provider Name and Address Organization Details Recorded Time 550107 latex environme nt,medica tion Not available Not available Not available 03/22/2021 53825 91 RxNorm ALIRIO OJEDA [address] [place], [address], [place] [facility] 08:45:11 Medications Name Sig Start Date Stop Date Status Note LastModified by Organization Details LastModified Time penicillin V potassium 250 mg tablet 11/30 completed Not Available Not Available Not Available cyclobenzap rine 10 mg tablet TAKE 1 TABLET BY MOUTH 3 TIMES A DAY 12/04 completed Not Available Not Available Not Available amoxicillin 500 mg capsule TAKE 1 CAPSULE BY MOUTH 3 TIMES A DAY FOR 7 DAYS 12/04 completed Not Available Not Available Not Available ivermectin 3 mg tablet 11/30 completed Not Available Not Available Not Available bupropion HCl SR 150 mg tablet,12 hr sustained-r elease TAKE ONE TABLET BY MOUTH DAILY STARTING THE SECOND WEEK 12/04 completed Not Available Not Available Not Available prednisone 10 mg tablet 60 mg PO administe red on scene. Time administe red: 12/04 completed Not Available Not Available Not Available gabapentin 600 mg tablet TAKE 1 TABLET BY MOUTH THREE TIMES A DAY 11/14 completed Not Available Not Available Not Available doxycycline hyclate 100 mg capsule 04/28 completed Not Available Not Available Not Available atorvastati n 20 mg tablet TAKE 1 TABLET BY MOUTH EVERY DAY active Not Available Not Available No t Available clindamycin HCl 300 mg capsule TAKE 1 CAPSULE BY MOUTH EVERY 8 HOURS FOR 7 DAYS 04/28 completed Not Available Not Available Not Available albuterol sulfate 2.5 mg/3 mL (0.083 %) solution for nebulizatio n USE 1 VIAL VIA NEBULIZER EVERY 6 HOURS NEEDED FOR SHORTNESS OF BREATH OR WHEEZING active Not Available Not Available No t Available cetirizine 10 mg tablet TAKE 1 TABLET BY MOUTH EVERY DAY active Not Available Not Available No t Available azithromyci n 250 mg tablet TAKE 2 TABLETS BY MOUTH TODAY, THEN TAKE 1 TABLET DAILY FOR 4 DAYS 12/04 completed Not Available Not Available Not Available ibuprofen 800 mg tablet 04/28 completed Not Available Not Available Not Available Lidocaine Viscous 2 % mucosal solution 11/14 completed Not Available Not Available Not Available tizanidine 4 mg tablet active Not Available Not Available Not Available fluconazole 150 mg tablet 12/04 completed Not Available Not Available Not Available metoprolol succinate ER 50 mg tablet,exte nded release 24 hr TAKE 1 TABLET BY MOUTH EVERY DAY 12/04 completed Not Available Not Available Not Available hydrochloro thiazide 50 mg tablet TAKE 1 TABLET BY MOUTH EVERY DAY IN THE MORNING active Not Available Not Available No t Available ranitidine 300 mg tablet 04/28 completed Not Available Not Available Not Available metronidazo le 0.75 % (37.5 mg/5 gram) vaginal gel USE 1 APPLICATO R VAGINALLY DAILY AT BEDTIME,X 5 DAYS 12/04 completed Not Available Not Available Not Available prednisone 20 mg tablet TAKE 2 TABS BY MOUTH DAILY X 5 DAYS, THEN 1 TABLET DAILY FOR 5 DAYS 12/04 completed Not Available Not Available Not Available metoprolol succinate ER 100 mg tablet,exte nded release 24 hr TAKE 1 TABLET BY MOUTH EVERY DAY active Not Available Not Available No t Available gabapentin 400 mg capsule 11/30 completed Not Available Not Available Not Available prednisone 5 mg tablet TAKE 1 TABLET BY MOUTH EVERY DAY 11/14 completed Not Available Not Available Not Available naproxen 250 mg tablet 04/28 completed Not Available Not Available Not Available permethrin 5 % topical cream 04/28 completed Not Available Not Available Not Available hydroxyzine pamoate 50 mg capsule 11/30 completed Not Available Not Available Not Available penicillin V potassium 500 mg tablet TAKE 1 TABLET BY MOUTH TWICE A DAY FOR 7 DAYS 11/14 completed Not Available Not Available Not Available metronidazo le 500 mg tablet TAKE 1 TABLET BY MOUTH THREE TIMES A DAY FOR 7 DAYS 12/04 completed Not Available Not Available Not Available acetaminoph en 300 mg-codeine 30 mg tablet TAKE 1 TABLET BY MOUTH EVERY 6 HOURS NEEDED FOR PAIN 04/28 completed Not Available Not Available Not Available valacyclovi r 500 mg tablet TAKE 1 TABLET BY MOUTH TWICE A DAY FOR 3 DAYS active Not Available Not Available No t Available sulfamethox azole 800 mg-trimetho prim 160 mg tablet 11/30 completed Not Available Not Available Not Available omeprazole 40 mg capsule,del ayed release 1 CAPSULE 30 MINUTES BEFORE MORNING MEAL ONCE A DAY ORALLY 30 DAY(S) active Not Available Not Available No t Available aspirin 81 mg tablet,jonnathan yed release TAKE 1 TABLET BY MOUTH EVERY DAY 04/28 completed Not Available Not Available Not Available doxycycline monohydrate 100 mg tablet 11/30 completed Not Available Not Available Not Available Nicotrol 10 mg inhalation cartridge 11/30 completed Not Available Not Available Not Available tramadol 50 mg tablet TAKE 1 TABLET BY MOUTH FOUR TIMES A DAY 12/04 completed Not Available Not Available Not Available quetiapine 100 mg tablet TAKE 1 TABLET BY MOUTH AT BEDTIME 04/28 completed Not Available Not Available Not Available acetaminoph en 500 mg tablet TAKE 1 TABLET BY MOUTH EVERY 4 TO 6 HOURS NEEDED FOR PAIN active Not Available Not Available No t Available oxycodone-a cetaminophe n 5 mg-325 mg tablet 11/14 completed Not Available Not Available Not Available Tessalon Perles 100 mg capsule Take 1 capsule 3 times a day by oral route for 5 days. 02/09 completed Not Available Not Available Not Available bupropion HCl 100 mg tablet TAKE 1 TABLET BY MOUTH EVERY DAY 11/14 completed Not Available Not Available Not Available alprazolam 0.5 mg tablet 04/28 completed Not Available Not Available Not Available amoxicillin 875 mg tablet TAKE 1 TABLET BY MOUTH TWICE A DAY FOR 10 DAYS 11/14 completed Not Available Not Available Not Available alprazolam 0.25 mg tablet TAKE 1 TABLET BY MOUTH EVERY DAY 04/28 completed Not Available Not Available Not Available citalopram 20 mg tablet TAKE 1 TABLET BY MOUTH EVERY DAY 04/28 completed Not Available Not Available Not Available amitriptyli ne 25 mg tablet TAKE 1 TABLET BY MOUTH AT BEDTIME FOR 1 WEEK THEN TAKE 2 TABLETS AT BEDTIME active Not Available Not Available No t Available vitamin A 3,000 mcg (10,000 unit) capsule TAKE 2 CAPSULES BY MOUTH EVERY DAY FOR 3 WEEKS active Not Available Not Available No t Available malathion 0.5 % lotion APPLY ONCE DIRECTED active Not Available Not Available No t Available oxycodone-a cetaminophe n 10 mg-325 mg tablet 11/30 completed Not Available Not Available Not Available gabapentin 800 mg tablet TAKE 1 TABLET BY MOUTH THREE TIMES A DAY active Not Available Not Available No t Available nicotine (polacrilex ) 4 mg gum CHEW 1 PIECE OF GUM NEEDED FOR SMOKING CESSASTIO N (NOT COVERED) 04/28 completed Not Available Not Available Not Available Mapap (acetaminop hen) 500 mg capsule 12/04 completed Not Available Not Available Not Available cephalexin 500 mg capsule 11/14 completed Not Available Not Available Not Available simvastatin 20 mg tablet 11/30 completed Not Available Not Available Not Available esomeprazol e magnesium 40 mg capsule,del ayed release TAKE 1 CAPSULE BY MOUTH EVERY DAY active Not Available Not Available No t Available triamcinolo ne acetonide 0.1 % topical ointment 12/04 completed Not Available Not Available Not Available clotrimazol e-betametha sone 1 %-0.05 % topical cream APPLY LOCALLY TWICE A DAY active Not Available Not Available No t Available clonazepam 2 mg tablet 11/30 completed Not Available Not Available Not Available polymyxin B sulfate 10,000 unit-trimet hoprim 1 mg/mL eye drops INSTILL 1 DROP INTO AFFECTED EYE 4 TIMES A DAY FOR 7 DAYS 12/04 completed Not Available Not Available Not Available warfarin 5 mg tablet TAKE 5MG DAILY EXCEPT SUNDAY AND SUNDAY TAKES 7.5MG BY MOUTH active Not Available Not Available No t Available ibuprofen 400 mg tablet 04/28 completed Not Available Not Available Not Available Advair Diskus 250 mcg-50 mcg/dose powder for inhalation 02/09 completed Not Available Not Available Not Available nicotine 21 mg/24 hr daily transdermal patch APPLY 1 PATCH ONCE A DAY 04/28 completed Not Available Not Available Not Available Advair Diskus 500 mcg-50 mcg/dose powder for inhalation INHALE 1 PUFF BY MOUTH EVERY 12 HOURS . RINSE MOUTH AFTER USE active Not Available Not Available No t Available gabapentin 300 mg capsule TAKE 1 CAPSULE BY MOUTH THREE TIMES A DAY 11/14 completed Not Available Not Available Not Available omeprazole 20 mg capsule,del ayed release TAKE 1 CAPSULE BY MOUTH EVERY DAY 30 MINUTES TO 1 HOUR BEFORE A MEAL 04/28 completed Not Available Not Available Not Available enoxaparin 150 mg/mL subcutaneou s syringe INJECT 1 ML (150 MG) INTO THE SKIN EVERY 12 HOURS FOR 30 DAYS 11/14 completed Not Available Not Available Not Available hydroxyzine HCl 25 mg tablet TAKE 1 TABLET BY MOUTH FOUR TIMES A DAY NEEDED FOR ITCHING AND ANXIETY active Not Available Not Available No t Available bisacodyl 5 mg tablet,jonnathan yed release 04/28 completed Not Available Not Available Not Available hydrochloro thiazide 25 mg tablet TAKE 1 TABLET BY MOUTH EVERY DAY 12/04 completed Not Available Not Available Not Available gabapentin 100 mg capsule 11/30 completed Not Available Not Available Not Available lorazepam 1 mg tablet TAKE 1 TABLET BY MOUTH AT BEDTIME (UP TO TWICE DAILY) NEEDED FOR A 30 DAY SUPPLY active Not Available Not Available No t Available azelastine 137 mcg (0.1 %) nasal spray INSTILL 2 SPRAYS INTO BOTH NOSTRILS TWICE A DAY active Not Available Not Available No t Available epinephrine 0.3 mg/0.3 mL injection, auto-inject or INJECT 0.3 MG INTRAMUSC ULAR ONCE NEEDED ANAPHYLAC TIC REACTION MAY REPEAT IF NECESSARY active Not Available Not Available No t Available albuterol sulfate HFA 90 mcg/actuati on aerosol inhaler INHALE 2 PUFFS EVERY 4 HOURS NEEDED FOR WHEEZING active Not Available Not Available No t Available ipratropium bromide 42 mcg (0.06 %) nasal spray SPRAY 2 SPRAYS INTO INTO EACH NOSTRIL 4 TIMES A DAY 12/04 completed Not Available Not Available Not Available fluticasone propionate 50 mcg/actuati on nasal spray,suspe nsion SPRAY 2 SPRAYS INTO EACH NOSTRIL EVERY MORNING 12/04 completed Not Available Not Available Not Available doxycycline hyclate 100 mg tablet TAKE 1 TABLET BY MOUTH TWICE A DAY FOR 7 DAYS 11/14 completed Not Available Not Available Not Available loratadine 10 mg tablet TAKE 1 TABLET BY MOUTH EVERY DAY 04/28 completed Not Available Not Available Not Available naproxen 500 mg tablet TAKE 1 TABLET BY MOUTH TWICE DAILY 12/04 completed Not Available Not Available Not Available metoclopram darlyn 10 mg tablet TAKE 1 TABLET BY MOUTH TWICE A DAY NEEDED FOR NAUSEA FOR 5 DAYS active Not Available Not Available No t Available amoxicillin 875 mg-potassiu m clavulanate 125 mg tablet TAKE 1 TABLET BY MOUTH EVERY 12 HOURS FOR 7 DAYS 12/04 completed Not Available Not Available Not Available amoxicillin 500 mg-potassiu m clavulanate 125 mg tablet TAKE 1 TABLET BY MOUTH EVERY 8 HOURS FOR 10 DAYS 11/14 completed Not Available Not Available Not Available tobramycin 0.3 %-dexametha sone 0.1 % eye drops,suspe nsion INSTILL 1 DROP INTO BOTH EYES TWICE A DAY 04/28 completed Not Available Not Available Not Available oxycodone 5 mg tablet 11/14 completed Not Available Not Available Not Available Almacone-2 400 mg-400 mg-40 mg/5 mL oral suspension TAKE 10MLS BY MOUTH 3 TIMES A DAY NEEDED FOR INDIGESTI ON active Not Available Not Available No t Available azithromyci n 500 mg tablet TAKE 1 TABLET BY MOUTH EVERY DAY FOR 5 DAYS 12/04 completed Not Available Not Available Not Available cyclobenzap rine 5 mg tablet TAKE 1 TABLET BY MOUTH 3 TIMES A DAY X3 DAYS 04/28 completed Not Available Not Available Not Available Restasis 0.05 % eye drops in a dropperette active Not Available Not Available Not Available Ciprodex 0.3 %-0.1 % ear drops,suspe nsion INSTILL 4 DROPS INTO AFFECTED EAR(S) BY OTIC ROUTE 2 TIMES PER DAY FOR 7 DAYS 04/28 completed Not Available Not Available Not Available rosuvastati n 40 mg tablet 11/30 completed Not Available Not Available Not Available Klor-Con M20 mEq tablet,exte nded release 04/28 completed Not Available Not Available Not Available bupropion HCl XL 150 mg 24 hr tablet, extended release TAKE 1 TABLET BY MOUTH EVERY DAY IN THE MORNING 12/04 completed Not Available Not Available Not Available topiramate 50 mg tablet 11/30 completed Not Available Not Available Not Available nitrofurant oin monohydrate /macrocryst als 100 mg capsule 12/04 completed Not Available Not Available Not Available duloxetine 20 mg capsule,del ayed release 11/30 completed Not Available Not Available Not Available duloxetine 30 mg capsule,del ayed release TAKE 1 CAPSULE BY MOUTH IN THE MORNING AND 2 CAPSULES BEFORE BED. DO NOT CRUSH OR CHEW active Not Available Not Available No t Available tizanidine 2 mg capsule 11/14 completed Not Available Not Available Not Available tizanidine 4 mg capsule 12/04 completed Not Available Not Available Not Available Mucus Relief 400 mg tablet TAKE 1 TABLET BY MOUTH EVERY 4 HOURS NEEDED FOR CONGESTIO N 11/14 completed Not Available Not Available Not Available pregabalin 75 mg capsule TAKE 1 CAPSULE BY MOUTH TWICE A DAY 04/28 completed Not Available Not Available Not Available Lyrica 50 mg capsule 11/30 completed Not Available Not Available Not Available Lyrica 100 mg capsule 11/30 completed Not Available Not Available Not Available chlorhexidi ne gluconate 0.12 % mouthwash PLACE 15 ML (1 CAPFUL) INSIDE CHEEK THEN SPIT OUT TWICE A DAY FOR 14 DAYS active Not Available Not Available No t Available aspirin 08/19 completed Not Available Not Available Not Available Symbicort 160 mcg-4.5 mcg/actuati on HFA aerosol inhaler INHALE 2 PUFF INHALED 2 TIMES A DAY active Not Available Not Available No t Available Refresh Optive 0.5 %-0.9 % eye drops INSTILL 1 DROP IN AFFECTED EYE(S) 4 TIMES A DAY NEEDED active Not Available Not Available No t Available diclofenac 1 % topical gel APPLY THIN LAYER TO AFFECTED AREA TOPICALLY 4 TIMES A DAY active Not Available Not Available No t Available cholecalcif loulou (vitamin D3) 50 mcg (2,000 unit) tablet TAKE 1 TABLET BY MOUTH EVERY DAY active Not Available Not Available No t Available Gavilyte-C 240 gram-22.72 gram-6.72 gram-5.84 gram oral solution 11/14 completed Not Available Not Available Not Available GaviLyte-G 236 gram-22.74 gram-6.74 gram-5.86 gram oral solution 11/14 completed Not Available Not Available Not Available roflumilast 500 mcg tablet TAKE 1 TABLET BY MOUTH EVERY DAY active Not Available Not Available No t Available Linzess 145 mcg capsule TAKE 1 CAPSULE BY MOUTH DAILY active Not Available Not Available No t Available Eliquis 5 mg tablet TAKE 1 TABLET BY MOUTH TWICE A DAY 11/14 completed Not Available Not Available Not Available Breo Ellipta 200 mcg-25 mcg/dose powder for inhalation INHALE 1 PUFF ONCE A DAY 04/28 completed Not Available Not Available Not Available Trelegy Ellipta 100 mcg-62.5 mcg-25 mcg powder for inhalation INHALE 1 PUFF BY MOUTH EVERY DAY 04/28 completed Not Available Not Available Not Available COVID-19 test specimen collection TEST DIRECTED TODAY 04/28 completed Not Available Not Available Not Available Vitals Date Recorded Oxygen saturation Oxygen saturation in Arterial blood by Pulse oximetry Heart rate Body temperature Respiratory rate Systolic blood pressure Diastolic blood pressure Provider Name and Address Organization Details Last Updated DateTime 1 97 % 97 % 66 /min 96.7 [degF] 20 /min 118 mm[Hg] 78 mm[Hg] Not Available [facility] 1 20:01:03 Date Recorded Heart rate Body temperature Respiratory rate Oxygen saturation Oxygen saturation in Arterial blood by Pulse oximetry Systolic blood pressure Diastolic blood pressure Provider Name and Address Organization Details Last Updated DateTime 1 65 /min 98.2 [degF] 18 /min 100 % 100 % 138 mm[Hg] 70 mm[Hg] Not Available [facility] 1 11:54:28 Date Recorded Respiratory rate Body temperature Heart rate Oxygen saturation Oxygen saturation in Arterial blood by Pulse oximetry Systolic blood pressure Diastolic blood pressure Provider Name and Address Organization Details Last Updated DateTime 1 18 /min 96.8 [degF] 77 /min 98 % 98 % 138 mm[Hg] 84 mm[Hg] Not Available [facility] 1 08:49:57 Date Recorded Body temperature Oxygen saturation Oxygen saturation in Arterial blood by Pulse oximetry Respiratory rate Heart rate Systolic blood pressure Diastolic blood pressure Provider Name and Address Organization Details Last Updated DateTime 2 98.7 [degF] 97 % 97 % 20 /min 76 /min 148 mm[Hg] 82 mm[Hg] Not Available [facility] 2 14:59:01 Date Recorded Heart rate Respiratory rate Body temperature Oxygen saturation Oxygen saturation in Arterial blood by Pulse oximetry Systolic blood pressure Diastolic blood pressure Provider Name and Address Organization Details Last Updated DateTime 3 70 /min 18 /min 97 [degF] 97 % 97 % 142 mm[Hg] 78 mm[Hg] Not Available [facility] 3 09:15:14 Social History Question Answer Notes LastModified by Organizat ion Details LastModified Time Tobacco Smoking Status Former Smoker ALIRIO Forbes [address], [place], [address], [place] [facility] 04/28/2021 15:03:35 Do You Have An Advance Directive? Yes Information not available 11/30/2018 What Is Your Level Of Alcohol Consumption? None [email or web address] Information not available 04/28/2021 What Is Your Code Status? Full Code Information not available 11/30/2018 Drugs Abused None Information not available 11/30/2018 How Many Days In The Past Year Have You Had A Heavy Drinking Consumption (4+ Female, 5+ Male)? 0 Information no t available 11/30/2018 Within The Past 12 Months, Has It Happened That The Food You Bought Just Didn't Last And You Didn't Have Money To Get More. No [email or web address] Information not available 04/28/2021 Within The Past 12 Months, Have You Worried That Your Food Would Run Out Before You Got Money To Buy More. No [email or web address] Information not available 04/28/2021 Fall Risk: Do You Feel Unsteady When Standing Or Walking? No [email or web address] Information not available 04/28/2021 We Know That How And When People Interact With Friends And Family Can Be Very Different From Person To Person. How Often Do You Have The Opportunity To See Or Talk To People That You Care About And Feel Close To? (Ex: Talking To Friends On The Phone Or Visiting Friends Or Family Or Going To Anabaptism Or Club Meetings) 5 Or More Times Per Week [email or web address] Information not available 04/28/2021 We Know From Many Of Our Patients That Covering All Of Their Costs Can Be Difficult At Times. This Can Cause Stress And Impact Health. In The Past Year, Have You Been Unable To Get Any Of The Following When It Was Really Needed? No [email or web address] Information not available 04/28/2021 Marital Status Single Informatio n not available 11/30/2018 What Was The Date Of Your Most Recent Tobacco Screening? 11/30/2018 Information not available 12/01/2018 How Much Tobacco Do You Smoke? No Information not available 04/28/2021 Do You Use Any Illicit Or Recreational Drugs? No [email or web address] Information not available 04/28/2021 Sex: Unknown Functional Status None recorded. Mental Status None recorded. Family History Relationship Description Onset Age of this Age Resolved Age Notes LastModified by Organization Details LastModified Time Mother Coronary arterioscler osis [email or web address] Not available 11/30 20:04:54 Medical History Condition Response Coronary Artery Disease Y High Cholesterol Y Pulmonary Embolism Y Stroke Y Hypertension Y COPD N Asthma Y Gynecological HistoryNo gynecological history recorded. Obstetrics History GPAL:G 0 P 0 0 0 0 Past Encounters Encounter ID Performer Location Encounter Start Date Encounter Closed Date Diagnosis/Indication Diagnosis SNOMED-CT Code Diagnosis ICD10 Code Diagnosis Note [id number] Us[facility] Mejia [facility] [address] [place] [address] 11/30/2018 19:55:12 12/01/2018 11:27:24 Acute exacerbation of asthma 287413887 J45.901 Viral uppe r respiratory tract infection 934124670 J06.9 Dysuria 45838766 R30.0 [id number] ALIRIO DUEÑAS [facility] [address] [place] [address] 12/03/2018 09:25:26 12/03/2018 12:18:40 Sinusitis 83363987 J32.9 Cough 21072520 R05 Influenza- like symptoms 827806337 R68.89 [id number] ARIADNA TELLES NP [facility] [address] [place] [address] 02/09/2019 14:18:09 02/09/2019 18:45:32 Acute left otitis media 718670888 H66.92 [id number] MOIRA HODGES NP [facility] [address] [place] [address] 02/11/2020 14:29:38 02/12/2020 12:00:58 Dysuria 98554220 R30.9 Exposure t o communicable disease 230496739 Z20.828 [id number] MOIRA HODGES, MARINA P[facility] [address] [place] [address] 02/13/2020 18:21:08 02/16/2020 13:08:17 Exposure to communicable disease 293625910 Z20.828 [id number] KIKI ARIADNA, MARINA P[facility] [address] [place] [address] 02/29/2020 16:36:44 03/01/2020 15:23:33 Dysuria 53282824 R30.9 [id number] ALIRIO AVILA [facility] [address] [place] [address] 08/19/2020 19:16:58 08/24/2020 16:39:30 Spontaneous ecchymosis 272670008 R23.3 Fatigue 93144398 R53.83 Seasonal a llergic rhinitis 935132088 J30.2 Varicose v eins of the leg with rupture 186757851 I83.899 [id number] Yulia Smith NP [facility] [address] [place] [address] 11/14/2020 11:48:38 11/15/2020 15:06:08 Exposure to communicable disease 771472235 Z20.822 Blood in urine 17666622 R31.9 [id number] [facility] [address] [place] [address] 03/22/2021 08:39:45 03/27/2021 18:59:50 Exposure to SARS-CoV-2 533481720 Z20.822 Exposure t o communicable disease 612624004 Z20.822 Pain in throat 275308427 R07.0 Generalize d aches and pains 65927884 R52 Shivering or rigors 2484 74134 R68.89 Fatigue 75172792 R53.83 [id number] ALIRIO Forbes [facility] [address] [place] [address] 04/28/2021 14:18:52 04/29/2021 15:23:46 Exposure to SARS-CoV-2 841510259 Z20.822 Exposure t o communicable disease 267970050 Z20.822 Acute uppe r respiratory infection 44189739 J06.9 45 yr old female with about 5 days of sinus congestion , cough, some night chills, no fever. her downstairs neighbors all had COVID a couple to 3 weeks ago. She is concerned she has COVID and wants to be tested. A PCR was obtained and she was avised if results were negative we would not call her. She is to continue the mucinex, fluticason e, humidified air, call if any changes or concerns. [id number] ALIRIO Flanagan [facility] [address] [facility] [place] [address] 12/04/2022 09:11:27 12/04/2022 14:59:58 Contusion of left knee [id number] 7404440 S80.02XA Status of condition: {{Acute* E xacerbatio n/Acute on chronic Ch ronic Stab le Worseni ng/Progres evelio Uncon trolled Cr itical: Warrants escalation to ED. Undete rmined: Unclear staging of condition. Needs further evaluation and management by PCP and/or Specialist }}. Testing/Re sults: n/a. pt wanted to hold off on xray at this time. will monitor her symptoms. Discussion :recommend she elevate and ice the knee. do not apply ice directly to the skin.recom mend otc tylenol take as directed on the package for pain.advis ed if pain increased or she has increased edema, decreased rom to follow up for imaging. Plan, Medication Management & Follow-up recommenda tions:foll ow up with pcp in 3-5 days or sooner prn.go to the ER with worsening symptoms cp, sob, increased pain, edema, numbness, weakness, skin color or temp changes. Exacerbati on of intermittent asthma 765419739 J45.21 Status of condition: {{Acute Ex acerbation /Acute on chronic* C hronic Sta ble Worsen ing/Progre ssion Unco ntrolled C ritical: Warrants escalation to ED. Undete rmined: Unclear staging of condition. Needs further evaluation and management by PCP and/or Specialist }}. Testing/Re sults: n/a Discussion :pt reports cough and chest congestion is better today after she used her nebulizer yesterday. advised to rest and keep hydrated, drink water.cont inue rx inhalers as prescribed .continue zyrtec as prescribed by pcp. Plan, Medication Management & Follow-up recommenda tions:foll ow up with pcp in 3-5 days or sooner prn.go to the ER with worsening symptoms cp, sob, wheezing, fever, dizziness, weakness, dyspnea on exertion. Health Concerns Section Related Observation LastModified by Organization Detai ls LastModified Time None Recorded Concern Status LastModified by Organization Details LastModified Time None Recorded Advance Directives Directive Y: Payers Encounter Date Sequence Insurance Name Policy Number Policy Krishnan Covered Member ID Krishnan Member ID Guarantor Name 08/19/[address] [facility] - DOS PRIOR TO 2022 - DUAL ELIGIBLE (MEDICARE REPLACEMENT/AD VANTAGE - HMO) Lisa Kam [id number] Lisa Halldonado 08/19/2020 2 [place] [facility] Lisa Ferguson Kam [id number] Lisa Halldonado 11/14/2020 1 [employer] CARE [employer]IANCE - DOS PRIOR TO 2022 - DUAL ELIGIBLE (MEDICARE REPLACEMENT/AD VANTAGE - HMO) Lisa Halldonado [id number] Lisa Halldonado 11/14/2020 2 [place] [facility] Lisa Ferguson Kam [id number] Lisa Halldonado 03/22/2021 1 [facility] - DOS PRIOR TO 2022 - DUAL ELIGIBLE (MEDICARE REPLACEMENT/AD VANTAGE - HMO) Lisa Halldonado [id number] Lisa Halldonado 03/22/2021 2 [place] [facility] Lisa Ferguson Kam [id number] Lisa Halldonado 04/28/2021 1 [employer] CARE ALLI[employer] - DOS PRIOR TO 2022 - DUAL ELIGIBLE (MEDICARE REPLACEMENT/AD VANTAGE - HMO) Lisa Phyllis Kam [id number] Lisa Halldonado 12/04/[address] [facility] C[facility] - DOS ON OR AFTER 2022 - MEDICARE ADVANTAGE [place] (MEDICARE REPLACEMENT/AD VANTAGE - PPO) Lisa Humphrey [id number] Lisa Halldonado Notes Date Note Type Note Provider Name and Address Organization Details Recorded Time 08/19/2020 text/html 45 y/o F with PM Hx sig for asthma, CAD, HLD, HTN, h/o PE and DVT on Lovenox, TIA, fibromyalgia, and morbid obesity, known to , who presents w/ c/o bruising on knee. Patient denies injury or pain. She states that she noted small red spots on her right knee 2-3 days ago that then turned into bruises today. She reports similar small red spots on her lower right leg. She states she has chronic pain and swelling in her legs and that this has not changed. However she does admit to more localized swelling on her right knee. Denies difficulty walking or claudication. Has not missed any doses of Lovenox. Admits to intermittent black sticky stools over the past 2 weeks as well as fatigue, worse with exertion. Not on iron suppelment and states that her baby aspirin has been on hold since she started Lovenox. Admits to intermittent stomach cramping with Lovenox shot, denies any pain after eating. Reports remote h/o GIB, cannot remember when or why. Has not required blood transfusion. Denies tick bites. Denies fever, chills, n/v. Admits to sinus headache due to pollen. She reports poor hydration habits over the past few days. ALIRIO AVILA [address], [place], [address], [place] [facility] 08/19/2020 21:28:01 11/14/2020 text/html Patient is a 45 year old alert female who is known to and new to this provider. Patient chief complaint is sore throat x 2 days. Admits to recent exposure to Covid. Patient requests Covid testing despite having completed vaccine this past June 2020. Also requests urine test, can you check my pee, I'm not sure if someone peed in the toilet already, but it looked a little red when I went. Medical history significant for asthma, CAD, HTN, hyperlipidemia, PE, TIA, fibromyalgia, DVT, hx of [place]. Patient had her Covid vaccine this past June 2020. She does get her seasonal flu vaccine as well. Yulia Smith NP [address], [place], [address], [place] [facility] 11/14/2020 12:19:48 03/22/2021 text/html 45 y/o F with PM H of HTN, HLD, CAD, Asthma, PE, TIA, Hx of DVT, hx of [place], and Fibromyalgia, known to but new to provider, is seeking further evaluation for sore throat, runny nose, body aches, and chills x 3 days. Patient also reports some associated fatigue. The patient reports that she was exposed to her son 3 days ago who tested positive for COVID-19. She was last in contact with her son yesterday. The patient has been taking Tylenol and Theraflu for her symptoms with no relief. The patient denies any fevers, chest pain, shortness of breath, cough, abdominal pain, diarrhea, weakness, lethargy, or loss of smell/taste. Patient reports a mildly diminished appetite. ALIRIO OJEDA [address], [place], [address], [place] [facility] 03/22/2021 10:47:57 04/28/2021 text/html was exposed to COVID last week by many different people, several people living downstairs have COVID. Since past 5 days sinus congestion, sore throat, cough, dry. No fever, she has chills sometimes at night . She sts she uses her nebulizer every 6 hr . ALIRIO Forbes [address], [place], [address], [place] [facility] 04/28/2021 15:40:44 12/04/2022 text/html 47 y/o female known to and new to provider with hx of asthma, CAD, hyperlipidemia, HTN, PE, TIA, fibromyalgia. pt reports yesterday am she slid out of her bed and landed on her left knee. she reports pain in her knee and bruising. states her pcp advised she get it checked since she is on coumadin. pt reports her knee is sore but she is still able to walk on it and walk around the house. ROM is normal but sore. she denies hitting her head, LOC. no SUAREZ, dizziness. she denies cp, sob, wheezing. states Sunday she did have a dry cough. her grandson has been coughing too. pt reports yesterday her chest felt congested but after using her nebulizer her cough and chest congestion seems a lot better today. she denies any fever. reports scratchy throat and eyes but that is chronic for her. ALIRIO Flanagan [address], [place], [address], [place] [facility] 12/04/2022 09:57:44 OBGyn Episode No OBEpisode recorded.
--- OUTSIDE RECORDS SUMMARY | 2024-07-10 08:16 | XMS_ITS | Continuity of Care Document ---
Author Organization [facility] Address [address] [facility] [address] [place] [address] Phone Care Team Providers Care Music Therapist [employer] Name Role Phone Evelio Colon MD Unavailable [...] Established 25 Mins [facility], [address], [place], [place], [id number], tel:[phone] [facility] Chronic venous hypertension w oth comp of r low extremVaricose veins of right low extrm w oth complicationsBo dy mass index (BMI) 50-59.9 , adult Oct-0 0 Isaiah Fraser. [address], [address], [place], [place], [id number] . tel: [phone] Referring Provider: Sravani Pardo MSN [facility], [address], [place], [address]. tel:[phone] [facility], [address] [place] [address], [id number], [place] tel:[phone] [place] - [place] Chronic venous hypertension w oth comp of r low extrem Aug-0 0 Jaylin Michael. [address], [address], [place], [address], [place]. tel: [phone] Referring Provider: Sravani ALCOCER [facility], [address], [place], [address]. tel:[phone] Office/Oupt E&M New Pt 45 Mins [facility], [address] [place] [address], [id number], [place] tel:[phone] [place] Body mass index (BMI) 50-59.9 , adultEssential (primary) hypertensionChr onic venous htn w oth comp of bilateral low extrmVenous insufficiency (chronic) (peripheral) Sep-2 7-201 8 Jaylin Michael. [address], [address], [place], [address], [place]. tel: [phone] Referring Provider: Sravani ALCOCER [facility], [address], [place], [address]. tel:[phone] [facility], [address] [place] [address], [id number], [place] tel:[phone] [place] - [place] Chronic venous htn w oth comp of bilateral low extrm Sep-2 7-201 8 Jaylin Michael. [address], [address], [place], [address], . tel:[phone] Referring Provider: Sravani ALCOCER [employer] , [address], [place], [address]. tel:[phone] Family History Family Member Type Diagnosis Age At Onset No Information Payers Payer name Insurance type Covered libertarian ID Susanne cunningham(s) [facility] [id number] Social History Type Description Quantity Date Captured [...] Right leg ordered Referral Ordered: Sravani [facility]COCER [employer] timeframe: 1 Month. (related to Essential (primary) [...]
--- OUTSIDE RECORDS SUMMARY | 2024-07-10 08:16 | XMS_ITS | Patient Health Record ---
Author Organization [facility] Address [address] [place] [address] Care Team Providers Care Shipper Receiver Name Role Phone RACHEL CROSS Unavailable [phone] REASON FOR REFERRAL No Information MEDICATIONS Medication [...] [employer] or Options [address] [place] [address] [id number] DIPTI RUFINO Self - patient is the insured
--- OUTSIDE RECORDS SUMMARY | 2024-07-10 08:16 | XMS_ITS | Clinical Summary ---
Author Organization [facility] Address [address] [place] [address] Care Team Providers Care Gag Writer Name Role Phone Unavailable Primary Care Provider [...] topic Lisa Moore Personal/Famil y Self 1975 ([place]) [address] [place] [id number]
--- OUTSIDE RECORDS SUMMARY | 2024-07-10 08:16 | XMS_ITS | Encounter Summary ---
Author Organization [facility] [address] Address [address] [place] [address] Care Team Providers Care Implementation Technician Name Role Phone Steven Preston Primary Care Provider [phone] Reason for Referral * Imaging (Routine) - Pending Review Specialty Diagnoses / Procedures Referred By Contac t Referred To Contact Radiology Diagnoses Calculus of gallbladder without cholecystitis without obstruction Procedures US Abdomen Limited Marquise Ness DO [address] [address] Phone: tel: fax: [address] [address] Phone: tel: Referral ID Status Reason Start Date Expiration Date V isits Requested Visits Authorized [id number] Pending Review 07/08/2024 07/08/2025 1 1 * Consultation (Routine) - Pending Review Specialty Diagnoses / Procedures Referred By Contac t Referred To Contact Gastroenterology Diagnoses Hx of gastric bypass Marquise Ness DO [address] [address] Phone: tel: fax: Referral ID Status Reason Start Date Expiration Date Visits Requested Visits Authorized [id number] Pending Review Specialty Services Required 07/08/2024 07/08/2025 1 1 Reason for Visit * Reason Comments Abdominal Pain * Consultation (Routine) - Authorized Specialty Diagnoses / Procedures Referred By Contac t Referred To Contact General Surgery Diagnoses Calculus of gallbladder Joe Cazares MD [address] [place] [address] Phone: tel: fax: Pablo Ledezma MD [address] [address] Phone: tel: fax: Referral ID Status Reason Start Date Expiration Date Visits Requested Visits Authorized [id number] Authorized Specialty Services Required 07/02/2024 07/02/2025 1 1 Encounter Details Date Type Department Care Team (Latest Contact Info) Description 07/08/2024 2:15 PM EDT Office Visit General Surgery - [place] [address] [address] Marquise Ness DO [address] [address] Chest pain due to GERD (Primary Dx); Hx of gastric bypass; History of Roberson's esophagus; Calculus of gallbladder without cholecystitis without obstruction; Melena Social History Tobacco Use Types Packs/Day Years [...] Orientation Straight 07/02/2024 12 :59 AM EDT documented as of this encounter Last Filed Vital Signs Vital Sign Reading Time Taken Comments Blood Pressure 155/94 07/08/2024 2:51 PM EDT Pulse 118 07/08/2024 2:51 PM EDT Temperature - - Respiratory Rate - - Oxygen Saturation - - Inhaled Oxygen Concentration - - Weight 167 kg (369 lb) 07/08/2024 2:51 PM EDT Height 162.6 cm (5' 4 ) 07/08/2024 2:51 PM EDT Body Mass Index 63.34 07/08/2024 2:51 PM EDT documented in this encounter Progress Notes * Marquise Ness, DO - 07/08/2024 2:15 PM EDT Images from the original note were not included. REFERRING PROVIDER: Joe Cazares MD REASON FOR VISIT: r/o symptomatic cholelithiasis versus marginal ulcer HPI: This is a very pleasant 49 y.o.-year-old female who presents for consultation regarding concern forGERD versus marginal ulcer.. The patient reports melena. Patient is on warfarin due to DVT and PE. Patient does have pain with drinking coffee which I explained to her she should be avoiding.. Patient quit smoking. She was seen in [facility] and had CT showing small gall stones. Most of her discomfort is in the epigastric region and towards the left side. Her pain is not always following eating. ROS The following symptom list was reviewed with the patient: GENERAL: fevers, chills, sweats, change in weight, fatigue or malaise HEENT: changes in hearing or vision, nasal problems NECK: lumps, goiter, or significant neck swelling RESPIRATORY: cough, wheezing, shortness of breath, pleuritic chest pain CARDIOVASCULAR: chest pain, leg swelling or palpitations GI: abdominal discomfort, blood in stools or black stools : dysuria, frequency or incontinence MUSCULOSKELETAL: joint pain or swelling, back pain, or muscle pain SKIN: lesions, rash or itching PSYCH: sleep disturbance or depression HEMATOLOGY: prolonged bleeding, easy bruisability or swollen nodes ENDOCRINE: cold or heat intolerance, polyuria, polydipsia or goiter NEURO: persistent headache, syncope, seizures, weakness or numbness The patient reported the following as positive: As per HPI; epigastric pain PAST MEDICAL HISTORY: I personally reviewed the following past medical history with the patient and updated the records as appropriate. Patient Active Problem List Diagnosis Date Noted Bipolar 1 disorder ([facility] V24, [facility] V28) 04/10/2024 DJD (degenerative joint disease), lumbar 04/10/2024 Fibromyalgia 04/10/2024 Hyperlipidemia 04/10/2024 Hypertension 04/10/2024 Osteoarthritis of both knees 04/10/2024 Morbid obesity with BMI of 50.0-59.9, adult ([facility] V24, [facility] V28) 04/10/2024 DVT (deep venous thrombosis) ([facility] V24, [facility] V28) 03/14/2019 Venous insufficiency (chronic) (peripheral) 05/01/2018 Fatty liver 03/08/2018 Radiculopathy of lumbar region 03/08/2018 Persistent proteinuria 03/08/2018 Prediabetes 03/08/2018 PFO (patent foramen ovale) 03/08/2018 Sleep apnea 03/08/2018 Slow transit constipation 03/08/2018 Anxiety and depression 02/27/2018 PAD (peripheral artery disease) ([facility] V24) 02/27/2018 TIA (transient ischemic attack) 02/27/2018 Moderate persistent asthma without complication 02/21/2018 PAST SURGICAL HISTORY: I personally reviewed the following past surgical history with the patient and updated the records as appropriate. Past Surgical History: Procedure Laterality Date GASTRIC BYPASS PROCEDURE: GASTRIC BYPASS FOR OBESIT TUBAL LIGATION PROCEDURE: HISTORICAL TUBAL LIGATION SOCIAL HISTORY: I personally reviewed the following social history with the patient and updated the records as appropriate. Social History Tobacco Use Smoking status: Every Day Current packs/day: 0.50 Types: Cigarettes Smokeless tobacco: Never Substance Use Topics Alcohol use: No FAMILY HISTORY: I personally reviewed the following family medical history with the patient and updated the recordsas appropriate. Family History Problem Relation Name Age of Onset Other (Other: anxiety) Other Other (Other: gastric bypass) Other Other (Other: lipo suction) Other Colon cancer Neg Hx ACTIVE MEDICATIONS: Medication list was reviewed/updated with the patient. No outpatient medications have been marked as taking for the 07/08/24 encounter (Office Visit) with Marquise Ness DO. ALLERGIES: Allergies Allergen Reactions Doxycycline Gold Keratinate Positive patch testing Latex Rash Neomycin Patch testing positive Niacin Trazodone Rash PHYSICAL EXAM: Visit Vitals BP (!) 155/94 Pulse (!) 118 Ht 1.626 m (64 ) Wt 167 kg (369 lb) BMI 63.34 kg/m?? Smoking Status Every Day BSA 2.54 m?? GENERAL: Awake, alert, and in no acute distress. HEAD: Normocephalic, atraumatic. EYES: Pupils equal and round. Anicteric sclera. Conjunctiva normal. NECK: Thyroid midline and without goiter, nodule, tenderness, or mass. No appreciable adenopathy. CHEST: Non-tender. ABDOMEN: Soft, obese abdomen. LYMPH NODES: Cervical and supraclavicular lymph nodes without adenopathy. BACK: Grossly normal range of motion. SKIN: Warm, no lesion or rash noted on visible skin. NEURO: Alert and oriented, appropriate. Motor and sensory grossly intact. LABS: No pertinent labs. IMAGING: T No pertinent imaging. ................................................................................ ............................................................. ASSESSMENT & PLAN: 1. Chest pain due to GERD 2. Hx of gastric bypass Ambulatory referral to Gastroenterology 3. History of Roberson's esophagus 4. Calculus of gallbladder without cholecystitis without obstruction US Abdomen Limited 5. Melena Given patient's hx of gastric bypass, epigastric pain as well as melena, patient should undergo upper endoscopy to rule out marginal ulcer. I will also due US RUQ. If upper endoscopy negative Conrad can refer back to me, if marginal ulcer she may need to establish care with a bariatric surgeon. It was a pleasure seeing Lisa Humphrey at the [facility] today. The patient has been instructed to call with any additional questions or concerns. Thank you for this referral. Dr. Marquise Ness DO General Surgery [facility] A Member of [facility] W [phone] F [phone] [place] [address] [email or web address] Joe Cazares MD documented in this encounter Plan of Treatment Scheduled Orders Name Type Priority Associated Diagnoses Orde r Schedule US Abdomen Limited Imaging Routine Calculus of gallbladder without cholecystitis without obstruction Expected: 07/08/2024, Expires: 07/08/2025 Scheduled Referrals Name Type Priority Associated Diagnoses Order Schedule Ambulatory referral to Gastroenterology Outpatient Referral Routine Hx of gastric bypass 1 Occurrences starting 07/08/2024 until 07/08/2025 documented as of this encounter Visit Diagnoses Diagnosis Chest pain due to GERD- Primary Hx of gastric bypass History of Roberson's esophagus Calculus of gallbladder without cholecystitis without obstruction Melena Blood in stool documented in this encounter Orders Outpatient Referral Count Last Ordered Date Fir st Ordered Date AMB REFERRAL TO GENERAL SURGERY 1 5 documented in this encounter Care Teams Implementation Technician Relationship Specialty Start Date End Date Steven Preston DO [address] [place] [address] PCP - General Internal Medicine 03/12/24 documented as of this encounter
[2024-07-10 10:53] LABS: C Reactive Protein 1.06 mg/dL (< or = 0.50)
[2024-07-10 11:14] LABS: TSH reflex Free T4 0.44 uIU/mL (0.32-4.0)
[2024-07-10 11:22] LABS: HBS Num1 12.88 mIU/mL (0-7.99); HBc Num1 0.07 S/CO (0.00-0.79); HBsAGNum1 0.32 S/CO (0.00-0.99); HIV AB/AG Nonreactive (Nonreactive); HIV Num 1 0.07 S/CO (0.00-0.99); Hepatitis A Antibody IgM 0.13 Index (0-0.79); Hepatitis B Core Antibody Nonreactive (Nonreactive); Hepatitis B Surface Antigen Negative (Negative); ~HepC Num1 0.15 S/CO (0.00-0.79); ~Hepatitis A Antibody IgM Nonreactive (Nonreactive); ~Hepatitis B Surface Antibody REACTIVE (Nonreactive); ~Hepatitis C Antibody Nonreactive (Nonreactive)
[2024-07-10 11:25] LABS: Folate 12.9 ng/mL (> or = 4.0); Vitamin B12 582 pg/mL (200-900)
[2024-07-14 11:44] LABS: Vitamin A 54 mcg/dL (38-98)
[2024-07-14 11:53] LABS: Alpha-Tocopherol 14.8 mg/L (5.7-19.9); Beta-Gamma Tocopherol <1.0 mg/L (<=4.3)
[2024-07-15 01:29] LABS: Vitamin K1 338 pg/mL (130-1500)
[2024-07-16 10:54] LABS: VITAMIN D (1,25 OH) D3 13 pg/mL; Vit D (1,25-Dihydroxy) Total 59 pg/mL (18-72); Vitamin D (1,25 OH) D2 46 pg/mL
== END 2024-07-10 08:06 | disposition home or self-care (01) ==
LOC: HO.LAB 08:05
PROVIDERS: Visit Provider Nurse Practitioner Family
DX: R10.9 Unspecified abdominal pain (principal); E66.01 Morbid (severe) obesity due to excess calories; Z11.59 Encounter for screening for other viral diseases; R79.89 Other specified abnormal findings of blood chemistry
CPT/HCPCS: 36415; 82607; 82652; 82746; 84443; 84446; 84590; 84597; 86140; 86704; 86706; 86709; 86803; 87340; 87389

== ENCOUNTER 2024-07-11 13:58 | Outpatient (REF) | payer OTHER, SELFPAY ==
--- OUTSIDE RECORDS SUMMARY | 2024-07-11 14:21 | XMS_ITS | Encounter Summary ---
Author Organization [facility] Address [address] [place] [address] Care Team Providers Care Recruiting Specialist Name Role Phone Steven Preston DO Primary Care Provider [phone] Reason for Referral * Imaging (Routine) - Pending Review Specialty Diagnoses / Procedures Referred By Pastora t Referred To Contact Radiology Diagnoses Calculus of gallbladder without cholecystitis without obstruction Procedures US Abdomen Limited Marquise Ness DO [address] [address] Phone: tel: fax: [address] [address] Phone: tel: Referral ID Status Reason Start Date Expiration Date V isits Requested Visits Authorized [id number] Pending Review 07/08/2024 07/08/2025 1 1 * Consultation (Routine) - Closed Specialty Diagnoses / Procedures Referred By Contac t Referred To Contact Gastroenterology Diagnoses Hx of gastric bypass Marquise Ness DO [address] [address] Phone: tel: fax: - Gastroenterology [address] [place] [address] [place] [address] Phone: tel: fax: Referral ID Status Reason Start Date Expiration Date V isits Requested Visits Authorized [id number] Closed Specialty Services Required 07/08/2024 07/08/2025 1 1 Reason for Visit * Reason Comments Abdominal Pain * Consultation (Routine) - Authorized Specialty Diagnoses / Procedures Referred By Pastora contreras Referred To Contact General Surgery Diagnoses Calculus of gallbladder Joe Cazares MD [address] [place] [address] Phone: tel: fax: Pablo Ledezma MD [address] [address] Phone: tel: fax: Referral ID Status Reason Start Date Expiration Date Visits Requested Visits Authorized [id number] Authorized Specialty Services Required 07/02/2024 07/02/2025 1 1 Encounter Details Date Type Department Care Team (Latest Contact Info) Description 07/08/2024 2:15 PM EDT Office Visit General Surgery - [place] [address] [address] Marquise Ness DO [address] [address] Chest pain due to GERD (Primary Dx); [...] Patient quit smoking. She was seen in [facility] and had CT showing small gall [...] List Diagnosis Date Noted Bipolar 1 disorder ([facility] V24, [facility] V28) 04/10/2024 DJD (degenerative joint disease), lumbar 04/10/2024 Fibromyalgia 04/10/2024 Hyperlipidemia 04/10/2024 Hypertension 04/10/2024 Osteoarthritis of both knees 04/10/2024 Morbid obesity with BMI of 50.0-59.9, adult ([facility] [place], [facility] V28) 04/10/2024 DVT (deep venous thrombosis) ([facility] [place], [facility] V28) 03/14/2019 Venous insufficiency (chronic) (peripheral) 05/01/2018 Fatty liver 03/08/2018 Radiculopathy of lumbar region 03/08/2018 Persistent proteinuria 03/08/2018 Prediabetes 03/08/2018 PFO (patent foramen ovale) 03/08/2018 Sleep apnea 03/08/2018 Slow transit constipation 03/08/2018 Anxiety and depression 02/27/2018 PAD (peripheral artery disease) ([facility] [place]) 02/27/2018 TIA (transient ischemic attack) 02/27/2018 [...] due US RUQ. If upper endoscopy negative deniapoppyNEETU can refer back to me, if marginal ulcer she may need to establish care with a bariatric surgeon. It was a pleasure seeing Lisa Humphrey at the Surgery [facility] today. The patient has been instructed to call with any additional questions or concerns. Thank you for this referral. Dr. Marquise Ness DO General Surgery [facility] A Member of [facility] W [phone] F [phone] [place] [address] [email or web address] Joe Cazares MD documented in this encounter [...] Date AMB REFERRAL TO GENERAL SURGERY 1 documented in this encounter Care Teams Recruiting Specialist Relationship Specialty Start Date End Date Steven Preston DO [address] [place] [address] PCP - General Internal Medicine 03/12/24 documented as of this encounter
--- OUTSIDE RECORDS SUMMARY | 2024-07-11 14:21 | XMS_ITS | Clinical Summary ---
Author Organization [facility] Address [address] [place] [address] Phone Care Team Providers Care Weigher And Mixer Name Role Phone Steven Preston DO Primary Care Provider [phone] Allergies Active Allergy Reactions Criticality Noted Date [...] by Does not apply route daily. 10/02/19 Active cholecalciferol (VITAMIN D-3) 50 mcg (2,000 [...] Noted Date Diagnosed Date Bipolar 1 disorder ([facility] V24, [facility] V28) DJD (degenerative joint disease), lumbar 025 Fibromyalgia 04/10/2024 Hyperlipidemia 04/10/2024 Hypertension 04/10/2024 Osteoarthritis of both knees 04/10/2024 Morbid obesity with BMI of 5 0.0-59.9, adult ([facility] V24, [facility] V28) 04/10/2024 DVT (deep venous thrombosis) ([facility] V[facility], [facility] V28) 03/14/2019 Venous insufficiency (chronic) (peripheral) 08/2018 [...] 02/27/2018 PAD (peripheral artery disease) ([facility] V[facility]) Overview (04/10/2024): S/p stent lower extremities TIA (transient ischemic attack) 02/27/2018 Moderate persistent asthma without complication 02/21/2018 Encounters Date Type Department Care Team Description 07/08/2024 2:15 PM EDT Office Visit General Surgery [facility] [address] [place] [address] Marquise Ness, DO Chest pain due to GERD (Primary Dx); Hx of gastric bypass; History of Roberson's esophagus; Calculus of gallbladder without cholecystitis without obstruction; Melena 07/02/2024 12:11 AM EDT - 07/02/2024 5:[address] [facility] [address] [place] [address] Joe Cazares MD Calculus of gallbladder without cholecystitis without obstruction (Primary Dx); Acute biliary pancreatitis without infection or necrosis Discharge Disposition: Home or Self Care 05/27/2024 10:00 AM EST Consult Orthopedic Surgery - [address] [address] Bernardo Nelson DPM Arthritis of [...] COMMENT: 3 yrs ago Bipolar 1 disorder ([facility] V24, [facility] V28) DX:Bipolar 1 disorder ([facility]) Asthma DX:Asthma TIA (transient ischemic attack) 02/27/2018 DX:TIA (transient ischemic attack) Anxiety and depression 02/27/2018 DX:Anxiet y and depression PAD (peripheral artery disea se) ([facility] V24) 02/27/2018 DX:PAD (peripheral artery di sease) ([facility]); COMMENT: S/p stent lower extremities H/O gastric bypass 02/27/2018 DX:H/O gastri c bypass Morbid obesity with BMI of 5 0.0-59.9, adult ([facility] V24, [facility] V28) 02/27/2018 DX:Morbid obesity wit h BMI of 50.0-59.9, adult ([facility]) Fatty liver 03/08/2018 DX:Fatty liver; COMMENT: Abdominal [...] by: Miguel Bello DO on 07/02/2024 03:47:08 [facility] Henna Cazares MD IM CT PROCEDURES Final Result * ECG 12 lead (07/01/2024 9:07 PM EDT) Ventricular Rate ECG 71 BPM GEMUSE Atrial Rate 71 BPM GEMUSE P-R Interval 162 ms GEMUSE QRS Duration 92 ms GEMUSE Q-T Interval 392 ms GEMUSE QTc 425 ms GEMUSE P Wave [place] 57 degrees GEMUSE R [place] 50 degrees GEMUSE T [place] 30 degrees GEMUSE ECG Interpretation Normal sinus rhythm Minimal voltage criteria for LVH, may be normal variant ( Sokolow-Han ) Borderline ECG When compared with ECG of 13-JAN-2022 00:38, Premature supraventricular complexes are no longer Present Confirmed by MD Ervin Christopher ([id number]) on 07/04/2024 12:53:26 AM GEMUSE 07/01/2024 9:07 PM EDT 07/04/2024 12:53 AM EDT Joe Cazaers MD ECG ORDERABLES Final Result Performing Organization Address [facility] de Phone Number GEMUSE * Troponin I high sensitivity (07/01/2024 9:00 PM EDT) Pathologist [facility] High Sensitivity Troponin I 3 <=54 ng/L LAB CHEMISTRY METHOD 07/01/2024 9:40 PM EDT [facility] Blood Venous blood specimen / Unknown Venipuncture / Unknown 07/01/2024 9:00 PM EDT 07/01/2024 9:09 PM EDT Narrative [facility] - 07/01/2024 9:40 PM EDT High levels of biotin in samples may falsely decrease hsTroponin values. ??Use caution when interpreting hsTroponin results in patients taking biotin who exhibit renal impairment (eGFR <60) or in patients taking more than 20 mg/day of biotin. Joe Cazares MD LAB BLOOD ORDERABLES Final Resu lt Performing Organization Address [facility] de Phone Number [facility] [address] [place] [address], [place] [phone] * (ABNORMAL) CBC auto differential (07/01/2024 9:00 PM EDT) Pathologist [facility] WBC 10.6 4.8 - 10.8 K/[facility] LAB HEMETOLOGY METHOD 07/01/2024 9:18 PM EDT [facility] RBC 5.20(H) 3.80 - 4.80 M/[facility] LAB HEMETOLOGY METHOD 07/01/2024 9:18 PM EDT [facility] Hemoglobin 13.6 11.5 - 16.0 g/dL LAB HEMETOLOGY [facility]24 [facility] Hematocrit 43.1 35.0 - 47.0 % LAB HEMETOLOGY METHOD [facility]2024 9[facility] MCV 83.0 79.0 - 98.0 FL LAB HEMETOLOGY METHOD 07/01/2024 9:18 PM EDT [facility] MCH 26.2(L) 27.0 - 32.0 pcg LAB HEMETOLOGY METHOD [facility]2024 9[facility] MCHC 31.6(L) 32.0 - 37.0 g/dL LAB HEMETOLOGY METHOD 07/01/2024 9:18 PM [facility] RDW 14.3 11.0 - 15.0 % LAB HEMETOLOGY METHOD 07/01/2024 9:18 PM [facility] Platelets 379 130 - 400 K/mcL LAB HEMETOLOGY METHOD 07/01/2024 9:18 PM [facility] MPV 10.8 7.0 - 11.0 FL LAB HEMETOLOGY METHOD 07/01/2024 9:18 PM [facility] NRBC 0.0 <1.0 % LAB HEMETOLOGY METHOD [facility]/01[facility]2024 9:[facility] NRBC Absolute 0.00 <0.10 K/mcL LAB HEMETOLOGY METHOD 07/01/2024 9:18 PM [facility] Neutrophils Relative 43.5 % LAB HEMETOLOGY METHOD 07/01/2024 9:18 PM [facility] Lymphocytes Relative 45.3 % LAB HEMETOLOGY METHOD 07/01/2024 9:18 PM [facility] Monocytes Relative 7.7 % LAB HEMETOLOGY METHOD 07/01/2024 9:18 PM EDT [facility] Eosinophils Relative 2.6 % LAB HEMETOLOGY METHOD 07/01/2024 9:18 PM EDT [facility] Basophils Relative 0.7 % LAB HEMETOLOGY METHOD 07/01/2024 9:18 PM EDT [facility] Immature Granulocytes Relative 0.2 % LAB HEMETOLOGY METHOD 07/01/2024 9:18 PM EDT [facility] Neutrophils Absolute 4.61 1.50 - 7.00 K/mcL LAB HEMETOLOGY METHOD 07/01/2024 9:18 PM EDT [facility] Lymphocytes Absolute 4.79 1.00 - 5.00 K/mcL LAB HEMETOLOGY METHOD 07/01/2024 9:18 PM EDT [facility] Monocytes Absolute 0.81 0.20 - 1.00 K/mcL LAB HEMETOLOGY METHOD 07/01/2024 9:18 PM EDT [facility] Eosinophils Absolute 0.27 0.00 - 0.50 K/mcL LAB HEMETOLOGY METHOD 07/01/2024 9:18 PM EDT [facility] Basophils Absolute 0.07 0.00 - 0.20 K/mcL LAB HEMETOLOGY METHOD 07/01/2024 9:18 PM EDT [facility] Immature Granulocytes Absolute 0.02 0.00 - 0.03 K/mcL LAB HEMETOLOGY METHOD 07/01/2024 9:18 PM EDT [facility] Blood Venous blood specimen / Unknown Venipuncture / Unknown 07/01/2024 9:00 PM EDT 07/01/2024 9:09 PM EDT us Joe Cazares MD LAB BLOOD ORDERABLES Final Resu lt [facility] [address] [place] [address], [place] [phone] * (ABNORMAL) Lipase (07/01/2024 9:00 PM EDT) [facility] Lipase 159(H) 13 - 75 unit/L LAB CHEMISTRY METHOD 07/01/2024 9:40 PM EDT [facility] Blood Venous blood specimen / Unknown Venipuncture / Unknown 07/01/2024 9:00 PM EDT 07/01/2024 9:09 PM EDT us Joe Cazares MD LAB BLOOD ORDERABLES Final Resu lt [facility] [address] [place] [address], [place] [phone] * (ABNORMAL) Comprehensive metabolic panel (07/01/2024 9:00 PM EDT) [facility] Sodium 138 133 - 145 mmol/L LAB CHEMISTRY METHOD 07/01/2024 9:40 PM [facility] Potassium 3.7 3.5 - 5.5 mmol/L LAB CHEMISTRY METHOD 07/01/2024 9:40 PM [facility] Chloride 102 96 - 110 mmol/L LAB CHEMISTRY METHOD 07/01/2024 9:40 PM [facility] CO2 28 21 - 32 mmol/L LAB CHEMISTRY METHOD 07/01/2024 9:40 PM [facility] Anion Gap 8 3 - 11 LAB CHEMISTRY METHOD 07/01/2024 9:40 PM [facility] Glucose 107(H) 70 - 100 mg/dL LAB CHEMISTRY METHOD 07/01/2024 9:40 PM [facility] BUN 14 5 - 25 mg/dL LAB CHEMISTRY METHOD 07/01/2024 9:40 PM [facility] Creatinine 0.79 0.50 - 1.10 mg/dL LAB CHEMISTRY METHOD 07/01/2024 9:40 PM [facility] eGFR 91 >=60 mL/min/1. 73m2 LAB CHEMISTRY METHOD 07/01/2024 9:40 PM [facility] Comment:Calculation based on the??Chronic Kidney Disease Epidemiology Collaboration (CKD-EPI) equation refit??without adjustment for race. BUN/Creatinine Ratio 17.7 LAB CHEMISTRY METHOD 07/01/2024 9:40 PM [facility] Calcium 9.4 8.5 - 10.5 mg/dL LAB CHEMISTRY METHOD 07/01/2024 9:40 PM [facility] AST (SGOT) 31 10 - 42 unit/L LAB CHEMISTRY METHOD 07/01/2024 9:40 PM [facility] ALT (SGPT) 29 10 - 60 unit/L LAB CHEMISTRY METHOD 07/01/2024 9:40 PM [facility] Alkaline Phosphatase 111 42 - 121 unit/L LAB CHEMISTRY METHOD 07/01/2024 9:40 PM [facility] Total Protein 7.8 6.0 - 8.0 g/dL LAB CHEMISTRY METHOD 07/01/2024 9:40 PM [facility] Albumin 4.0 3.2 - 5.0 g/dL LAB CHEMISTRY METHOD 07/01/2024 9:40 PM [facility] Total Bilirubin 0.9 0.0 - 1.4 mg/dL LAB CHEMISTRY METHOD 07/01/2024 9:40 PM [facility] Blood Venous blood specimen / Unknown Venipuncture / Unknown 07/01/2024 9:00 PM EDT 07/01/2024 9:09 PM EDT us Joe Cazares MD LAB BLOOD ORDERABLES Final Resu lt [facility] [address] [place] [address], * (ABNORMAL) Lipid panel (10/25/2018) LDL/HDL Ratio [...] on 11/22/2017 4:51 PM. Workstation Name - [id number] Procedure Note Felipe Mejia MD - 03/19/2022 [...] MD on 11/22/2017 4:51PM. Workstation Name - [id number] us Sravani Pardo APN IMG BI PROCEDURES Final Resul t from Last 3 Months or Most Recently Relevant to Health Maintenance [place] [address] [place] [address] MEDICARE Member Subscriber Plan / Payer (Ef fective 2019-Present) Name:Lisa Humphrey Phyllis Relation to Subscriber:Self Name:Lisa Humphrey I Payer ID:[id number] Group ID:[id number] Type:Not on file Address: [address] [address] Care Teams Weigher And Mixer Relationship Specialty Start Date End Date Steven Preston DO [address] [place] [id number] PCP - General Internal Medicine 03/12/24
--- OUTSIDE RECORDS SUMMARY | 2024-07-11 14:21 | XMS_ITS | Clinical Summary ---
Author Organization [facility] Address [address] [place] [address] Care Team Providers Care Van Owner Operator Name Role Phone JerricaSravani castro CLIMATOLOGY TEACHER Primary Care Provider [phone] Social History Tobacco Use Types Packs/Day Years [...] MEDICARE PART A & B Care Teams Van Owner Operator Relationship Specialty Start Date End Date Sravani Pardo APRN PCP - General Internal Medicine 12/03/17
--- OUTSIDE RECORDS SUMMARY | 2024-07-11 14:21 | XMS_ITS | Patient Health Record ---
Author Organization [facility] Address [address] [place] [address] Care Team Providers Care Tape Edge Machine Operator Name Role Phone RACHEL CROSS Unavailable [phone] REASON FOR REFERRAL No Information MEDICATIONS Medication [...] [employer]Mee or Options [address] [address] [id number] DIPTI RUFINO Self - patient is the insured
--- OUTSIDE RECORDS SUMMARY | 2024-07-11 14:21 | XMS_ITS | Continuity of Care Document ---
Author Organization [facility] Address [address] [facility] [address] [place] [phone] Phone Care Team Providers Care Home Care Physical Therapist Name Role Phone Evelio Colon MD Unavailable [...] Established 25 Mins [facility], [address], [place], [place], [id number], tel:[phone] [facility] Chronic venous hypertension w oth comp of r low extremVaricose veins of right low extrm w oth complicationsBo dy mass index (BMI) 50-59.9 , adult Oct-0 0 Isaiah Fraser. [address], [address], [place], [place], [id number] . tel: [phone] Referring Provider: Sravani Pardo MSN [facility], [address], [place], [address]. tel:[phone] [facility], [address] [place] [address], [id number], [place] tel:[phone] [facility] [place] [facility] [place] Chronic venous hypertension w oth comp of r low extrem Aug-0 0 Jaylin Michael. [address], [address], [place], [address], [place]. tel: [phone] Referring Provider: Sravani ALCOCER [facility], [address], [place], [address]. tel:[phone] Office/Oupt E&M New Pt 45 Mins [facility], [address] [place] [address], [id number], [place] tel:[phone] [facility] [place] Body mass index (BMI) 50-59.9 , adultEssential (primary) hypertensionChr onic venous htn w oth comp of bilateral low extrmVenous insufficiency (chronic) (peripheral) Sep-2 7-201 8 Jaylin Michael. [address], [address], [place], [address], [place]. tel: [phone] Referring Provider: Sravani ALCOCER [facility], [address], [place], [address]. tel:[phone] [facility], [address] [place] [address], [id number], [place] tel:[phone] [facility] [place] [facility] [place] Chronic venous htn w oth comp of bilateral low extrm Sep-2 7-201 8 Jaylin Michael. [address], [address], [address], . tel:[phone] Referring Provider: Sravani [facility] , [address], [place], [address]. tel:[phone] Family History Family Member Type Diagnosis Age At Onset No Information Payers Payer name Insurance type Covered libertarian ID Susanne cunningham(s) [facility] [id number] Social History Type Description Quantity Date Captured [...] Right leg ordered Referral Ordered: Sravani [facility] timeframe: 1 Month. (related to Essential (primary) [...]
--- OUTSIDE RECORDS SUMMARY | 2024-07-11 14:21 | XMS_ITS | Clinical Summary ---
Author Organization [facility] Address [address] [place] [address] Care Team Providers Care Motor Vehicle Salesperson Name Role Phone Unavailable Primary Care Provider [...] topic Lisa Moore Personal/Famil y Self 1975 (Dorothy) [address] [place] [phone]
--- OUTSIDE RECORDS SUMMARY | 2024-07-11 14:21 | XMS_ITS | Data Portability ---
Author Organization [employer] [employer] Address [address] [place] [phone] Care Team Providers Care Air Pollution Analyst Name Role Phone [facility] Referring Provider [phone] Assessment No assessment recorded. Plan of Treatment [...] Not available Not available Not available 01/22/2024 [id number] RxNorm Not Available [employer] - production [...] /min 97.5 [degF] 100 % 100 % 942429. 288 g 144 mm[Hg] 83 mm[Hg] Not [...] SNOMED-CT Code Diagnosis ICD10 Code Diagnosis Note [id number] Alejandro Mcfarlane MD [employer] [employer] [address] [place] [phone] 08/18/2022 19:12:17 08/21/2022 18:33:24 Eruption [id number] This 47-year-ol d female has had [...] Krishnan Member ID Guarantor Name 08/18/2022 1 [facility] - DOS ON OR AFTER 2022 - DUAL ELIGIBLE - PENITENTIARY OPTIONS AND ONE CARE (MEDICARE REPLACEMENT/ADV ANTAGE - HMO) Lisa Humphrey [id number] Lisa Humphrey Notes Date Note Type Note [...] . No sob Alejandro Mcfarlane MD [address] [facility],[address], [place], [address], [employer] 08/18/2022 19:19:40 OBGyn Episode No OBEpisode recorded.
[2024-07-11 15:37] LABS: CDiff Gene PCR NEGATIVE (Negative)
[2024-07-11 15:59] LABS: Adenovirus F 40/41 Not Detected (Not Detect.); Astrovirus Not Detected (Not Detect.); Campylobacter Not Detected (Not Detect.); Cryptosporidium Not Detected (Not Detect.); Cyclospora cayetanensis Not Detected (Not Detect.); E. coli EAEC Not Detected (Not Detect.); E. coli EPEC Not Detected (Not Detect.); E. coli ETEC Not Detected (Not Detect.); E. coli STEC Not Detected (Not Detect.); Entamoeba histolytica Not Detected (Not Detect.); Giardia lamblia Not Detected (Not Detect.); Norovirus GI/GII Not Detected (Not Detect.); Plesiomonas shigelloides Not Detected (Not Detect.); Rotavirus A Not Detected (Not Detect.); Salmonella Not Detected (Not Detect.); Sapovirus Not Detected (Not Detect.); Shigella sp./EIEC Not Detected (Not Detect.); Vibrio Not Detected (Not Detect.); Vibrio Cholerae Not Detected (Not Detect.); Yersinia enterocolitica Not Detected (Not Detect.)
[2024-07-17 17:04] LABS: Calprotectin, Fecal 275 mcg/g
== END 2024-07-11 13:59 | disposition home or self-care (01) ==
LOC: HO.LNP 13:58
PROVIDERS: Visit Provider Nurse Practitioner Family
DX: R19.7 Diarrhea, unspecified (principal)
CPT/HCPCS: 83993; 87493; 87507

== ENCOUNTER 2025-01-15 07:58 | Outpatient (REF) | payer OTHER, SELFPAY ==
--- NOTE | ~2025-01-15 | CT_ITS ---
EXAMINATION: CT ENTEROGRAPHY ABDOMEN AND PELVIS WITH CONTRAST CLINICAL INFORMATION: R19.5 - Other fecal abnormalities COMPARISON: Abdominal ultrasound January 2024 TECHNIQUE: Study performed with oral VoLumen (1350 mL) and 480 mL of water to distend the abdomen. The patient was injected with 85 mL Omnipaque 350 intravenous contrast which was administered without adverse effect. Coronal and sagittal reformatted images were obtained at the technologist's workstation. This CT examination was performed using dose optimization techniques as appropriate, variously including the following: *Automated exposure control *Adjustment of mA and/or kV according to patient size (this includes techniques or standardized protocols for targeted exams where dose is matched to indication/reason for exam; i.e. extremities or head) *Use of iterative reconstruction technique DLP 1074 mgy/cm FINDINGS: GASTROINTESTINAL FINDINGS: Stomach: Postsurgical changes from gastric bypass. Small intestine: There is mild dilatation of the small bowel at the small bowel anastomosis in the left upper quadrant. Apparent mild wall thickening of the distal afferent loop just proximal to the small bowel anastomosis for example axial image 93 series 3 probably due to underdistention. Small bowel is otherwise normal. Large intestine: Well-distended and normal in appearance. No perirectal changes demonstrated. The appendix is normal. Additional findings: No abnormal enhancement of the vasa recta or significant mesenteric or retroperitoneal lymphadenopathy is seen. No abdominal abscess or fistulous tract demonstrated. ABDOMINAL AND PELVIC CT FINDINGS: Liver, gallbladder, biliary tract: Normal liver. High attenuation dependently in the gallbladder questionable for small gallstones. Gallbladder otherwise normal. No biliary duct dilatation. Pancreas: Normal Spleen: Normal Adrenal glands and kidneys: Normal Ureters and bladder: Normal Lymphovascular structures: There are stents in the bilateral common and external iliac veins. There are pelvic varices. There is a prominent right ovarian vein. Bones: Degenerative changes of the spine. Small umbilical hernia containing fat. Lung bases: Lung bases are clear. CT/CT enterography IMPRESSION: Postsurgical changes following gastric bypass. Mild dilatation of small bowel at the small bowel anastomosis in the left upper quadrant. Apparent mild wall thickening of the distal afferent loop just proximal to the small bowel anastomosis probably due to underdistention. Small and large bowel otherwise normal. Stents in the bilateral common and external iliac veins. Pelvic varices and prominent right ovarian vein. Increased attenuation seen dependently in the gallbladder questionable for small gallstones. Electronically signed by: Elizabeth Martinez MD 01/15/2025 11:13 AM EDT
--- OUTSIDE RECORDS SUMMARY | 2025-01-15 08:00 | XMS_ITS | Data Portability ---
Author Organization [facility], [facility] Address [address] [place] [address] Care Team Providers Care Shipboard Intelligence Analyst Name Role Phone HIM CCA OTHER Assessment Encounter Date Assessment Date Assessment LastModified by Organization Details LastModified Time 08/28/2024 08/28/2024 As noted, we were called to see this patient regarding concerns of COPD. Evaluation in the field was performed by my diet assistant colleague, as noted above, I provided real-time direction and supervision for this visit. The evaluation revealed 49y F with COPD presenting w acute exacerbation w sputum, cough, dyspnea. No WOB, no focal respiratory signs on exam, VSS. Offer neb while on site, needs new refill of MDI albuterol - sent to pharamacy, COVID swab and steroids. Impression: COPD exacerbation Plan: prednisone 40mg x 5, refill albtuerol MDI, admin duonebs Primary care, consider f/u 5-7d to assess and do inhaler refills Disposition: We discussed the diagnostic uncertainty of home visits and the risk associated with this. In this case, the patient and I felt this to be an acceptable and reasonable amount of risk given the benefit of avoiding an ED visit. We discussed the need to seek care urgently/emerge ntly in the setting of any new or worsening serious symptoms, particularly fever chills shob dizziness confusion falls, chest pain, palpitations atilhou Not available 08/28/2024 20:49:59 11/10/2024 11/10/2024 service called for cough found 49 candido with hx COPD HTN CAD c/o 3d x SOB, productive cough, yellow sputum denies fever, chills able continue regular PO intake and regular activities VS af 138/95 92 19 97%RA initial lung exam reveals rales and wheeze LLL field COVID neg Flu neg #Bronchitis surprising marked improvement to douneb x1, resolution of lung findings pt reporting nearly return to baseline -course duoneb -pt to notify service if worsening, new fever/chills -otherwise return to primary team vkudesia Not available 11/10/2024 22:59:03 12/28/2024 12/28/2024 I have reviewed and agree with the assessment and plan as documented by the diet assistant. I provided real time medical direction for this encounter and was immediately available to provide additional phone based assistance as needed. History as noted by diet assistant. Pt with history of HTN, CAD, COPD, and DVT on warfarin. Pt reports she was seen in the ED yesterday with SOB, diagnosed with COPD exacerbation and treated with a neb treatment and prednisone. Pt reports that today, her breathing feels improved but she has developed a pruritic rash with redness on her chest and arms. No fevers. She also notes 1 day of dysuria without hematuria or flank pain. On exam, pt appears comfortable, no distress. Vitals normal. Lungs with mild wheezing. Skin with mild erythema without discrete rash noted on chest and arms. No urticaria or pustules/vesicl es. Urine dip: + leukocytes and nitrite. Impression: Pt with new pruritic rash which appears quite mild with no e/o urticaria or discrete lesions. Etiology unclear. Her breathing has improved since starting on prednisone yesterday but is noted to have mild wheezing on initial exam today. Pt administers her own neb treatment after which her lung exam is now clear with no wheezing. Pt is medicated with po benadryl 25mg for itching and I prescribe benadryl for her to use prn. Pt also reporting dysuria x1 day. No vomiting or fever. Her urinalysis is c/w UTI with leuks and nitrite. UCx sent to [facility]. Pt medicated with Macrobid 100mg po now and I prescribe this bid x5 days. Pt is told to call and f/u with her primary care or [facility] in 2-3 days if her rash and/or UTI symptoms are not improving and to seek medical attention right away in the ED with any worsening or new symptoms, which are reviewed with her. btils Not available 12/28/2024 13:04:15 Plan of Treatment Reminders Order Date Submit Date Provider Last Modified By Organization Details Last Modified Time Details Appointments None recorded. Lab culture, urine 2024 [facility] (Centralized Electronic Ordering - All Locations), Patient Can Go To The Location Of Their Choice, [id number] 22:05:39 urinalysis, dipstick 2024 [facility], [address] [place] [address], [id number] 15:21:33 rapid SARS CoV 2 Ag, QL IA, respiratory specimen 2024 [facility], [address] [place] [address], [id number] 07:57:01 rapid flu (A+B) 2024 [facility], [address] [place] [address], [id number] 07:57:02 rapid SARS CoV 2 Ag, QL IA, respiratory specimen 2024 [facility], [address] [place] [address], [id number] 06:44:07 Referral None recorded. Procedures None recorded. Surgeries None recorded. Imaging None recorded. Medication Orders Macrobid [address] [id number] [address] [place], [address], 05:01:24 Macrobid [address] [id number] [address] [place], [address], 05:01:24 Benadryl 25 [address] capsule [address] [id number] [address] [place], [address], 5 05:01:35 Benadryl 25 mg capsule 2024 025 [id number], [address] [place], [address], 5 05:01:35 ipratropium 0.5 mg-albutero l 3 mg (2.5 mg base)/3 mL nebulizatio n soln [address] [id number] [address] [place], [address], 5 05:01:40 ipratropium 0.5 mg-albutero l 3 mg (2.5 mg base)/3 mL nebulizatio n soln [address] [id number] [address] [place], [address], 5 05:01:40 prednisone [address] tablet [address] [id number] [address] [place], [address], 5 20:46:52 albuterol sulfate HFA 90 mcg/actuati on aerosol inhaler [address] [id number] [address] [place], [address], 5 20:46:52 ipratropium 0.5 mg-albutero l 3 mg (2.5 mg base)/3 mL nebulizatio n soln [address] [id number] [address] [place], [address], 5 05:01:40 Patient TargetsNo targets recorded. Patient InstructionsNo instructions recorded. Reason for Referral None Reported. Results Created Date Observation Date Name Description Value Unit Range Abnormal Flag Note LastModifiedBy Organization Detail LastModifiedTime 12/29/19 25 12/29/2024 URINE CULTU RE, ROUTI NE urine culture, routine Final report Not Available [facility] ([facility]) [address] [facility], [place], [address], 12/31/2024 22:05:39 12/29/1912/29/2024 URINE CULTU RE, ROUTI NE result 1 COMMEN T Cultu re shows less than 10,00 0 colon y formi ng units of bacte kassie per diamante liter of urine . This colon y count is not gener ally consi dered to be clini rashid signi fican t. Not Available [facility] ([facility]) [address] [facility], [place], [address], 12/31/2024 22:05:39 Result Notes None recorded. Medical Equipment None Reported. Allergies Allergen ID Allergen Name Allergen Category Reaction Reaction Severity Criticality Documentation Date Start Date Code Code System Note Provider Name and Address Organization Details Recorded Time 14355 Penicilli n Not available Not available Not available Not available 11/10/20242017 66068 RxNorm Jerry Clark MD [address] [place] [address],[address], [place], [address], [employer] 21:22:02 77672 Product containin g gold and/or gold compound (product) environme nt,medica tion Not available Not available Not available 11/10/2024 82586 2009 SNOMED Jerry Clark MD [address] [place] [address],[address], [place], [address], [employer] 5 21:22:06 97630 trazodone medicatio n rash Not available Not available 11/10/2024 26380 RxNorm Jerry Clark MD [address] [place] [address],[address], [place], [address], [employer] 5 21:22:10 8730 doxycycli ne Not available Not available Not available Not available 01/22/2024 3640 RxNorm Not Available [facility] - production 4 03:46:25 8731 latex environme nt,medica tion Not available Not available Not available 01/22/2024 22604 91 RxNorm Not Available [facility] - production 4 03:46:25 Medications Name Sig Start Date Stop Date Status Note LastModified by Organization Details LastModified Time quetiapine 25 mg tablet TAKE 1 TABLET BY MOUTH EVERY DAY active Not Available Not Available No t Available cyclobenzap rine 10 mg tablet TAKE 1 TABLET BY MOUTH 3 TIMES A DAY IF NEEDED FOR MUSCLE SPASMS FOR UP TO 10 DAYS. active Not Available Not Available No t Available amoxicillin 500 mg capsule TAKE 1 CAPSULE BY MOUTH EVERY 8 HOURS UNTIL GONE 11/10 completed Not Available Not Available Not Available buspirone 5 mg tablet TAKE 1 TABLET BY MOUTH EVERY DAY active Not Available Not Available No t Available metformin 500 mg tablet TAKE 1 TABLET BY MOUTH TWICE A DAY active Not Available Not Available No t Available clonidine HCl 0.1 mg tablet TAKE 1 TABLET BY MOUTH NEEDED FOR ANXIETY DAILY active Not Available Not Available No t Available prednisone 10 mg tablet active Not Available Not Available Not Available atorvastati n 20 mg tablet TAKE 1 TABLET BY MOUTH EVERY DAY active Not Available Not Available No t Available ipratropium 0.5 mg-albutero l 3 mg (2.5 mg base)/3 mL nebulizatio n soln Inhale 3 mL every 4-6 hours by nebulizat ion route as needed for 10 days. 11/27 completed Not Available Not Available Not Available ketoconazol e 2 % shampoo USE DIRECTED EVERY OTHER DAY IN SHOWER active Not Available Not Available No t Available tizanidine 2 mg tablet TAKE 2 TABLETS BY MOUTH DAILY AT BEDTIME active Not Available Not Available No t Available albuterol sulfate 2.5 mg/3 mL (0.083 %) solution for nebulizatio n INHALE 3 ML BY NEBULIZAT ION EVERY 6 HOURS IF NEEDED FOR WHEEZING active Not Available Not Available No t Available ammonium lactate 12 % lotion APPLY TOPICALLY IF NEEDED FOR DRY SKIN. active Not Available Not Available No t Available cetirizine 10 mg tablet active Not Available Not Available Not Available azithromyci n 250 mg tablet TAKE 2 TABLETS BY MOUTH TODAY, THEN TAKE 1 TABLET DAILY FOR 4 DAYS DIRECTED active Not Available Not Available No t Available benzonatate 200 mg capsule TAKE 1 CAPSULE BY MOUTH THREE TIMES A DAY FOR COUGH FOR 7 DAYS active Not Available Not Available No t Available metoprolol succinate ER 50 mg tablet,exte nded release 24 hr TAKE 1 TABLET BY MOUTH EVERY DAY active Not Available Not Available No t Available hydrochloro thiazide 50 mg tablet TAKE 1 TABLET BY MOUTH EVERY DAY IN THE MORNING FOR 90 DAYS active Not Available Not Available No t Available hydroquinon e 4 % topical cream APPLY TO DARK SPOTS ON FACE TWICE DAILY X 4-6 MONTHS active Not Available Not Available No t Available FreeStyle Lancets 28 gauge USE TO TEST BLOOD SUGAR 3 TIMES DAILY INSTRUCTE D active Not Available Not Available No t Available metronidazo le 0.75 % (37.5 mg/5 gram) vaginal gel APPLY 1 APPLICATO RFUL VAGINALLY EVERY DAY AT BEDTIME FOR 5 DAYS active Not Available Not Available No t Available ondansetron HCl 4 mg tablet TAKE 1 TABLET BY MOUTH EVERY DAY FOR 10 DAYS active Not Available Not Available No t Available prednisone 20 mg tablet TAKE 2 TABLETS (40 MG TOTAL) BY MOUTH ONE TIME EACH DAY FOR 5 DAYS. active Not Available Not Available No t Available clonazepam 0.5 mg tablet TAKE 1/2 TO 1 TABLET BY MOUTH ONCE A DAY NEEDED active Not Available Not Available No t Available metoprolol succinate ER 100 mg tablet,exte nded release 24 hr TAKE 1 TABLET BY MOUTH EVERY DAY active Not Available Not Available No t Available permethrin 5 % topical cream APPLY TOPICALLY ONCE TO SKIN FROM HEAD TO SOLES. LEAVE ON 8-10 HOURS THEN WASH OFF active Not Available Not Available No t Available thiamine HCl (vitamin B1) 100 mg tablet TAKE 1 TABLET BY MOUTH EVERY DAY active Not Available Not Available No t Available metronidazo le 500 mg tablet TAKE 1 TABLET BY MOUTH THREE TIMES A DAY FOR 7 DAYS active Not Available Not Available No t Available fluocinonid e 0.05 % topical ointment APPLY TO ARMS, HANDS TWICE DAILY NEEDED FOR FLARES, DECREASE SYMPTOMS IMPROVE active Not Available Not Available No t Available valacyclovi r 500 mg tablet TAKE 1 TABLET BY MOUTH EVERY DAY active Not Available Not Available No t Available sulfamethox azole 800 mg-trimetho prim 160 mg tablet TAKE 1 TABLET BY MOUTH TWICE A DAY X7 DAYS active Not Available Not Available No t Available acetaminoph en 500 mg tablet TAKE 2 TABLETS BY MOUTH 3 TIMES A DAY NEEDED FOR PAIN active Not Available Not Available No t Available guaifenesin 100 mg/5 mL oral liquid TAKE 20 ML BY MOUTH EVERY 6 HOURS,INS TR:WITH FLUIDS active Not Available Not Available No t Available Macrobid 100 mg capsule Take 1 capsule every 12 hours by oral route for 5 days, for UTI. 01/09 completed Not Available Not Available Not Available oxycodone-a cetaminophe n 5 mg-325 mg tablet TAKE 1 TABLET BY MOUTH EVERY 6 HOURS NEEDED FOR PAIN active Not Available Not Available No t Available betamethaso ne, augmented 0.05 % lotion APPLY TO SCALP TWICE A DAY NEEDED FOR ITCH DECREASE USE SYMPTOMS IMPROVE. active Not Available Not Available No t Available amitriptyli ne 25 mg tablet TAKE 3 TABLETS BY MOUTH AT BEDTIME active Not Available Not Available No t Available vitamin A 3,000 mcg (10,000 unit) capsule TAKE 2 CAPSULES BY MOUTH EVERY DAY FOR 3 WEEKS active Not Available Not Available No t Available gabapentin 800 mg tablet TAKE 1 TABLET BY MOUTH THREE TIMES A DAY active Not Available Not Available No t Available dicyclomine 20 mg tablet TAKE 1 TABLET BY MOUTH 2 TIMES A DAY FOR 10 DAYS. active Not Available Not Available No t Available carboxymeth ylcellulose sodium 0.5 % eye drops INSTILL 1 DROP INTO BOTH EYES TWICE DAILY active Not Available Not Available No t Available benzonatate 100 mg capsule TAKE 1 CAPSULE BY MOUTH THREE TIMES A DAY FOR 7 DAYS NEEDED FOR COUGH active Not Available Not Available No t Available oseltamivir 75 mg capsule TAKE 1 CAPSULE BY MOUTH TWICE A DAY FOR 5 DAYS active Not Available Not Available No t Available Banophen 25 mg tablet TAKE 1 CAPSULE BY MOUTH EVERY 6 TO 8 HOURS FOR ITCHING FOR 10 DAYS active Not Available Not Available No t Available esomeprazol e magnesium 40 mg capsule,del ayed release TAKE 1 CAPSULE BY MOUTH EVERY DAY active Not Available Not Available No t Available triamcinolo ne acetonide 0.1 % topical ointment APPLY TO ARMS, TRUNK TWICE DAILY NEEDED FLARES, DECREASE SYMPTOMS IMPROVE active Not Available Not Available No t Available nystatin 100,000 unit/gram topical cream APPLY TO AFFECTED AREA TWICE A DAY FOR 2 WEEKS active Not Available Not Available No t Available warfarin 5 mg tablet 5MG DAILY EXCEPT SUNDAY AND SUNDAY TAKES 7.5MG BY MOUTH active Not Available Not Available No t Available docusate sodium 100 mg capsule TAKE 2 CAPSULES BY MOUTH AT BEDTIME active Not Available Not Available No t Available hydroxyzine HCl 25 mg tablet TAKE 1 TABLET BY MOUTH THREE TIMES A DAY NEEDED active Not Available Not Available No t Available ammonium lactate 12 % topical cream APPLY TO HANDS, FEET DAILY active Not Available Not Available No t Available hydrochloro thiazide 25 mg tablet TAKE 1 TABLET BY MOUTH EVERY DAY active Not Available Not Available No t Available gabapentin 100 mg capsule 1 CAPSULE BY MOUTH 3 TIMES A DAY,INSTR :TAKE WITH GABAPENTI N 800MG THREE TIMES DAILY active Not Available Not Available No t Available lorazepam 1 mg tablet TAKE 1 TABLET BY MOUTH TWICE A DAY active Not Available Not Available No t Available azelastine 137 mcg (0.1 %) nasal spray INSTILL 2 SPRAYS INTO BOTH NOSTRILS TWICE A DAY active Not Available Not Available No t Available methylpredn isolone 4 mg tablets in a dose pack TAKE 6 TABLETS ON DAY 1 DIRECTED ON PACKAGE AND DECREASE BY 1 TAB EACH DAY FOR A TOTAL OF 6 DAYS active Not Available Not Available No t Available albuterol sulfate HFA 90 mcg/actuati on aerosol inhaler INHALE 2 PUFFS EVERY 4 HOURS BY INHALATIO N ROUTE NEEDED active Not Available Not Available No t Available Vitamin D2 1,250 mcg (50,000 unit) capsule TAKE 1 CAPSULE BY MOUTH EVERY WEEK active Not Available Not Available No t Available ketoconazol e 2 % topical cream APPLY TO FACE TWICE A DAY NEEDED FOR FLALRES active Not Available Not Available No t Available morphine 15 mg immediate release tablet TAKE 1 TABLET BY MOUTH EVERY 4 HOURS NEEDED FOR PAIN active Not Available Not Available No t Available ondansetron 4 mg disintegrat ing tablet LET 1 TABLET DISSOLVE ON THE TONGUE THREE TIMES DAILY NEEDED FOR NAUSEA OR VOMITING. active Not Available Not Available No t Available fluticasone propionate 50 mcg/actuati on nasal spray,suspe nsion APPLY 2 SPRAYS IN EACH NOSTRIL ONCE DAILY active Not Available Not Available No t Available betamethaso ne dipropionat e 0.05 % lotion PLEASE SEE ATTACHED FOR DETAILED DIRECTION S active Not Available Not Available No t Available ipratropium bromide 21 mcg (0.03 %) nasal spray TAKE 2 SPRAYS INTO EACH NOSTRIL 2 TIMES PER DAY FOR 7 DAYS active Not Available Not Available No t Available amoxicillin 875 mg-potassiu m clavulanate 125 mg tablet TAKE 1 TABLET BY MOUTH EVERY 12 HOURS FOR 5 DAYS active Not Available Not Available No t Available Benadryl 25 mg capsule Take 1 capsule every 6-8 hours by oral route for 10 days, for itching. 01/145 completed Not Available Not Available Not Available vitamin A palmitate 3,000 mcg (10,000 unit) capsule TAKE 1 CAPSULE BY MOUTH EVERY DAY active Not Available Not Available No t Available azithromyci n 500 mg tablet TAKE 1 TABLET BY MOUTH EVERY DAY FOR 5 DAYS active Not Available Not Available No t Available duloxetine 30 mg capsule,del ayed release TAKE 1 CAPSULE BY MOUTH IN THE MORNING AND 2 CAPSULES BEFORE BED. DO NOT CRUSH OR CHEW active Not Available Not Available No t Available duloxetine 60 mg capsule,del ayed release TAKE 1 CAPSULE BY MOUTH 2 TIMES A DAY DO NOT CRUSH OR CHEW active Not Available Not Available No t Available tizanidine 4 mg capsule active Not Available Not Available Not Available pregabalin 150 mg capsule TAKE 1 CAPSULE BY MOUTH 2 TIMES A DAY X 60 DAYS active Not Available Not Available No t Available chlorhexidi ne gluconate 0.12 % mouthwash PLACE 15 ML (1 CAPFUL) INSIDE CHEEK THEN SPIT OUT TWICE A DAY FOR 14 DAYS active Not Available Not Available No t Available budesonide- formoterol HFA 160 mcg-4.5 mcg/actuati on aerosol inhaler TAKE 2 PUFFS BY MOUTH TWICE A DAY RINSE MOUTH AND THROAT AFTER USE, DO NOT SWALLOW active Not Available Not Available No t Available FreeStyle Lite Strips USE TO CHECK BLOOD SUGAR 3 TIMES DAILY INSTRUCTE D active Not Available Not Available No t Available diclofenac 1 % topical gel active Not Available Not Available Not Available cholecalcif loulou (vitamin D3) 50 mcg (2,000 unit) tablet active Not Available Not Available Not Available roflumilast 500 mcg tablet TAKE 1 TABLET BY MOUTH ONCE DAILY active Not Available Not Available No t Available Linzess 145 mcg capsule active Not Available Not Available Not Available Trulicity 0.75 mg/0.5 mL subcutaneou s pen injector INJECT 0.75 MG SUBCUTANE OUS INJECTION EVERY WEEK,ROTA TE INJECTION SITES active Not Available Not Available No t Available BinaxNOW COVID-19 Ag Self Test kit TEST DIRECTED TODAY active Not Available Not Available No t Available Vitals Date Recorded Respiratory rate Body height Heart rate Body temperature Oxygen saturation Oxygen saturation in Arterial blood by Pulse oximetry Body weight Systolic And Diastolic Provider Name and Address Organization Details Last Updated DateTime 3 16 /min 162.56 cm 85 /min 97.5 [degF] 100 % 100 % 156110. 288 g 144/83 mm[Hg] Not Available [facility] 3 19:12:29 Date Recorded Heart rate Body height Respiratory rate Oxygen saturation Oxygen saturation in Arterial blood by Pulse oximetry Body weight Body temperature Systolic And Diastolic Provider Name and Address Organization Details Last Updated DateTime 5 98 /min 157.48 cm 14 /min 97 % 97 % 912371. 6 g 97.8 [degF] 128/82 mm[Hg] Not Available [facility] 5 20:44:03 Date Recorded Body temperature Body weight Heart rate Body height Oxygen saturation Oxygen saturation in Arterial blood by Pulse oximetry Respiratory rate Systolic And Diastolic Provider Name and Address Organization Details Last Updated DateTime 5 97.8 [degF] 002537. 2 g 92 /min 162.56 cm 97 % 97 % 19 /min 138/95 mm[Hg] Not Available [facility] 5 20:43:14 Date Recorded Oxygen saturation Oxygen saturation in Arterial blood by Pulse oximetry Heart rate Body weight Body temperature Body height Respiratory rate Systolic And Diastolic Provider Name and Address Organization Details Last Updated DateTime 5 97 % 97 % 67 /min 077435. 08 g 98 [degF] 162.56 cm 20 /min 140/70 mm[Hg] Not Available [facility] 11:10:20 Social History None recorded. Functional Status None recorded. Mental Status None recorded. Family History Nothing Reported. Medical History No medical history recorded. Gynecological HistoryNo gynecological history recorded. Obstetrics History GPAL:G 0 P 0 0 0 0 Past Encounters Encounter ID Performer Location Encounter Start Date Encounter Closed Date Diagnosis/Indication Diagnosis SNOMED-CT Code Diagnosis ICD10 Code Diagnosis IMO Codes Diagnosis Note [id number] Alejandro Mcfarlane MD [facility] [address] [place] [address] 08/18/2022 19:12:17 08/21/2022 18:33:24 Eruption [id number] R21 This 47-year-ol d female has had a pruritic rash on her upper trunk and arms for three days with no obvious trigger. Her main complaint is pruritis. I recommende d Benadryl 50 mg 4x daily and hydrocorti sone cream 1% applied twice daily. She will follow-up with her PCP. The patient agreed with this plan. [id number] Marianela Giron MD [address] [address] 08/28/2024 20:44:01 08/29/2024 15:36:11 Acute exacerbation of chronic obstructive pulmonary disease 240646761 J44.1 292908 Viral uppe r respiratory tract infection 358144794 J06.9 [id number] Jerry Clark MD [place] [phone] 11/10/2024 20:43:06 11/11/2024 09:33:35 Acute cough [id number] 57935903 R05.8 [id number] Augustus Magana MD [place] [address] 12/28/2024 11:10:17 12/29/2024 13:27:44 Eruption [id number] R21 73505 Urinary sy stem finding [id number] R39.9 6004040 Health Concerns Section Related Observation LastModified by Organization Detai ls LastModified Time None Recorded Concern Status LastModified by Organization Details LastModified Time None Recorded Advance Directives Directive None Recorded Payers Insurance Date Sequence Insurance Name Policy Number Policy Krishnan Covered Member ID Krishnan Member ID Guarantor Name 01/14/2025 1 [facility] - DOS ON OR AFTER 2022 - DUAL ELIGIBLE - [facility] [employer] AND [employer] (MEDICARE REPLACEMENT/AD VANTAGE - HMO) Lisa Humphrey [id number] Lisa Humphrey Notes Date Note Type Note Provider Name and Address Organization Details Recorded Time 08/18/2022 text/html ROS as noted in the HPI [facility] Nursing Assessment: Reason For Request: rash [...] . No sob Alejandro Mcfarlane MD [address] [facility],[address], [place], [address], [place] 08/18/2022 19:19:40 08/28/2024 text/html CRC Nurse Triage Notes (Aisha Vasquez): Reason For Request: Pt stated her lungs feel stuffed, she has no mucus and is not having a hard time breathing, nose is itchy Patient Reports: Lower extremity swelling; History of asthma, increased use of inhaler; COPD; Cough; Shortness of breath with exertion Denies: Increased work of breathing/labored with or without fever Unable to speak in full sentences without distress Discoloration of skin -cyanosis Needs to sleep sitting up, can t catch breath Shortness of breath in setting of confusion Cough, fever greater than 2 days COVID Exposure Sputum increase Pain with inspiration Chief Complaints: Breathing Problems, Common Cold, Fever PMH: COPD/Asthma, Hypertension, Coronary Artery Disease PMH Reviewed at 08/28/2024:43 Allergies Reviewed at 08/28/2024:43 Comments: 49 y.o female complains of Breathing Problems, Common Cold, Fever/chills. SOB w/ coughing fits, non-productive cough. hx of asthma-using her inhalers. c/o feeling congested, no recent exposures and no new meds prescribed. Will place referral for URI workup. I provided information on the mobile health provider response time and advised the patient and/or caregiver to monitor reported signs and symptoms. I discussed the warning signs of when to seek emergency care. Captain Waiter/Waitress Organization Information for Juanito Bailey Rypos Legal Name: [facility] Transportation Address: [address] [place] [address], [place] [id number], Supervisor Forming Department: Baldemar Gan MD CLIA No.: [id number] Captain Waiter/Waitress POC Test Results from Juanito Bailey Rapid COVID antigen (20:56:07) COVID: - Rapid influenza antigen (20:56:07) Flu: - ..................... ..................... ..................... ..................... ..................... ..................... ............... Captain Waiter/Waitress Note From Juanito Bailey: Patient alert and oriented complains of cough, nonproductive times five days. Patient reports cough on and off over the last several weeks. Patient reports using albuterol and budesonide. Patient reports history of COPD exacerbation, was treated with Z-Abilio and prednisone. Patient reports that was months ago. Patient denies vomiting, diarrhea, chest pain, weakness, dizziness, dysuria, or any other pain or complaints. Patient pink warm dry lung sounds rhoncii throughout negative increase work of breathing positive full sentences abdomen soft and tender extremities unremarkable. Tests and medication administered as ordered without complication using five rights. Red flags patient education discussed. Patient demonstrates understanding of care and plan and reports she l l be able to obtain medication tonight. [facility] Lab Orders: rapid SARS CoV 2 Ag, QL IA, respiratory specimen: Performed [facility] Medication Orders: ipratropium 0.5 mg-albuterol 3 mg (2.5 mg base)/3 mL nebulization soln: Administered ..................... ..................... ..................... ..................... ..................... ..................... ............... [facility] Consulted: Marianela Giron ..................... ..................... ..................... ..................... ..................... ..................... ............... Disposition: Nori Marianela Giron MD [address] [facility],[address], [place], [address], Savio[place] 08/28/2024 21:49:04 11/10/2024 text/html [facility] Nurse Triage Notes (Kimmie Rhodes): Reason For Request: Pt reporting having bronchitis>lots of chest congestion>eye pain on the inside>feels as if she might faint> Denies: Increased work of breathing/labored with or without fever Unable to speak in full sentences without distress Discoloration of skin -cyanosis Needs to sleep sitting up, can t catch breath Shortness of breath in setting of confusion Chief Complaints: Common Cold PMH: COPD/Asthma, Hypertension, Coronary Artery Disease PMH Reviewed at 11/10/2024 - :40 Allergies Reviewed at 11/10/2024:40 Comments: 49 y.o female complains of Common Cold Patient calling in to place a referral. Patient with cold symptoms for 3 days. Patient reports a productive cough with yellow phlegm, sore throat, chest congestion, KINNEY and dizziness, +chills and +nausea. She denies chest pain, no fevers, no vomiting or diarrhea, no headaches. She has a neb and inhaler that help with breathing, but not the congestion or mucous. She has not taken any OTC medications. She would like to be evaluated. I provided information on the mobile health provider response time and advised the patient and/or caregiver to monitor reported signs and symptoms. I discussed the warning signs of when to seek emergency care. Captain Waiter/Waitress Organization Information for [facility] Legal Name: [facility] Address: [address] [place] [address], [place] [id number], [place] Supervisor Forming Department: Baldemar ORTEZ No.: [id number] Captain Waiter/Waitress POC Test Results from [facility] San - ALS Rapid COVID antigen (20:38:21) COVID: - Attachments uploaded as part of this test result can be found under Documents section. Rapid influenza antigen (20:38:22) Flu: - Attachments uploaded as part of this test result can be found under Documents section. ..................... ..................... ..................... ..................... ..................... ..................... ............... Captain Waiter/Waitress Note From Rachel Sanbrigitte: Pt chief complaint today of cold/ flu like symptoms as well as dizziness and shortness of breath. Pt states that all signs and symptoms have been occurring for the past 72 hours prior to [facility] arrival at scene today. Pt toes that today her symptoms have been come so severe that while she was driving she noted dizziness and pressure behind her eyes. Pt also notes a rather productive cough with green mucus. Pt also notes chest congestion. Pt states that she has been using her albuterol nebulizer with some positive effect every 4 hours as needed. Pt today would appreciate a general assesment as well as possible treatment. Pt today denies any cp, nvd, changes in vision as well as abdominal pain. Pt allergies noted to doxycycline. Nonneural focal exam, afebrile, vitals are WNL for the baseline of the pt. Pt is able to ambulate at her baseline with no assistance of a walking device or person. Lungs present with lower lobe wheezing on expiration as well as crackles and rales on the left lung. Benign abdominal assesment as well as no new and or worsening signs of lower extremity edema are noted. POC Covid test noted as negative. Pt is CAOX4 with a GCS of 15. [facility] Jerry Clark consulted. Pt informed of findings. Pt given a dose of albuterol and atrovent nebulizer to assist with breathing. Pt informs [facility] that she feels significantly better during and after treatment. Pt lungs are noted clear in all davis after treatment. Pt sent a prescription of combo Duoneb to her local pharmacy. Pt informed to call her PA[employer]ROLL SECRETARY at [facility] for follow up. Pt educated on red flag S&S and told to contact emergency services if any present. [facility] Medication Orders: ipratropium 0.5 mg-albuterol 3 mg (2.5 mg base)/3 mL nebulization soln: Administered ..................... ..................... ..................... ..................... ..................... ..................... ............... [facility] Consulted: Jerry Clark ..................... ..................... ..................... ..................... ..................... ..................... ............... Disposition: Nori Clark MD [address] [facility],[address], [place], [phone], Savioke 11/10/2024 22:59:23 12/28/2024 text/html ROS as noted in the HPI This was a supervised home visit with diet assistant Kimmie Vela. [facility] Nurse Triage Notes (Casper Edmond): Reason For Request: Patient was just released from the ER, and had breathing problems, Now she is having breathing problems and now red allred all over her body, maybe hives - and her skin feels hot. Patient Reports: RashDenies: Kamara Flash, circumferential kamara Kamara reported with black tissue to the area Open skin area after a fall with uncontrolled bleeding Abscess/infection with streaking noted, presence of fever or without Chief Complaints: RashPMH: COPD/Asthma, Hypertension, Coronary Artery DiseasePMH Reviewed at 12/27/2024:35Allergies Reviewed at 12/27/2024:35Comments: 49 y.o female complains of Rash Pt reports feeling unwell - Seen in the emergency room yesterday - Asthma Started on prednisone - History of taking same Pt reports having hives on her chest, Arms and hands - Hot to the touch Raised - redness - Itchiness On blood thinners Reports taking Claritin with some relief Denies SOB Wellness check requested on 12/28 I provided information on the mobile health provider response time and advised the patient and/or caregiver to monitor reported signs and symptoms. I discussed the warning signs of when to seek emergency care. Captain Waiter/Waitress Organization Information for Kimmie Vela Business Legal Name: [employer] Address: [address] [place] [address], Supervisor Forming Department: Noam Pierson MD CLIA No.: [id number] Captain Waiter/Waitress POC Test Results from Kimmie Vela Urine Dipstick (11:16:43) Urine leukocytes: 15LEU Urine nitrites: +NIT Urine urobilinogen: 0.2URO Urine protein: 15PRO Urine pH: 5.0pH Urine blood: -BLO Urine specific gravity: 1.0SG Urine ketones: 5KET Urine bilirubin: 1BIL Urine glucose: -GLU Attachments uploaded as part of this test result can be found under Documents section. ..................... ..................... ..................... ..................... ..................... ..................... ............... Captain Waiter/Waitress Note From Kimmie Vela: 49 yof requesting visit for rash. Upon arrival, pt was found sitting in a chair at the table in no visible distress. There were no apparent life threats at this time. Pt denies SOB or CP. Skin was hot and dry on the upper extremities where rash is. Rash is on both upper extremities and chest. Rash is red, but even, not blotchy. Does not look like urticaria. Wheezes were auscultated on the right side. Pt stated she is due for home neb treatment. Abdomen was soft non-tender. No edema. Remainder of pt exam was unremarkable. Pt reports itchy, hot skin on both arms and chest. Pt states she was recently in the ER and treated for a COPD exacerbation. Pt sent home with prednisone and has take two doses so far. Rash started after the prednisone. Pt also reports burning with urination and lower flank pain. Vitals were assessed and were all stable. The patient did a neb treatment while seated at the table, waiting. [facility] contacted, Dr. Guzmán ordered a urine dip and send out and requested photos of rash. Photos uploaded. Dip results uploaded. Specimen collected for send out. [facility] prescribed 25mg of benadryl and 100mg macrobid to be taken now from [employer] formulary. Benadryl and macrobid scripts sent to pts pharmacy. No further orders. [facility] Lab Orders: culture, urine: Performed urinalysis, dipstick: Performed ..................... ..................... ..................... ..................... ..................... ..................... ............... [facility] Consulted: Augustus Magana ..................... ..................... ..................... ..................... ..................... ..................... ............... Disposition: Fulfilled Augustus Magana MD [address] [place] [address],[address] [facility], [place], [phone], YASMIN DELANEY 12/28/2024 14:16:06 OBGyn Episode No OBEpisode recorded.
--- OUTSIDE RECORDS SUMMARY | 2025-01-15 08:00 | XMS_ITS | Data Portability ---
Author Organization [place] - [facility] Address [address] [place] [id number] Care Team Providers Care Outer Diameter Technician Name Role Phone [facility] Primary Care Provider Assessment Encounter Date Assessment [...] days Thank [facility]. We cannot always find the exact [...] in your condition between 8am-10pm, please call [facility] at [phone] to help navigate your care. In order to obtain further information and compare any laboratory results/values, I have accessed patient records on the [facility] [employer]. This information was pertinent in [...] after care of this patient according to [facility] infection prevention protocols. In order to obtain further information and compare any laboratory results/values, I have accessed old patient records. This information was pertinent in my medical decision making today. Not available 11/14/2020 12:19:35 03/22/2021 03/22/2021 Overview/History : 45 y/o F with PMH of HTN, HLD, CAD, Asthma, PE, TIA, Hx of DVT, hx of IL, and Fibromyalgia, known to but new to [...] PCR test ordered, obtained and sent to [facility]. Plan/Discussion: Discussed with patient that her rapid [...] after care of this patient [facility]. Not available 03/22/2021 09:10:59 [...] could possibly develope from this respiratory illness. [email or web address] Not available 04/28/2021 15:38:53 12/04/2022 12/04/2022 Time [...] after care of this patient [facility]. [email or web address] Not available 12/04/2022 09:56:55 Plan of Treatment Reminders Order Date Submit Date Provider Last Modified By Organization Details Last Modified Time Details Appointments None recorded. Lab unlisted lab - covid-19 (novel coronavirus ) PCR 2021 022 FLAQUITA [facility] (Centralized Electronic Ordering - All Locations), Patient Can Go To The Location Of Their Choice, [address] 01:35:37 rapid SARS CoV 2 Ag, QL IA, respiratory specimen 2020 [email or web address] Spr - Home, [address], [place], [address], 08:56:45 unlisted lab - covid-19 (novel coronavirus ) PCR 2020 FLAQUITA [facility] (Centralized Electronic Ordering - All Locations), Patient Can Go To The Location Of Their Choice, [id number] 15:49:59 culture, urine - [facility] FLAQUITA [facility] (Centralized Electronic Ordering - All Locations), Patient Can Go To The Location Of Their Choice, [address] 06:41:44 urinalysis, dipstick 2020 [email or web address] Spr - Home, [address], [place], [address], 12:07:07 unlisted lab - covid-19 (novel coronavirus ) PCR 2020 FLAQUITA [facility] (Centralized Electronic Ordering - All Locations), Patient Can Go To The Location Of Their Choice, [address] 21:26:24 streptococc us group A, culture, throat 2020 FLAQUITA [facility] (Centralized Electronic Ordering - All Locations), Patient Can Go To The Location Of Their Choice, [address] 11:45:37 streptococc us group B, culture, unspecified specimen 2020 [email or web address] [facility] (Centralized Electronic Ordering - All Locations), Patient Can Go To The Location Of Their Choice, [address] 14:10:21 hepatic function panel, serum 2020 FLAQUITA [facility] (Centralized Electronic Ordering - All Locations), Patient Can Go To The Location Of Their Choice, 02:36:43 PT/INR 2020 FLAQUITA [facility] (Centralized Electronic Ordering - All Locations), Patient Can Go To The Location Of Their Choice, 02:54:34 fecal occult blood, stool [email or web address], [address] [place], [address], 20:48:32 activated partial thromboplas tin time, coagulation assay, blood 2020 [facility]), Patient Can Go To The Location Of Their Choice, 02:22:52 CBC w/ auto diff 2020 [facility]), Patient Can Go To The Location Of Their Choice, 02:27:52 BMP + ionized calcium, serum or plasma 2020 [facility], [address] [place], [address], 05:01:06 Referral None recorded. Procedures None recorded. Surgeries None recorded. Imaging None recorded. Medication Orders fluticasone propionate 50 mcg/actuati on nasal spray,suspe nsion 2020 [email or web address] 5 [id number], [address] [place], [address], 3 09:14:48 Patient TargetsNo targets recorded. Patient Instructions Encounter Date Encounter Id Patient Instructions Last Modified By Organization Details Last Modified Time 08/19/2020 [id number] Lab ResultsBMP + ionized calcium, serum or plasma glu: 140mg/dL ref: 70-105 BUN: 24mg/dL ref: 8-26 crea: 0.8mg/dL ref: 0.6-1.3 Na: 139mmol/L ref: 138-146 K: 3.6mmol/L ref: 3.5-4.9 cL: 102mmol/L ref: 98-109 TCO2: 28mmol/L ref: 24-29 angap: 13mmol/L ref: 10-20 ica: 1.15mmol/L ref: 1.12-1.32 HCT: 42%pcv ref: 38-51 Hb: 14.3g/dL ref: 12-17 [id number] Not available 08/19/2020 20:29:47 11/14/2020 [id number] Please seek care immediately if you develop any of the following symptoms: 1. Uncontrolled fever of at least 101 F or 38.4 C 2. Throat pain that is severe or [...] condition between 8am-10pm, please call [facility] at [phone] to help navigate your care. Not available 11/14/2020 11:52:42 03/22/2021 [id number] Thank you for yo ur visit with [facility] today. We cannot always find the exact cause of your symptoms during your initial visit. Please follow up with your primary care provider or specialist within 24-48 hours to be rechecked or seek medical attention if your symptoms do not go away or get worse. If you develop any new or worsening symptoms and need after hours care, please go to nearest ER and/or call 911. If you have additional concerns or develop a change in your condition between 8am-10pm, please call [facility] at [phone] to help navigate your care. Not available 03/22/2021 09:11:49 12/04/2022 [id number] Thank you for yo ur visit with [facility] today. We cannot always find the exact cause of your symptoms during your initial visit. Please follow up with your primary care provider or specialist within 2-3 days to be rechecked or seek medical attention if your symptoms do not go away or get worse. If you develop any new or worsening symptoms and need after hours care, please go to nearest ER and/or call 911. If you have additional concerns or develop a change in your condition between 8am-10pm, please call [facility] at [phone] to help navigate your care. Not available 12/04/2022 09:57:27 Reason for Referral None Reported. Results Created Date Observation Date Name Description Value Unit Range Abnormal Flag Note LastModifiedBy Organization Detail LastModifiedTime 08/20/1908/19/2020 fecal occul t blood , stool Occult Blood negati ve Not Available [facility] - Home [address], [place], [address], 08/19/2020 20:34:55 08/20/1908/19/2020 fecal occul t blood , stool Control Visual ized / Valid Not Available Spr - Home [address], [place], [address], 08/19/2020 20:34:55 08/20/1908/20/2020 activ ated parti al throm bopla stin [...] The Location Of Their Choice, 08/20/2020 02:36:43 08/20/1913 0808/20/2020 hepat ic funct ion panel , serum total protein 7.0 gm/dL (6.2-8 .2) Not Available [facility] (Centralized Electronic Ordering - All Locations) Patient Can Go To The Location Of Their Choice, 08/20/2020 02:36:43 08/20/19 21 08/20/2020 PT/IN R protime 10.9 sec (9.2-1 1.4) [...] Available [facility] [address] [place], [address], 08/19/2020 20:28:40 08/20/19 21 08/19/2020 BMP + ioniz ed calci um, serum or plasm a BUN 24 mg/dL 8-26 Not Available [facility] [address] [place], [address], 08/19/2020 20:28:40 08/20/19 21 08/19/2020 BMP + ioniz ed calci um, serum or plasm a crea 0.8 mg/dL 0.6-1. 3 Not Available [address], [address], 08/19/2020 20:28:40 08/20/19 21 08/19/2020 BMP + ioniz ed calci um, serum or plasm a Na 139 mmol/ L 138-14 6 Not Available [address], [address], 08/19/2020 20:28:40 08/20/19 21 08/19/2020 BMP + ioniz ed calci um, serum or plasm a K 3.6 mmol/ L 3.5-4. 9 Not Available [address], [address], 08/19/2020 20:28:40 08/20/19 21 08/19/2020 BMP + ioniz ed calci um, serum or plasm a cL 102 mmol/ L 98-109 Not Available [address], [address], 08/19/2020 20:28:40 08/20/19 21 08/19/2020 BMP + ioniz ed calci um, serum or plasm a TCO2 28 mmol/ L 24-29 Not Available [address], [address], 08/19/2020 20:28:40 08/20/19 21 08/19/2020 BMP + ioniz ed calci um, serum or plasm a angap 13 mmol/ L 10-20 Not Available [address], [address], 08/19/2020 20:28:40 08/20/19 21 08/19/2020 BMP + ioniz ed calci um, serum or plasm a ica 1.15 mmol/ L 1.12-1 .32 Not Available [address], [address], 08/19/2020 20:28:40 08/20/19 21 08/19/2020 BMP + ioniz ed calci um, serum or plasm a HCT 42 %pcv 38-51 Not Available [facility] [address] [place], [address], 08/19/2020 20:28:40 08/20/19 21 08/19/2020 BMP + ioniz ed calci um, serum or plasm a Hb 14.3 g/dL 12-17 Not Available [facility] [address] [place], [address], 08/19/2020 20:28:40 11/15/19 21 11/15/2020 COVID -19 (NOVE L CORON AVIRU S) PCR covid-19 PCR result (neg) NEGAT FATIMAH 2018- novel Coron aviru s (2018 -nCoV ) not detec brianne by real- time RT-PC R. Note: If clini rubi suspi cion for COVID -19 is high, patrick nue to maint ain preca ution s and consi rosa repea t testi ng. Resul t repor brianne to the [facility]. To preve nt error s [...] perfo rmed by real time PCR utili zing ANG [employer]0 SARS- CoV-2 test. Not Available [facility] (Centralized Electronic Ordering - All Locations) Patient Can Go To The Location Of Their Choice, [id number] 11/15/2020 21:26:24 11/15/19 21 11/15/2020 COVID -19 (NOVE L [...] Their Choice, 11/16/2020 06:41:43 11/15/19 21 11/15/2020 URINE CULTU RE special requests NONE Not Available [facility] (Centralized [facility] Ordering - All Locations) Patient Can Go To The Location Of Their Choice, 11/16/2020 06:41:43 11/15/19 21 11/16/2020 URINE CULTU RE culture NO GROWTH Not [...] Go To The Location Of Their Choice, 11/18/2020 11:45:37 11/15/19 21 11/15/2020 GROUP A STREP CULT. special requests NONE Not Available [facility] (Centralized Electronic Ordering - All Locations) Patient Can Go To The Location Of Their Choice, 11/18/2020 11:45:37 11/15/1911/18/2020 GROUP A STREP CULT. culture NO GROUP A BETA HEMOLY TIC STREPT OCOCCI ISOLAT ED Not Available [facility] (Centralized Electronic Ordering - All Locations) Patient Can Go To The Location Of Their Choice, 11/18/2020 11:45:37 11/15/19 11/18/2020 GROUP A STREP CULT. report status FINAL 2020 Not Available [facility] (Centralized Electronic Ordering - All Locations) Patient Can Go To The Location Of Their Choice, [id number] 11/18/2020 11:45:37 11/15/1911/14/2020 urina lysis , dipst ick Appearance clear Not Available Spr - [facility] [address], [place], [address], 11/14/2020 12:03:28 11/15/1911/14/2020 urina lysis , dipst ick Color yellow Not Available Spr - Home [address] [place], [address], 11/14/2020 12:03:28 11/15/1911/14/2020 urina lysis , dipst ick Glucose (ref: neg) Neg Not Available [facility] - Home [address] [place], [address], 11/14/2020 12:03:28 11/15/19 21 11/14/2020 urina lysis , dipst ick Bilirubin (ref: neg) Neg Not Available [facility] - Home [address] [place], [address], 11/14/2020 12:03:28 11/15/19 21 11/14/2020 urina lysis , dipst ick Ketones (ref: neg) Neg Not Available [facility] - Home [address], [place], [address], 11/14/2020 12:03:28 11/15/19 21 11/14/2020 urina lysis , dipst ick Specific [place] (ref: 1.003 - 1.035) 1.015 Not Available [facility] - Home [address] [place], [address], 11/14/2020 12:03:28 11/15/19 21 11/14/2020 urina lysis , dipst ick Blood (ref: neg) Neg Not Available [facility] - Home [address] [place], [address], 11/14/2020 12:03:28 11/15/19 21 11/14/2020 urina lysis , dipst ick pH (ref: 5-7) 7.5 Not Available [facility] [address] [place], [address], 11/14/2020 12:03:28 11/15/19 21 11/14/2020 urina lysis , dipst ick Protein (ref: neg) Not Available [facility] [address] [place], [address], 11/14/2020 12:03:28 11/15/19 21 11/14/2020 urina lysis , dipst ick Urobilinogen (ref: 0.2) 0 Not Available [facility] [address] [place], [address], 11/14/2020 12:03:28 11/15/19 21 11/14/2020 urina lysis , dipst ick Nitrites (ref: neg) negati ve Not Available [facility] [address] [place], [address], 11/14/2020 12:03:28 11/15/19 21 11/14/2020 urina lysis , dipst ick Leukocytes (ref: neg) Neg Not Available [facility] [address] [place], [address], 11/14/2020 12:03:28 03/22/20 21 03/23/2021 COVID -19 (NOVE L CORON AVIRU S) PCR covid-19 PCR specimen source NASAL Not Available [facility] (Centralized Electronic Ordering - All Locations) Patient Can Go To The Location Of Their Choice, [id number] 03/25/2021 15:49:59 03/22/20 21 03/25/2021 COVID -19 (NOVE L CORON AVIRU S) PCR covid-19 PCR result (neg) normal NEGAT FATIMAH 2019- novel Coron aviru s (2019 -nCoV ) not detec brianne by real- time RT-PC R. Note: If clini rubi suspi cion for COVID -19 is high, patrick nue to maint ain preca ution s and consi rosa repea t testi ng. Resul t repor brianne to the [facility]. To preve nt error s [...] perfo rmed by real time PCR utili [employer]0 SARS- CoV-2 test. Not Available [facility] (Centralized Electronic Ordering - All Locations) Patient Can Go To The Location Of Their Choice, [facility] 03/25/2021 15:49:59 03/22/20 21 03/22/2021 rapid SARS CoV 2 Ag, QL IA, respi rator y speci men Covid-19 (ref: neg) negati ve Not Available [facility] [address] [place] [address], [address], 03/22/2021 08:56:10 03/22/20 21 03/22/2021 rapid SARS CoV 2 Ag, QL IA, respi rator y speci men Control Visual ized/V alid Not Available [facility] [address] [place], [address], 03/22/2021 08:56:10 03/22/20 21 03/22/2021 rapid SARS CoV 2 Ag, QL IA, respi rator y speci men Location [facility], [facility], [address] [place] [address], [id number] Not Available [facility] [address] [place], [address], 03/22/2021 08:56:10 04/28/19 22 04/30/2021 COVID -19 (NOVE L CORON AVIRU S) PCR covid-19 PCR result (neg) abnormal POSIT FATIMAH Posit fatimah for detec tion of 2019- novel Coron aviru s (2019 -nCoV ) by qRT-P CR. Resul t repor brianne to the [facility]. This test has been autho rized by the FDA under an Emerg ency Use Autho rizat ion (EUA) for use by autho rized labor atori es. Test perfo rmed by Clini rubi [facility] [employer] at the [facility] and Gerard romero, [address] [place] [address] . CLIA ID: [id number] , CAP: [id number] 96. Medic al Direc tor: Luisana Crump, PhD FACMG (NOTE ) The [facility] SARS- CoV-2 Real- time Rever se [...] Testi ng is limit ed to the [facility] [employer] or at the [facility] which is certi fied under the Clini [...] Go To The Location Of Their Choice, [id number] 05/02/2021 01:35:37 Result Notes None recorded. Problems Name Problem SNOMED Code Status Onset Date Resolution Date Notes Provider Name and Address Organization Details Recorded Time Asthma 727578822 Active 019 ARIADNA TELLES NP [address] [place], [address] , [place] [facility] 20:00:59 Problem Notes None recorded. Procedures Surgical History Date Name Laterality Status Provider Name and Address Organization Details Recorded Time 08/20/19 21 Venipuncture - DH completed ALIRIO AVILA [address], [place], [address], [place] - [facility] 08/19/2020 21:27:37 Gastric bypass for obesity completed ALIRIO Flanagan [address], [place], [address], [place] [facility] 12/04/2022 09:17:15 Imaging Results None recorded. Procedure Notes None recorded. Medical Equipment None Reported. Allergies Allergen ID Allergen Name Allergen Category Reaction Reaction Severity Criticality Documentation Date Start Date Code Code System Note Provider Name and Address Organization Details Recorded Time 132874 latex environme nt,medica tion Not available Not available Not available 03/22/2021 98253 91 RxNorm ALIRIO OJEDA [address] [place], [address], [place] [facility] 08:45:11 Medications Name Sig Start Date [...] Not Available Not Available Vitals Date Recorded Body temperature Oxygen saturation Oxygen saturation in Arterial blood by Pulse oximetry Respiratory rate Heart rate Systolic And Diastolic Provider Name and Address Organization Details Last Updated DateTime 2 98.7 [degF] 97 % 97 % 20 /min 76 /min 148/82 mm[Hg] Not Available [facility] 2 14:59:01 Date Recorded Oxygen saturation Oxygen saturation in Arterial blood by Pulse oximetry Heart rate Body temperature Respiratory rate Systolic And Diastolic Provider Name and Address Organization Details Last Updated DateTime 1 97 % 97 % 66 /min 96.7 [degF] 20 /min 118/78 mm[Hg] Not Available [facility] 1 20:01:03 Date Recorded Heart rate Body temperature Respiratory rate Oxygen saturation Oxygen saturation in Arterial blood by Pulse oximetry Systolic And Diastolic Provider Name and Address Organization Details Last Updated DateTime 1 65 /min 98.2 [degF] 18 /min 100 % 100 % 138/70 mm[Hg] Not Available [facility] 1 11:54:28 Date Recorded Heart rate Respiratory rate Body temperature Oxygen saturation Oxygen saturation in Arterial blood by Pulse oximetry Systolic And Diastolic Provider Name and Address Organization Details Last Updated DateTime 3 70 /min 18 /min 97 [degF] 97 % 97 % 142/78 mm[Hg] Not Available [facility] 3 09:15:14 Date Recorded Respiratory rate Body temperature Heart rate Oxygen saturation Oxygen saturation in Arterial blood by Pulse oximetry Systolic And Diastolic Provider Name and Address Organization Details Last Updated DateTime 1 18 /min 96.8 [degF] 77 /min 98 % 98 % 138/84 mm[Hg] Not Available [facility] 1 08:49:57 Social History Question Answer Notes LastModified by Organizat ion Details LastModified Time Tobacco Smoking Status Former Smoker ALIRIO Forbes [address], [place], [address], [place] [facility] 04/28/2021 15:03:35 Do You Have An Advance Directive? Yes Information not available 11/30/2018 What Is Your Code Status? Full Code Information not available 11/30/2018 Drugs Abused None Information not available 11/30/2018 How Many Days In The Past Year Have You Had A Heavy Drinking Consumption (4+ Female, 5+ Male)? 0 [email or web address] Information not available 11/30/2018 Within The Past 12 Months, Has It Happened That The Food You Bought Just Didn't Last And You Didn't Have Money To Get More. No [email or web address] Information not available 04/28/2021 Within The Past 12 Months, Have You Worried That Your Food Would Run Out Before You Got Money To Buy More. No Information not available 04/28/2021 Fall Risk: Do You Feel Unsteady When Standing Or Walking? No [email or web address] Information not available 04/28/2021 We Know That How And When People Interact With Friends And Family Can Be Very Different From Person To Person. How Often Do You Have The Opportunity To See Or Talk To People That You Care About And Feel Close To? (Ex: Talking To Friends On The Phone Or Visiting Friends Or Family Or Going To Spiritism Or Club Meetings) 5 Or More Times Per Week [email or web address] Information not available 04/28/2021 We Know From Many Of Our Patients That Covering All Of Their Costs Can Be Difficult At Times. This Can Cause Stress And Impact Health. In The Past Year, Have You Been Unable To Get Any Of The Following When It Was Really Needed? No [email or web address] Information not available 04/28/2021 Marital Status Single [email or web address] Informatio n not available 11/30/2018 What Was The Date Of Your Most Recent Tobacco Screening? 11/30/2018 Information not available 12/01/2018 How Much Tobacco Do You Smoke? No [email or web address] Information not available 04/28/2021 Sex: Unknown Functional Status Question Answer Note LastModified by Organizat ion Details LastModified Time Do you use any illicit or recreational drugs? No [email or web address] Information not available 04/28/2021 What is your level of alcohol consumption? None [email or web address] Information not available 04/28/2021 Mental Status None recorded. Family History Relationship Description Onset Age of this Age Resolved Age Notes LastModified by Organization Details LastModified Time Mother Coronary arterioscler osis brooke Not available 11/30 20:04:54 Medical History Condition Response Coronary Artery Disease Y COPD N Stroke Y High Cholesterol Y Asthma Y Pulmonary Embolism Y Hypertension Y Gynecological HistoryNo gynecological history recorded. Obstetrics History GPAL:G 0 P 0 0 0 0 Past Encounters Encounter ID Performer Location Encounter Start Date Encounter Closed Date Diagnosis/Indication Diagnosis SNOMED-CT Code Diagnosis ICD10 Code Diagnosis IMO Codes Diagnosis Note [id number] ARIADNA TELLES NP [facility] [address] [facility] [place] [address] 11/30/2018 19:55:12 12/01/2018 11:27:24 Acute exacerbation of asthma 363723835 J45.901 Viral uppe r respiratory tract infection 599060027 J06.9 Dysuria 23538454 R30.0 [id number] ALIRIO DUEÑAS [facility] [address] [place] [address] 12/03/2018 09:25:26 12/03/2018 12:18:40 Sinusitis 62966378 J32.9 Cough 85808773 R05 Influenza- like symptoms 445248119 R68.89 [id number] ARIADNA TELLES NP [facility] [address] [place] [address] 02/09/2019 14:18:09 02/09/2019 18:45:32 Acute left otitis media 192529773 H66.92 [id number] MOIRA HODGES NP [facility] [address] [place] [address] 02/11/2020 14:29:38 02/12/2020 12:00:58 Dysuria 43749929 R30.9 Exposure t o communicable disease 058602726 Z20.828 [id number] MOIRA HODGES NP [facility] [address] [place] [address] 02/13/2020 18:21:08 02/16/2020 13:08:17 Exposure to communicable disease 831696679 Z20.828 [id number] KIKI ROSENTHAL NP [facility] - [facility] [address] [place] [address] 02/29/2020 16:36:44 03/01/2020 15:23:33 Dysuria 41301399 R30.9 [id number] ALIRIO AVILA [facility] [address] [place] [address] 08/19/2020 19:16:58 08/24/2020 16:39:30 Spontaneous ecchymosis 330724532 R23.3 Fatigue 13397037 R53.83 Seasonal a llergic rhinitis 273241070 J30.2 Varicose v eins of the leg with rupture 850141893 I83.899 [id number] Yulia Bertha Smith NP [facility] - HOME [address] [place] [address] 11/14/2020 11:48:38 11/15/2020 15:06:08 Exposure to communicable disease 187005991 Z20.822 Blood in urine 61052954 R31.9 [id number] ALIRIO OJEDA [facility] [address] [place] [address] 03/22/2021 08:39:45 03/27/2021 18:59:50 Exposure to SARS-CoV-2 530206300 Z20.822 Exposure t o communicable disease 933323414 Z20.822 Pain in throat 270328223 R07.0 Generalize d aches and pains 47481144 R52 Shivering or rigors 2484 55516 R68.89 Fatigue 52743063 R53.83 [id number] ALIRIO Forbes [facility] [address] [place] [address] 04/28/2021 14:18:52 04/29/2021 15:23:46 Exposure to SARS-CoV-2 120893348 Z20.822 Exposure t o communicable disease 069736212 Z20.822 Acute uppe r respiratory infection 27076790 J06.9 45 yr old female with about [...] air, call if any changes or concerns. [id number] ALIRIO Flanagan [facility] - [facility] [address] [place] [address] 12/04/2022 09:11:27 12/04/2022 14:59:58 Contusion of left knee [id number] S80.02XA Status of condition: Acute. Testing/Re sults: n/a. pt wanted to hold [...] temp changes. Exacerbati on of intermittent asthma [id number] J45.21 Status of condition: Exacerbati on/Acute on chronic. Testing/Re sults: n/a Discussion :pt reports cough [...] None Recorded Advance Directives Directive Y: Payers Insurance Date Sequence Insurance Name Policy Number Policy Krishnan Covered Member ID Krishnan Member ID Guarantor Name 12/04/[address] [facility] - DOS ON OR AFTER 2022 - [place] VANTAGE - PPO) Lisa Humphrey [id number] Lisa Humphrey 04/28/2021 1 [place] [employer] Lisa Humphrey [id number] Lisa Humphrey 04/28/[address] [facility] - DOS PRIOR TO 2022 - DUAL ELIGIBLE (MEDICARE REPLACEMENT/AD VANTAGE - HMO) Lisa Humphrey [id number] Lisa Humphrey 04/28/2021 1 [facility] [facility] - DOS PRIOR TO 2022 - DUAL ELIGIBLE (MEDICARE REPLACEMENT/AD VANTAGE - HMO) Lisa Halldonado [id number] Lisa Salgadoado 04/28/2021 1 [employer] - DOS PRIOR TO 2022 - DUAL ELIGIBLE (MEDICARE REPLACEMENT/AD VANTAGE - HMO) Lisa Halldonado [id number] Lisa Salgadoado 05/31/2021 2 [place] [facility] Lisa Humphrey [id number] Lisa Humphrey 04/28/2021 1 [employer] - DOS PRIOR TO 2022 - DUAL ELIGIBLE (MEDICARE REPLACEMENT/AD VANTAGE - HMO) Lisa Halldonado [id number] Lisa Salgadoado 04/28/2021 1 [facility] - DOS PRIOR TO 2022 - DUAL ELIGIBLE (MEDICARE REPLACEMENT/AD VANTAGE - HMO) Lisa Salgadoado [id number] Lisa Salgadoado 04/29/2021 1 [facility] - DOS PRIOR TO 2022 - DUAL ELIGIBLE (MEDICARE REPLACEMENT/AD VANTAGE - HMO) Lisa Salgadoado [id number] Lisa Salgadoado 04/29/2021 1 [place] [employer] Lisa Salgadoado [id number] Lisa Humphrey 12/03/2022 1 [facility] - DOS PRIOR TO 2022 - DUAL ELIGIBLE (MEDICARE REPLACEMENT/AD VANTAGE - HMO) Lisa Halldonado [id number] Lisa Salgadoado 04/28/2021 1 [facility] - DOS PRIOR TO 2022 - DUAL ELIGIBLE (MEDICARE REPLACEMENT/AD VANTAGE - HMO) Lisa Halldonado [id number] Lisa Salgadoado 04/28/2021 2 [place] [employer] Lisa Salgadoado [id number] Lisa Salgadoado 04/28/2021 1 [place] [facility] Lisa Halldonado [id number] Lisa Salgadoado 04/28/2021 1 [place] [employer] Lisa Humphrey [id number] Lisa Humphrey 04/28/2021 2 [place] [facility] Lisa Humphrey [id number] Lisa Humphrey 04/28/2021 2 [place] [facility] Lisa Humphrey [id number] Lisa Humphrey 04/28/2021 1 *SELF PAY* Lisa Humphrey [id number] Lisa Humphrey 04/28/2021 1 [place] [facility] Lisa Humphrey [id number] Lisa Humphrey Notes Date Note Type Note Provider Name and Address Organization Details Recorded Time 08/19/2020 text/html 45 y/o F with PMHx sig for [...] the past few days. ALIRIO AVILA [address] [place], [address], [place] [facility] 08/19/2020 21:28:01 11/14/2020 text/html General HPI Template - DHReported by Patient Patient is a 45 year old alert [...] hyperlipidemia, PE, TIA, fibromyalgia, DVT, hx of [place]. Patient had her Covid vaccine this past June 2020. She does get her seasonal flu vaccine as well. Yulia Smith, [facility] [address] [facility], [place], [address], [place] [facility] 11/14/2020 12:19:48 03/22/2021 text/html 45 y/o F with PMH of HTN, HLD, CAD, Asthma, PE, TIA, Hx of DVT, hx of [place], and Fibromyalgia, known to but new to [...] diminished appetite. ALIRIO OJEDA [address], [place], [address], [place] [facility] 03/22/2021 10:47:57 04/28/2021 text/html was exposed to COVID last week by many different people, several people living downstairs have COVID. Since past 5 days sinus congestion, sore throat, cough, dry. No fever, she has chills sometimes at night . She sts she uses her nebulizer every 6 hr . ALIRIO Forbes [address], [place], [address], [place] [facility] 04/28/2021 15:40:44 12/04/2022 text/html General HPI Template - DHReported by Patient 47 y/o female known to DH and new to provider with hx of [...] that is chronic for her. ALIRIO Flanagan [facility] [address], [place], [address], [place] [facility] 12/04/2022 09:57:44 OBGyn Episode No OBEpisode recorded.
--- OUTSIDE RECORDS SUMMARY | 2025-01-15 08:01 | XMS_ITS | Clinical Summary ---
Author Organization [address] [place] [address] Address [address] [place] [address] Phone Care Team Providers Care Senior Principal Software Engineer Name Role Phone Steven Preston DO Primary Care Provider [phone] Allergies Active Allergy Reactions Criticality Noted Date [...] mouth 2 (two) times a day. 10/26/19 Active aspirin 81 mg EC tablet Take 1 tablet (81 mg total) by mouth 1 (one) time each day. 10/26/19 Active atorvastatin (LIPITOR) 20 mg tablet Take 1 tablet (20 mg total) by mouth 1 (one) time each day. 03/13/20 Active blood-glucose meter kit 1 Kit by [...] nausea or vomiting. 10 tablet 07/03/19 Active gabapentin (NEURONTIN) 100 mg capsule Take 1 capsule (100 mg total) by mouth 3 (three) times a day for 7 days. 21 each 08/27/19 25 Active budesonide-formote roL (Symbicort) 160-4.5 mcg/actuation inhaler Inhale 2 puffs by mouth 2 (two) times a day. Rinse mouth with water after use to reduce aftertaste and incidence of candidiasis. Do not swallow. 1 each 12/27/19 25 026 Active albuterol 2.5 mg /3 mL (0.083 %) nebulizer solutionIndication s:Moderate persistent asthma with exacerbation Take 3 mL (2.5 mg total) by nebulization every 6 (six) hours if needed for wheezing. 30 each 12/27/19 25 025 Active cyclobenzaprine (FLEXERIL) 10 mg tabletIndications: Acute bilateral low back pain without sciatica Take 1 tablet (10 mg total) by mouth 3 (three) times a day if needed for muscle spasms for up to 10 days. 15 tablet 12/27/19 25 Active lidocaine (LIDODERM) 5 % patchIndications:A cute bilateral low back pain without sciatica Apply 1 patch topically 1 (one) time each day for 14 days. Remove & discard patch within 12 hours or as directed by MD. 14 each 12/27/19 25 025 predniSONE (DELTASONE) 20 mg tablet Take 2 tablets (40 mg total) by mouth 1 (one) time each day for 5 days. 10 each 12/27/19 25 025 Active Problems Problem Noted Date Diagnosed Date Bipolar 1 disorder ([facility] V24, [facility] V28) DJD (degenerative joint disease), lumbar 025 Fibromyalgia 04/10/2024 Hyperlipidemia 04/10/2024 Hypertension 04/10/2024 Osteoarthritis of both knees 04/10/2024 Morbid obesity with BMI of 5 0.0-59.9, adult ([facility] V24, [facility] V28) 04/10/2024 DVT (deep venous thrombosis) ([facility] V24, [facility] V28) 03/14/2019 Venous insufficiency (chronic) (peripheral) 08/2018 Fatty liver 03/08/2018 Overview (04/10/2024): Abdominal US 12/27/15 - fatty infiltration pancreas. Sludge in gallbladder lumen Radiculopathy of lumbar region 03/08/2018 Persistent proteinuria 03/08/2018 Overview (04/10/2024): Kidney US Prediabetes 03/08/2018 PFO (patent foramen ovale) 03/08/2018 Overview (04/10/2024): History of ASD Sleep apnea 03/08/2018 Slow transit constipation 03/08/2018 Anxiety and depression 02/27/2018 PAD (peripheral artery disease) ([facility] V24) Overview (04/10/2024): S/p stent lower extremities TIA (transient ischemic attack) 02/27/2018 Moderate persistent asthma without complication 02/21/2018 Encounters Date Type Department Care Team Description 01/06/2025 2:15 PM EDT Office Visit General Surgery [address] [place] [phone] Marquise Ness, DO Hx of gastric bypass (Primary Dx) 12/26/2024 11:21 AM EDT - 12/26/2024 7:15 PM EDT Emergency [facility] Emergency [address] [place] [phone] Yovana Webster MD Martin, Jennifer A, MD Moderate persistent asthma with exacerbation (Primary Dx); Dyspnea, unspecified type; Acute bilateral low back pain without sciatica Discharge Disposition: Home or Self Care 10/16/2024 2:16 AM EDT - 10/16/2024 6:46 AM EDT Emergency [facility] Emergency [address] [place] [phone] Acute bronchitis, unspecified organism (Primary Dx); Acute abdominal pain; Generalized abdominal pain; Recurrent biliary colic Discharge Disposition: Home or Self Care from Last 3 Months Immunizations Immunization Administration Dates Next Due Pneumococcal polysaccharide 23 [...] COMMENT: 3 yrs ago Bipolar 1 disorder ([facility] [place] [facility] [place] DX:Bipolar 1 disorder ([facility]) Asthma DX:Asthma TIA (transient ischemic attack) 02/27/2018 DX:TIA (transient ischemic attack) Anxiety and depression 02/27/2018 DX:Anxiet y and depression PAD (peripheral artery disea se) [place] [place] 02/27/2018 DX:PAD (peripheral artery di sease) ([facility]); COMMENT: S/p stent lower extremities H/O gastric bypass 02/27/2018 DX:H/O gastri c bypass Morbid obesity with BMI of 5 0.0-59.9, adult ([facility] [place], [facility] [place]) 02/27/2018 DX:Morbid obesity wit h BMI of 50.0-59.9, adult ([facility]) Fatty liver 03/08/2018 DX:Fatty liver; COMMENT: [...] Types Packs/Day Years Used Date Smoking Tobacco: Former Cigarettes Smokeless Tobacco: Never Tobacco Cessation:Counseling Given: Not Answered Alcohol Use Standard Drinks/Week Comments No 0 [...] Sign Reading Time Taken Comments Blood Pressure 129/83 01/06/2025 2:14 PM EDT Pulse 90 01/06/2025 2:14 PM EDT Temperature 37.1 C (98.8 F) 12/26/2024 6:44 PM EDT Respiratory Rate 18 12/26/2024 6:44 PM EDT Oxygen Saturation 95% 12/26/2024 6:44 PM EDT Inhaled Oxygen Concentration - - Weight 162 kg (357 lb 12.8 oz) 01/06/2025 2:14 P M EDT Height 162.6 cm (5' 4 ) 01/06/2025 2:14 PM EDT Body Mass Index 61.42 01/06/2025 2:14 PM EDT Plan of Treatment Upcoming Encounters Date Type Department Care Team (Late st Contact Info) Description 01/20/2025 11:30 AM EDT Consult Neurosurgery Joseph - [place] [address] [facility] [address] [place] [phone] Leslie Bar PA [address] [facility], [address] [place] [address] 02/18/2025 9:30 AM EST Consult Bariatric Surgery - [place] [address] [facility] [address] [place] [phone] Russell Lino MD [address] [facility], [place] [address] 07/27/2025 8:20 AM EDT Consult Gastroenterology - [address] [facility] [address] [facility] [address] [place] [phone] Sheeba Dunlap NP [address] [facility] [address] [place] [address] Health Maintenance Due Date Last Done Comments Colorectal Cancer Screening: Colonoscopy 1973 Hepatitis B Vaccines (1 of 3 - 19+ 3-dose series) 1992 Cervical Cancer Screening: Pap Smear 1994 Pneumococcal Vaccine: 50+ Years (2 of 2 - PCV) 03/11/2019 03/11/2018, 02/25/2015, 03/03/2009 Breast Cancer Screening 11/23/2019 11/22/2017 HIV Screening 02/26/2022 Hepatitis C Screening 02/26/2022 Medicare Annual Wellness Visit 02/26/2022 Social Influencers of Health Screening 02/26/2022 RSV Immunization Adult Patients (1 - Risk 50-74 years 1-dose series) 2023 Zoster Vaccines (1 of 2) 2023 Cholesterol Screening (Lipid Panel) 10/26/2023 10/25/2018 Depression Screening 03/26/2024 COVID-19 Vaccine ( season) 2024 03/23/2021, 08/06/2020, 07/09/2020 Influenza Vaccine (#1) 2024 01/11/2024, 2021 Hypertension/CHF/CAD Annual BMP Blood Test 12/26/2025 12/26/2024, 10/16/2024, 08/26/2024, Additional history exists DTaP,Tdap,and Td Vaccines (3 - Td or Tdap) 03/11/2028 03/11/2018, 01/10/2012 HIB Vaccines Aged Out No longer eligi [...] 20 months Aged Out No longer eligible based on patient's age to complete this topic Varicella Vaccines Aged Out No longer eligible based on patient's age to complete this topic Procedures Procedure Name Priority Date/Time Associated Diagnosis Comments ECG ANNOTATED 12/27/2024 TROPONIN I HIGH SENSITIVITY STAT 12/26/2024 2:56 PM EDT XR LUMBAR SPINE 2-3 VIEWS STAT 12/26/2024 2:27 PM EDT XR CHEST 2 VIEWS STAT 12/26/2024 2:[address] ANGIO CHEST WO AND/OR W CONTRAST STAT 12/26/2024 1:59 PM EDT Dyspnea, unspecified type TRIIODOTHYRONINE FREE STAT 12/26/2024 11:43 AM EDT FREE THYROXINE WITH REFLEX TO FREE TRIIODOTHYRONINE STAT 12/26/2024 11:43 AM EDT THYROID STIMULATING HORMONE WITH REFLEX TO FREE T4 AND FREE T3 STAT 12/26/2024 11:43 AM EDT PROTHROMBIN TIME WITH INR STAT 12/26/2024 11:43 AM EDT TROPONIN I HIGH SENSITIVITY STAT 12/26/2024 11:43 AM EDT COMPREHENSIVE METABOLIC PANEL STAT 12/26/2024 11:43 AM EDT COMPLETE BLOOD COUNT STAT 12/26/2024 11:43 AM EDT B-TYPE NATRIURETIC PEPTIDE STAT 12/26/2024 11:43 AM EDT VENOUS BLOOD GAS STAT 12/26/2024 11:4 3 AM EDT ECG 12-LEAD STAT 12/26/2024 11:15 AM EDT ECG ANNOTATED 10/17/2024 DRUG ABUSE SCREEN 8A PANEL, URINE STAT 10/16/2024 4:[address] ABDOMEN PELVIS W CONTRAST STAT 10/16/2024 4:45 AM EDT XR CHEST 2 VIEWS STAT 10/16/2024 4:03 AM EDT URINALYSIS WITH REFLEX MICROSCOPIC STAT 10/16/2024 3:59 AM EDT URINALYSIS WITH REFLEX MICROSCOPIC STAT 10/16/2024 3:59 AM EDT CBC WITH AUTO DIFFERENTIAL STAT 10/16/2024 3:24 AM EDT CBC AND DIFFERENTIAL STAT 10/16/2024 3:24 AM EDT MAGNESIUM STAT 10/16/2024 3:24 AM EDT LIPASE STAT 10/16/2024 3:24 AM EDT COMPREHENSIVE METABOLIC PANEL STAT 10/16/2024 3:24 AM EDT POCT GLUCOSE BLOOD Routine 10/16/2024 3: 20 AM EDT ECG 12-LEAD STAT 10/16/2024 1:41 AM EDT LIPID PANEL Routine 10/25/2018 MAMMOGRAM SCREENING BILATERAL 3D KARLA WITH CAD Routine 11/22/2017 2:39 PM EDT Encounter for screening mammogram for malignant neoplasm of breast from Last 3 Months or Most Recently Relevant to Health Maintenance Results * ECG-Annotated (12/27/2024) Only the most recent of2 resultswithin the time period is included. us Provider Onbase MD ECG ORDERABLES Final Result * Troponin I high sensitivity (12/26/2024 2:56 PM EDT) Only the most recent of2 resultswithin the time period is included. High Sensitivity Troponin I 3 <=54 ng/L LAB CHEMISTRY METHOD 12/26/2024 3:[address] [facility] Blood Venous blood specimen / Unknown Venipuncture / Unknown 12/26/2024 2:56 PM EDT 12/26/2024 3:[address] [facility] - 12/26/2024 3:58 PM EDT High levels of biotin in samples may falsely decrease hsTroponin values. Use caution when interpreting hsTroponin results in patients taking biotin who exhibit renal impairment (eGFR <60) or in patients taking more than 20 mg/day of biotin. us Yovana Webster MD LAB BLOOD ORDERABLES Final Resul t [facility] [address] [place] [address], [place] [phone] * XR Lumbar Spine 2-3 Views (12/26/2024 2:27 PM EDT) Anatomical Region Laterality Modality Spine, L-spine Radiographic Riya ging 12/26/2024 3:13 PM EDT Impressions 12/26/2024 3:14 PM EDT FINDINGS/IMPRESSION: No acute fracture. Significant facet arthropathy most prominent at the lower levels. Contrast excretion within the kidneys. Iliac venous stents. Moderate colonic stool burden. -------- FINAL REPORT -------- Dictated By: Kelsea Edgar Dictated Date: 12/26/2024 15:13 ET Assigned Physician: Kelsea Edgar Reviewed and Electronically Signed By: Kelsea Edgar Signed Date: 12/26/2024 15:14 ET Workstation ID: [id number] Transcribed By: Self Edit Transcribed Date: 12/26/2024 15:13 ET Narrative 12/26/2024 3:14 PM EDT XR LUMBAR SPINE 2-3 VIEWS INDICATION: back pain TECHNIQUE: XR LUMBAR SPINE 2-3 VIEWS COMPARISON: No priors available. Procedure Note Kelsea Edgar MD - 12/26/2024 XR LUMBAR SPINE 2-3 VIEWS INDICATION: back pain TECHNIQUE: XR LUMBAR SPINE 2-3 VIEWS COMPARISON: No priors available. IMPRESSION: FINDINGS/IMPRESSION: No acute fracture. Significant facet arthropathymost prominent at the lower levels. Contrast excretion within thekidneys. Iliac venous stents. Moderate colonic stool burden. -------- FINAL REPORT -------- Dictated By: Kelsea Edgar Dictated Date: 12/26/2024 15:13 ET Assigned Physician: Kelsea Edgar Reviewed and Electronically Signed By: Kelsea Edgar Signed Date: 12/26/2024 15:14 ET Workstation ID: [id number] Transcribed By: Self Edit Transcribed Date: 12/26/2024 15:13 ET Yovana Webster MD IMG XR PROCEDURES Final Result * XR Chest 2 Views (12/26/2024 2:27 PM EDT) Only the most recent of2 resultswithin the time period is included. Anatomical Region Laterality Modality Body Radiographic Riya ging 12/26/2024 3:14 PM EDT Impressions 12/26/2024 3:15 PM EDT FINDINGS/IMPRESSION: Normal heart size and pulmonary vascularity. Lungs are clear and costophrenic angles are sharp. No acute osseous abnormality. -------- FINAL REPORT -------- Dictated By: Kelsea Edgar Dictated Date: 12/26/2024 15:14 ET Assigned Physician: Kelsea Edgar Reviewed and Electronically Signed By: Kelsea Edgar Signed Date: 12/26/2024 15:15 ET Workstation ID: [id number] Transcribed By: Self Edit Transcribed Date: 12/26/2024 15:14 ET Narrative 12/26/2024 3:15 PM EDT XR CHEST 2 VIEWS INDICATION: cough TECHNIQUE: XR CHEST 2 VIEWS COMPARISON: No priors available. Procedure Note Kelsea Edgar MD - 12/26/2024 XR CHEST 2 VIEWS INDICATION: cough TECHNIQUE: XR CHEST 2 VIEWS COMPARISON: No priors available. IMPRESSION: FINDINGS/IMPRESSION: Normal heart size and pulmonary vascularity. Lungsare clear and costophrenic angles are sharp. No acute osseousabnormality. -------- FINAL REPORT -------- Dictated By: Kelsea Edgar Dictated Date: 12/26/2024 15:14 ET Assigned Physician: Kelsea Edgar Reviewed and Electronically Signed By: Kelsea Edgar Signed Date: 12/26/2024 15:15 ET Workstation ID: [id number] Transcribed By: Self Edit Transcribed Date: 12/26/2024 15:14 ET us Maureen Parisi MD IMG XR PROCEDURES Final Res ult * CT Angio Chest wo and/or w Contrast (12/26/2024 1:59 PM EDT) Anatomical Region Laterality Modality Body Computed Tomogra phy 12/26/2024 3:15 PM EDT Impressions 12/26/2024 3:17 PM EDT No acute cardiopulmonary disease. -------- FINAL REPORT -------- Dictated By: Kelsea Edgar Dictated Date: 12/26/2024 15:15 ET Assigned Physician: Kelsea Edgar Reviewed and Electronically Signed By: Kelsea Edgar Signed Date: 12/26/2024 15:17 ET Workstation ID: [id number] Transcribed By: Self Edit Transcribed Date: 12/26/2024 15:15 ET Narrative 12/26/2024 3:17 PM EDT PROCEDURE: CT ANGIO CHEST INDICATION: ho pe with dyspnea missed ac COMPARISON: None. TECHNIQUE: CT pulmonary angiogram performed following uneventful IV administration of ISOVUE contrast material with bolus timing technique from the thoracic inlet through the lung bases. 3-D multiplanar reformations were obtained by the technologist on an independent workstation. [employer] VCT dose reduction utilizing iterative reconstruction. Total exam DLP 827 (mGy-cm) FINDINGS: There is no CT evidence of acute pulmonary embolism to the lobar level. Evaluation of the segmental and subsegmental pulmonary arteries is limited due to motion artifact and small peripheral pulmonary emboli cannot be excluded. The heart is within normal limits in size. There is no pericardial effusion. The thoracic aorta is normal in caliber. There is no evidence for mediastinal or hilar lymphadenopathy. No concerning opacity. There are no pleural effusions. Dillan-en-Y gastric bypass. No acute osseous abnormality Procedure Note Kelsea Edgar MD - 12/26/2024 PROCEDURE: CT ANGIO CHEST INDICATION: ho pe with dyspnea missed ac COMPARISON: None. TECHNIQUE: CT pulmonary angiogram performed following uneventful IVadministration of ISOVUE contrast material with bolus timing techniquefrom the thoracic inlet through the lung bases. 3-D multiplanar reformations were obtained by the technologist on anindependent workstation. [employer] VCT dose reduction utilizing iterative reconstruction. Total exam DLP 827 (mGy-cm) FINDINGS: There is no CT evidence of acute pulmonary embolism to the lobar level.Evaluation of the segmental and subsegmental pulmonary arteries is limiteddue to motion artifact and small peripheral pulmonary emboli cannot beexcluded. The heart is within normal limits in size. There is no pericardialeffusion. The thoracic aorta is normal in caliber. There is no evidence for mediastinal or hilar lymphadenopathy. No concerning opacity. There are no pleural effusions. Dillan-en-Y gastric bypass. No acute osseous abnormality IMPRESSION: No acute cardiopulmonary disease. -------- FINAL REPORT -------- Dictated By: Kelsea Edgar Dictated Date: 12/26/2024 15:15 ET Assigned Physician: Kelsea Edgar Reviewed and Electronically Signed By: Kelsea Edgar Signed Date: 12/26/2024 15:17 ET Workstation ID: [id number] Transcribed By: Self Edit Transcribed Date: 12/26/2024 15:15 ET us Maureen Parisi MD [facility] CT PROCEDURES Final Res ult * (ABNORMAL) Thyroid stimulating hormone with reflex to free t4 and free t3 (TSH Reflex) (12/26/2024 11:43 AM EDT) TSH 0.34(L) 0.40 - 4.00 mcIU/mL LAB CHEMISTRY METHOD 12/26/2024 1:[address] [facility] Blood Venous blood specimen / Unknown Venipuncture / Unknown 12/26/2024 11:43 AM EDT 12/26/2024 11:50 AM EDT Maureen Parisi MD LAB BLOOD ORDERABLES Final Result Performing Organization Address City/[facility]/ZIP Co de Phone Number [facility] [address] [place] [address], [place] [phone] * Free thyroxine with reflex to free triiodothyronine (12/26/2024 11:43 AM EDT) [facility] Free T4 1.22 0.70 - 1.80 ng/dL LAB CHEMISTRY METHOD 12/26/2024 2:[address] [facility] Blood Venous blood specimen / Unknown Venipuncture / Unknown 12/26/2024 11:43 AM EDT 12/26/2024 11:50 AM EDT Maureen Parisi MD LAB BLOOD ORDERABLES Final Result Performing Organization Address [facility]/ZIP Co de Phone Number [facility] [address] [place] [address], [place] [phone] * (ABNORMAL) Protime-INR (12/26/2024 11:43 AM EDT) [facility] Protime 18.3(H) 10.6 - 13.9 sec LAB COAGULATION METHOD 12/26/2024 12:[address] [facility] INR 1.5 LAB COAGULATION METHOD 12/26/2024 12:[address] [facility] Blood Venous blood specimen / Unknown Venipuncture / Unknown 12/26/2024 11:43 AM EDT 12/26/2024 11:50 AM EDT us Maureen Parisi MD LAB BLOOD ORDERABLES Final Result Performing Organization Address City/[facility]/ZIP Co de Phone Number [facility] [address] [place] [address], [place] [phone] * (ABNORMAL) CBC (12/26/2024 11:43 AM EDT) [facility] WBC 7.9 4.8 - 10.8 K/mcL LAB HEMETOLOGY METHOD 12/26/2024 11:55 AM [facility] RBC 4.60 3.80 - 4.80 M/mcL LAB HEMETOLOGY METHOD 12/26/2024 11:55 AM [facility] Hemoglobin 12.0 11.5 - 16.0 g/dL LAB HEMETOLOGY METHOD 12/26/2024 11:55 AM [facility] Hematocrit 37.7 35.0 - 47.0 % LAB HEMETOLOGY METHOD 12/26/2024 11:55 AM [facility] MCV 82.1 79.0 - 98.0 FL LAB HEMETOLOGY METHOD 12/26/2024 11:55 AM [facility] MCH 26.1(L) 27.0 - 32.0 pcg LAB HEMETOLOGY METHOD 12/26/2024 11:55 AM [facility] MCHC 31.8(L) 32.0 - 37.0 g/dL LAB HEMETOLOGY METHOD 12/26/2024 11:55 AM [facility] RDW 14.8 11.0 - 15.0 % LAB HEMETOLOGY METHOD 12/26/2024 11:55 AM [facility] Platelets 396 130 - 400 K/[facility] LAB HEMETOLOGY METHOD 12/26/2024 11:55 AM [facility] MPV 10.1 7.0 - 11.0 FL LAB HEMETOLOGY METHOD 12/26/2024 11:55 AM [facility] NRBC 0.0 <1.0 % LAB HEMETOLOGY METHOD 12/26/2024 11:55 AM [facility] NRBC Absolute 0.00 <0.10 K/[facility] LAB HEMETOLOGY METHOD 12/26/2024 11:[address] [facility] Blood Venous blood specimen / Unknown Venipuncture / Unknown 12/26/2024 11:43 AM EDT 12/26/2024 11:50 AM EDT Maureen Parisi MD LAB BLOOD ORDERABLES Final Result [facility] [address] [place] [address], [place] [phone] * Triiodothyronine free (12/26/2024 11:43 AM EDT) T3, Free 350 230 - 420 pcg/dL LAB CHEMISTRY METHOD 12/26/2024 3:[address] [facility] Blood Venous blood specimen / Unknown Venipuncture / Unknown 12/26/2024 11:43 AM EDT 12/26/2024 11:50 AM EDT Maureen Parisi MD LAB BLOOD ORDERABLES Final Result [facility] [address] [place] [address], [place] [phone] * BNP (12/26/2024 11:43 AM EDT) BNP 41 <=100 pcg/mL LAB CHEMISTRY METHOD 12/26/2024 12:[address] [facility] Blood Venous blood specimen / Unknown Venipuncture / Unknown 12/26/2024 11:43 AM EDT 12/26/2024 11:50 AM EDT Maureen Parisi MD LAB BLOOD ORDERABLES Final Result [facility] [address] [place] [address], [place] [phone] * (ABNORMAL) Blood gas, venous (12/26/2024 11:43 AM EDT) pH, Keo 7.49(H) 7.32 - 7.42 pH 12/26/2024 11:[address] [facility] pCO2, Keo 44 41 - 51 mmHg 12/26/2024 11:[address] [facility] pO2, Keo 44(H) 25 - 40 mmHg 12/26/2024 11:[address] [facility] HCO3, Venous 31.6(H) 22.0 - 26.0 mmol/L 12/26/2024 11:[address] [facility] O2 Sat, Keo 80.5 % 12/26/2024 11:[address] [facility] Base Excess, Keo 9.1(H) -2.0 - 2.0 mmol/L 12/26/2024 11:[address] [facility] Blood Venous blood specimen / Unknown Venipuncture / Unknown 12/26/2024 11:43 AM EDT 12/26/2024 11:50 AM EDT us Maureen Parisi MD LAB BLOOD ORDERABLES Final Result [facility] [address] [place] [address], * (ABNORMAL) Comprehensive metabolic panel (12/26/2024 11:43 AM EDT) Only the most recent of2 resultswithin the time period is included. Sodium 138 133 - 145 mmol/L LAB CHEMISTRY METHOD 12/26/2024 12:[address] [facility] Potassium 3.8 3.5 - 5.5 mmol/L LAB CHEMISTRY METHOD 12/26/2024 12:[address] [facility] Chloride 103 96 - 110 mmol/L LAB CHEMISTRY METHOD 12/26/2024 12:31 PM [facility] CO2 31 21 - 32 mmol/L LAB CHEMISTRY METHOD 12/26/2024 12:31 PM [facility] Anion Gap 4 3 - 11 LAB CHEMISTRY METHOD 12/26/2024 12:31 PM [facility] Glucose 103(H) 70 - 100 mg/dL LAB CHEMISTRY METHOD 12/26/2024 12:31 PM [facility] BUN 11 5 - 25 mg/dL LAB CHEMISTRY METHOD 12/26/2024 12:31 PM [facility] Creatinine 0.77 0.50 - 1.10 mg/dL LAB CHEMISTRY METHOD 12/26/2024 12:31 PM [facility] eGFR 94 >=60 mL/min/1. 73m2 LAB CHEMISTRY METHOD 12/26/2024 12:31 PM [facility] Comment:Calculation based on the Chronic Kidney Disease Epidemiology Collaboration (CKD-EPI) equation refit without adjustment for race. BUN/Creatinine Ratio 14.3 LAB CHEMISTRY METHOD 12/26/2024 12:31 PM [facility] Calcium 9.5 8.5 - 10.5 mg/dL LAB CHEMISTRY METHOD 12/26/2024 12:31 PM [facility] AST (SGOT) 32 10 - 42 unit/L LAB CHEMISTRY METHOD 12/26/2024 12:31 PM [facility] ALT (SGPT) 24 10 - 60 unit/L LAB CHEMISTRY METHOD 12/26/2024 12:31 PM [facility] Alkaline Phosphatase 92 42 - 121 unit/L LAB CHEMISTRY METHOD 12/26/2024 12:31 PM [facility] Total Protein 6.6 6.0 - 8.0 g/dL LAB CHEMISTRY METHOD 12/26/2024 12:31 PM [facility] Albumin 3.2 3.2 - 5.0 g/dL LAB CHEMISTRY METHOD 12/26/2024 12:[address] [facility] Total Bilirubin 0.9 0.0 - 1.4 mg/dL LAB CHEMISTRY METHOD 12/26/2024 12:[address] [facility] Blood Venous blood specimen / Unknown Venipuncture / Unknown 12/26/2024 11:43 AM EDT 12/26/2024 11:50 AM EDT us Maureen Parisi MD LAB BLOOD ORDERABLES Final Result [facility] [address] [place] [address], [place] [phone] * ECG 12 lead (12/26/2024 11:15 AM EDT) Only the most recent of2 resultswithin the time period is included. Ventricular Rate ECG 74 BPM GEMUSE Atrial Rate 74 BPM GEMUSE P-R Interval 170 ms GEMUSE QRS Duration 86 ms GEMUSE Q-T Interval 372 ms GEMUSE QTc 412 ms GEMUSE P Wave [place] 50 degrees GEMUSE R [place] 56 degrees GEMUSE T [place] 35 degrees GEMUSE ECG Interpretation Normal sinus rhythm Normal ECG When compared with ECG of 16-OCT-2024 01:41, No significant change was found Confirmed by CARLOS ECKERT ([id number]) on 12/27/2024 11:07:35 AM GEMUSE 12/26/2024 11:1 5 AM EDT 12/27/2024 11:07 AM EDT us Maureen Parisi MD ECG ORDERABLES Final Resul t GEMUSE * Drug abuse screen 8a panel, urine (10/16/2024 4:53 AM EDT) Amphetamine Screen, Ur Negative Negative LAB CHEMISTRY METHOD 10/16/2024 7:[address] [facility] Comment:Certain OTC medicati ons containing ephedrine, phenylephrine, pseudoephedrine and phenylpropanolamine can cause false positive results. Barbiturate Screen, Ur Negative Negative LAB CHEMISTRY METHOD 10/16/2024 7:[address] [facility] Benzodiazepine Screen, Ur Negative Negative LAB CHEMISTRY METHOD 10/16/2024 7:[address] [facility] Cocaine Screen, Ur Negative Negative LAB CHEMISTRY METHOD 10/16/2024 7:[address] [facility] Opiate Screen, Ur Negative Negative LAB CHEMISTRY METHOD 10/16/2024 7:[address] [facility] Cannabinoid (THC) Screen, Ur Negative Negative LAB CHEMISTRY METHOD 10/16/2024 7:18 AM [facility] Comment:Specimens from patie nts taking pantoprazole sodium (Protonix) have been shown to produce false positive results. Oxycodone Screen, Ur Negative Negative LAB CHEMISTRY METHOD 10/16/2024 7:[address] [facility] Fentanyl, Ur Negative Negative LAB CHEMISTRY METHOD 10/16/2024 7:18 AM [facility] Urine Urine specimen obtained by clean catch procedure / Unknown Non-blood Collection / Unknown 10/16/2024 4:53 AM EDT 10/16/2024 6:[address] [facility] - 10/16/2024 7:18 AM EDT Assay cutoffs: Amphetamines 1000 ng/mL Barbiturates 200 ng/mL Benzodiazepines 200 ng/mL Cocaine 300 ng/mL Fentanyl 1 ng/mL Opiates 300 ng/mL Oxycodone 100 ng/mL THC 50 ng/mL Semi-quantitative assay for screening purposes only. Unconfirmed screening result should not be used for non-medical purposes. *ALTERNATE METHOD CONFIRMATION DONE UPON REQUEST ONLY* us Yovana AMEZQUITA LAB URINE ORDERABLES Fin al Result [facility] [address] [place] [address], [place] [phone] * CT Abdomen Pelvis w Contrast (10/16/2024 4:45 AM EDT) Anatomical Region Laterality Modality Body Computed Tomogra phy 10/16/2024 5:27 AM EDT Impressions 10/16/2024 5:27 AM EDT 1. Mildly distended gallbladder containing tiny dependently layering cholelithiasis or hyperdense sludge. 2. Hepatomegaly and hepatic steatosis. 3. Gastric bypass. 4. Endovascular stent graft within the distal IVC extending throughout the bilateral external iliac veins. 5. Normal appendix. 6. Chronic findings above. This document has been electronically signed by: Miguel Bello DO on 10/16/2024 05:27:05 Narrative 10/16/2024 5:27 AM EDT INDICATION: Abdominal pain, acute, nonlocalized CT abdomen and pelvis with contrast Comparison: CT - CT ABD PEL W CONTRAST - 07/02/24 02:55 EDT Findings: Subsegmental atelectasis of the lung bases. Gastric bypass. The abdominal aorta is unremarkable. Endovascular stent graft within the distal inferior vena cava which extends throughout the bilateral external iliac veins. Hepatomegaly and hepatic steatosis. Mildly distended gallbladder containing tiny dependently layering stones or sludge. Pancreatic atrophy. The spleen and adrenal glands are normal. No nephrolithiasis or hydronephrosis. Nondistended urinary bladder. Anteverted uterus. No bowel obstruction, pneumoperitoneum, or pneumatosis. Intraluminal fluid within the proximal colon Normal appendix. Locules of air within the lumen of the appendix. Degenerative changes of the lumbar spine and hips. Procedure Note Miguel Bello MD - 10/16/2024 INDICATION: Abdominal pain, acute, nonlocalized CT abdomen and pelvis with contrast Comparison: CT - CT ABD PEL W CONTRAST - 07/02/24 02:55 EDT Findings: Subsegmental atelectasis of the lung bases. Gastric bypass. The abdominal aorta is unremarkable. Endovascular stent graft within the distal inferior vena cava which extends throughout the bilateral external iliac veins. Hepatomegaly and hepatic steatosis. Mildly distended gallbladder containing tiny dependently layering stones or sludge. Pancreatic atrophy. The spleen and adrenal glands are normal. No nephrolithiasis or hydronephrosis. Nondistended urinary bladder. Anteverted uterus. No bowel obstruction, pneumoperitoneum, or pneumatosis. Intraluminalfluid within the proximal colon Normal appendix. Locules of air within the lumen of the appendix. Degenerative changes of the lumbar spine and hips. IMPRESSION: 1. Mildly distended gallbladder containing tiny dependently layering cholelithiasis or hyperdense sludge. 2. Hepatomegaly and hepatic steatosis. 3. Gastric bypass. 4. Endovascular stent graft within the distal IVC extending throughoutthe bilateral external iliac veins. 5. Normal appendix. 6. Chronic findings above. This document has been electronically signed by: Miguel Bello DO on 10/16/2024 05:27:[address] PROCEDURES Final Result * Urinalysis with reflex microscopic (10/16/2024 3:59 AM EDT) Specific [place] Urine 1.010 1.003 - 1.030 LAB URINALYSIS - AUTOMATED METHOD 10/16/2024 5:12 AM [facility] pH, Urine 6.0 5.0 - 8.0 pH LAB URINALYSIS - AUTOMATED METHOD 10/16/2024 5:12 AM [facility] Leukocytes, Urine Negative Negative LAB URINALYSIS - AUTOMATED METHOD 10/16/2024 5:12 AM [facility] Nitrite, Urine Negative Negative LAB URINALYSIS - AUTOMATED METHOD 10/16/2024 5:12 AM [facility] Protein, Urine Negative <=Trace mg/dL LAB URINALYSIS - AUTOMATED METHOD 10/16/2024 5:12 AM [facility] Glucose, Urine Negative Negative mg/dL LAB URINALYSIS - AUTOMATED METHOD 10/16/2024 5:12 AM [facility] Ketones, Urine Negative Negative mg/dL LAB URINALYSIS - AUTOMATED METHOD 10/16/2024 5:12 AM [facility] Urobilinogen, Urine 0.2 0.2 - 1.0 mg/dL LAB URINALYSIS - AUTOMATED METHOD 10/16/2024 5:[address] [facility] Bilirubin, Urine Negative Negative LAB URINALYSIS - AUTOMATED METHOD 10/16/2024 5:[address] [facility] Blood, Urine Negative Negative LAB URINALYSIS - AUTOMATED METHOD 10/16/2024 5:[address] [facility] Urine Urine specimen obtained by clean catch procedure / Unknown Non-blood Collection / Unknown 10/16/2024 3:59 AM EDT 10/16/2024 5:08 AM EDT Yovana AMEZQUITA LAB URINE ORDERABLES Fin al Result [facility] [address] [place] [address], * (ABNORMAL) CBC auto differential (10/16/2024 3:24 AM EDT) WBC 9.7 4.8 - 10.8 K/mcL LAB HEMETOLOGY METHOD 10/16/2024 3:51 AM [facility] RBC 4.60 3.80 - 4.80 M/mcL LAB HEMETOLOGY METHOD 10/16/2024 3:51 AM [facility] Hemoglobin 12.0 11.5 - 16.0 g/dL LAB HEMETOLOGY METHOD 10/16/2024 3:[address] [facility] Hematocrit 38.3 35.0 - 47.0 % LAB HEMETOLOGY METHOD 10/16/2024 3:51 AM [facility] MCV 83.1 79.0 - 98.0 FL LAB HEMETOLOGY METHOD 10/16/2024 3:51 AM [facility] MCH 26.0(L) 27.0 - 32.0 pcg LAB HEMETOLOGY METHOD 10/16/2024 3:51 AM [facility] MCHC 31.3(L) 32.0 - 37.0 g/dL LAB HEMETOLOGY METHOD 10/16/2024 3:51 AM [facility] RDW 15.6(H) 11.0 - 15.0 % LAB HEMETOLOGY METHOD 10/16/2024 3:51 AM [facility] Platelets 336 130 - 400 K/mcL LAB HEMETOLOGY METHOD 10/16/2024 3:51 AM [facility] MPV 10.6 7.0 - 11.0 FL LAB HEMETOLOGY METHOD 10/16/2024 3:51 AM [facility] NRBC 0.0 <1.0 % LAB HEMETOLOGY METHOD 10/16/2024 3:51 AM [facility] NRBC Absolute 0.00 <0.10 K/mcL LAB HEMETOLOGY METHOD 10/16/2024 3:51 AM [facility] Neutrophils Relative 53.5 % LAB HEMETOLOGY METHOD 10/16/2024 3:51 AM [facility] Lymphocytes Relative 31.3 % LAB HEMETOLOGY METHOD 10/16/2024 3:51 AM [facility] Monocytes Relative 9.4 % LAB HEMETOLOGY METHOD 10/16/2024 3:51 AM [facility] Eosinophils Relative 4.8 % LAB HEMETOLOGY METHOD 10/16/2024 3:51 AM [facility] Basophils Relative 0.7 % LAB HEMETOLOGY METHOD 10/16/2024 3:51 AM [facility] Immature Granulocytes Relative 0.3 % LAB HEMETOLOGY METHOD 10/16/2024 3:51 AM [facility] Neutrophils Absolute 5.18 1.50 - 7.00 K/mcL LAB HEMETOLOGY METHOD 10/16/2024 3:[address] [facility] Lymphocytes Absolute 3.04 1.00 - 5.00 K/mcL LAB HEMETOLOGY METHOD 10/16/2024 3:[address] [facility] Monocytes Absolute 0.91 0.20 - 1.00 K/mcL LAB HEMETOLOGY METHOD 10/16/2024 3:[address] [facility] Eosinophils Absolute 0.47 0.00 - 0.50 K/[facility] LAB HEMETOLOGY METHOD 10/16/2024 3:[address] [facility] Basophils Absolute 0.07 0.00 - 0.20 K/mcL LAB HEMETOLOGY METHOD 10/16/2024 3:[address] [facility] Immature Granulocytes Absolute 0.03 0.00 - 0.03 K/[facility] LAB HEMETOLOGY METHOD 10/16/2024 3:[address] [facility] Blood Venous blood specimen / Unknown Venipuncture / Unknown 10/16/2024 3:24 AM EDT 10/16/2024 3:46 AM EDT Yovana AMEZQUITA LAB BLOOD ORDERABLES Fin al Result Performing Organization Address City/State/[facility] Co de Phone Number [facility] [address] [place] [address], * Magnesium (10/16/2024 3:24 AM EDT) Magnesium 2.0 1.9 - 2.6 mg/dL LAB CHEMISTRY METHOD 10/16/2024 4:[address] [facility] Comment:Hemolysis present Blood Venous blood specimen / Unknown Venipuncture / Unknown 10/16/2024 3:24 AM EDT 10/16/2024 3:46 AM EDT Yovana AMEZQUITA LAB BLOOD ORDERABLES Fin al Result [facility] [address] [place] [address], * Lipase (10/16/2024 3:24 AM EDT) [facility] Lipase 25 13 - 75 unit/L LAB CHEMISTRY METHOD 10/16/2024 4:[address] [facility] Blood Venous blood specimen / Unknown Venipuncture / Unknown 10/16/2024 3:24 AM EDT 10/16/2024 3:46 AM EDT Yovana AMEZQUITA LAB BLOOD ORDERABLES Fin al Result Performing Organization Address [facility] Co de Phone Number [facility] [address] [place] [address], * (ABNORMAL) POCT Glucose, blood (10/16/2024 3:20 AM EDT) [facility] Glucose POCT 107(H) 70 - 100 mg/dL 10/16/2024 3:[address] [facility] Blood Capillary blood specimen / Unknown 10/16/2024 3:20 AM EDT 10/16/2024 3:22 AM EDT us Generic Provider Poct LAB POINT OF CARE TEST DOCKED DEVICE UNSOLICITED RESULTS Final Result Performing Organization Address [facility] Co de Phone Number [facility] [address] [place] [address], * (ABNORMAL) Lipid panel (10/25/2018) [facility] LDL/HDL Ratio 4 0 - 4 Triglycerides 176(A) 0 - 150 mg/dL Cholesterol 183 0 - 200 mg/dL HDL 47 >=40 mg/dL LDL Cholesterol 101(A) 0 - 100 mg/dL Blood Venous blood specimen / Unknown us Historical Provider LAB BLOOD ORDERABLES Sydnie morales Result * MAMMOGRAM SCREENING BILATERAL 3D KARLA [...] (0-25% fibroglandular tissue). Density A. IMPRESSION: 1. No radiographic [...] on 11/22/2017 4:51 PM. Workstation Name - [id number] Procedure Note Felipe Mejia MD - 03/19/2022 [...] MD on 11/22/2017 4:51PM. Workstation Name - [id number] us Sravani Pardo JUNIOR NETWORK ENGINEER IMG BI PROCEDURES Final Resul t from Last 3 Months or Most Recently Relevant to Health Maintenance Insurance MEDICARE Member Subscriber Plan / Payer (Ef fective 2019-Present) Name:Lisa Humphrey Relation to Subscriber:Self Name:Lisa Humphrey I Payer ID:[id number] Group ID:[id number] Type:Not on file Address: [place] [address] [address] [id number] Care Teams Senior Principal Software Engineer Relationship Specialty Start Date End Date Steven Preston DO [address] [place] [id number] PCP - General Internal Medicine 03/12/24
--- OUTSIDE RECORDS SUMMARY | 2025-01-15 08:01 | XMS_ITS | Continuity of Care Document ---
Author Organization [facility] Address [address] [place] [address] Care Team Providers Care Coater Hand Name Role Phone HIM CCA OTHER Assessment Encounter Date Assessment Date Assessment LastModified by Organization Details LastModified Time 01/14/2025 01/14/2025 As noted, we were called to see this patient regarding concerns of Patient has been having urinary urgency and her abdomen feels hot when she urinates. Evaluation in the field was performed by my supervisor pre wave colleague, as noted above, I provided real-time direction and supervision for this visit. Patient states that she is been having the symptoms for approximately 2 to 3 days. She states that this feels like a part UTI she's had in the past. Patient also has been having epigastric abdominal pain and is scheduled for a CT of her abdomen and pelvis by her PCP tomorrow. She does not have any tenderness in this region as per medic. Patient is also complaining of left ear pain for the past 2 to 3 days. Medic has attempted to visualize the tympanic membrane however unsuccessful. Patient was advised to have this evaluated by her PCP or at an urgent care. Patient has only been able to give us a small amount urine which can be used for urine culture but not a urine dip. Will send urine culture. Patient will be started on Macrobid. She was advised to call start with any questions or concerns. Impression: UTI Plan: follow-up PCP Primary care, consider left ear evaluation, labs Disposition: We discussed the diagnostic uncertainty of home visits and the risk associated with this. In this case, the patient and I felt this to be an acceptable and reasonable amount of risk given the benefit of avoiding an ED visit. We discussed the need to seek care urgently/emergen tly in the setting of any new or worsening serious symptoms, particularly fevers, chest pain, shortness of breath, vomiting/the duration. [email or web address] Not available 01/14/2025 16:15:46 Plan of Treatment Reminders Order Date Submit Date Provider Last Modified By Organization Details Last Modified Time Details Appointments None recorded. Lab culture, urine 2024 [place] [facility] (Centralized Electronic Ordering - All Locations), Patient Can Go To The Location Of Their Choice, [id number] 14:55:00 Referral None recorded. Procedures None recorded. Surgeries None recorded. Imaging None recorded. Medication Orders Macrobid 100 mg capsule 2024 [place] [id number], [address] [place], [address], 14:54:52 Patient TargetsNo targets recorded. Patient InstructionsNo instructions recorded. Reason for Referral None Reported. Results Created Date Observation Date Name Description Value Unit Range Abnormal Flag Note LastModifiedBy Organization Detail LastModifiedTime 12/29/1912/29/2024 URINE CULTU RE, ROUTI NE urine culture, routine Final report Not Available [facility] ([facility]) [address] [place], [address], 12/31/2024 22:05:39 12/29/1912/29/2024 URINE CULTU RE, ROUTI NE result 1 COMMEN T Cultu re shows less than 10,00 0 colon y formi ng units of bacte kassie per diamante liter of urine . This colon y count is not gener ally consi dered to be clini rashid signi fican t. Not Available [facility] ([facility]) [address] [facility], [place], [address], 12/31/2024 22:05:39 Result Notes None recorded. Medical Equipment None Reported. Allergies Allergen ID Allergen Name Allergen Category Reaction Reaction Severity Criticality Documentation Date Start Date Code Code System Note Provider Name and Address Organization Details Recorded Time 69874 Penicilli n Not available Not available Not available Not available 11/10/20242017 68495 RxNorm Jerry Clark MD [address] [facility], [place], [phone], [facility] [employer] 21:22:02 41538 Product containin g gold and/or gold compound (product) environme nt,medica tion Not available Not available Not available 11/10/2024 30235 2009 SNOMED Jerry Clark MD [address] [facility],[address], [place], [address], [employer] 5 21:22:06 54313 trazodone medicatio n rash Not available Not available 11/10/2024 83277 RxNorm Jerry Clark MD [address] [facility],[address], [place], [address], [employer] 5 21:22:10 8730 doxycycli ne Not available Not available Not available Not available 01/22/2024 3640 RxNorm Not Available [employer] 4 03:46:25 8731 latex environme nt,medica tion Not available Not available Not available 01/22/2024 86675 91 RxNorm Not Available [employer] - production 4 03:46:25 Medications Name Sig [...] oral route for 5 days, for UTI. 2024 active Not Available Not Available Not Avai lable oxycodone-a cetaminophe n 5 mg-325 mg tablet [...] oral route for 10 days, for itching. 01/14 completed Not Available Not Available Not Available [...] Available No t Available Vitals Date Recorded Body weight Respiratory rate Body height Heart rate Oxygen saturation Oxygen saturation in Arterial blood by Pulse oximetry Body temperature Systolic And Diastolic Provider Name and Address Organization Details Last Updated DateTime 269889. 12 g 18 /min 162.56 cm 74 /min 99 % 99 % 97.6 [degF] 144/82 mm[Hg] Not Available [employer] - production 14:34:11 Social History None recorded. Functional Status None recorded. Mental Status None recorded. Family History Nothing Reported. Medical History No medical history recorded. Gynecological HistoryNo gynecological history recorded. Obstetrics History GPAL:G 0 P 0 0 0 0 Past Encounters Encounter ID Performer Location Encounter Start Date Encounter Closed Date Diagnosis/Indication Diagnosis SNOMED-CT Code Diagnosis ICD10 Code Diagnosis IMO Codes Diagnosis Note [id number] Augustus Magana MD [facility] [address] [address] 12/28/2024 11:10:17 12/29/2024 13:27:44 Eruption [id number] R21 67569 Urinary sy stem finding 671592029 R39.9 [id number] Umberto Munoz MD [facility] [address] [address] 01/14/2025 14:34:00 01/14/2025 21:04:23 Acute urinary tract infection [id number] N39.0 158371 Health Concerns Section Related Observation LastModified by Organization Detai ls LastModified Time None Recorded Concern Status LastModified by Organization Details LastModified Time None Recorded Payers Encounter Date Sequence Insurance Name Policy Number Policy Krishnan Covered Member ID Krishnan Member ID Guarantor Name 01/14/2025 1 [facility] - DOS ON OR AFTER 2022 - DUAL ELIGIBLE - LONGTERM OPTIONS AND ONE CARE (MEDICARE REPLACEMENT/AD VANTAGE - HMO) Lisa Humphrey [id number] Lisa Humphrey Notes Date Note Type Note Provider Name and Address Organization Details Recorded Time 01/14/2025 text/html ROS as noted in the HPI CRC Nurse Triage Notes (Kimmie Rhodes): Reason For Request: chills, and a possible UTI. Denies: Unable to void greater than 5 hours Erection that will not go away after 2 hours Fall or trauma that results in urinary incontinence in the setting of pain Fall or injury that results in incontinence in the absence of pain Lower back pain either unilateral or bilateral, unable to void, painful urination -hematuria Chief Complaints: Urinary Symptoms PMH: COPD/Asthma, Hypertension, Coronary Artery Disease, Pulmonary Embolism, Deep Vein Thrombosis PMH Reviewed at 01/14/2025 Allergies Reviewed at 01/14/2025: Comments: 49 y.o female complains of Urinary Symptoms Patient reports a few day hisotry of probable UTI Patient with stomach pain/cramping, back and flank pain She also reports urinary urgency, urine feeling hot and malodor Denies any discoloration or blood, no frequency No fever +nausea, no vomiting No history of kidney disease, on coumdin for prior PE and DVT She would like to be evaluated I provided information on the mobile health provider response time and advised the patient and/or caregiver to monitor reported signs and symptoms. I discussed the warning signs of when to seek emergency care. ................... ................... ................... ................... ................... ................... ................... ........ Hadoop Application Developer Note From Ambrocio Humphrey: Note [facility] visit for female patient with complaint of abdominal pain and urinary symptoms. Patient reports approximately three days of epigastric abdominal pain affecting her eating and drinking in addition to lower abdominal pain which she reported as being n ear the ovaries and feels consistent with past UTI. Patient reports she has a CT scan tomorrow for the epigastric pain scheduled by her control valve technician. Patient also having pain in her left ear over the same period of time. Patient presents ambulating from her car into home. Patient appears uncomfortable though no obvious distress. Vital signs taken as listed. No fever noted. Patient was reporting some epigastric abdominal pain though. Abdomen was soft with no noted tenderness nor distention or other concerning findings. Attempted to visualize tympanic membrane and upload photos but was unable to. Pt provided very small urine sample and culture was obtained. Consulted with [facility] who ordered send out urine culture to [facility]. Patient is going to be started on Macrobid for suspected UTI. No medication s given on scene. RX sent to patient pharmacy. Reviewed red flags. Pt education provided. [facility] Orders: culture, urine: Performed ................... ................... ................... ................... ................... ................... ................... ........ [facility] Consulted: Umberto Munoz ................... ................... ................... ................... ................... ................... ................... ........ Disposition: Fulfilled Umberto Munoz MD [address] [facility], [place], [address], [employer] 01/14/2025 16:15:54 OBGyn Episode No OBEpisode recorded.
[2025-01-15] MEDS: Sorbitol/Mannit/Xanth Imaging 500 ML LIQUID 1500 ML PO (09:45)
[2025-01-15] MEDS: iohexoL 350 MG/ML 100 ML INFUS..BTL IV (09:46)
[2025-01-15 11:08] LABS: Blood Urea Nitrogen 7 mg/dL (9-16); Estimated Glomerular Filt Rate > 60
== END 2025-01-15 07:59 | disposition home or self-care (01) ==
LOC: HO.CT 07:58
PROVIDERS: Physician Assistant Surgical; Visit Provider Nurse Practitioner Family
DX: Z01.818 Encounter for other preprocedural examination (principal); R19.5 Other fecal abnormalities
CPT/HCPCS: 36415; 74177; 82565; 84520; Q9967

== ENCOUNTER → 2025-01-15 07:58 | Outpatient (BNV) | payer OTHER, SELFPAY | PROVIDERS: Visit Provider Radiology Diagnostic Radiology | DX: R19.5 Other fecal abnormalities (principal) | CPT/HCPCS: 74177 ==

== ENCOUNTER 2025-01-22 08:10 | Outpatient (AMB) | payer OTHER, SELFPAY ==
--- NOTE | 2025-01-22 08:18 | MHC.OFFVIS ---
Vital Signs 01/22/25 08:28 Height 5 ft 4 in Weight 355 lb BMI 60.9 BP 138/86 Blood Pressure Location Rt brachial Position Sitting Pulse 78 Pulse Source Pulse Oximeter Pulse Oximetry (%) 97 Oxygen Delivery Method Room Air Intake Visit Reasons: follow up CT scan Intake Note: Patient follow up for Abdominal pain and lab/fecal results. Patient cc: C.O. epigastric pain persistence despite current therapies. Pt also reports having recent increase in GLP 1 therapy and wanted to discuss this at today's visit. Tax Attorney Required: No Accompanied by: Self / Same As Patient Allergies doxycycline Allergy (Intermediate, Verified 01/22/25 08:19) Rash latex (LATEX) Allergy (Mild, Verified 01/22/25 08:19) RASH Medication List - Last Reconciled 01/22/25 by Alyssa Liriano CNP albuterol sulfate 2.5 mg (3 mL) inhalation Q6H PRN 30 days albuterol sulfate 90 mcg/actuation (Ventolin HFA) 2 puffs PO Q6H PRN ascorbic acid (vitamin C) 500 mg PO BID atorvastatin 20 mg PO DAILY budesonide-formoterol 160-4.5 mcg/actuation (Symbicort) 2 puffs inhalation BID carboxymethylcellulose-glycern 0.5-0.9 % 1 drp ophthalmic (eye) QID cetirizine 10 mg PO DAILY clonazepam 0.25 - 0.5 mg PO DAILY PRN duloxetine 60 mg PO BEDTIME ergocalciferol (vitamin D2) 1,250 mcg PO WE@2100 esomeprazole magnesium 40 mg PO DAILY ferrous sulfate 325 mg PO Q48H fluticasone propionate 50 mcg/actuation 1 spray intranasal DAILY gabapentin 800 mg PO TID hydrochlorothiazide 50 mg PO DAILY hydroxyzine HCl 25 mg PO QID PRN metformin 500 mg PO BID metoprolol succinate ER 50 mg PO DAILY nystatin 1 appl topical BID PRN ondansetron HCl 4 mg PO DAILY PRN roflumilast 500 mcg PO BEDTIME thiamine HCl (vitamin B1) 100 mg PO DAILY tirzepatide (weight loss) (Zepbound) mg subcut QWEEK triamcinolone acetonide 0.025% 1 appl topical BID PRN vitamin A palmitate 10,000 units PO DAILY vitamin E (dl, acetate) 180 mg PO BID warfarin mg PO HPI HPI follow up CT scan: Details: Patient is a 49-year-old female with PMH of fibromyalgia, insomnia, hyperlipidemia, hypertension, DMII, SINDHU, asthma, obesity and GERD. F/u for persistent abdominal pain and review of GI symptoms after prior ER visit (June) revealing cholelithiasis. Since last seen in June, pt continues to experience episodic, severe epigastric pain with no clear triggers, sometimes associated with nausea and vomiting (last emesis 2 days ago, not meal-related). Frequency and intensity remain unchanged. Pt denies current diarrhea; bowels now daily but small, hard, requiring straining. Miralax d/c?d d/t intolerance; pt not using other OTC laxatives at present. No hematochezia or melena. Reports two episodes of dysphagia over the past few weeks, both with solid foods. Appetite decreased, early satiety noted after small meals. No recent or current reflux sxs. Adherent to esomeprazole; states missed doses worsen pain. Weight reportedly stable per recent discussion. Complains of chronic fatigue. No fever but intermittent chills and subjective 'feeling hot. Shares she recently received abx (past week) for presumed UTI/chills from visiting nurse. No recent ER/hospital admission since initial cholelithiasis diagnosis PFSH Medical History (Updated 01/22/25 @ 09:27 by Alyssa Liriano CNP) Constipation Dysphagia Gallstones Colon cancer screening Diarrhea Abnormal serum thyroid stimulating hormone (TSH) level Fibromyalgia Insomnia Hyperlipidemia Hypertension Non-insulin dependent type 2 diabetes mellitus Knee pain Iliac vein stenosis, left Iliac vein stenosis, right Asthma SINDHU (obstructive sleep apnea) Chest pain Chest pain Obesity SINDHU (obstructive sleep apnea) Constipation by delayed colonic transit GERD (gastroesophageal reflux disease) Asthma Dyspnea DVT (deep venous thrombosis) Pulmonary emboli SINDHU (obstructive sleep apnea) PFO (patent foramen ovale) Surgical History History of tubal ligation Hx of section History of esophagogastroduodenoscopy (EGD) H/O colonoscopy Hx of gastric bypass Family History Daughter Asthma Mother Asthma Father Asthma Social History Household Members: Family and Children Household Members Other:: grandkids, daughters Housing: House Do you presently have visiting nurse or other home services: No Alcohol intake: former Patient Tobacco Use Status: Former Tobacco user service: No Review of Systems Const Reports as per [facility] ENT Reports as per [facility] Card Reports as per [facility] Resp Reports as per [facility] GI Reports as per [facility] Reports as per [facility] Physical Exam Const General: healthy appearing, no acute distress and well developed Nutritional Appearance: obese Orientation/consciousness: patient oriented x3 HEENT Head: Yes normal to inspection, Yes normocephalic and Yes atraumatic Face and sinus: Yes normal facial exam Eyes General: appearance normal, both eyes and all related structures Neck Neck: Yes normal visual inspection Resp Effort & Inspection: normal respiratory effort, able to speak in complete sentences, no tracheal deviation and symmetric chest movement Cardio Jugular venous distension: no JVD GI Inspection: Yes obesity Neuro General: patient oriented x3 Gait exam (Neuro): Normal gait present Psych Appearance: grossly normal Mental Status: mental status grossly normal Speech and movement: Normal speech and movement present Affect: Anxious affect present Attitude: cooperative Thought process: Normal thought process present Thought content: Normal thought content present Insight: Good insight present (Psych) Judgement: Good judgement present (Psych) Results Reviewed Results Reviewed: Laboratory Tests 07/10/24 07/10/24 08:40 Unknown C-Reactive Protein 1.06 H Vitamin A 54 Vitamin B12 582 1,25 Dihydroxy Vit D 59 1,25 Dihydroxy Vit D2 46 1,25 Dihydroxy Vit D3 13 Vitamin K1 338 Folate 12.9 TSH 0.44 Laboratory Tests 07/11/24 12:00 Stool Calprotectin 275 H Date of Service: 01/15/25 Procedure(s): CT enterography Accession Number(s): [id number] cc: Physician,Unknown ; Alyssa Liriano [facility]~ Report Number: [id number]: Total DLP = 1074.00 mGy-cm Reason for Exam: R19.5 - Other fecal abnormalities EXAMINATION: CT ENTEROGRAPHY ABDOMEN AND PELVIS WITH CONTRAST CLINICAL INFORMATION: R19.5 - Other fecal abnormalities COMPARISON: Abdominal ultrasound January 2024 TECHNIQUE: Study performed with oral VoLumen (1350 mL) and 480 mL of water to distend the abdomen. The patient was injected with 85 mL Omnipaque 350 intravenous contrast which was administered without adverse effect. Coronal and sagittal reformatted images were obtained at the technologist's workstation. This CT examination was performed using dose optimization techniques as appropriate, variously including the following: *Automated exposure control *Adjustment of mA and/or kV according to patient size (this includes techniques or standardized protocols for targeted exams where dose is matched to indication/reason for exam; i.e. extremities or head) *Use of iterative reconstruction technique DLP 1074 mgy/cm FINDINGS: GASTROINTESTINAL FINDINGS: Stomach: Postsurgical changes from gastric bypass. Small intestine: There is mild dilatation of the small bowel at the small bowel anastomosis in the left upper quadrant. Apparent mild wall thickening of the distal afferent loop just proximal to the small bowel anastomosis for example axial image 93 series 3 probably due to underdistention. Small bowel is otherwise normal. Large intestine: Well-distended and normal in appearance. No perirectal changes demonstrated. The appendix is normal. Additional findings: No abnormal enhancement of the vasa recta or significant mesenteric or retroperitoneal lymphadenopathy is seen. No abdominal abscess or fistulous tract demonstrated. ABDOMINAL AND PELVIC CT FINDINGS: Liver, gallbladder, biliary tract: Normal liver. High attenuation dependently in the gallbladder questionable for small gallstones. Gallbladder otherwise normal. No biliary duct dilatation. Pancreas: Normal Spleen: Normal Adrenal glands and kidneys: Normal Ureters and bladder: Normal Lymphovascular structures: There are stents in the bilateral common and external iliac veins. There are pelvic varices. There is a prominent right ovarian vein. Bones: Degenerative changes of the spine. Small umbilical hernia containing fat. Lung bases: Lung bases are clear. CT/CT enterography IMPRESSION: Postsurgical changes following gastric bypass. Mild dilatation of small bowel at the small bowel anastomosis in the left upper quadrant. Apparent mild wall thickening of the distal afferent loop just proximal to the small bowel anastomosis probably due to underdistention. Small and large bowel otherwise normal. Stents in the bilateral common and external iliac veins. Pelvic varices and prominent right ovarian vein. Increased attenuation seen dependently in the gallbladder questionable for small gallstones. Assessment & Plan Assessment & Plan (1) Abdominal pain: Comment: 10/16/19 colonoscopy (Dr. Castro) -no mucosal abnormalities. Recommendations for repeat in 5 years. Code(s): R10.9 - Unspecified abdominal pain Category: Medical Qualifiers: Abdominal location: epigastric Qualified Code(s): R10.13 - Epigastric pain Plan: Persistent pain, abnormal imaging, and cholelithiasis warrant further GI and surgical evaluation to clarify etiology. Additional testing: - Repeat stool studies (assess ongoing GI inflammation d/t prior mild elevation). - Schedule repeat upper endoscopy and colonoscopy. - Repeat barium swallow to reassess hiatal hernia and r/o new structural changes). Medications: - Continue esomeprazole 40 mg qd. - Hold on empiric med changes until after endoscopic and swallow study findings. Lifestyle Recommendations: - Maintain small, frequent meals; avoid lying down after eating; hydration emphasized; advance fiber as tolerated. - Avoid foods/beverages precipitating sxs. - Provided written prep instructions for bowel regimen (Stephan). Referrals / Coordination of Care: - Refer to in-house general surgery for cholelithiasis management post-GI workup. - Notify doctor of nursing practice/pulmonology of planned procedures for procedural clearance. Follow-Up Plan: - Reassess after completion of EGD, colonoscopy, barium swallow, and stool testing?sooner PRN for worsening pain, vomiting, or new red flag symptoms. (2) Gallstones: Code(s): K80.20 - Calculus of gallbladder without cholecystitis without obstruction Category: Medical Plan: Persistent epigastric pain, N/V, no evidence of acute cholecystitis or biliary obstruction. No surgical intervention to date. Based on prior imaging. Plan as above (3) Constipation: Code(s): K59.00 - Constipation, unspecified Category: Medical Qualifiers: Constipation type: drug induced constipation Qualified Code(s): K59.03 - Drug induced constipation Plan: Persistent, small-volume, firm BMs, straining; Miralax poorly tolerated. Likely exacerbated by weight loss medication (GLP-1). Additional testing: - None at this time unless sxs worsen. Medications: - Start combo laxative/stool softener (2 tabs qHS); d/c Miralax. Lifestyle Recommendations: - Aim for high-fiber foods as tolerated, increase fluid intake. - Educational handout provided for bowel prep. Referrals / Coordination of Care: - None indicated prior to upcoming procedures unless sxs acutely worsen. Follow-Up Plan: - Revisit regimen at next GI f/u or sooner PRN for continued constipation or intolerance to new agent. (4) Dysphagia: Comment: 10/16/1961-[id number], no biopsy Code(s): R13.10 - Dysphagia, unspecified Category: Medical Qualifiers: Dysphagia type: unspecified Qualified Code(s): R13.10 - Dysphagia, unspecified Plan: Intermittent, with solid foods over past few weeks, pt post-gastric bypass; otherwise able to tolerate PO. Evaluate for stricture, anastomotic issues, or other post-bypass complications. Additional testing: - Schedule barium swallow, EGD as above. Medications: - No specific med at present. Lifestyle Recommendations: - Continue mushy foods; avoid dry, coarse solids if sxs recur. Referrals / Coordination of Care: - None at this time unless abnormal findings. Follow-Up Plan: - Review study findings; escalate to speech/GI surgeon as indicated. Plan Follow-up after endoscopy or sooner as needed Time: I spent a total of 45 minutes on the date of encounter which includes: Preparing to see the patient (reviewed previous documentation, test results and medical history) Performing a medically appropriate exam and/or evaluation Ordering medications, tests, and procedures Documenting clinical information in the health record Orders: Orders Calprotectin, Fecal Today R19.5 - Other fecal abnormalities [place] barium swallow Today K21.9 - Gastro-esophageal reflux disease without esophagitis, K44.9 - Diaphragmatic hernia without obstruction or gangrene, R13.10 - Dysphagia, unspecified Referrals GI Procedure Notification K21.9 - Gastro-esophageal reflux disease without esophagitis, R13.10 - Dysphagia, unspecified, Z12.11 - Encounter for screening for malignant neoplasm of colon General Surgery Referral K80.20 - Calculus of gallbladder without cholecystitis without obstruction Medications: New peg 3350-electrolytes 236-22.74-6.74 -5.86 gram until fecal effluent is clear 240 mL PO ONCE 4,000 mL 0RF bisacodyl Take per colonoscopy instructions 20 mg (4 x 5 mg) PO ONCE 4 tabs 0RF simethicone (Gas Relief (simethicone)) per colonoscopy prep instructions 500 mg (4 x 125 mg) PO ONCE 4 caps 0RF abdominal distention Coding Level of Care Code Established Pt Est Pt Level 5 (45467) Patient Type Established Diagnoses Epigastric pain R10.13 Abdominal location: epigastric Gallstones K80.20 Drug-induced constipation K59.03 Constipation type: drug induced constipation Dysphagia, unspecified type R13.10 Dysphagia type: unspecified
[2025-01-22 08:28] VITALS: BP 138/86; PULSE 78; O2SAT 97; BMI 60.9
== END 2025-01-22 09:01 | disposition home or self-care (01) ==
LOC: HO.HGI 08:11
PROVIDERS: Visit Provider Nurse Practitioner Family
DX: R10.13 Epigastric pain (principal); K80.20 Calculus of gallbladder without cholecystitis without obstruction; K59.03 Drug induced constipation; R13.10 Dysphagia, unspecified
CPT/HCPCS: 99215

== ENCOUNTER → 2025-01-22 08:10 | Outpatient (BNVA) | payer OTHER, SELFPAY | PROVIDERS: Visit Provider Nurse Practitioner Family | DX: R10.13 Epigastric pain (principal); R19.5 Other fecal abnormalities; K80.20 Calculus of gallbladder without cholecystitis without obstruction; R11.2 Nausea with vomiting, unspecified; Z98.84 Bariatric surgery status | CPT/HCPCS: 99212 ==

== ENCOUNTER 2025-03-06 09:04 | Outpatient (AMB) | payer OTHER, SELFPAY ==
[2025-03-06 09:20] VITALS: BP 123/60; PULSE 78; BMI 60.8
--- NOTE | 2025-03-06 09:20 | A.OFFVIS_ITS ---
Vital Signs 03/06/25 09:20 Height 5 ft 4 in Weight 354 lb BMI 60.8 BP 123/60 Blood Pressure Location Rt radial Position Sitting Pulse 78 Intake Visit Reasons: Calculus of gallbladder Intake Note: Patient referred by Alyssa Liriano CNP for evaluation and treatment of Calculus of gallbladder. Patient c/o: on and off pain on LUQ. C/o constant nausea. Imaging: Enterography CT~ 01-15-2025 of note [facility] imaging reports to be reviewed Skiver Hand Required: No Accompanied by: APPLICATION ARCHITECT MANAGER Demetria Allergies doxycycline Allergy (Intermediate, Verified 01/22/25 08:19) Rash latex (LATEX) Allergy (Mild, Verified 01/22/25 08:19) RASH Medication List - Last Reconciled 03/06/25 by Artemio Car MD albuterol sulfate 2.5 mg (3 mL) inhalation Q6H PRN 30 days albuterol sulfate 90 mcg/actuation (Ventolin HFA) 2 puffs PO Q6H PRN ascorbic acid (vitamin C) 500 mg PO BID atorvastatin 20 mg PO DAILY bisacodyl 20 mg (4 x 5 mg) PO ONCE budesonide-formoterol 160-4.5 mcg/actuation (Symbicort) 2 puffs inhalation BID carboxymethylcellulose-glycern 0.5-0.9 % 1 drp ophthalmic (eye) QID cetirizine 10 mg PO DAILY clonazepam 0.25 - 0.5 mg PO DAILY PRN duloxetine 60 mg PO BEDTIME ergocalciferol (vitamin D2) 1,250 mcg PO WE@2100 esomeprazole magnesium 40 mg PO DAILY ferrous sulfate 325 mg PO Q48H fluticasone propionate 50 mcg/actuation 1 spray intranasal DAILY gabapentin 800 mg PO TID hydrochlorothiazide 50 mg PO DAILY hydroxyzine HCl 25 mg PO QID PRN metformin 500 mg PO BID metoprolol succinate ER 50 mg PO DAILY nystatin 1 appl topical BID PRN ondansetron HCl 4 mg PO DAILY PRN peg 3350-electrolytes 236-22.74-6.74 -5.86 gram 240 mL PO ONCE roflumilast 500 mcg PO BEDTIME simethicone (Gas Relief (simethicone)) 500 mg (4 x 125 mg) PO ONCE thiamine HCl (vitamin B1) 100 mg PO DAILY tirzepatide (weight loss) (Zepbound) mg subcut QWEEK triamcinolone acetonide 0.025% 1 appl topical BID PRN vitamin A palmitate 10,000 units PO DAILY vitamin E (dl, acetate) 180 mg PO BID warfarin mg PO HPI Comments Details: 49-year-old lady with super morbid obesity who has a remote history of a hand assisted gastric bypass procedure by Dr. Juanito Sadler comes in today because problems with left upper quadrant abdominal pain. She reports the pain is episodic in nature and is more related to movement then eating or anything else. She has had innumerable studies of her abdomen including even a CT enterography. It was indicative of uncomplicated cholelithiasis. She is here for consideration of cholecystectomy. [facility] Medical History Constipation Dysphagia Gallstones Colon cancer screening Diarrhea Abnormal serum thyroid stimulating hormone (TSH) level Fibromyalgia Insomnia Hyperlipidemia Hypertension Non-insulin dependent type 2 diabetes mellitus Knee pain Iliac vein stenosis, left Iliac vein stenosis, right Asthma SINDHU (obstructive sleep apnea) Chest pain Chest pain Obesity SINDHU (obstructive sleep apnea) Constipation by delayed colonic transit GERD (gastroesophageal reflux disease) Asthma Dyspnea DVT (deep venous thrombosis) Pulmonary emboli SINDHU (obstructive sleep apnea) PFO (patent foramen ovale) Surgical History History of tubal ligation Hx of section History of esophagogastroduodenoscopy (EGD) H/O colonoscopy Hx of gastric bypass Family History Daughter Asthma Mother Asthma Father Asthma Social History Household Members: Family and Children Household Members Other:: grandkids, daughters Housing: House Do you presently have visiting nurse or other home services: No Alcohol intake: former Patient Tobacco Use Status: Former Tobacco user service: No Review of Systems Const All systems reviewed & are unremarkable except as noted in HPI and below Physical Exam Vital Signs: Last Vital Signs Pulse 78 03/06/25 09:20 BP 123/60 03/06/25 09:20 BMI result Body Mass Index 60.8 Const Other: Very large debilitated. Difficulty just moving herself. Ambulation a challenge. Can only walk for short distance at a time. She reports this is ?because I get tired?. General: cooperative and no acute distress Nutritional Appearance: obese morbidly obese HEENT Head: Yes normal to inspection, Yes normocephalic and Yes atraumatic Eyes General: appearance normal, both eyes and all related structures Neck Neck: Yes normal visual inspection Chest Chest palpation & inspection: normal inspection of the chest Resp Other: Breathing somewhat labored she reports this is normal for her. GI Other: Enormous super morbidly obese abdomen with a large hanging pannicular draped. She has a truncated epigastric midline scar consistent with Dr. Sadler is a hand assisted gastric bypass procedure. She locates the region of the most of her discomfort in the left side of her abdomen. She does admit to occasional epigastric pain. She has no pain in her scar. She denies any overt fevers chills nausea or vomiting. She reports that she can eat ?anything?. Extrem General: Yes normal to inspection Assessment & Plan Assessment & Plan (1) Abdominal pain: Comment: 10/16/19 colonoscopy (Dr. Castro) -no mucosal abnormalities. Recommendations for repeat in 5 years. Code(s): R10.9 - Unspecified abdominal pain Category: Medical Qualifiers: Abdominal location: epigastric Qualified Code(s): R10.13 - Epigastric pain Plan: I told the patient of presentation was consistent when unspecified abdominal pain after a remote gastric bypass where she has regained the majority of her weight if not all of it in the presence of cholelithiasis. I told her that she needed to reconnect with a multidisciplinary weight loss program and lose substantial amounts of weight before any elective abdominal surgery would be considered. She indicated that she understood. She asked what exactly this meant. I told her essentially dietary counseling and asked her to forego any dietary tourism. I discussed with her a low-fat, low dairy diet. She is very surprised. ?Does that mean I can not even have cookies?? I told her it most definitely included a ban on cookies. I also told her that any surgery for her gallbladder would not address her left-sided abdominal pain. She then told me that she has a appointment with Dr. Jean-Baptiste in 2 weeks to pursue possible abdominal surgery for weight control and pain management. I encouraged her to monitor her diet, keep a food log, forego fatty and sugary foods and follow up with Dr. Arnold at [facility] which was where she had her gastric bypass many years ago. She said she was happy with that plan. Coding Level of Care Code New Pt Level 3 (67301) Diagnoses Epigastric pain R10.13 Abdominal location: epigastric Time Spent (min) 30 Comment Patient visit record review and coordination of care time
== END 2025-03-06 09:44 | disposition home or self-care (01) ==
LOC: HO.HGS 09:04
PROVIDERS: PCP Student in an Organized Health Care Education/Training Program; Referring Provider Nurse Practitioner Family; Visit Provider Surgery
DX: R10.13 Epigastric pain (principal)
CPT/HCPCS: 99203

== ENCOUNTER → 2025-03-06 09:04 | Outpatient (BNVA) | payer OTHER, SELFPAY | PROVIDERS: PCP Student in an Organized Health Care Education/Training Program; Referring Provider Nurse Practitioner Family; Visit Provider Surgery | DX: R10.13 Epigastric pain (principal); Z98.84 Bariatric surgery status | CPT/HCPCS: 99202 ==